=== PATIENT | female | born 1955 | race Caucasian/White ===

== ENCOUNTER 2016-04-22 09:52 | Outpatient (RCR) | payer OTHER ==
[~2016-04-22 09:52] MED LIST: ACET-2267 PO; ACHD5005 PO; AML2.5T; AML5T; AMLO5TAB2 PO; CEPH500C PO; GABA-488 PO; GBPN300C PO; LETR2.5T4 PO; NAPR-243 PO; ONDA-42 SL; ONDA8TAB6 PO; ONDA8TAB9 PO; PNT40TEC PO; PROP1TAB77 PO; TAMO20TA2 PO; THYROID 90 MG; TMXF10T PO; TRAM-21 PO; VENL150C PO
[2016-04-22 10:14] LABS: BASOPHILS % (AUTO) 0 % (0-10); EOSINOPHILS % (AUTO) 0 % (0-10); LYMPHOCYTES # (AUTO) 1.5 X 10^3 (1.0-4.0); LYMPHOCYTES % (AUTO) 34 % (12-44); MEAN CORPUSCULAR HEMOGLOBIN 32 PG (25-34); MEAN CORPUSCULAR HGB CONC 34 G/DL (32-36); MEAN CORPUSCULAR VOLUME 93 FL (80-99); MEAN PLATELET VOLUME 9.1 FL (7.4-10.4); MONOCYTES # (AUTO) 0.4 X 10^3 (0.0-1.0); MONOCYTES % (AUTO) 9 % (0-12); NEUTROPHILS # (AUTO) 2.5 X 10^3 (1.8-7.8); NEUTROPHILS % (AUTO) 56 % (42-75); PLATELET COUNT 190 10^3/uL (130-400); RED BLOOD COUNT 4.17 10^6/uL (4.35-5.85); RED CELL DISTRIBUTION WIDTH 12.3 % (10.0-14.5); WHITE BLOOD COUNT 4.4 10^3/uL (4.3-11.0)
[2016-04-22 10:52] LABS: ALANINE AMINOTRANSFERASE 17 U/L (0-55); ALBUMIN 4.3 G/DL (3.2-4.5); ANION GAP 6 MMOL/L (5-14); ASPARTATE AMINO TRANSFERASE 26 U/L (5-34); BILIRUBIN,TOTAL 0.5 MG/DL (0.1-1.0); BLOOD UREA NITROGEN 14 MG/DL (7-18); BUN/CREATININE RATIO 18; CALCIUM 8.9 MG/DL (8.5-10.1); CARBON DIOXIDE 26 MMOL/L (21-32); CHLORIDE 102 MMOL/L (98-107); GFR ESTIMATED > 60; GLUCOSE 87 MG/DL (70-105); POTASSIUM 3.9 MMOL/L (3.6-5.0); SODIUM 134 MMOL/L (135-145); TOTAL PROTEIN 6.3 G/DL (6.4-8.2)
== END 2016-07-21 | disposition home or self-care (01) ==
LOC: ONC 09:52
PROVIDERS: ATTEND Internal Medicine Hematology & Oncology
DX: Z08 Encounter for follow-up examination after completed treatment for malignant neoplasm (principal); Z85.3 Personal history of malignant neoplasm of breast; F17.210 Nicotine dependence, cigarettes, uncomplicated; M89.9 Disorder of bone, unspecified; Z92.3 Personal history of irradiation; Z92.21 Personal history of antineoplastic chemotherapy; Z79.899 Other long term (current) drug therapy
CPT/HCPCS: 36415; 80053; 85025

== ENCOUNTER → 2016-09-05 | Outpatient (CLI) | payer OTHER ==
[~2016-09-05] MED LIST changes: +RT-ALBUTEROL SULF 2.5 MG/3 ML PRE-MIX VIAL IH ONE
== END ==
LOC: RT 15:23
PROVIDERS: ATTEND Internal Medicine
DX: J44.9 Chronic obstructive pulmonary disease, unspecified (principal)
CPT/HCPCS: 94060; 94640; 94726; 94729

== ENCOUNTER → 2016-12-08 | Outpatient (CLI) | payer OTHER ==
[~2016-12-08] MED LIST changes: -RT-ALBUTEROL SULF 2.5 MG/3 ML PRE-MIX VIAL IH ONE
== END ==
LOC: RAD 11:49
PROVIDERS: ATTEND Family Medicine
DX: Z12.31 Encounter for screening mammogram for malignant neoplasm of breast (principal)
CPT/HCPCS: 77067

== ENCOUNTER 2017-01-29 13:02 | Outpatient (RCR) | payer OTHER ==
[2017-01-29 13:17] LABS: BASOPHILS % (AUTO) 1 % (0-10); EOSINOPHILS % (AUTO) 0 % (0-10); LYMPHOCYTES # (AUTO) 1.4 X 10^3 (1.0-4.0); LYMPHOCYTES % (AUTO) 39 % (12-44); MEAN CORPUSCULAR HEMOGLOBIN 30 PG (25-34); MEAN CORPUSCULAR HGB CONC 34 G/DL (32-36); MEAN CORPUSCULAR VOLUME 89 FL (80-99); MEAN PLATELET VOLUME 9.7 FL (7.4-10.4); MONOCYTES # (AUTO) 0.3 X 10^3 (0.0-1.0); MONOCYTES % (AUTO) 10 % (0-12); NEUTROPHILS # (AUTO) 1.8 X 10^3 (1.8-7.8); NEUTROPHILS % (AUTO) 51 % (42-75); PLATELET COUNT 158 10^3/uL (130-400); RED BLOOD COUNT 4.18 10^6/uL (4.35-5.85); WHITE BLOOD COUNT 3.5 10^3/uL (4.3-11.0)
[2017-01-29 13:36] LABS: ALBUMIN 4.2 GM/DL (3.2-4.5); BILIRUBIN,TOTAL 0.4 MG/DL (0.1-1.0); CALCIUM 9.1 MG/DL (8.5-10.1); CREATININE SERUM 1.08 MG/DL (0.60-1.30); POTASSIUM 4.1 MMOL/L (3.6-5.0); TOTAL PROTEIN 6.8 GM/DL (6.4-8.2)
== END 2017-02-14 | disposition home or self-care (01) ==
LOC: ONC 13:02
PROVIDERS: ATTEND Internal Medicine Hematology & Oncology
DX: Z08 Encounter for follow-up examination after completed treatment for malignant neoplasm (principal); Z85.3 Personal history of malignant neoplasm of breast; F17.210 Nicotine dependence, cigarettes, uncomplicated; M89.9 Disorder of bone, unspecified; Z92.3 Personal history of irradiation; Z92.21 Personal history of antineoplastic chemotherapy; Z79.899 Other long term (current) drug therapy
CPT/HCPCS: 36415; 80053; 85025; 99213

== ENCOUNTER → 2018-01-28 | Outpatient (CLI) | payer SELFPAY | LOC: ONC 15:41 | PROVIDERS: ATTEND Internal Medicine Hematology & Oncology | DX: Z08 Encounter for follow-up examination after completed treatment for malignant neoplasm (principal); Z85.3 Personal history of malignant neoplasm of breast; F17.210 Nicotine dependence, cigarettes, uncomplicated; M89.9 Disorder of bone, unspecified; Z92.3 Personal history of irradiation; Z92.21 Personal history of antineoplastic chemotherapy; Z79.899 Other long term (current) drug therapy | CPT/HCPCS: 99213 ==

== ENCOUNTER 2018-05-27 08:12 | Emergency (ER) | payer SELFPAY ==
[~2018-05-27] VITALS: Ht 162.6 cm; Wt 59.0 kg
--- OUTSIDE RECORDS SUMMARY | 2018-05-27 08:17 | XMS REPORT ---
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 [employer] Name Role Phone YADIEL VILLAREAL Unavailable PROBLEMS Unknown Problems ALLERGIES Substance Reaction Event Type Date Status Codeine Sulfate nausea/vomiting Drug Allergy Jan, Active ENCOUNTERS Encounter Location Date Diagnosis [facility] [id number] [place] [phone] Jan, Impacted cerumen of right ear H61.21 [place] [id number] [place] [phone] Nov, Well woman exam (no gynecological exam) Z00.00 [facility] [id number] [place] [phone] Oct, Well woman exam with routine gynecological exam Z01.419 and Breast cancer screening Z12.39 IMMUNIZATIONS No Known Immunizations SOCIAL HISTORY Never Assessed REASON FOR VISIT right earache for the past 2 days. [email or web address] PLAN OF CARE Activity Details Follow Up prn Reason: VITAL SIGNS Height 64 in 2018-02-13 Weight 134.0 lbs 2018-02-13 Temperature 97.9 degrees Fahrenheit 2018-02-13 Heart Rate 82 bpm 2018-02-13 Respiratory Rate 20 2018-02-13 BMI 23.00 kg/m2 2018-02-13 Blood pressure systolic 100 mmHg 2018-02-13 Blood pressure diastolic 62 mmHg 2018-02-13 MEDICATIONS Medication Instructions Dosage Frequency Start Date End Date Duration Status Effexor XR 150 MG Orally Once a day 1 capsule with food 24h Active Amlodipine Besylate 10 MG Orally Once a day 1 tablet 24h Active Gabapentin 300 MG Orally in the morning 1 capsule in afternoon & 3 before bedtime 3 capsule Active Naprosyn 500 MG Orally every 12 hrs 1 tablet as needed 12h Active Pantoprazole Sodium 20 mg Orally Once a day 1 tablet 24h Active RESULTS No Results PROCEDURES No Known procedures INSTRUCTIONS MEDICATIONS ADMINISTERED No Known Medications MEDICAL (GENERAL) HISTORY Type Description Date Medical History Hypertension Medical History Osteoarthritis Medical History 2008 hx of right breast cancer Surgical History cyst removal left ovary Surgical History Right breast lumpectomy
--- OUTSIDE RECORDS SUMMARY | 2018-05-27 08:20 | XMS REPORT | Continuity of Care Document ---
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 625.9 FEM GENITAL SYMPTOMS NOS 02/04/2016 Ot 174.9 MALIGN NEOPL BREAST NOS 02/04/2016 Ot 305.1 TOBACCO USE DISORDER 02/04/2016 Ot 782.62 FLUSHING 02/04/2016 Ot V15.3 HX OF IRRADIATION 02/04/2016 Ot V58.69 OTH MED,LT, CURRENT USE 02/04/2016 Ot V86.0 ESTROGEN RECEPTOR POSITIVE STATUS [ER+] 02/04/2016 Ot V87.41 PERSONAL HISTORY OF ANTINEOPLASTIC CHEMO 02/04/2016 Ot 174.9 MALIGN NEOPL BREAST NOS 02/04/2016 Ot 782.62 FLUSHING 02/04/2016 Ot V15.3 HX OF IRRADIATION 02/04/2016 Ot V58.69 OTH MED,LT, CURRENT USE 02/04/2016 Ot V86.0 ESTROGEN RECEPTOR POSITIVE STATUS [ER+] 02/04/2016 Ot V87.41 PERSONAL HISTORY OF ANTINEOPLASTIC CHEMO 02/04/2016 Ot 174.9 MALIGN NEOPL BREAST NOS 02/04/2016 Ot 793.89 OTH (ABN) FINDINGS ON RADIOLOGICAL EXAMI 02/04/2016 Ot V49.81 ASYMPT POSTMENOPAUSAL STATUS (AGE-RELATE 02/04/2016 Ot V76.11 SCRN MAMMO- HIGH RISK PT, MALIGNANT NEOPL 02/04/2016 Ot 174.9 MALIGN NEOPL BREAST NOS 02/04/2016 Ot 174.9 MALIGN NEOPL BREAST NOS 02/04/2016 Ot 793.80 UNSPEC ABNORMAL MAMMOGRAM 02/04/2016 Ot 174.9 MALIGN NEOPL BREAST NOS 02/04/2016 ABBI MEEHAN Ot F17.210 NICOTINE DEPENDENCE, CIGARETTES, UNCOMPL 02/04/2016 ABBI MEEHAN Ot M89.9 DISORDER OF BONE, UNSPECIFIED 02/04/2016 ABBI MEEHAN Ot Z08 ENCNTR FOR FOLLOW-UP EXAM AFTER TRTMT FO 02/04/2016 ABBI MEEHAN Ot 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 02/04/2016 ABBI MEEHAN Ot Z85.3 PERSONAL HISTORY OF MALIGNANT NEOPLASM O 02/04/2016 ABBI MEEHAN Ot Z92.21 PERSONAL HISTORY OF ANTINEOPLASTIC CHEMO 02/04/2016 ABBI MEEHAN Ot Z92.3 PERSONAL HISTORY OF IRRADIATION 02/04/2016 Ot 625.9 FEM GENITAL SYMPTOMS NOS 02/04/2016 Ot 174.9 MALIGN NEOPL BREAST NOS 02/04/2016 Ot 305.1 TOBACCO USE DISORDER 02/04/2016 Ot 782.62 FLUSHING 02/04/2016 Ot V15.3 HX OF IRRADIATION 02/04/2016 Ot V58.69 OTH MED,LT, CURRENT USE 02/04/2016 Ot V86.0 ESTROGEN RECEPTOR POSITIVE STATUS [ER+] 02/04/2016 Ot V87.41 PERSONAL HISTORY OF ANTINEOPLASTIC CHEMO 02/04/2016 Ot 174.9 MALIGN NEOPL BREAST NOS 02/04/2016 Ot 782.62 FLUSHING 02/04/2016 Ot V15.3 HX OF IRRADIATION 02/04/2016 Ot V58.69 OTH MED,LT, CURRENT USE 02/04/2016 Ot V86.0 ESTROGEN RECEPTOR POSITIVE STATUS [ER+] 02/04/2016 Ot V87.41 PERSONAL HISTORY OF ANTINEOPLASTIC CHEMO 02/04/2016 Ot 174.9 MALIGN NEOPL BREAST NOS 02/04/2016 Ot 793.89 OTH (ABN) FINDINGS ON RADIOLOGICAL EXAMI 02/04/2016 Ot V49.81 ASYMPT POSTMENOPAUSAL STATUS (AGE-RELATE 02/04/2016 Ot V76.11 SCRN MAMMO- HIGH RISK PT, MALIGNANT NEOPL 02/04/2016 Ot 174.9 MALIGN NEOPL BREAST NOS 02/04/2016 Ot 174.9 MALIGN NEOPL BREAST NOS 02/04/2016 Ot 793.80 UNSPEC ABNORMAL MAMMOGRAM 02/04/2016 Ot 174.9 MALIGN NEOPL BREAST NOS 02/04/2016 ZORANABBI Ot F17.210 NICOTINE DEPENDENCE, CIGARETTES, UNCOMPL 02/04/2016 ABBI MEEHAN Ot M89.9 DISORDER OF BONE, UNSPECIFIED 02/04/2016 ABBI MEEHAN Ot Z08 ENCNTR FOR FOLLOW-UP EXAM AFTER TRTMT FO 02/04/2016 ABBI MEEHAN Ot 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 02/04/2016 ABBI MEEHAN Ot Z85.3 PERSONAL HISTORY OF MALIGNANT NEOPLASM O 02/04/2016 ABBI MEEHAN Ot Z92.21 PERSONAL HISTORY OF ANTINEOPLASTIC CHEMO 02/04/2016 ABBI MEEHAN Ot Z92.3 PERSONAL HISTORY OF IRRADIATION 02/05/2016 MARV PANTOJA Ot C50.411 MALIG NEOPLM OF UPPER-OUTER QUADRANT OF 02/05/2016 MARV PANTOJA Ot M25.551 PAIN IN RIGHT HIP 02/18/2016 Ot 611.72 LUMP OR MASS IN BREAST 02/18/2016 Ot 793.80 UNSPEC ABNORMAL MAMMOGRAM 02/18/2016 Ot V10.3 HX OF BREAST MALIGNANCY 02/18/2016 Ot 729.5 PAIN IN LIMB 02/18/2016 Ot 174.9 MALIGN NEOPL BREAST NOS 02/18/2016 Ot 305.1 TOBACCO USE DISORDER 02/18/2016 Ot 719.40 JOINT PAIN- UNSPEC 02/18/2016 Ot 733.90 BONE CARTILAGE DIS NOS 02/18/2016 Ot V15.3 HX OF IRRADIATION 02/18/2016 Ot V58.69 OTH MED,LT, CURRENT USE 02/18/2016 Ot V86.0 ESTROGEN RECEPTOR POSITIVE STATUS [ER+] 02/18/2016 Ot V87.41 PERSONAL HISTORY OF ANTINEOPLASTIC CHEMO 02/18/2016 Ot 174.9 MALIGN NEOPL BREAST NOS 02/18/2016 PANTOJA, HILAH S FURNITURE FINISHER APPRENTICE Ot 174.9 MALIGN NEOPL BREAST NOS 02/18/2016 MARV PANTOJA FURNITURE FINISHER APPRENTICE Ot 305.1 TOBACCO USE DISORDER 02/18/2016 MARV PANTOJA FURNITURE FINISHER APPRENTICE Ot 719.45 JOINT PAIN-PELVIS 02/18/2016 MARV PANTOJA FURNITURE FINISHER APPRENTICE Ot 780.79 OTH MALAISE FATIGUE 02/18/2016 MARV PANTOJA FURNITURE FINISHER APPRENTICE Ot 782.62 FLUSHING 02/18/2016 MARV PANTOJA FURNITURE FINISHER APPRENTICE Ot V15.3 HX OF IRRADIATION 02/18/2016 MARV PANTOJA FURNITURE FINISHER APPRENTICE Ot V58.69 OTH MED,LT,CURRENT USE 02/18/2016 MARV PANTOJA FURNITURE FINISHER APPRENTICE Ot V86.0 ESTROGEN RECEPTOR POSITIVE STATUS [ER+] 02/18/2016 MARV PANTOJA FURNITURE FINISHER APPRENTICE Ot V87.41 PERSONAL HISTORY OF ANTINEOPLASTIC CHEMO 02/18/2016 MARV PANTOJA FURNITURE FINISHER APPRENTICE Ot 174.9 MALIGN NEOPL BREAST NOS 02/18/2016 MARV PANTOJA FURNITURE FINISHER APPRENTICE Ot 719.45 JOINT PAIN-PELVIS 02/18/2016 ZORANABBI N Ot 174.9 MALIGN NEOPL BREAST NOS 02/18/2016 ZORANABBI N Ot 793.89 OTH (ABN) FINDINGS ON RADIOLOGICAL EXAMI 02/18/2016 MARV PANTOJA FURNITURE FINISHER APPRENTICE Ot 174.9 MALIGN NEOPL BREAST NOS 02/18/2016 MARV PANTOJA FURNITURE FINISHER APPRENTICE Ot 305.1 TOBACCO USE DISORDER 02/18/2016 MARV PANTOJA FURNITURE FINISHER APPRENTICE Ot 733.90 BONE CARTILAGE DIS NOS 02/18/2016 MARV PANTOJA FURNITURE FINISHER APPRENTICE Ot V15.3 HX OF IRRADIATION 02/18/2016 MARV PANTOJA FURNITURE FINISHER APPRENTICE Ot V58.69 OTH MED,LT,CURRENT USE 02/18/2016 MARV PANTOJA FURNITURE FINISHER APPRENTICE Ot V86.0 ESTROGEN RECEPTOR POSITIVE STATUS [ER+] 02/18/2016 MARV PANTOJA FURNITURE FINISHER APPRENTICE Ot V87.41 PERSONAL HISTORY OF ANTINEOPLASTIC CHEMO 02/18/2016 MARV PANTOJA FURNITURE FINISHER APPRENTICE Ot 174.9 MALIGN NEOPL BREAST NOS 02/18/2016 MARV PANTOJAP Ot V49.81 ASYMPT POSTMENOPAUSAL STATUS (AGE-RELATE 02/18/2016 MARV PANTOJA FURNITURE FINISHER APPRENTICE Ot V67.51 F/U EXAM-HIGH RISK RX 02/18/2016 MARV PANTOJAP Ot V82.81 SCREENING FOR OSTEOPOROSIS 02/18/2016 ABBI MEEHAN Marie Ot 174.9 MALIGN NEOPL BREAST NOS 02/18/2016 ABBI MEEHAN Ot F17.210 NICOTINE DEPENDENCE, CIGARETTES, UNCOMPL 02/18/2016 ABBI MEEHAN Ot M89.9 DISORDER OF BONE, UNSPECIFIED 02/18/2016 ABBI MEEHAN Ot Z08 ENCNTR FOR FOLLOW-UP EXAM AFTER TRTMT FO 02/18/2016 ABBI MEEHAN Ot Z79.899 OTHER SENIOR LIVING (CURRENT) DRUG THERAPY 02/18/2016 ABBI MEEHAN Ot Z85.3 PERSONAL HISTORY OF MALIGNANT NEOPLASM O 02/18/2016 ABBI MEEHAN Ot Z92.21 PERSONAL HISTORY OF ANTINEOPLASTIC CHEMO 02/18/2016 ABBI MEEHAN Marie Ot Z92.3 PERSONAL HISTORY OF IRRADIATION 02/18/2016 Ot 719.00 JOINT EFFUSION-UNSPEC 02/18/2016 Ot 719.40 JOINT PAIN- UNSPEC 02/18/2016 MARV PANTOJA FURNITURE FINISHER APPRENTICE Ot 174.9 MALIGN NEOPL BREAST NOS 02/18/2016 MARV PANTOJAP Ot 305.1 TOBACCO USE DISORDER 02/18/2016 MARV PANTOJAP Ot 733.90 BONE CARTILAGE DIS NOS 02/18/2016 MARV PANTOJAP Ot V15.3 HX OF IRRADIATION 02/18/2016 MARV PANTOJAP Ot V58.69 OTH MED,LT,CURRENT USE 02/18/2016 MARV PANTOJA FURNITURE FINISHER APPRENTICE Ot V86.0 ESTROGEN RECEPTOR POSITIVE STATUS [ER+] 02/18/2016 MARV PANTOJA FURNITURE FINISHER APPRENTICE Ot V87.41 PERSONAL HISTORY OF ANTINEOPLASTIC CHEMO 02/18/2016 AGUILAR ECHEVARRIAP Ot Z12.31 ENCNTR SCREEN MAMMOGRAM FOR MALIGNANT NE 02/20/2016 MARV PANTOJA FURNITURE FINISHER APPRENTICE Ot C50.411 MALIG NEOPLM OF UPPER-OUTER QUADRANT OF 02/20/2016 MARV PANTOJA FURNITURE FINISHER APPRENTICE Ot R93.7 ABNORMAL FINDINGS ON DIAGNOSTIC IMAGING 02/26/2016 Ot 611.72 LUMP OR MASS IN BREAST 02/26/2016 Ot 793.80 UNSPEC ABNORMAL MAMMOGRAM 02/26/2016 Ot V10.3 HX OF BREAST MALIGNANCY 02/26/2016 Ot 729.5 PAIN IN LIMB 02/26/2016 Ot 174.9 MALIGN NEOPL BREAST NOS 02/26/2016 Ot 305.1 TOBACCO USE DISORDER 02/26/2016 Ot 719.40 JOINT PAIN- UNSPEC 02/26/2016 Ot 733.90 BONE CARTILAGE DIS NOS 02/26/2016 Ot V15.3 HX OF IRRADIATION 02/26/2016 Ot V58.69 OTH MED,LT, CURRENT USE 02/26/2016 Ot V86.0 ESTROGEN RECEPTOR POSITIVE STATUS [ER+] 02/26/2016 Ot V87.41 PERSONAL HISTORY OF ANTINEOPLASTIC CHEMO 02/26/2016 Ot 174.9 MALIGN NEOPL BREAST NOS 02/26/2016 MARV PANTOJA FURNITURE FINISHER APPRENTICE Ot 174.9 MALIGN NEOPL BREAST NOS 02/26/2016 MARV PANTOJA FURNITURE FINISHER APPRENTICE Ot 305.1 TOBACCO USE DISORDER 02/26/2016 MARV PANTOJA FURNITURE FINISHER APPRENTICE Ot 719.45 JOINT PAIN-PELVIS 02/26/2016 MARV PANTOJA FURNITURE FINISHER APPRENTICE Ot 780.79 OTH MALAISE FATIGUE 02/26/2016 MARV PANTOJA FURNITURE FINISHER APPRENTICE Ot 782.62 FLUSHING 02/26/2016 MARV PANTOJA FURNITURE FINISHER APPRENTICE Ot V15.3 HX OF IRRADIATION 02/26/2016 MARV PANTOJAP Ot V58.69 OTH MED,LT,CURRENT USE 02/26/2016 MARV PANTOJA FURNITURE FINISHER APPRENTICE Ot V86.0 ESTROGEN RECEPTOR POSITIVE STATUS [ER+] 02/26/2016 MARV PANTOJA FURNITURE FINISHER APPRENTICE Ot V87.41 PERSONAL HISTORY OF ANTINEOPLASTIC CHEMO 02/26/2016 MARV PANTOJA FURNITURE FINISHER APPRENTICE Ot 174.9 MALIGN NEOPL BREAST NOS 02/26/2016 MARV PANTOJA FURNITURE FINISHER APPRENTICE Ot 719.45 JOINT PAIN-PELVIS 02/26/2016 ABBI MEEHAN Ot 174.9 MALIGN NEOPL BREAST NOS 02/26/2016 ABBI MEEHAN Ot 793.89 OTH (ABN) FINDINGS ON RADIOLOGICAL EXAMI 02/26/2016 MARV PANTOJA FURNITURE FINISHER APPRENTICE Ot 174.9 MALIGN NEOPL BREAST NOS 02/26/2016 MARV PANTOJA FURNITURE FINISHER APPRENTICE Ot 305.1 TOBACCO USE DISORDER 02/26/2016 MARV PANTOJA FURNITURE FINISHER APPRENTICE Ot 733.90 BONE CARTILAGE DIS NOS 02/26/2016 MARV PANTOJA FURNITURE FINISHER APPRENTICE Ot V15.3 HX OF IRRADIATION 02/26/2016 MARV PANTOJAP Ot V58.69 OTH MED,LT,CURRENT USE 02/26/2016 MARV PANTOJAP Ot V86.0 ESTROGEN RECEPTOR POSITIVE STATUS [ER+] 02/26/2016 MARV PANTOJA FURNITURE FINISHER APPRENTICE Ot V87.41 PERSONAL HISTORY OF ANTINEOPLASTIC CHEMO 02/26/2016 MARV PANTOJA FURNITURE FINISHER APPRENTICE Ot 174.9 MALIGN NEOPL BREAST NOS 02/26/2016 MARV PANTOJAP Ot V49.81 ASYMPT POSTMENOPAUSAL STATUS (AGE-RELATE 02/26/2016 MARV PANTOJA FURNITURE FINISHER APPRENTICE Ot V67.51 F/U EXAM-HIGH RISK RX 02/26/2016 MARV PANTOJAP Ot V82.81 SCREENING FOR OSTEOPOROSIS 02/26/2016 ABBI MEEHAN Ot 174.9 MALIGN NEOPL BREAST NOS 02/26/2016 ABBI MEEHAN Ot F17.210 NICOTINE DEPENDENCE, CIGARETTES, UNCOMPL 02/26/2016 ABBI MEEHAN Ot M89.9 DISORDER OF BONE, UNSPECIFIED 02/26/2016 ABBI MEEHAN Ot Z08 ENCNTR FOR FOLLOW-UP EXAM AFTER TRTMT FO 02/26/2016 ABBI MEEHAN Ot 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 02/26/2016 ABBI MEEHAN Ot Z85.3 PERSONAL HISTORY OF MALIGNANT NEOPLASM O 02/26/2016 ABBI MEEHAN Ot Z92.21 PERSONAL HISTORY OF ANTINEOPLASTIC CHEMO 02/26/2016 ABBI MEEHAN Ot Z92.3 PERSONAL HISTORY OF IRRADIATION 02/26/2016 Ot 719.00 JOINT EFFUSION-UNSPEC 02/26/2016 Ot 719.40 JOINT PAIN- UNSPEC 02/26/2016 MARV PANTOJA FURNITURE FINISHER APPRENTICE Ot 174.9 MALIGN NEOPL BREAST NOS 02/26/2016 MARV PANTOJA FURNITURE FINISHER APPRENTICE Ot 305.1 TOBACCO USE DISORDER 02/26/2016 MARV PANTOJA FURNITURE FINISHER APPRENTICE Ot 733.90 BONE CARTILAGE DIS NOS 02/26/2016 MARV PANTOJA FURNITURE FINISHER APPRENTICE Ot V15.3 HX OF IRRADIATION 02/26/2016 MARV PANTOJA FURNITURE FINISHER APPRENTICE Ot V58.69 OTH MED,LT,CURRENT USE 02/26/2016 MARV PANTOJA FURNITURE FINISHER APPRENTICE Ot V86.0 ESTROGEN RECEPTOR POSITIVE STATUS [ER+] 02/26/2016 MARV PANTOJA FURNITURE FINISHER APPRENTICE Ot V87.41 PERSONAL HISTORY OF ANTINEOPLASTIC CHEMO 02/26/2016 AGUILAR ECHEVARRIA PAVER OPERATOR Ot Z12.31 ENCNTR SCREEN MAMMOGRAM FOR MALIGNANT NE 02/26/2016 MARV PANTOJA FURNITURE FINISHER APPRENTICE Ot C50.411 MALIG NEOPLM OF UPPER-OUTER QUADRANT OF 02/26/2016 MARV PANTOJA FURNITURE FINISHER APPRENTICE Ot R93.7 ABNORMAL FINDINGS ON DIAGNOSTIC IMAGING 02/26/2016 MARV PANTOJA FURNITURE FINISHER APPRENTICE Ot C50.411 MALIG NEOPLM OF UPPER-OUTER QUADRANT OF 02/26/2016 MARV PANTOJA FURNITURE FINISHER APPRENTICE Ot M25.551 PAIN IN RIGHT HIP 02/27/2016 PANTOJAMARV Mcallister FURNITURE FINISHER APPRENTICE Ot C50.411 MALIG NEOPLM OF UPPER-OUTER QUADRANT OF 02/27/2016 MARV PANTOJA FURNITURE FINISHER APPRENTICE Ot M25.551 PAIN IN RIGHT HIP 03/05/2016 ABBI MEEHAN Ot F17.210 NICOTINE DEPENDENCE, CIGARETTES, UNCOMPL 03/05/2016 ABBI MEEHAN Ot M89.9 DISORDER OF BONE, UNSPECIFIED 03/05/2016 ABBI MEEHAN Ot Z08 ENCNTR FOR FOLLOW-UP EXAM AFTER TRTMT FO 03/05/2016 ABBI MEEHAN Ot 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 03/05/2016 ABBI MEEHAN Ot Z85.3 PERSONAL HISTORY OF MALIGNANT NEOPLASM O 03/05/2016 ABBI MEEHAN Ot Z92.21 PERSONAL HISTORY OF ANTINEOPLASTIC CHEMO 03/05/2016 ABBI MEEHAN Ot Z92.3 PERSONAL HISTORY OF IRRADIATION 03/21/2016 ZAHIDA ORR, KAVITA Danielson Ot R19.4 CHANGE IN BOWEL HABIT 03/21/2016 ZAHIDA ORR, KAVITA Danielson Ot Z01.818 ENCOUNTER FOR OTHER PREPROCEDURAL EXAMIN 03/24/2016 ZAHIDA ORR, KAVITA M Ot K57.90 DVRTCLOS OF INTEST, PART UNSP, W/O PERF 03/24/2016 ZAHIDA ORR, KAVITA Danielson Ot Z80.0 FAMILY HISTORY OF MALIGNANT NEOPLASM OF 03/25/2016 ZAHIDA ORR, KAVITA Danielson Ot K57.90 DVRTCLOS OF INTEST, PART UNSP, W/O PERF 03/25/2016 KAVITA TEAGUE MD Ot Z80.0 FAMILY HISTORY OF MALIGNANT NEOPLASM OF 04/01/2016 ABBI MEEHAN N Ot F17.210 NICOTINE DEPENDENCE, CIGARETTES, UNCOMPL 04/01/2016 ABBI MEEHAN N Ot M89.9 DISORDER OF BONE, UNSPECIFIED 04/01/2016 ABBI MEEHAN N Ot Z08 ENCNTR FOR FOLLOW-UP EXAM AFTER TRTMT FO 04/01/2016 ABBI MEEHAN N Ot 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 04/01/2016 ZORANABBI HOPE N Ot Z85.3 PERSONAL HISTORY OF MALIGNANT NEOPLASM O 04/01/2016 ABBI MEEHAN N Ot Z92.21 PERSONAL HISTORY OF ANTINEOPLASTIC CHEMO 04/01/2016 ABBI MEEHAN N Ot Z92.3 PERSONAL HISTORY OF IRRADIATION 04/01/2016 ABBI MEEHAN N Ot F17.210 NICOTINE DEPENDENCE, CIGARETTES, UNCOMPL 04/01/2016 ABBI MEEHAN N Ot M89.9 DISORDER OF BONE, UNSPECIFIED 04/01/2016 ABBI MEEHAN N Ot Z08 ENCNTR FOR FOLLOW-UP EXAM AFTER TRTMT FO 04/01/2016 ABBI MEEHAN N Ot Z79.899 OTHER SENIOR LIVING (CURRENT) DRUG THERAPY 04/01/2016 ABBI MEEHAN N Ot Z85.3 PERSONAL HISTORY OF MALIGNANT NEOPLASM O 04/01/2016 ABBI MEEHAN N Ot Z92.21 PERSONAL HISTORY OF ANTINEOPLASTIC CHEMO 04/01/2016 ABBI MEEHAN N Ot Z92.3 PERSONAL HISTORY OF IRRADIATION 04/17/2016 ZAHIDA ORR, KAVITA Danielson Ot K57.90 DVRTCLOS OF INTEST, PART UNSP, W/O PERF 04/17/2016 ZAHIDA ORR, KAVITA Danielson Ot Z80.0 FAMILY HISTORY OF MALIGNANT NEOPLASM OF 04/23/2016 MARV PANTOJA FURNITURE FINISHER APPRENTICE Ot M54.2 CERVICALGIA 04/23/2016 MARV PANTOJA FURNITURE FINISHER APPRENTICE Ot R93.7 ABNORMAL FINDINGS ON DIAGNOSTIC IMAGING 05/27/2016 MARV PANTOJA FURNITURE FINISHER APPRENTICE Ot M54.2 CERVICALGIA 05/27/2016 MARV PANTOJA FURNITURE FINISHER APPRENTICE Ot R93.7 ABNORMAL FINDINGS ON DIAGNOSTIC IMAGING 05/27/2016 ABBI MEEHAN Ot F17.210 NICOTINE DEPENDENCE, CIGARETTES, UNCOMPL 05/27/2016 ABBI MEEHAN Ot M89.9 DISORDER OF BONE, UNSPECIFIED 05/27/2016 ABBI MEEHAN Ot Z08 ENCNTR FOR FOLLOW-UP EXAM AFTER TRTMT FO 05/27/2016 ABBI MEEHAN Ot Z79.899 OTHER SENIOR LIVING (CURRENT) DRUG THERAPY 05/27/2016 ABBI MEEHAN N Ot Z85.3 PERSONAL HISTORY OF MALIGNANT NEOPLASM O 05/27/2016 ABBI MEEHAN N Ot Z92.21 PERSONAL HISTORY OF ANTINEOPLASTIC CHEMO 05/27/2016 ABBI MEEHAN N Ot Z92.3 PERSONAL HISTORY OF IRRADIATION 07/21/2016 ABBI MEEHAN Ot F17.210 NICOTINE DEPENDENCE, CIGARETTES, UNCOMPL 07/21/2016 ABBI MEEHAN Ot M89.9 DISORDER OF BONE, UNSPECIFIED 07/21/2016 ABBI MEEHAN N Ot Z08 ENCNTR FOR FOLLOW-UP EXAM AFTER TRTMT FO 07/21/2016 ABBI MEEHAN Ot 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 07/21/2016 ABBI MEEHAN N Ot Z85.3 PERSONAL HISTORY OF MALIGNANT NEOPLASM O 07/21/2016 ABBI MEEHAN N Ot Z92.21 PERSONAL HISTORY OF ANTINEOPLASTIC CHEMO 07/21/2016 ABBI MEEHAN N Ot Z92.3 PERSONAL HISTORY OF IRRADIATION 08/08/2016 Ot 174.9 MALIGN NEOPL BREAST NOS 08/08/2016 Ot 782.62 FLUSHING 08/08/2016 Ot V15.3 HX OF IRRADIATION 08/08/2016 Ot V58.69 OTH MED,LT, CURRENT USE 08/08/2016 Ot V86.0 ESTROGEN RECEPTOR POSITIVE STATUS [ER+] 08/08/2016 Ot V87.41 PERSONAL HISTORY OF ANTINEOPLASTIC CHEMO 08/08/2016 Ot 174.9 MALIGN NEOPL BREAST NOS 08/08/2016 Ot 793.89 OTH (ABN) FINDINGS ON RADIOLOGICAL EXAMI 08/08/2016 Ot V49.81 ASYMPT POSTMENOPAUSAL STATUS (AGE-RELATE 08/08/2016 Ot V76.11 SCRN MAMMO- HIGH RISK PT, MALIGNANT NEOPL 08/08/2016 Ot 174.9 MALIGN NEOPL BREAST NOS 08/08/2016 Ot 174.9 MALIGN NEOPL BREAST NOS 08/08/2016 Ot 793.80 UNSPEC ABNORMAL MAMMOGRAM 08/08/2016 Ot 174.9 MALIGN NEOPL BREAST NOS 08/08/2016 ABBI MEEHAN Marie Ot F17.210 NICOTINE DEPENDENCE, CIGARETTES, UNCOMPL 08/08/2016 ABBI MEEHAN Marie Ot M89.9 DISORDER OF BONE, UNSPECIFIED 08/08/2016 ABBI MEEHAN Marie Ot Z08 ENCNTR FOR FOLLOW-UP EXAM AFTER TRTMT FO 08/08/2016 ABBI MEEHAN Marie Ot 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 08/08/2016 ABBI MEEHAN Marie Ot Z85.3 PERSONAL HISTORY OF MALIGNANT NEOPLASM O 08/08/2016 BABI MEEHAN Marie Ot Z92.21 PERSONAL HISTORY OF ANTINEOPLASTIC CHEMO 08/08/2016 ABBI MEEHAN Marie Ot Z92.3 PERSONAL HISTORY OF IRRADIATION 09/05/2016 Ot 611.72 LUMP OR MASS IN BREAST 09/05/2016 Ot 793.80 UNSPEC ABNORMAL MAMMOGRAM 09/05/2016 Ot V10.3 HX OF BREAST MALIGNANCY 09/05/2016 Ot 729.5 PAIN IN LIMB 09/05/2016 Ot 174.9 MALIGN NEOPL BREAST NOS 09/05/2016 Ot 305.1 TOBACCO USE DISORDER 09/05/2016 Ot 719.40 JOINT PAIN- UNSPEC 09/05/2016 Ot 733.90 BONE CARTILAGE DIS NOS 09/05/2016 Ot V15.3 HX OF IRRADIATION 09/05/2016 Ot V58.69 OTH MED,LT, CURRENT USE 09/05/2016 Ot V86.0 ESTROGEN RECEPTOR POSITIVE STATUS [ER+] 09/05/2016 Ot V87.41 PERSONAL HISTORY OF ANTINEOPLASTIC CHEMO 09/05/2016 Ot 174.9 MALIGN NEOPL BREAST NOS 09/05/2016 MAVR PANTOJA FURNITURE FINISHER APPRENTICE Ot 174.9 MALIGN NEOPL BREAST NOS 09/05/2016 MARV PANTOJA FURNITURE FINISHER APPRENTICE Ot 305.1 TOBACCO USE DISORDER 09/05/2016 MARV PANTOJA FURNITURE FINISHER APPRENTICE Ot 719.45 JOINT PAIN-PELVIS 09/05/2016 MARV PANTOJA FURNITURE FINISHER APPRENTICE Ot 780.79 OTH MALAISE FATIGUE 09/05/2016 MARV PANTOJA FURNITURE FINISHER APPRENTICE Ot 782.62 FLUSHING 09/05/2016 MAVR PANTOJA FURNITURE FINISHER APPRENTICE Ot V15.3 HX OF IRRADIATION 09/05/2016 MARV PANTOJAP Ot V58.69 OTH MED,LT,CURRENT USE 09/05/2016 MARV PANTOJA FURNITURE FINISHER APPRENTICE Ot V86.0 ESTROGEN RECEPTOR POSITIVE STATUS [ER+] 09/05/2016 MARV PANTOJA FURNITURE FINISHER APPRENTICE Ot V87.41 PERSONAL HISTORY OF ANTINEOPLASTIC CHEMO 09/05/2016 MARV PANTOJA FURNITURE FINISHER APPRENTICE Ot 174.9 MALIGN NEOPL BREAST NOS 09/05/2016 MARV PANTOJA FURNITURE FINISHER APPRENTICE Ot 719.45 JOINT PAIN-PELVIS 09/05/2016 ABBI MEEHAN Ot 174.9 MALIGN NEOPL BREAST NOS 09/05/2016 ABBI MEEHAN Ot 793.89 OTH (ABN) FINDINGS ON RADIOLOGICAL EXAMI 09/05/2016 MARV PANTOJA FURNITURE FINISHER APPRENTICE Ot 174.9 MALIGN NEOPL BREAST NOS 09/05/2016 MARV PANTOJA FURNITURE FINISHER APPRENTICE Ot 305.1 TOBACCO USE DISORDER 09/05/2016 MARV PANTOJA FURNITURE FINISHER APPRENTICE Ot 733.90 BONE CARTILAGE DIS NOS 09/05/2016 MARV PANTOJAP Ot V15.3 HX OF IRRADIATION 09/05/2016 MARV PANTOJAP Ot V58.69 OTH MED,LT,CURRENT USE 09/05/2016 MARV PANTOJA FURNITURE FINISHER APPRENTICE Ot V86.0 ESTROGEN RECEPTOR POSITIVE STATUS [ER+] 09/05/2016 MARV PANTOJA FURNITURE FINISHER APPRENTICE Ot V87.41 PERSONAL HISTORY OF ANTINEOPLASTIC CHEMO 09/05/2016 MARV PANTOJA FURNITURE FINISHER APPRENTICE Ot 174.9 MALIGN NEOPL BREAST NOS 09/05/2016 MARV PANTOJA FURNITURE FINISHER APPRENTICE Ot V49.81 ASYMPT POSTMENOPAUSAL STATUS (AGE-RELATE 09/05/2016 MARV PANTOJA FURNITURE FINISHER APPRENTICE Ot V67.51 F/U EXAM-HIGH RISK RX 09/05/2016 MARV PANTOJA FURNITURE FINISHER APPRENTICE Ot V82.81 SCREENING FOR OSTEOPOROSIS 09/05/2016 ABBI MEEHAN Ot 174.9 MALIGN NEOPL BREAST NOS 09/05/2016 Ot 719.00 JOINT EFFUSION-UNSPEC 09/05/2016 Ot 719.40 JOINT PAIN- UNSPEC 09/05/2016 MARV PANTOJA Ary FURNITURE FINISHER APPRENTICE Ot 174.9 MALIGN NEOPL BREAST NOS 09/05/2016 JOSE PANTOJAMINA Mcallister FURNITURE FINISHER APPRENTICE Ot 305.1 TOBACCO USE DISORDER 09/05/2016 MARV PANTOJA FURNITURE FINISHER APPRENTICE Ot 733.90 BONE CARTILAGE DIS NOS 09/05/2016 MARV PANTOJA FURNITURE FINISHER APPRENTICE Ot V15.3 HX OF IRRADIATION 09/05/2016 MARV PANTOJA Ary FURNITURE FINISHER APPRENTICE Ot V58.69 OTH MED,LT,CURRENT USE 09/05/2016 MARV PANTOJA FURNITURE FINISHER APPRENTICE Ot V86.0 ESTROGEN RECEPTOR POSITIVE STATUS [ER+] 09/05/2016 MARV PANTOJA Ary FURNITURE FINISHER APPRENTICE Ot V87.41 PERSONAL HISTORY OF ANTINEOPLASTIC CHEMO 09/05/2016 AGUILAR ECHEVARRIA [facility] Ot Z12.31 ENCNTR SCREEN MAMMOGRAM FOR MALIGNANT NE 09/05/2016 MARV PANTOJA FURNITURE FINISHER APPRENTICE Ot C50.411 MALIG NEOPLM OF UPPER-OUTER QUADRANT OF 09/05/2016 MARV PANTOJA FURNITURE FINISHER APPRENTICE Ot M25.551 PAIN IN RIGHT HIP 09/05/2016 MARV PANTOJA FURNITURE FINISHER APPRENTICE Ot C50.411 MALIG NEOPLM OF UPPER-OUTER QUADRANT OF 09/05/2016 MARV PANTOJA FURNITURE FINISHER APPRENTICE Ot R93.7 ABNORMAL FINDINGS ON DIAGNOSTIC IMAGING 09/05/2016 MARV PANTOJA FURNITURE FINISHER APPRENTICE Ot M54.2 CERVICALGIA 09/05/2016 MARV PANTOJA Ary FURNITURE FINISHER APPRENTICE Ot R93.7 ABNORMAL FINDINGS ON DIAGNOSTIC IMAGING 09/08/2016 RICH HORNER DO Ot J44.9 CHRONIC OBSTRUCTIVE PULMONARY DISEASE, U 09/09/2016 RICH HORNER DO Ot J44.9 CHRONIC OBSTRUCTIVE PULMONARY DISEASE, U 09/24/2016 Ot 174.9 MALIGN NEOPL BREAST NOS 09/24/2016 Ot 793.89 OTH (ABN) FINDINGS ON RADIOLOGICAL EXAMI 09/24/2016 Ot V49.81 ASYMPT POSTMENOPAUSAL STATUS (AGE-RELATE 09/24/2016 Ot V76.11 SCRN MAMMO- HIGH RISK PT, MALIGNANT NEOPL 09/24/2016 Ot 174.9 MALIGN NEOPL BREAST NOS 09/24/2016 Ot 174.9 MALIGN NEOPL BREAST NOS 09/24/2016 Ot 793.80 UNSPEC ABNORMAL MAMMOGRAM 09/24/2016 Ot 174.9 MALIGN NEOPL BREAST NOS 09/24/2016 ABBI MEEHAN Ot F17.210 NICOTINE DEPENDENCE, CIGARETTES, UNCOMPL 09/24/2016 ABBI MEEHAN Ot M89.9 DISORDER OF BONE, UNSPECIFIED 09/24/2016 ABBI MEEHAN Marie Ot Z08 ENCNTR FOR FOLLOW-UP EXAM AFTER TRTMT FO 09/24/2016 ABBI MEEHAN Marie Ot 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 09/24/2016 ABBI MEEHAN Marie Ot Z85.3 PERSONAL HISTORY OF MALIGNANT NEOPLASM O 09/24/2016 ABBI MEEHAN Marie Ot Z92.21 PERSONAL HISTORY OF ANTINEOPLASTIC CHEMO 09/24/2016 ABBI MEEHAN Marie Ot Z92.3 PERSONAL HISTORY OF IRRADIATION 09/24/2016 RICH HORNER DO Ot J44.9 CHRONIC OBSTRUCTIVE PULMONARY DISEASE, U 09/25/2016 RICH HORNER DO Ot J44.9 CHRONIC OBSTRUCTIVE PULMONARY DISEASE, U 12/04/2016 Ot 611.72 LUMP OR MASS IN BREAST 12/04/2016 Ot 793.80 UNSPEC ABNORMAL MAMMOGRAM 12/04/2016 Ot V10.3 HX OF BREAST MALIGNANCY 12/04/2016 Ot 729.5 PAIN IN LIMB 12/04/2016 Ot 174.9 MALIGN NEOPL BREAST NOS 12/04/2016 Ot 305.1 TOBACCO USE DISORDER 12/04/2016 Ot 719.40 JOINT PAIN- UNSPEC 12/04/2016 Ot 733.90 BONE CARTILAGE DIS NOS 12/04/2016 Ot V15.3 HX OF IRRADIATION 12/04/2016 Ot V58.69 OTH MED,LT, CURRENT USE 12/04/2016 Ot V86.0 ESTROGEN RECEPTOR POSITIVE STATUS [ER+] 12/04/2016 Ot V87.41 PERSONAL HISTORY OF ANTINEOPLASTIC CHEMO 12/04/2016 Ot 174.9 MALIGN NEOPL BREAST NOS 12/04/2016 MARV PANTOJA FURNITURE FINISHER APPRENTICE Ot 174.9 MALIGN NEOPL BREAST NOS 12/04/2016 MARV PANTOJA FURNITURE FINISHER APPRENTICE Ot 305.1 TOBACCO USE DISORDER 12/04/2016 MARV PANTOJA FURNITURE FINISHER APPRENTICE Ot 719.45 JOINT PAIN-PELVIS 12/04/2016 MARV PANTOJA FURNITURE FINISHER APPRENTICE Ot 780.79 OTH MALAISE FATIGUE 12/04/2016 MARV PANTOJA FURNITURE FINISHER APPRENTICE Ot 782.62 FLUSHING 12/04/2016 MARV PANTOJA FURNITURE FINISHER APPRENTICE Ot V15.3 HX OF IRRADIATION 12/04/2016 MARV PANTOJA FURNITURE FINISHER APPRENTICE Ot V58.69 OTH MED,LT,CURRENT USE 12/04/2016 MARV PANTOJA FURNITURE FINISHER APPRENTICE Ot V86.0 ESTROGEN RECEPTOR POSITIVE STATUS [ER+] 12/04/2016 MARV PANTOJA FURNITURE FINISHER APPRENTICE Ot V87.41 PERSONAL HISTORY OF ANTINEOPLASTIC CHEMO 12/04/2016 MARV PANTOJA FURNITURE FINISHER APPRENTICE Ot 174.9 MALIGN NEOPL BREAST NOS 12/04/2016 MARV PANTOJA FURNITURE FINISHER APPRENTICE Ot 719.45 JOINT PAIN-PELVIS 12/04/2016 ABBI MEEHAN N Ot 174.9 MALIGN NEOPL BREAST NOS 12/04/2016 ABBI MEEHAN Ot 793.89 OTH (ABN) FINDINGS ON RADIOLOGICAL EXAMI 12/04/2016 MARV PANTOJA FURNITURE FINISHER APPRENTICE Ot 174.9 MALIGN NEOPL BREAST NOS 12/04/2016 MARV PANTOJA FURNITURE FINISHER APPRENTICE Ot 305.1 TOBACCO USE DISORDER 12/04/2016 MARV PANTOJA FURNITURE FINISHER APPRENTICE Ot 733.90 BONE CARTILAGE DIS NOS 12/04/2016 MARV PANTOJA FURNITURE FINISHER APPRENTICE Ot V15.3 HX OF IRRADIATION 12/04/2016 MARV PANTOJA FURNITURE FINISHER APPRENTICE Ot V58.69 OTH MED,LT,CURRENT USE 12/04/2016 MARV PANTOJA FURNITURE FINISHER APPRENTICE Ot V86.0 ESTROGEN RECEPTOR POSITIVE STATUS [ER+] 12/04/2016 MARV PANTOJA FURNITURE FINISHER APPRENTICE Ot V87.41 PERSONAL HISTORY OF ANTINEOPLASTIC CHEMO 12/04/2016 MARV PANTOJA FURNITURE FINISHER APPRENTICE Ot 174.9 MALIGN NEOPL BREAST NOS 12/04/2016 MARV PANTOJA FURNITURE FINISHER APPRENTICE Ot V49.81 ASYMPT POSTMENOPAUSAL STATUS (AGE-RELATE 12/04/2016 MARV PANTOJA FURNITURE FINISHER APPRENTICE Ot V67.51 F/U EXAM-HIGH RISK RX 12/04/2016 PANTOJA, HILAH S FURNITURE FINISHER APPRENTICE Ot V82.81 SCREENING FOR OSTEOPOROSIS 12/04/2016 ABBI MEEHAN Ot 174.9 MALIGN NEOPL BREAST NOS 12/04/2016 Ot 719.00 JOINT EFFUSION-UNSPEC 12/04/2016 Ot 719.40 JOINT PAIN- UNSPEC 12/04/2016 MARV PANTOJA Ary FURNITURE FINISHER APPRENTICE Ot 174.9 MALIGN NEOPL BREAST NOS 12/04/2016 MARV PANTOJA FURNITURE FINISHER APPRENTICE Ot 305.1 TOBACCO USE DISORDER 12/04/2016 MARV PANTOJA FURNITURE FINISHER APPRENTICE Ot 733.90 BONE CARTILAGE DIS NOS 12/04/2016 MARV PANTOJA FURNITURE FINISHER APPRENTICE Ot V15.3 HX OF IRRADIATION 12/04/2016 MARV PANTOJA FURNITURE FINISHER APPRENTICE Ot V58.69 OTH MED,LT,CURRENT USE 12/04/2016 MARV PANTOJA FURNITURE FINISHER APPRENTICE Ot V86.0 ESTROGEN RECEPTOR POSITIVE STATUS [ER+] 12/04/2016 MRAV PANTOJA Ary FURNITURE FINISHER APPRENTICE Ot V87.41 PERSONAL HISTORY OF ANTINEOPLASTIC CHEMO 12/04/2016 AGUILAR ECHEVARRIA Ot Z12.31 ENCNTR SCREEN MAMMOGRAM FOR MALIGNANT NE 12/04/2016 MARV PANTOJA FURNITURE FINISHER APPRENTICE Ot C50.411 MALIG NEOPLM OF UPPER-OUTER QUADRANT OF 12/04/2016 MARV PANTOJA S FURNITURE FINISHER APPRENTICE Ot M25.551 PAIN IN RIGHT HIP 12/04/2016 MARV PANTOJA FURNITURE FINISHER APPRENTICE Ot C50.411 MALIG NEOPLM OF UPPER-OUTER QUADRANT OF 12/04/2016 MARV PANTOJA FURNITURE FINISHER APPRENTICE Ot R93.7 ABNORMAL FINDINGS ON DIAGNOSTIC IMAGING 12/04/2016 MARV PANTOJA FURNITURE FINISHER APPRENTICE Ot M54.2 CERVICALGIA 12/04/2016 MARV PANTOJA S FURNITURE FINISHER APPRENTICE Ot R93.7 ABNORMAL FINDINGS ON DIAGNOSTIC IMAGING 12/04/2016 RICH HORNER DO Ot J44.9 CHRONIC OBSTRUCTIVE PULMONARY DISEASE, U 01/28/2017 ABBI MEEHAN Ot F17.210 NICOTINE DEPENDENCE, CIGARETTES, UNCOMPL 01/28/2017 ABBI MEEHAN Ot M89.9 DISORDER OF BONE, UNSPECIFIED 01/28/2017 ABBI MEEHAN Ot Z08 ENCNTR FOR FOLLOW-UP EXAM AFTER TRTMT FO 01/28/2017 ABBI MEEHAN Ot Z79.899 OTHER SENIOR LIVING (CURRENT) DRUG THERAPY 01/28/2017 ZORANCLARKE HOPEJYOTHI N Ot Z85.3 PERSONAL HISTORY OF MALIGNANT NEOPLASM O 01/28/2017 ZORAN ABBI N Ot Z92.21 PERSONAL HISTORY OF ANTINEOPLASTIC CHEMO 01/28/2017 ZORAN ABBI N Ot Z92.3 PERSONAL HISTORY OF IRRADIATION 01/29/2017 ZORAN ABBI N Ot F17.210 NICOTINE DEPENDENCE, CIGARETTES, UNCOMPL 01/29/2017 ZORANABBI N Ot M89.9 DISORDER OF BONE, UNSPECIFIED 01/29/2017 ZORANABBI N Ot Z08 ENCNTR FOR FOLLOW-UP EXAM AFTER TRTMT FO 01/29/2017 ZORANABBI N Ot 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 01/29/2017 ZORANABBI N Ot Z85.3 PERSONAL HISTORY OF MALIGNANT NEOPLASM O 01/29/2017 ZORANABBI N Ot Z92.21 PERSONAL HISTORY OF ANTINEOPLASTIC CHEMO 01/29/2017 ZORANABBI N Ot Z92.3 PERSONAL HISTORY OF IRRADIATION 01/29/2017 ZORANABBI N Ot F17.210 NICOTINE DEPENDENCE, CIGARETTES, UNCOMPL 01/29/2017 ZORANABBI N Ot M89.9 DISORDER OF BONE, UNSPECIFIED 01/29/2017 ZORANABBI N Ot Z08 ENCNTR FOR FOLLOW-UP EXAM AFTER TRTMT FO 01/29/2017 ZORANABBI N Ot 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 01/29/2017 ZORANABBI N Ot Z85.3 PERSONAL HISTORY OF MALIGNANT NEOPLASM O 01/29/2017 ZORANABBI N Ot Z92.21 PERSONAL HISTORY OF ANTINEOPLASTIC CHEMO 01/29/2017 ZORANABBI N Ot Z92.3 PERSONAL HISTORY OF IRRADIATION 02/04/2017 ZORANABBI N Ot F17.210 NICOTINE DEPENDENCE, CIGARETTES, UNCOMPL 02/04/2017 ZORANABBI N Ot M89.9 DISORDER OF BONE, UNSPECIFIED 02/04/2017 ZORANABBI N Ot Z08 ENCNTR FOR FOLLOW-UP EXAM AFTER TRTMT FO 02/04/2017 ABBI MEEHAN N Ot 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 02/04/2017 ABBI MEEHAN N Ot Z85.3 PERSONAL HISTORY OF MALIGNANT NEOPLASM O 02/04/2017 ABBI MEEHAN N Ot Z92.21 PERSONAL HISTORY OF ANTINEOPLASTIC CHEMO 02/04/2017 ZORANABBI HOPE N Ot Z92.3 PERSONAL HISTORY OF IRRADIATION 02/14/2017 ABBI MEEHAN N Ot F17.210 NICOTINE DEPENDENCE, CIGARETTES, UNCOMPL 02/14/2017 ABBI MEEHAN N Ot M89.9 DISORDER OF BONE, UNSPECIFIED 02/14/2017 ABBI MEEHAN N Ot Z08 ENCNTR FOR FOLLOW-UP EXAM AFTER TRTMT FO 02/14/2017 ABBI MEEHAN N Ot Z79.899 OTHER SENIOR LIVING (CURRENT) DRUG THERAPY 02/14/2017 ABBI MEEHAN N Ot Z85.3 PERSONAL HISTORY OF MALIGNANT NEOPLASM O 02/14/2017 ABBI MEEHAN N Ot Z92.21 PERSONAL HISTORY OF ANTINEOPLASTIC CHEMO 02/14/2017 ABBI MEEHAN N Ot Z92.3 PERSONAL HISTORY OF IRRADIATION 01/29/2018 ABBI MEEHAN N Ot F17.210 NICOTINE DEPENDENCE, CIGARETTES, UNCOMPL 01/29/2018 ABBI MEEHAN N Ot M89.9 DISORDER OF BONE, UNSPECIFIED 01/29/2018 ZORANABBI HOPE N Ot Z08 ENCNTR FOR FOLLOW-UP EXAM AFTER TRTMT FO 01/29/2018 ABBI MEEHAN N Ot Z79.899 OTHER SENIOR LIVING (CURRENT) DRUG THERAPY 01/29/2018 ABBI MEEHAN N Ot Z85.3 PERSONAL HISTORY OF MALIGNANT NEOPLASM O 01/29/2018 ABBI MEEHAN N Ot Z92.21 PERSONAL HISTORY OF ANTINEOPLASTIC CHEMO 01/29/2018 ABBI MEEHAN N Ot Z92.3 PERSONAL HISTORY OF IRRADIATION 02/23/2018 RICH HORNER DO Ot J44.9 CHRONIC OBSTRUCTIVE PULMONARY DISEASE, U 02/23/2018 ABBI MEEHAN N Ot F17.210 NICOTINE DEPENDENCE, CIGARETTES, UNCOMPL 02/23/2018 ABBI MEEHAN N Ot M89.9 DISORDER OF BONE, UNSPECIFIED 02/23/2018 ZORANABBI N Ot Z08 ENCNTR FOR FOLLOW-UP EXAM AFTER TRTMT FO 02/23/2018 ABBI MEEHAN N Ot 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 02/23/2018 ABBI MEEHAN Ot Z85.3 PERSONAL HISTORY OF MALIGNANT NEOPLASM O 02/23/2018 ABBI MEEHAN Ot Z92.21 PERSONAL HISTORY OF ANTINEOPLASTIC CHEMO 02/23/2018 ABBI MEEHAN Ot Z92.3 PERSONAL HISTORY OF IRRADIATION 02/23/2018 Ot 611.72 02/23/2018 Ot V16.3 02/23/2018 Ot 611.72 02/23/2018 Ot V72.83 02/23/2018 Ot 174.9 02/23/2018 Ot 174.9 MALIGN NEOPL BREAST NOS 02/23/2018 Ot 174.9 MALIGN NEOPL BREAST NOS 02/23/2018 Ot 305.1 TOBACCO USE DISORDER 02/23/2018 Ot V15.3 HX OF IRRADIATION 02/23/2018 Ot V58.69 OTH MED,LT, CURRENT USE 02/23/2018 Ot V86.0 ESTROGEN RECEPTOR POSITIVE STATUS [ER+] 02/23/2018 Ot V87.41 PERSONAL HISTORY OF ANTINEOPLASTIC CHEMO 02/23/2018 Ot 174.9 MALIGN NEOPL BREAST NOS 02/23/2018 Ot 305.1 TOBACCO USE DISORDER 02/23/2018 Ot 782.62 FLUSHING 02/23/2018 Ot V15.3 HX OF IRRADIATION 02/23/2018 Ot V58.69 OTH MED,LT, CURRENT USE 02/23/2018 Ot V87.41 PERSONAL HISTORY OF ANTINEOPLASTIC CHEMO 02/23/2018 Ot 735.8 ACQ DEFORMITY OF TOE NEC 02/23/2018 Ot V72.83 EXAM PRE- OPERATIVE NEC 02/23/2018 Ot V74.8 SCREEN- BACTERIAL DIS NEC 02/23/2018 Ot 174.9 MALIGN NEOPL BREAST NOS 02/23/2018 Ot 305.1 TOBACCO USE DISORDER 02/23/2018 Ot 716.95 ARTHROPATHY NOS-PELVIS 02/23/2018 Ot 782.62 FLUSHING 02/23/2018 Ot V15.3 HX OF IRRADIATION 02/23/2018 Ot V58.69 OTH MED,LT, CURRENT USE 02/23/2018 Ot V86.0 ESTROGEN RECEPTOR POSITIVE STATUS [ER+] 02/23/2018 Ot V87.41 PERSONAL HISTORY OF ANTINEOPLASTIC CHEMO 02/23/2018 Ot 174.9 MALIGN NEOPL BREAST NOS 02/23/2018 Ot 174.9 MALIGN NEOPL BREAST NOS 02/23/2018 Ot 305.1 TOBACCO USE DISORDER 02/23/2018 Ot 782.62 FLUSHING 02/23/2018 Ot V15.3 HX OF IRRADIATION 02/23/2018 Ot V58.69 OTH MED,LT, CURRENT USE 02/23/2018 Ot V86.0 ESTROGEN RECEPTOR POSITIVE STATUS [ER+] 02/23/2018 Ot V87.41 PERSONAL HISTORY OF ANTINEOPLASTIC CHEMO 02/23/2018 Ot 625.9 FEM GENITAL SYMPTOMS NOS 02/23/2018 Ot 729.5 PAIN IN LIMB Procedures There is no data. Results There is no data. Encounters ACCT No. Visit Date/Time Discharge Status Pt. Type Provider Facility Loc./Unit Complaint [id number] 01/28/2018 15:41:00 01/28/2018 23:59:59 CLS Outpatient ABBI MEEHAN [facility] ONC [id number] 02/15/2017 02:40:00 02/15/2017 23:59:59 CLS Preadmit ABBI MEEHAN [facility] ONC [id number] 01/29/2017 13:02:00 02/14/2017 00:01:00 DIS Outpatient ABBI MEEHAN [facility] ONC [id number] 12/08/2016 11:49:00 12/08/2016 23:59:59 CLS Outpatient SILVER HOWELL MD [facility] RAD Z00.00 WELL WOMAN EXAM [id number] 09/05/2016 15:23:00 09/05/2016 23:59:59 CLS Outpatient RICH HORNER DO [facility] RT J44.9 [id number] 04/22/2016 09:52:00 07/21/2016 00:01:00 DIS Outpatient ABBI MEEHAN [facility] ONC [id number] 04/22/2016 10:18:00 04/22/2016 23:59:59 CLS Outpatient MARV PANTOJA [facility] RAD CERVICAL PAIN [id number] 01/29/2016 14:17:00 04/01/2016 14:26:00 DIS Outpatient ABBI MEEHAN [facility] ONC [id number] 03/24/2016 09:28:00 03/24/2016 12:50:00 DIS [facility] ABNORMAL CT [id number] 03/21/2016 05:35:00 03/21/2016 12:48:00 DIS Outpatient KAVITA TEAGUE MD [facility] PREOP CHANGE IN BOWEL HABITS; ABNORMAL CT [id number] 02/19/2016 16:34:00 02/19/2016 23:59:59 CLS Outpatient MARV PANTOJA FURNITURE FINISHER APPRENTICE [facility] RAD ABNORMAL BONE SCAN [id number] 02/04/2016 11:38:00 02/04/2016 23:59:59 CLS Outpatient MARV PANTOJA FURNITURE FINISHER APPRENTICE [facility] CARD RT HIP PAIN [id number] 11/07/2015 09:57:00 11/07/2015 23:59:59 CLS Outpatient AGUILAR ECHEVARRIA PAVER OPERATOR [facility] RAD SCREENING [id number] 12/18/2014 14:53:00 12/19/2014 16:03:00 DIS Outpatient LUKAS PALUMBO DAM WORKER [facility] REHAB SCIATICA [id number] 10/30/2014 14:14:00 10/30/2014 23:59:59 CLS Outpatient MARV PANTOJA FURNITURE FINISHER APPRENTICE [facility] ONC [id number] 08/05/2014 11:47:00 08/05/2014 14:15:00 DIS Emergency MILLA TRUJILLO DAM WORKER [facility] ER VOMITING,FEVER [id number] 06/24/2014 18:52:00 06/24/2014 23:59:59 CLS Emergency JC DOALYSSA K [facility] ER ANKLE PAIN [id number] 06/14/2014 14:17:00 06/14/2014 23:59:59 CLS Outpatient ABBI MEEHAN [facility] RAD BREAST CA [id number] 05/01/2014 13:10:00 05/01/2014 23:59:59 CLS Outpatient ABBI MEEHAN [facility] ONC [id number] 12/08/2013 11:21:00 12/08/2013 23:59:59 CLS Outpatient MRAV PANTOJA FURNITURE FINISHER APPRENTICE [facility] RAD BREAST CA,POST MENOPAUSAL [id number] 11/01/2013 14:07:00 11/01/2013 23:59:59 CLS Outpatient MARV PANTOJA FURNITURE FINISHER APPRENTICE [facility] ONC [id number] 04/28/2013 14:54:00 07/27/2013 00:01:00 DIS Outpatient ABBI MEEHAN Marie [facility] ONC [id number] 06/13/2013 13:46:00 06/13/2013 23:59:59 CLS Outpatient ABBI MEEHAN Marie [facility] RAD BREAST CA [id number] 12/10/2012 14:37:00 12/10/2012 14:54:00 DIS Emergency LIZETH LOTT [facility] ER SUTURE REMOVAL [id number] 12/06/2012 14:39:00 12/06/2012 14:56:00 DIS Emergency LIZETH LOTT [facility] ER WOUND CHECK [id number] 11/26/2012 14:40:00 11/26/2012 17:31:00 DIS Emergency LIZETH LOTT [facility] ER RIGHT MIDDLE FINGER INJURY [id number] 10/26/2012 14:46:00 10/26/2012 23:59:59 CLS Outpatient MARV PANTOJA [facility] RAD [id number] 10/26/2012 13:52:00 10/26/2012 23:59:59 CLS Outpatient MARV PANTOJA [facility] ONC [id number] 02/23/2018 10:40:00 Document Registration [id number] 02/23/2018 10:40:00 Document Registration [id number] 02/23/2018 10:40:00 Document Registration [id number] 02/04/2016 12:01:00 Document Registration [id number] 11/26/2015 17:01:00 Document Registration [id number] 11/26/2015 17:01:00 Document Registration [id number] 08/02/2014 08:19:00 Document Registration [id number] 06/11/2012 09:06:00 Document Registration [id number] 12/25/2011 14:21:00 Document Registration [id number] 12/22/2011 12:43:00 Document Registration [id number] 11/28/2011 10:27:00 Document Registration [id number] 06/16/2011 09:26:00 Document Registration [id number] 06/11/2011 14:49:00 Document Registration [id number] 06/09/2011 08:41:00 Document Registration [id number] 04/21/2011 13:09:00 Document Registration [id number] 03/12/2011 09:19:00 Document Registration [id number] 11/07/2010 13:41:00 Document Registration [id number] 10/24/2010 08:30:00 Document Registration [id number] 08/08/2010 14:55:00 Document Registration [id number] 06/10/2010 13:15:00 Document Registration [id number] 02/06/2010 08:54:00 Document Registration [id number] 01/30/2010 05:38:00 Document Registration [id number] 01/28/2010 15:22:00 Document Registration [id number] 11/08/2009 11:15:00 Document Registration [id number] 11/07/2009 09:42:00 Document Registration [id number] 07/31/2009 08:40:00 Document Registration [id number] 05/22/2009 12:37:00 Document Registration [id number] 04/26/2009 09:45:00 Document Registration [id number] 04/16/2009 09:17:00 Document Registration [id number] 01/04/2009 10:50:00 Document Registration [id number] 10/05/2008 16:45:00 Document Registration [id number] 07/17/2008 09:37:00 Document Registration [id number] 06/29/2008 10:57:00 Document Registration [id number] 06/05/2008 07:44:00 Document Registration [id number] 05/23/2008 14:50:00 Document Registration [id number] 12/18/2014 14:53:40 ACT Document Registration
[2018-05-27 08:53] LABS: BASOPHILS % (AUTO) 0 % (0-10); BILIRUBIN,URINE NEGATIVE (NEGATIVE); CLARITY,URINE CLEAR; COLOR,URINE YELLOW; EOSINOPHILS % (AUTO) 0 % (0-10); GLUCOSE, URINE (UA) NEGATIVE (NEGATIVE); HEMATOCRIT 40 % (35-52); KETONES,URINE 1+ (NEGATIVE); LEUKOCYTE ESTERASE ,URINE 1+ (NEGATIVE); LYMPHOCYTES # (AUTO) 0.7 X 10^3 (1.0-4.0); LYMPHOCYTES % (AUTO) 7 % (12-44); MEAN CORPUSCULAR HEMOGLOBIN 31 PG (25-34); MEAN CORPUSCULAR HGB CONC 35 G/DL (32-36); MEAN CORPUSCULAR VOLUME 89 FL (80-99); MEAN PLATELET VOLUME 9.8 FL (7.4-10.4); MONOCYTES # (AUTO) 0.5 X 10^3 (0.0-1.0); MONOCYTES % (AUTO) 5 % (0-12); NEUTROPHILS # (AUTO) 8.6 X 10^3 (1.8-7.8); NEUTROPHILS % (AUTO) 88 % (42-75); NITRITE,URINE NEGATIVE (NEGATIVE); PH,URINE 6 (5-9); PLATELET COUNT 173 10^3/uL (130-400); PROTEIN,URINE NEGATIVE (NEGATIVE); RED BLOOD COUNT 4.47 10^6/uL (4.35-5.85); RED CELL DISTRIBUTION WIDTH 12.8 % (10.0-14.5); UROBILINOGEN,URINE NORMAL (NORMAL); WHITE BLOOD COUNT 9.8 10^3/uL (4.3-11.0)
[2018-05-27 09:07] LABS: BACTERIA,URINE TRACE /HPF; WBC,URINE 0-2 /HPF
[2018-05-27 09:15] LABS: ALANINE AMINOTRANSFERASE 18 U/L (0-55); ALBUMIN 4.6 GM/DL (3.2-4.5); ALKALINE PHOSPHATASE 78 U/L (40-136); BILIRUBIN,TOTAL 0.8 MG/DL (0.1-1.0); BUN/CREATININE RATIO 19; CALCIUM 9.1 MG/DL (8.5-10.1); CARBON DIOXIDE 25 MMOL/L (21-32); CHLORIDE 101 MMOL/L (98-107); CREATININE SERUM 0.95 MG/DL (0.60-1.30); GFR ESTIMATED 59; GLUCOSE 90 MG/DL (70-105); POTASSIUM 4.4 MMOL/L (3.6-5.0); SODIUM 136 MMOL/L (135-145)
--- NOTE | 2018-05-27 09:34 | Diagnostic Imaging Report ---
INDICATION: Chest pain Portable chest 9:23 AM Heart size and pulmonary vascularity are normal. Lungs are clear. There are no effusions or pneumothoraces. IMPRESSION: Negative chest Dictated by: Dictated on workstation # [id number]
[2018-05-27 09:40] LABS: BAND NEUTROPHILS 11 %; BASOPHILS % (MANUAL) 2 %; EOSINOPHILS % (MANUAL) 0 %; LYMPHOCYTES % (MANUAL) 7 %; MONOCYTES % (MANUAL) 10 %; NEUTROPHILS % (MANUAL) 70 %; RBC MORPH NORMAL
--- NOTE | 2018-05-27 10:00 | ED General ---
General Chief Complaint: Cough/Cold/Flu Symptoms Stated Complaint: POSS PNEUMONIA;COUGH;WEAKNESS Nursing Triage Note: AMB TO ROOM REPORTS THAT SHE HAD A COUGH CONGESTION FOR 1 WEEK TODAY SHE IS FEELING WORSE WITH BODY ACHES AND WEAK. Nursing Sepsis Screen: No Definite Risk Source of Information: Patient Exam Limitations: No Limitations History of Present Illness Date Seen by Provider: May 27, 2018 Time Seen by Provider: 09:57 Initial Comments The patient is a 63-year-old white female. She states that she has had a cough for nearly a week. Yesterday and through the night and has gotten much harsher. She has experienced chest, abdominal muscle pain, and even urinary incontinence as a result of coughing. She is not aware of fever or chills. Timing/Duration: 6-7 Days Associated Systoms: Chest Pain, Cough Allergies and Home Medications Allergies Coded Allergies: codeine (Verified Allergy, Unknown, 06/19/08) Home Medications Acetaminophen 500 Mg Tablet, 1,000 MG PO DAILY, (Reported) take 2 (500mg) tab Amlodipine Besylate 5 Mg Tablet, 10 MG PO DAILY, (Reported) Gabapentin 300 Mg Cap, 900 MG PO BID, (Reported) take 3 (300mg) tabs Gabapentin 300 Mg Capsule, 300 MG PO DAILY@1200, (Reported) Pantoprazole Sodium 40 Mg Tablet.dr, 40 MG PO DAILY, (Reported) Venlafaxine Hcl 150 Mg Cap.sr.24h, 150 MG PO DAILY, (Reported) Patient Home Medication List Home Medication List Reviewed: Yes Review of Systems Review of Systems Constitutional: see HPI EENTM: no symptoms reported Respiratory: cough Cardiovascular: no symptoms reported Gastrointestinal: no symptoms reported Genitourinary: no symptoms reported Musculoskeletal: muscle pain Skin: no symptoms reported Psychiatric/Neurological: No Symptoms Reported Hematologic/Lymphatic: No Symptoms Reported Immunological/Allergic: no symptoms reported Past Yanolbq-Ulrqnu-Kxzpuv Hx Patient Social History Alcohol Use: Denies Use Recreational Drug Use: No Smoking Status: Current Everyday Smoker Type Used: Cigarettes Recent Foreign Travel: No Contact w/Someone Who Travel: No Recent Infectious Disease Expo: No Recent Hopitalizations: No Immunizations Up To Date Date of Influenza Vaccine: Mar 22, 2016 Seasonal Allergies Seasonal Allergies: Yes Past Medical History Surgeries: Yes (bartholin gland removed, ) Cystectomy, Lumpectomy, Orthopedic Respiratory: No Cardiac: Yes High Cholesterol Neurological: No Reproductive Disorders: No Sexually Transmitted Disease: No Gastrointestinal: Yes Chronic Constipation Musculoskeletal: Yes (ARTHRITIS) Arthritis Endocrine: No Cancer: Yes Breast Psychosocial: No Integumentary: No Blood Disorders: No Family Medical History No Pertinent Family Hx Physical Exam Vital Signs Vital Signs - First Documented 05/27/18 08:21 Temp 98.9 Pulse 88 Resp 18 B/P (MAP) 120/79 (93) Pulse Ox 98 O2 Delivery Room Air Capillary Refill : Less Than 3 Seconds Height, Weight, BMI Height: 5'4.00" Weight: 130lbs. 6.0oz. 58.150434vx; 22.4 BMI Method:Stated General Appearance: Mild Distress Eyes: Bilateral Eye Normal Inspection HEENT: Normal ENT Inspection Neck: Full Range of Motion, Normal Inspection, Non Tender, Supple, Carotid Bruit Respiratory: Chest Non Tender, Lungs Clear, Normal Breath Sounds, No Accessory Muscle Use, No Respiratory Distress Cardiovascular: Regular Rate, Rhythm, No Edema, No Gallop, No JVD, No Murmur, Normal Peripheral Pulses Gastrointestinal: Normal Bowel Sounds, No Organomegaly, No Pulsatile Mass, Non Tender, Soft Back: Normal Inspection, No CVA Tenderness, No Vertebral Tenderness Extremity: Normal Capillary Refill, Normal Inspection, Normal Range of Motion, Non Tender, No Calf Tenderness, No Pedal Edema Skin: Normal Color, Warm/Dry Lymphatic: No Adenopathy Progress/Results/Core Measures Suspected Sepsis Recent Fever Within 48 Hours: No Infection Criteria Present: None New/Unexplained Altered Menta: No Sepsis Screen: No Definite Risk SIRS Temperature:98.9 Pulse: 88 Respiratory Rate: 18 Laboratory Tests 05/27/18 08:43: White Blood Count 9.8 Blood Pressure 120 /79 Mean: 93 Laboratory Tests 05/27/18 08:43: Creatinine 0.95, Platelet Count 173, Total Bilirubin 0.8 Results/Orders Lab Results Laboratory Tests Test 05/27/18 08:43 Range/Units White Blood Count 9.8 4.3-11.0 10^3/uL Red Blood Count 4.47 4.35-5.85 10^6/uL Hemoglobin 14.0 11.5-16.0 G/DL Hematocrit 40 35-52 % Mean Corpuscular Volume 89 80-99 FL Mean Corpuscular Hemoglobin 31 25-34 PG Mean Corpuscular Hemoglobin Concent 35 32-36 G/DL Red Cell Distribution Width 12.8 10.0-14.5 % Platelet Count 173 130-400 10^3/uL Mean Platelet Volume 9.8 7.4-10.4 FL Neutrophils (%) (Auto) 88 H 42-75 % Lymphocytes (%) (Auto) 7 L 12-44 % Monocytes (%) (Auto) 5 0-12 % Eosinophils (%) (Auto) 0 0-10 % Basophils (%) (Auto) 0 0-10 % Neutrophils # (Auto) 8.6 H 1.8-7.8 X 10^3 Lymphocytes # (Auto) 0.7 L 1.0-4.0 X 10^3 Monocytes # (Auto) 0.5 0.0-1.0 X 10^3 Eosinophils # (Auto) 0.0 0.0-0.3 10^3/uL Basophils # (Auto) 0.0 0.0-0.1 10^3/uL Neutrophils % (Manual) 70 % Lymphocytes % (Manual) 7 % Monocytes % (Manual) 10 % Eosinophils % (Manual) 0 % Basophils % (Manual) 2 % Band Neutrophils 11 % Blood Morphology Comment NORMAL Urine Color YELLOW Urine Clarity CLEAR Urine pH 6 5-9 Urine Specific Closplint 1.020 1.016-1.022 Urine Protein NEGATIVE NEGATIVE Urine Glucose (UA) NEGATIVE NEGATIVE Urine Ketones 1+ H NEGATIVE Urine Nitrite NEGATIVE NEGATIVE Urine Bilirubin NEGATIVE NEGATIVE Urine Urobilinogen NORMAL NORMAL MG/DL Urine Leukocyte Esterase 1+ H NEGATIVE Urine RBC (Auto) NEGATIVE NEGATIVE Urine RBC NONE /HPF Urine WBC 0-2 /HPF Urine Squamous Epithelial Cells 2-5 /HPF Urine Crystals NONE /LPF Urine Bacteria TRACE /HPF Urine Casts NONE /LPF Urine Mucus SMALL H /LPF Urine Culture Indicated NO Sodium Level 136 135-145 MMOL/L Potassium Level 4.4 3.6-5.0 MMOL/L Chloride Level 101 98-107 MMOL/L Carbon Dioxide Level 25 21-32 MMOL/L Anion Gap 10 5-14 MMOL/L Blood Urea Nitrogen 18 7-18 MG/DL Creatinine 0.95 0.60-1.30 MG/DL Estimat Glomerular Filtration Rate 59 BUN/Creatinine Ratio 19 Glucose Level 90 70-105 MG/DL Calcium Level 9.1 8.5-10.1 MG/DL Corrected Calcium 8.5-10.1 MG/DL Total Bilirubin 0.8 0.1-1.0 MG/DL Aspartate Amino Transf (AST/SGOT) 29 5-34 U/L Alanine Aminotransferase (ALT/SGPT) 18 0-55 U/L Alkaline Phosphatase 78 40-136 U/L Total Protein 7.0 6.4-8.2 GM/DL Albumin 4.6 H 3.2-4.5 GM/DL Micro Results Microbiology 05/27/18 Influenza Types A,B Antigen ([facility]ION) - Final, Complete My Orders Orders - HELADIO BOSS MD Cbc With Automated Diff (05/27/18 08:31) Comprehensive Metabolic Panel (05/27/18 08:31) Ua Culture If Indicated (05/27/18 08:31) Influenza A And B Antigens (05/27/18 08:31) Manual Differential (05/27/18 08:43) Chest 1 View, Ap/Pa Only (05/27/18 09:08) Vital Signs/I&O 05/27/18 08:21 Temp 98.9 Pulse 88 Resp 18 B/P (MAP) 120/79 (93) Pulse Ox 98 O2 Delivery Room Air Capillary Refill : Less Than 3 Seconds Blood Pressure Mean: 93 Departure Communication (Admissions) CBC showed a normal white count. Flu assay was negative for a and B. Chest x- ray showed no evidence of infiltrate. Impression Primary Impression: viral/flulike illness Disposition: 01 HOME, SELF-CARE Condition: Stable/Unchanged Departure-Patient Inst. Decision time for Depature: 10:03 Referrals: RICH HORNER DO (PCP/Family) Primary Care Physician Patient Instructions: Cough, Adult (DC) Add. Discharge Instructions: All discharge instructions reviewed with patient and/or family. Voiced understanding. Rest. Lots of liquids. Tessalon Perles for cough suppression Scripts Benzonatate (TESSALON PERLES) 100 Mg Capsule 200 MG PO twice a day, #14 CAP Prov: HELADIO BOSS MD 05/27/18 HELADIO BOSS MD May 27, 2018 10:00
[2018-05-27] MEDS ORDERED: BENZ100C18 PO (10:04)
[2018-05-27 10:12] VITALS: BP 113/75
[2018-05-31] MEDS ORDERED: VENL150C98 PO (09:32)
[2018-05-31] MEDS ORDERED: AMLO10TA6 PO (09:32)
[2018-05-31] MEDS ORDERED: PANT40TA3 PO (09:32)
[2018-05-31] MEDS ORDERED: RT-ALBUINH IH (09:33)
[2018-05-31] MEDS ORDERED: GABA-488 PO (09:33)
== END 2018-05-27 10:12 | disposition home or self-care (01) ==
LOC: EDUNIT# 08:12 → ER 08:14
DX: J10.1 Influenza due to other identified influenza virus with other respiratory manifestations (principal); E78.00 Pure hypercholesterolemia, unspecified; F17.210 Nicotine dependence, cigarettes, uncomplicated; Z88.5 Allergy status to narcotic agent; Z87.19 Personal history of other diseases of the digestive system; Z85.3 Personal history of malignant neoplasm of breast; Z90.6 Acquired absence of other parts of urinary tract; Z98.890 Other specified postprocedural states
CPT/HCPCS: 36415; 71045; 80053; 81000; 85007; 85027; 87804

== ENCOUNTER 2018-05-28 21:59 | Inpatient (IN) | payer SELFPAY, OTHER | END 2018-06-11 10:29 | disposition other institution (70) | LOC: ICU 05-29 00:20 → 4TH 06-08 10:50 → ER 21:59 | PROC: 5A1955Z Respiratory Ventilation, Greater than 96 Consecutive Hours (ICD-10-PCS; principal; 2018-05-29) | PROC: 0B9D8ZX Drainage of Right Middle Lung Lobe, Via Natural or Artificial Opening Endoscopic, Diagnostic (ICD-10-PCS; 2018-05-29) | PROC: 0BD58ZX Extraction of Right Middle Lobe Bronchus, Via Natural or Artificial Opening Endoscopic, Diagnostic (ICD-10-PCS; 2018-05-29) | DX: A41.9 Sepsis, unspecified organism (principal); R65.21 Severe sepsis with septic shock; J18.9 Pneumonia, unspecified organism; J96.21 Acute and chronic respiratory failure with hypoxia; D65 Disseminated intravascular coagulation [defibrination syndrome]; E87.2 Acidosis; J81.0 Acute pulmonary edema; J44.9 Chronic obstructive pulmonary disease, unspecified; F17.210 Nicotine dependence, cigarettes, uncomplicated; D70.9 Neutropenia, unspecified; D69.6 Thrombocytopenia, unspecified; R00.8 Other abnormalities of heart beat; I49.1 Atrial premature depolarization; I27.20 Pulmonary hypertension, unspecified; I07.1 Rheumatic tricuspid insufficiency; E78.00 Pure hypercholesterolemia, unspecified; F41.9 Anxiety disorder, unspecified; M19.91 Primary osteoarthritis, unspecified site; Z85.3 Personal history of malignant neoplasm of breast ==

== ENCOUNTER 2018-06-11 10:29 | Inpatient (IN) | payer OTHER ==
[~2018-06-11] VITALS: Ht 156.2 cm; Wt 56.3 kg
[~2018-06-11 10:29] MED LIST changes: +AMLO10TA7 PO; +BENZ100C18 PO; +PANT40TA3 PO; +RT-ALBUINH IH; +VENL150C98 PO
[2018-06-11 10:30] VITALS: BP 107/68
--- NOTE | 2018-06-11 10:36 | NUR ---
Admitted to room , with an admitting diagnosis of deblity post vent resp failure, on from [facility] , accompanied by .SALONI ARMANDO introduced to surroundings, call light, bed controls, phone, TV, temperature control, lights, meal times, smoking policy, visitor policy, side rail policy, bathrooms and showers. Patient Rights given to patient in the handbook.SALONI ARMANDO verbalizes understanding that [facility] is not responsible for the loss or damage to any personal effects or valuables that are kept in the patients posession during their hospitalization. The following Patient Care Plans were discussed with the : Discharge Planning, ,, and . SALONI ARMANDO verbalizes understanding of Interdisciplinary Patient Education. Patient and/or family were informed about the Rapid Response Team and its purpose. Patient received Patient Rights Booklet, which includes Privacy Act Statement and Data Collection Information Summary.
[2018-06-11] MEDS ORDERED: DOCUSATE SODIUM 100 MG (COLACE) CAP PO PRN (10:45)
[2018-06-11] MEDS ORDERED: ONDANSETRON 4 MG/2 ML (SDV) Z0FRAN IV PRN (10:45)
[2018-06-11] MEDS ORDERED: ACETAMINOPHEN 325 MG TABLET PO PRN (10:45)
[2018-06-11] MEDS ORDERED: BENZONATATE 100 MG (TESSALON) CAPSULE PO PRN (10:45)
[2018-06-11] MEDS ORDERED: diphenhydrAMINE 25 MG TAB (BENADRYL) PO PRN (10:45)
[2018-06-11] MEDS ORDERED: CALCIUM CARBONATE 500 MG (TUMS) TAB.CHEW PO PRN (10:45)
[2018-06-11] MEDS ORDERED: ALPRAZolam 0.25 MG (XANAX) TAB PO PRN (10:45)
[2018-06-11] MEDS ORDERED: MELATONIN 3 MG TABLET PO PRN (10:45)
[2018-06-11] MEDS ORDERED: morphine INJ 4 MG/ML 1 ML (VIAL/SYRINGE) IVP PRN (10:45)
[2018-06-11] MEDS ORDERED: LOPERAMIDE 2 MG (IMODIUM) CAP PO PRN ×2 (10:45)
[2018-06-11] MEDS ORDERED: ENOXAPARIN 40 MG/0.4 ML (LOVENOX) SYR SC SCH (10:45)
[2018-06-11] MEDS ORDERED: ACETAMINOPHEN 500 MG TAB (TYLENOL) PO PRN (10:45)
[2018-06-11] MEDS ORDERED: RT-ALBUTEROL/IPRATROPIUM 3 ML (DUONEB) VIAL INH SCH (11:00)
--- NOTE | 2018-06-11 12:06 | Physical Therapy Evaluation ---
PT Evaluation-General Medical Diagnosis Admission Date Jun 11, 2018 at 10:29 Medical Diagnosis: sepsis/pneumonia Onset Date: May 27, 2018 Therapy Diagnosis Therapy Diagnosis: generalized weakness/debility Height/Weight Height (Feet): 5 Height (Inches): 1.50 Weight (Pounds): 142 Weight (Ounces): 0.0 Precautions Precautions/Isolations: Fall Prevention, Standard Precautions, Pressure Ulcer Referral Physician: Oni Reason for Referral: Evaluation/Treatment Medical History Pertinent Medical History: Arthritis, COPD, Smoking Current History transfer to ARU Reviewed History: Yes Social History Home: Single Level Current Living Status: Spouse Entry Into Home: Stairs With Railing PT Steps Into Home: 3 Prior/Core FIM Prior Level of Function Therapy Code Descriptions/Definitions Functional [place] Measure: 0=Not Assessed/NA 4=Minimal Assistance 1=Total Assistance 5=Supervision or Setup 2=Maximal Assistance 6=Modified [place] 3=Moderate Assistance 7=Complete [place] Therapy Quality Codes: 6 Independent with activity with or without an assistive device 5 Patient requires set up or clean up by helper. Patient completes activity by themselves 4 Supervision or touching assist (CGA). [place] provide cues , steadying assist 3 The helper provides less than half the effort to complete the activity 2 The helper provides more than half the effort to complete the activity 1 Dependent. The helper does all the effort to complete an activity 7 Patient refused to complete or attempt activity 9 The patient did not perform the activity before the current illness or injury 88 Not attempted due to Medical conditions or safety concerns Functional Abilities and Goals: Independent: Patient completed the activities by him/herself, with or without an assistive device, with no assistance from a helper. Needed Some Help: Patient needed partial assistance from another person to complete activities. Dependent: A helper completed the activities for the patient. Unknown: Not Applicable: Bed Mobility: 7 Transfers (B,C,W/C) (FIM): 7 Gait: 7 Stairs: 7 Indoor Mobility (Ambulation): Independent Stairs: Independent Prior Devices Use: None PT Evaluation-Current Subjective Patient reports she is feeling much better and agrees to PT. Pain Numeric Pain Scale: 0-No Pain Location: No Pain Reported Objective Patient Orientation: Normal For Age Problem Solving: Good Attachments: Oxygen (2L) ROM/Strength ROM Lower Extremities bilateral LE WFL Strenght Lower Extremities 4/5 grossly bilateral LE Integumentary/Posture Integumentary refer to nursing notes Bowel Incontinence: No Bladder Incontinence: No Posture WFL Neuromuscular (Tone, Coordination, Reflexes) grossly intact Sensory Vision: Functional Hearing: Functional Sensation Right Lower Extremit: Intact Sensation Left Lower Extremity: Intact Transfers Therapy Code Descriptions/Definitions Functional [place] Measure: 0=Not Assessed/NA 4=Minimal Assistance 1=Total Assistance 5=Supervision or Setup 2=Maximal Assistance 6=Modified [place] 3=Moderate Assistance 7=Complete [place] Therapy Quality Codes: 6 Independent with activity with or without an assistive device 5 Patient requires set up or clean up by helper. Patient completes activity by themselves 4 Supervision or touching assist (CGA). [place] provide cues , steadying assist 3 The helper provides less than half the effort to complete the activity 2 The helper provides more than half the effort to complete the activity 1 Dependent. The helper does all the effort to complete an activity 7 Patient refused to complete or attempt activity 9 The patient did not perform the activity before the current illness or injury 88 Not attempted due to Medical conditions or safety concerns Transfers (B, C, W/C) (FIM): 5 Scootin Rollin Roll Left to Right (QC): 5 Supine to/from Sit: 5 Sit to/from Stand: 5 Sit to Lying (QC): 5 Lying to Sitting/Side of Bed(Q: 5 Sit to Stand (QC): 5 Chair/Rhc-rn-Qcfxh Xfer(QC): 5 Car Transfer (QC): 5 Gait Does the Patient Walk?: Yes Mode of Locomotion: Walk Anticipated Mode of Locomotion: Walk Gait (FIM): 5 Distance (FIM): 3=150 ft Walk 10 feet (QC): 5 Walk 50 ft with 2 Turns(QC): 5 Walk 150 ft (QC): 5 Walking 10ft/uneven surface-QC: 5 Distance: 250' x 2/150' x 3 Gait Level of Assist: 5 Gait Assistive Device: FWW Comments/Gait Description steady, functional gait sequence Stairs Stairs (FIM): 5 #of Steps: 12 Level of Assist: 5 1 Step (curb) (QC): 5 4 Steps (QC): 5 12 Steps (QC): 5 Balance Sitting Static: Normal Sitting Dynamic: Normal Standing Static: Normal Standing Dynamic: Normal Assessment/Needs 63 y.o. female, will benefit from short term skilled PT to address functional strength and mobility to improve current LOF and to safely return to home with spouse at maximum LOF. 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 Goals PT Long-Term Goals Time Frame: Jun 26, 2018 Transfers (B,C,W/C) (FIM): 7 Sit to Lying (QC): 6 Lying-Sitting on Side/Bed(QC): 6 Sit to Stand (QC): 6 Rollin Roll Left to Right (QC): 6 Chair/Rhs-cq-Egbry Xfer(QC): 6 Car Transfer (QC): 6 Gait (FIM): 7 Gait distance (FIM): 3=150 ft Distance: >200' Walk 10 feet (QC): 6 Walk 10ft-Uneven Surface(QC): 6 Walk 50ft with 2 Turns (QC): 6 Walk 150 ft (QC): 6 Gait Level of Assist: 7 Gait Assistive Device: None Stairs (FIM): 6 # of Steps: 12 1 Step (curb) (QC): 6 4 Steps (QC): 6 12 Steps (QC): 6 Stairs Level Of Assist: 6 Picking up an Object (QC): 6 PT Plan Problem List Problem List: Activity Tolerance, Safety, Balance, Transfer Treatment/Plan Treatment Plan: Continue Plan of Care Treatment Plan: Bed Mobility, Education, Functional Activity Gina, Functional Strength, Group Therapy, Gait, Safety, Therapeutic Exercise, Transfers Treatment Duration: Jun 26, 2018 Frequency: At least 5 of 7 days/Wk (IRF) Estimated Hrs Per Day: 1.5 hours per day Patient and/or Family Agrees t: Yes Discharge Recommendations Therapy D/C Recommendations: Home w/ Family Support Time/GCodes Time In: 1025 Time Out: 1100 Total Billed Treatment Time: 35 Total Billed Treatment 1 visit EVMod 35 min RANDAL FOX PT Jun 11, 2018 12:06
[2018-06-11] MEDS ORDERED: RT-ALBUTEROL/IPRATROPIUM 3 ML (DUONEB) VIAL INH PRN (12:15)
[2018-06-11] MEDS: GABAPENTIN 300 MG (NEURONTIN) CAP PO SCH (12:46)
--- NOTE | 2018-06-11 13:23 | Occupational Therapy Eval ---
OT Evaluation-General/PLF Medical Diagnosis Admission Date Jun 11, 2018 at 10:29 Medical Diagnosis: sepsis/pneumonia Onset Date: May 27, 2018 Therapy Diagnosis Therapy Diagnosis: weakness Height/Weight Height (Feet): 5 Height (Inches): 1.50 Weight (Pounds): 142 Weight (Ounces): 0.0 Precautions Precautions/Isolations: Fall Prevention, Standard Precautions, Pressure Ulcer Safety Interventions: Bed Exit Alarm Weight Bear Status Weight Bearing Restriction: Full Weight Bearing Referral Physician: Oni Referral Reason: Activity Tolerance, Self Care, Evaluation/Treatment, Strengthening/ROM Medical History Pertinent Medical History: Arthritis, COPD, Smoking Current History Transfer to ARU Reviewed History: Yes Social History Home: Single Level Current Living Status: Spouse Entry Into Home: Stairs With Railing Steps Into Home: 3 ADL-Prior Level of Function Therapy Code Descriptions/Definitions Functional [place] Measure: 0=Not Assessed/NA 4=Minimal Assistance 1=Total Assistance 5=Supervision or Setup 2=Maximal Assistance 6=Modified [place] 3=Moderate Assistance 7=Complete [place] Therapy Quality Codes: 6 Independent with activity with or without an assistive device 5 Patient requires set up or clean up by helper. Patient completes activity by themselves 4 Supervision or touching assist (CGA). [place] provide cues , steadying assist 3 The helper provides less than half the effort to complete the activity 2 The helper provides more than half the effort to complete the activity 1 Dependent. The helper does all the effort to complete an activity 7 Patient refused to complete or attempt activity 9 The patient did not perform the activity before the current illness or injury 88 Not attempted due to Medical conditions or safety concerns Functional Abilities and Goals: Independent: Patient completed the activities by him/herself, with or without an assistive device, with no assistance from a helper. Needed Some Help: Patient needed partial assistance from another person to complete activities. Dependent: A helper completed the activities for the patient. Unknown: Not Applicable: Self Care: Independent Drive Self: No OT Current Status Subjective Pt stated, I am doing real good. Feeling lot better than yesterday." Pain Numeric Pain Scale: 0-No Pain Mental Status/Objective Patient Orientation: Person, Place, Time Current Glasses/Contacts: Yes Hearing Aids: No Dentures/Partials: No Hand Dominance: Right Upper Extremity ROM WFL Upper Extremity Sensation Intact Upper Extremity Strength BUE 4/5 grossly graded . ADL-Treatment ADL-Current Pt seen today for rehab/SWD eval & Tx . Pt ambulate with FWW 50 feet with min A .Pt fatigue soon, O2 dependent 2L O2. Pt needs CGA in UB & Min A in UB & Mod A in LB dressing garments Eating (FIM): 7 Eating (QC): 6 Grooming (FIM): 5 Oral Hygiene (QC): 5 Upper Body Dressing (FIM): 5 Upper Body Dressing (QC): 5 Lower Body Dressing (FIM): 4 Lower Body Dressing (QC): 4 On/Off Footwear (QC): 4 Toileting (FIM): 4 Toileting Hygiene (QC): 4 Transfers (B, C, W/C) (FIM): 5 Toilet/Commode Transfer (FIM): 5 Toilet Transfer (QC): 5 Tub Transfer (FIM): 0 Shower Transfer (FIM): 4 Education OT Patient Education: Correct positioning, Instructions to caregiver, Safety issues Teaching Recipient: Family Teaching Methods: Demonstration, Discussion Response to Teaching: Verbalize Understanding OT Short Term Goals Short Term Goals Time Frame: Jun 25, 2018 Eating(FIM): 7 Grooming(FIM): 7 Bathing(FIM): 6 Bathing Location: L Arm, R Arm, L Upper Leg, R Upper Leg, L Lower Leg ( including foot), R Lower Leg (including foot), Chest, Abdomen, Buttocks, Perineal Area Upper Body Dressing(FIM): 7 Lower Body Dressing(FIM): 7 Toileting(FIM): 7 Transfers (B,C,W/C) (FIM): 7 Toilet/Commode Transfer(FIM): 7 Shower Transfer(FIM): 7 Additional Short Term Goals: 1-Demonstrate ADL Tasks, 2-Verbalize Understanding , 3-ImproveStrength/Gina 1=Demonstrate adherence to instructed precautions during ADL tasks. 2=Patient will verbalize/demonstrate understanding of assistive devices/ modifications for ADL. 3=Patient will improve strength/tolerance for activity to enable patient to perform ADL's. OT Welding Pantograph Operator Goals Welding Pantograph Operator Goals Time Frame: Jul 09, 2018 Eating (FIM): 7 Eating (QC): 6 Groomin Oral Hygiene (QC): 7 Bathing(FIM): 6 Bathing Location: L Arm, R Arm, L Upper Leg, R Upper Leg, L Lower Leg ( including foot), Chest, Abdomen, Buttocks, Perineal Area Shower/Bathe Self (QC): 7 Upper Body Dressing(FIM): 7 Upper Body Dressing (QC): 7 Lower Body Dressing(FIM): 7 Lower Body Dressing (QC): 6 On/Off Footwear (QC): 6 Toileting(FIM): 7 Toileting Hygiene (QC): 6 Transfers (B,C,W/C) (FIM): 7 Toilet/Commode Transfer(FIM): 7 Toilet/Commode Transfer (QC): 6 Shower Transfer(FIM): 7 Additional Goals: 1-Demonstrate ADL Tasks, 2-Verbalize Understanding, 3- ImproveStrength/Gina 1=Demonstrate adherence to instructed precautions during ADL tasks. 2=Patient will verbalize/demonstrate understanding of assistive devices/ modifications for ADL. 3=Patient will improve strength/tolerance for activity to enable patient to perform ADL's. OT Education/Plan Problem List/Assessment Assessment: No Skilled OT Needs ID'd, Decreased Safety Aware, Decreased UE Strength, Dependent Transfers, Impaired Bed Mobility, Impaired Funct Balance, Impaired Self-Care Skills Discharge Recommendations Plan/Recommendations: Continue POC Therapy D/C Recommendations: Home w/ Family Support, Occupational Therapy Home Care Equpiment Recommendations-D/C: Bath Chair, Extended Shower Sprayer, Veterinary [facility] Attendant Barriers to Progress Fatigue soon, fair endurance, O2 Dependent. Patient/Family Goals To return home with Independently. Treatment Plan/Plan of Care Treatment,Training & Education: Yes Patient would benefit from OT for education, treatment and training to promote independence in ADL's, mobility, safety and/or upper extremity function for ADL' s. Plan of Care: ADL Retraining, Caregiver Training, Functional Mobility, Group Exercise/Act as Ind, UE Funct Exercise/Act, UE Neuromus Re-Ed/Coord Treatment Duration: Jul 09, 2018 Frequency: At least 5 of 7 days/Wk (IRF) Estimated Hrs Per Day: 1.5 hours per day Agreement: Yes Rehab Potential: Good Time/GCodes Start Time: 11:20 Stop Time: 12:00 Total Time Billed (hr/min): 50 Billed Treatment Time 1, EVM 20 min, EX 30 min Total 50 min RISHABH FERNANDEZ OT Jun 11, 2018 13:22
--- NOTE | 2018-06-11 13:27 | NUR ---
REVIEWED MEDICATIONS THEY WERE REPORTED UPON ADMISSION TO ICU
--- NOTE | 2018-06-11 14:50 | ST Cognitive Linguistic Eval ---
Speech Evaluation-General Medical Diagnosis sepsis/pneumonia Onset Date: May 27, 2018 Therapy Diagnosis Therapy Diagnosis: Cognitive-communication Precautions Precautions/Isolations: Fall Prevention, Standard Precautions, Pressure Ulcer Medical History Pertinent Medical History: Arthritis, COPD, Smoking Reviewed History: Yes Social History Current Living Status: Spouse Speech PLF-Current Status Prior Level of Function Patient lived at home with her and was independent with all of her daily needs. Subjective Patient was pleasant and attentive during the evaluation process. Language Eval: Auditory Comprehends Simple Yes/No Ques: Functional Indent/Objects Multiple [place]bane[place]: Functional Ident/Pics in Multiple Ibanez: Functional Follows 1-Step Commands: Functional Follows Complex Directions: Functional Follows General Conversations: Functional Language Eval: Verbal Language Completes Spontaneous Greeting: Functional Produces Auto, Serial Info: Functional Imitates Simple Words/Phrases: Functional Word Finding: Functional Requests Basic Needs: Functional States Basic Personal Info: Functional Expresses Complex Ideas: Functional Objective Cognitive Domain Attention: WNL Memory: WNL Problem Solving: Functional Executive Functions: WNL Patient does not remember her ICU days and the time on a vent. Objective Formal/Standardized Tests [facility] Cognitive-Communication Results Memory: Immediate 3/3, Delayed without cues 3/3, Orientation: 5/5, Problem Solving: Simple 5/5, Complex 4/5, Auditory Processin/5 Oral Motor/Speech Production Within functional limits Impression Patient is a pleasant 63 year old female who was admitted to the ARU due to decreased strength secondary to recent medical status. Patient completed all areas of the [facility] without cuing. Patient is able to make her needs/wants known. Communication/Social Cognition Comprehension: 7 Expression: 7 Social Interaction: 7 Problem Solvin Memory: 7 Speech Patient Assess Expression of Ideas/Wants: Expression (4) Understanding Verbal Content: Understands (4) Brief Interview-Mental Status: Yes Repetition of Three Words: Three (3) Temporal Orientation: Year: Correct (3) Temporal Orientation: Month: Accurate within 5 days(2) Temporal Orientation: Day: Correct (1) Recall : Wear to say "Sock": Yes, no cue required (2) Recall : Color: Yes, no cue required (2) Recall : Bed: Yes, no cue required (2) Memory/Recall Ability: Current season, That he or she is in a hsp/hsp unit Speech-Plan Patient/Family Goals Patient/Family Goals: Patient plans to return home with post rehab. Treatment Plan Speech Therapy Treatment Plan: Discontinue ST Patient is not recommended for skilled ST at this time. Treatment Duration: Jun 11, 2018 Frequency: 1 time per week Estimated Hrs Per Day: .25 hour per day Rehab Potential: Good Barriers to Learning: Patient tires easily. Pt/Family Agrees to Plan: Yes Safety Risks/Education Teaching Recipient: Patient Teaching Methods: Discussion Response to Teaching: Verbalize Understanding Education Topics Provided: Safety within her room. Time Speech Therapy Time In: 14:15 Speech Therapy Time Out: 14:30 Total Billed Time: 15 Billed Treatment Time 1, SPSNDCOMP TARA Ledesma Jun 11, 2018 14:50
--- NOTE | 2018-06-11 15:08 | Occupational Ther Daily Note ---
OT Current Status-Daily Note Subjective Pt alert, sitting in recliner. 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 Pt agrees to therapy. No c/o pain. Mental Status/Objective Patient Orientation: Person, Place, Time, Situation Therapy Code Descriptions/Definitions Functional [place] Measure: 0=Not Assessed/NA 4=Minimal Assistance 1=Total Assistance 5=Supervision or Setup 2=Maximal Assistance 6=Modified [place] 3=Moderate Assistance 7=Complete [place] Attachments: IV, Oxygen ADL-Treatment Therapy Code Descriptions/Definitions Functional [place] Measure: 0=Not Assessed/NA 4=Minimal Assistance 1=Total Assistance 5=Supervision or Setup 2=Maximal Assistance 6=Modified [place] 3=Moderate Assistance 7=Complete [place] Therapy Quality Codes: 6 Independent with activity with or without an assistive device 5 Patient requires set up or clean up by helper. Patient completes activity by themselves 4 Supervision or touching assist (CGA). [place] provide cues , steadying assist 3 The helper provides less than half the effort to complete the activity 2 The helper provides more than half the effort to complete the activity 1 Dependent. The helper does all the effort to complete an activity 7 Patient refused to complete or attempt activity 9 The patient did not perform the activity before the current illness or injury 88 Not attempted due to Medical conditions or safety concerns Grooming (FIM): 6 (Sitting at sink, pt able to complete combing hair and applying lotion. Completed oral care in shower.) Oral Hygiene (QC): 6 Bathing (FIM): 5 (Supervision using grabbar, hand held shower and shower bench to complete.) Bathing Location: L Arm, R Arm, L Upper Leg, R Upper Leg, L Lower Leg ( including foot), R Lower Leg (including foot), Chest, Abdomen, Buttocks, Perineal Area Shower/Bathe Self (QC): 4 Upper Body (FIM): 5 (After set up, pt able to complete by self.) Upper Body Dressing (QC): 5 Lower Body Dressing (FIM): 5 (Supervision after set up, pt able to complete.) Lower Body Dressing (QC): 4 On/Off Footwear (QC): 6 Toileting (FIM): 5 (Supervision using FWW and grabbar.) Toileting Hygiene (QC): 4 Transfers (B, C, W/C) (FIM): 5 (Close SBA using FWW.) Toilet/Commode Transfer (FIM): 5 (Supervision using grabbar and FWW.) Toilet Transfer (QC): 4 Shower Transfer(FIM): 5 (Close SBA using FWW, shower bench and grabbar.) Pt did have 1 LOB during session, unable to catch self. After therapy, pt lying in bed with call light/phone in reach. All needs met in room. OT Short Term Goals Short Term Goals Time Frame: Jun 25, 2018 Eating(FIM): 7 Grooming(FIM): 7 Bathing(FIM): 6 Bathing Location: L Arm, R Arm, L Upper Leg, R Upper Leg, L Lower Leg ( including foot), R Lower Leg (including foot), Chest, Abdomen, Buttocks, Perineal Area Upper Body Dressing(FIM): 7 Lower Body Dressing(FIM): 7 Toileting(FIM): 7 Transfers (B,C,W/C) (FIM): 7 Toilet/Commode Transfer(FIM): 7 Shower Transfer(FIM): 7 Additional Short Term Goals: 1-Demonstrate ADL Tasks, 2-Verbalize Understanding , 3-ImproveStrength/Gina 1=Demonstrate adherence to instructed precautions during ADL tasks. 2=Patient will verbalize/demonstrate understanding of assistive devices/ modifications for ADL. 3=Patient will improve strength/tolerance for activity to enable patient to perform ADL's. OT Construction Driver Goals Construction Driver Goals Time Frame: Jul 09, 2018 Eating (FIM): 7 Eating (QC): 6 Groomin Oral Hygiene (QC): 7 Bathing(FIM): 6 Bathing Location: L Arm, R Arm, L Upper Leg, R Upper Leg, L Lower Leg ( including foot), Chest, Abdomen, Buttocks, Perineal Area Shower/Bathe Self (QC): 7 Upper Body Dressing(FIM): 7 Upper Body Dressing (QC): 7 Lower Body Dressing(FIM): 7 Lower Body Dressing (QC): 6 On/Off Footwear (QC): 6 Toileting(FIM): 7 Toileting Hygiene (QC): 6 Transfers (B,C,W/C) (FIM): 7 Toilet/Commode Transfer(FIM): 7 Toilet/Commode Transfer (QC): 6 Shower Transfer(FIM): 7 Additional Goals: 1-Demonstrate ADL Tasks, 2-Verbalize Understanding, 3- ImproveStrength/Gina 1=Demonstrate adherence to instructed precautions during ADL tasks. 2=Patient will verbalize/demonstrate understanding of assistive devices/ modifications for ADL. 3=Patient will improve strength/tolerance for activity to enable patient to perform ADL's. OT Education/Plan Discharge Recommendations Plan/Recommendations: Continue POC Treatment Plan/Plan of Care Patient would benefit from OT for education, treatment and training to promote independence in ADL's, mobility, safety and/or upper extremity function for ADL' s. Plan of Care: ADL Retraining, Caregiver Training, Functional Mobility, Group Exercise/Act as Ind, UE Funct Exercise/Act, UE Neuromus Re-Ed/Coord Treatment Duration: Jul 09, 2018 Frequency: At least 5 of 7 days/Wk (IRF) Estimated Hrs Per Day: 1.5 hours per day Agreement: Yes Rehab Potential: Good Time/GCodes Start Time: 14:20 Stop Time: 15:10 Total Time Billed (hr/min): 50 Billed Treatment Time 1 visit-ADL 3 (50 min) NABILA ZHENG Jun 11, 2018 15:08
[2018-06-11] MEDS: HYDROcodone/APAP 5 MG/325 MG (LORTAB) TAB PO PRN (15:17)
[2018-06-11] MEDS: RT-ALBUTEROL/IPRATROPIUM 3 ML (DUONEB) VIAL INH SCH ×2 (15:27→19:47)
--- NOTE | 2018-06-11 15:37 | Therapy Group Daily Note ---
Therapy Daily Group Note Patient Education Topic Other List Below (memory) Other/Notes Pt. participated in PT OT group session. Ratio was 4:1. Objective: Demonstrates knowledge of memory strategies to promote safety at home. (met) Understands purpose and objectives of ARU (met) Pt. benefitted from group this date communicating well socially and interacting with peers appropriately. Pt. participated in sharing her own strategies for remembering things at home. Pt. participated in matching images game with others in group again laughing and sharing and having great success at remembering where images are . Pt. ambulated to and from [facility] using. Pt. in room after with sosa at hand and needs met Start Time: 13:00 Stop Time: 14:15 Total Billed Treatment Time: 75 Total Billed Treatment 1-GRP NABILA ZHENG Jun 11, 2018 15:37
[2018-06-11] MEDS: PANTOPRAZOLE 40 MG (PROTONIX) TAB PO SCH (16:58)
[2018-06-11 18:45] VITALS: BP 110/62
[2018-06-11] MEDS: RT-ADVAIR HFA 115/21 MCG PER PUFF IH SCH (19:47)
[2018-06-12] MEDS: HYDROcodone/APAP 5 MG/325 MG (LORTAB) TAB PO PRN ×4 (00:04→20:09)
[2018-06-12 05:09] VITALS: BP 136/75
[2018-06-12] MEDS: VENlafaxine XR 75 MG (EFFEXOR XR) CAP PO SCH (06:11)
[2018-06-12] MEDS: PANTOPRAZOLE 40 MG (PROTONIX) TAB PO SCH ×2 (06:12→16:08)
[2018-06-12] MEDS: ENOXAPARIN 40 MG/0.4 ML (LOVENOX) SYR SC SCH (06:12)
--- NOTE | 2018-06-12 07:20 | PM&R H&P / Post Admit Assess ---
History of Present Illness HPI/Chief Complaint CC: Severe myopathy following critical illness HPI: This is a 63yoWF who was admitted 05/29/18 for septic shock due to pneumonia and required intubation with aggressive IVF and abx. Patient ultimately was able to be extubated and completed IV abx while on the med-surg floor. Due to her severe debility she has required IRF admit for strengthening in order to be DC home. Pt required vapotherm while titrating down off of hiflo O2 and is currently using O2 BNC. Source: patient Exam Limitations: no limitations Date Seen 06/12/18 Time Seen by a Provider: 10:00 Attending Physician Catrina Bunn DO PCP Jw Castrejon DO Referring Physician Date of Admission Jun 11, 2018 at 10:29 Home Medications & Allergies Home Medications Reviewed patient Home Medication Reconciliation performed by pharmacy medication reconciliations telecommunications field technician and/or nursing. Patients Allergies have been reviewed. Allergies Allergies Coded Allergies codeine (Verified Allergy, Unknown, 06/19/08) Past Wvoctdk-Iwnnsk-Rngcte Hx Past Med/Social Hx: Reviewed Nursing Past Med/Soc Hx, Reviewed and Corrections made Patient Social History Marrital Status: single Employed/Student: unemployed Alcohol Use: Denies Use Recreational Drug Use: No Smoking Status: Current Everyday Smoker Type Used: Cigarettes Physical Abuse Screen: No Sexual Abuse: No Recent Foreign Travel: No Contact w/other who traveled: No Recent Hopitalizations: No Recent Infectious Disease Expo: No Immunizations Up To Date Pediatric: Yes Date of Pneumonia Vaccine: Jun 11, 2001 Date of Influenza Vaccine: Apr 09, 2018 Seasonal Allergies Seasonal Allergies: Yes Past Medical History Surgeries: Cystectomy, Lumpectomy, Orthopedic Respiratory: COPD, Pneumonia Currently Using CPAP: No Currently Using BIPAP: No Cardiac: High Cholesterol Reproductive: No Sexually Transmitted Disease: No Gastrointestinal: Chronic Constipation Musculoskeletal: Arthritis Cancer: Breast Psychosocial: Anxiety History of Blood Disorders: No Family History Patient reports no known family medical history. No Pertinent Family Hx Review of Systems Constitutional: see HPI, malaise, weakness EENTM: no symptoms reported Respiratory: cough, dyspnea on exertion Cardiovascular: no symptoms reported Gastrointestinal: no symptoms reported Genitourinary: no symptoms reported Musculoskeletal: no symptoms reported Skin: no symptoms reported Psychiatric/Neurological: Anxiety, Depressed All Other Systems Reviewed Negative Unless Noted: Yes Physical Exam Physical Exam Vital Signs Vital Signs - First Documented 06/11/18 10:30 Temp 96.2 Pulse 88 Resp 18 B/P (MAP) 107/68 (81) Pulse Ox 97 O2 Delivery Nasal Cannula O2 Flow Rate 2.00 Capillary Refill : Height, Weight, BMI Height: 5'1.50" Weight: 127lbs. 0.0oz. 57.234141ze; 26.4 BMI Method:Stated General Appearance: No Apparent Distress, WD/WN, Chronically ill, Thin Eyes: Bilateral Eye Normal Inspection, Bilateral Eye PERRL HEENT: PERRL/EOMI, TMs Normal, Normal ENT Inspection, Pharynx Normal Neck: Full Range of Motion, Normal Inspection, Non Tender, Supple, Carotid Bruit Respiratory: Chest Non Tender, Normal Breath Sounds, No Accessory Muscle Use, No Respiratory Distress, Decreased Breath Sounds Cardiovascular: Regular Rate, Rhythm, No Edema, No Gallop, No JVD, No Murmur, Normal Peripheral Pulses Gastrointestinal: Normal Bowel Sounds, No Organomegaly, No Pulsatile Mass, Non Tender, Soft Back: Normal Inspection, No CVA Tenderness, No Vertebral Tenderness Extremity: Normal Capillary Refill, Normal Inspection, Normal Range of Motion, Non Tender, No Calf Tenderness, No Pedal Edema Neurologic/Psychiatric: Alert, Oriented x3, No Motor/Sensory Deficits, Normal Mood/Affect Skin: Normal Color, Warm/Dry Lymphatic: No Adenopathy Results Results/Procedures Labs Patient resulted labs reviewed. Assessment/Plan Admission Diagnosis Assessment: Severe debility and myopathy following critical illness from septic shock from pneumonia and intubation Current smoker Frail status Plan: IRF therapies Strengthening Monitor lungs closely Titrate O2 down Admission Status: Inpatient Order (span 2 midnights) Reason for Inpatient Admission: IRF Diagnosis/Problems Diagnosis/Problems (1) Myopathy Status: Acute Post Admission Physician Asses Date seen by provider: Jun 11, 2018 Time seen by provider: 10:00 The preadmission screen agrees with the post admission assessment that the patient is a good candidate for inpatient rehabilitation. The patient will have a comprehensive program of inpatient rehabilitation with a goal of maximizing level of functional independence prior to discharge home with family. The patient will have PT/OT ninety minutes per day, each discipline, five days a week for gait, strengthening, conditioning, balance, ADLs, any patient/family/caregiver training as necessary. Speech therapy to do cognitive assessment and treat as indicated. Rehabilitation nursing to assist with bowel, bladder, skin, wound care, medication administration, pain management. Aquatic Performer to assist with discharge planning, community reentry. SCD's for DVT prophylaxis. She appears to be well motivated to participate in three hours of therapy a day. She should be able to tolerate three hours of therapy a day from a medical standpoint. She should benefit from the three hours of therapy a day. She has a reasonable discharge plan, reasonable discharge rehabilitation goals and a supportive family. She has various comorbidities that need to be closely monitored with medications and treatments adjusted on a daily basis as needed. These include: Barriers to discharge for this patient who had been independent prior to this are for her to be modified independent to supervision for ADLs and mobility skills prior to discharge home with [family], so as to lessen the burden of the caregivers. Risks for this patient include: 1. Fall 2. Fracture 3. DVT 4. Pulmonary embolism 5. Wound infection 6. Skin breakdown 7. Contractures 8. Poorly controlled pain 9. Urinary retention 10. UTI 11. Respiratory infection 12. Aspiration Estimated Length of Stay: 7 days Prognosis: Rehab prognosis appears good for goal of discharge home with family modified independent to supervision for ADLs and mobility skills. General: Alert, Oriented X3, Cooperative, No Acute Distress HEENT: Atraumatic, PERRLA Neck: Supple, No JVD, No Thyromegaly, +2 Carotid Pulse No Bruit, No LAD Lungs: Clear to Auscultation, Normal Air Movement, Other (diminished ) Heart: Regular Rate, Normal S1, Normal S2 Abdomen: Normal Bowel Sounds, Soft, No Tenderness, No Hepatosplenomegaly, No Masses Extremities: No Clubbing, No Cyanosis, No Edema, Normal Pulses, No Tenderness/ Swelling Skin: No Rashes, No Breakdown, No Significant Lesion Neuro: Normal Gait, Normal Speech, Strength at 5/5 X4 Ext, Normal Tone, Sensation Intact, Cranial Nerves 3-12 NL, Reflexes 2+, Other (global weakness all extremities) Psych/Mental Status: Mental Status NL, Mood NL CATRINA BUNN DO Jun 12, 2018 07:20
[2018-06-12] MEDS: RT-ADVAIR HFA 115/21 MCG PER PUFF IH SCH ×2 (07:21→18:52)
[2018-06-12] MEDS: RT-ALBUTEROL/IPRATROPIUM 3 ML (DUONEB) VIAL INH SCH ×2 (07:21→18:52)
--- NOTE | 2018-06-12 08:34 | Pulmonary Progress Note ---
Subjective Time Seen by a Provider: 08:33 Subjective/Events-last exam No complications noted. Sepsis Event Evaluation Height, Weight, BMI Height: 5'1.50" Weight: 127lbs. 0.0oz. 57.470815ex; 26.4 BMI Method:Stated Exam Exam Vital Signs Date Time Temp Pulse Resp B/P (MAP) Pulse Ox O2 Delivery O2 Flow Rate FiO2 06/12/18 07:24 95 Nasal Cannula 1.00 06/12/18 05:09 98.1 82 18 136/75 (95) 94 Nasal Cannula 1.00 06/11/18 21:00 Nasal Cannula 1.00 06/11/18 19:53 94 Nasal Cannula 1.00 06/11/18 19:47 93 Nasal Cannula 1.00 06/11/18 18:45 98.0 87 18 110/62 (78) 99 Nasal Cannula 1.00 06/11/18 15:27 97 Nasal Cannula 2.00 06/11/18 12:08 95 Nasal Cannula 2.00 06/11/18 10:30 96.2 88 18 107/68 (81) 97 Nasal Cannula 2.00 I & O 06/12/18 07:00 Intake Total 300 ml Balance 300 ml Height & Weight Height: 5'1.50" Weight: 127lbs. 0.0oz. 57.029535qq; 26.4 BMI Method:Stated General Appearance: No Apparent Distress, WD/WN, Chronically ill, Thin HEENT: PERRL/EOMI, TMs Normal, Normal ENT Inspection, Pharynx Normal Neck: Full Range of Motion, Normal Inspection, Non Tender, Supple, Carotid Bruit Respiratory: Chest Non Tender, Normal Breath Sounds, No Accessory Muscle Use, No Respiratory Distress, Decreased Breath Sounds Cardiovascular: Regular Rate, Rhythm, No Edema, No Gallop, No JVD, No Murmur, Normal Peripheral Pulses Extremity: Normal Capillary Refill, Normal Inspection, Normal Range of Motion, Non Tender, No Calf Tenderness, No Pedal Edema Neurologic/Psychiatric: Alert, Oriented x3, No Motor/Sensory Deficits, Normal Mood/Affect Skin: Normal Color, Warm/Dry Lymphatic: No Adenopathy Assessment/Plan Assessment/Plan Acute respiratory failure pulmonary edema - much improved -Titrate oxygen and d/c if possible -She is on 2L NC at 97% Strep pneumonia - resolved -Now off Abx -WBC 3.5 Anemia -Monitor AST elevated -monitor Diastolic CHF grade II Debility -PT/OT -Up to chair BID -Increase activity CT QUARLES DO Jun 12, 2018 08:34
[2018-06-12 09:00] VITALS: BP 110/74
--- NOTE | 2018-06-12 10:17 | Physical Therapy Daily Note ---
PT Daily Note-Current Subjective Patient is highly motivated with progress and agrees to PT. Currently on 1.5L O2 NC Mental Status Patient Orientation: Normal For Age Attachments: Oxygen Transfers Therapy Code Descriptions/Definitions Functional [place] Measure: 0=Not Assessed/NA 4=Minimal Assistance 1=Total Assistance 5=Supervision or Setup 2=Maximal Assistance 6=Modified [place] 3=Moderate Assistance 7=Complete [place] Therapy Quality Codes: 6 Independent with activity with or without an assistive device 5 Patient requires set up or clean up by helper. Patient completes activity by themselves 4 Supervision or touching assist (CGA). [place] provide cues , steadying assist 3 The helper provides less than half the effort to complete the activity 2 The helper provides more than half the effort to complete the activity 1 Dependent. The helper does all the effort to complete an activity 7 Patient refused to complete or attempt activity 9 The patient did not perform the activity before the current illness or injury 88 Not attempted due to Medical conditions or safety concerns Transfers (B, C, W/C) (FIM): 6 Scootin Rollin Roll Left to Right (QC): 6 Supine to/from Sit: 6 Sit to/from Stand: 6 Sit to Lying (QC): 6 Sit to Stand (QC): 6 Chair/Add-gp-Ctwhu Xfer(QC): 6 Bed to/from Chair: 6 Gait Training Does the Patient Walk?: Yes Gait (FIM): 6 Distance (FIM): 3=150 ft Distance: >300' x 3 Walk 10 feet (QC): 6 Walk 50 ft with 2 Turns(QC): 6 Walk 150 ft (QC): 6 Gait Level of Assist: 6 Gait Assistive Device: FWW safe and functional Assessment Attempted to ambulate without O2 and SAO2 decreased to 86%. O2 placed and SAO2 90% within 30 seconds. Patient has been instructed to be in room ad jose during day and ask for assistance at night for safety. Patient and nursing staff agree. PT Short Term Goals Short Term Goals Transfers (B,C,W/C) (FIM): 7 PT Halfway Goals Breakfast Hostess Goals PT Halfway Goals Time Frame: Jun 26, 2018 Transfers (B,C,W/C) (FIM): 7 Sit to Lying (QC): 6 Lying-Sitting on Side/Bed(QC): 6 Sit to Stand (QC): 6 Rollin Roll Left to Right (QC): 6 Chair/Zxo-df-Tcqvt Xfer(QC): 6 Car Transfer (QC): 6 Gait (FIM): 7 Gait distance (FIM): 3=150 ft Distance: >200' Walk 10 feet (QC): 6 Walk 10ft-Uneven Surface(QC): 6 Walk 50ft with 2 Turns (QC): 6 Walk 150 ft (QC): 6 Gait Level of Assist: 7 Gait Assistive Device: None Stairs (FIM): 6 # of Steps: 12 1 Step (curb) (QC): 6 4 Steps (QC): 6 12 Steps (QC): 6 Stairs Level Of Assist: 6 Picking up an Object (QC): 6 PT Plan Treatment/Plan Treatment Plan: Continue Plan of Care Treatment Plan: Bed Mobility, Education, Functional Activity Gina, Functional Strength, Group Therapy, Gait, Safety, Therapeutic Exercise, Transfers Treatment Duration: Jun 26, 2018 Frequency: At least 5 of 7 days/Wk (IRF) Estimated Hrs Per Day: 1.5 hours per day Patient and/or Family Agrees t: Yes Time/GCodes Time In: 940 Time Out: 955 Total Billed Treatment Time: 15 Total Billed Treatment 1 visit FA 15 min RANDAL FOX PT Jun 12, 2018 10:17
--- NOTE | 2018-06-12 11:00 | NUR ---
DR. ROJAS HERE TO SEE PATIENT. INFORMED OF PATIENT'S COMPLAINT OF RIGHT SIDE SPASMS. WILL START ON I.S.
[2018-06-12] MEDS: GABAPENTIN 300 MG (NEURONTIN) CAP PO SCH (11:58)
--- NOTE | 2018-06-12 12:34 | PM&R Progress Note ---
Subjective HPI/CC On Admission Date Seen by Provider: Jun 12, 2018 Time Seen by Provider: 10:30 CC: Severe myopathy following critical illness HPI: This is a 63yoWF who was admitted 05/29/18 for septic shock due to pneumonia and required intubation with aggressive IVF and abx. Patient ultimately was able to be extubated and completed IV abx while on the med-surg floor. Due to her severe debility she has required IRF admit for strengthening in order to be DC home. Pt required vapotherm while titrating down off of hiflo O2 and is currently using O2 BNC. Subjective/Events-last exam Patient having right lower quadrant and right upper quadrant and right chest pain at times and I did note a crackle on lung exam so I will start incentive spirometer and maintain nebulizer treatments No bowel movement for 4 days so we will start an aggressive regimen today Overall feeling good and participating in therapy Review of Systems Gastrointestinal: Constipation Objective Exam Vital Signs Vital Signs Date Time Temp Pulse Resp B/P (MAP) Pulse Ox O2 Delivery O2 Flow Rate FiO2 06/12/18 09:00 82 110/74 (86) 06/12/18 09:00 Nasal Cannula 1.50 06/12/18 07:24 95 06/12/18 05:09 98.1 18 Capillary Refill : General Appearance: No Apparent Distress, WD/WN, Chronically ill, Thin Respiratory: Chest Non Tender, Lungs Clear, Normal Breath Sounds, No Accessory Muscle Use, No Respiratory Distress, Crackles (RLL subtle but resolved) Cardiovascular: Regular Rate, Rhythm, No Edema, No Gallop, No JVD, No Murmur, Normal Peripheral Pulses Neurologic/Psychiatric: Alert, Oriented x3, No Motor/Sensory Deficits, Normal Mood/Affect Skin: Normal Color, Warm/Dry Results/Procedures Lab Patient resulted labs reviewed. Assessment/Plan Assessment and Plan Assess & Plan/Chief Complaint Assessment: Severe debility and myopathy following critical illness from septic shock from pneumonia and intubation Current smoker Frail status Constipation Right lower lobe crackle with pleurisy so ordered IS Plan: IRF therapies Strengthening Monitor lungs closely Titrate O2 down BM regimen Diagnosis/Problems Diagnosis/Problems (1) Myopathy Status: Acute (2) Constipation Status: Acute Qualifiers: Constipation type: slow transit constipation Qualified Codes: K59.01 - Slow transit constipation (3) COPD (chronic obstructive pulmonary disease) Status: Chronic Qualifiers: COPD type: unspecified COPD Qualified Codes: J44.9 - Chronic obstructive pulmonary disease, unspecified (4) Smoker Status: Chronic (5) Pleurisy Status: Acute (6) Current tobacco use Status: Chronic (7) Malaise and fatigue Status: Acute Clinical Quality Measures DVT/VTE Risk/Contraindication: Risk Factor Score Per Nursin RFS Level Per Nursing on Admit: 4+=Very High RAFIQ ROJAS DO Jun 12, 2018 12:34
--- NOTE | 2018-06-12 13:46 | Cardiology Progress Note ---
Cardiology SOAP Progress Note Subjective: No cardiac complaints. Objective: I&O/Vital Signs 06/12/18 06/12/18 06/12/18 05:09 07:24 09:00 Temp 98.1 Pulse 82 82 Resp 18 B/P (MAP) 136/75 (95) 110/74 (86) Pulse Ox 94 95 O2 Delivery Nasal Cannula Nasal Cannula O2 Flow Rate 1.00 1.00 Weight (Pounds): 127 Weight (Ounces): 0.0 Weight (Calculated Kilograms): 57.734407 Constitutional: No appears stated age; AAO x 3; No apparent distress, No PERRL , No well-developed, No well-nourished, No other Respiratory: No accessory muscle use, No respiratory distress, No chest tender , No chest expansion is symmetric; chest is bilaterally symmetric; No lungs clear to percussion; lungs clear to auscultation; No crackles, No rhonchi, No rales, No stridor, No wheezing, No pleural rub, No other Cardiovascular: regular rate-rhythm; No irregularly irregular, No extra beats, No parasternal heave is noted, No JVD, No edema, No bradycardia, No tachycardia , No point of maximal impulse, No cardiac thrills are palpable; S1 and S2; No gallop/S3, No gallop/S4, No diastolic murmur, No systolic murmur, No friction rub, No click, No other Gastrointestional: No tender, No soft, No round, No distended, No pulsatile mass, No organomegaly, No guarding, No rebound, No tenderness, No hernia, No mass, No audible bowel sounds, No abnormal bowel sounds, No abdominal bruits, No spleenomegaly, No other Extremities: No normal range of motion, No non-tender, No normal inspection, No pedal edema, No calf tenderness, No normal capillary refill, No pelvis stable , No calf tenderness, No inflammation, No pedal edema, No slow capillary refill , No swelling, No other, No abrasion, No clubbing, No cyanosis, No ecchymosis, No laceration, No no lower extremity edema bilateral, No significant edema, No tenderness, No wound Neurologic/Psychiatric: no motor/sensory deficits, alert, normal mood/affect, oriented x 3 Skin: No normal color, No warm/dry, No cyanosis, No cool, No diaphoresis, No damp, No ecchymosis, No jaundice, No mottled, No pallor, No rash, No tattoos/ piercings, No ulcerations, No rash on exposed areas, No ulcerations on exposed areas, No other A/P: Assessment/Dx: Ac resp failure due to R-sided pneumonia - extubated - improved Sepsis with neutropenia and thrombocytopenia - improved Frequent, isolated PACs Mod pulm htn of unknown etiology Maculopapular rash on lower limbs, being monitored and treated by the Medicine - resolved Echo of 05/29/18: LVEF 70-75%, mild to mod TR, PASP 55-60 mmHg Acute diastolic CHF - clinically compensated HTN Plan: Plan: * Management of pneumonia per pulmonary services * Monitor lab * Continue current medication regimen * Generalized weakness -continue inpatient rehabilitation. * Continue PT/OT Thank you for your consultation. Please call me if you have any questions. Karen Posey MD, FACP, FACC, FSCAI, FHRS, CCDS Interventional Cardiology Cardiac Electrophysiology Vascular Medicine and Endovascular Interventions Erum POSEY MD Jun 12, 2018 1:46 pm
[2018-06-12] MEDS ORDERED: CATHETER FLUSH 10 ML SYR IV PRN (14:45)
[2018-06-12 18:00] VITALS: BP 144/81
[2018-06-12] MEDS: CATHETER FLUSH 10 ML SYR IV SCH (20:09)
[2018-06-12] MEDS ORDERED: CLINDAMYCIN 150 MG (CLEOCIN) CAP PO SCH (21:00)
[2018-06-13] MEDS: CATHETER FLUSH 10 ML SYR IV SCH (01:41)
[2018-06-13] MEDS: HYDROcodone/APAP 5 MG/325 MG (LORTAB) TAB PO PRN ×2 (04:03→19:24)
[2018-06-13 05:09] VITALS: BP 115/66
[2018-06-13] MEDS: PANTOPRAZOLE 40 MG (PROTONIX) TAB PO SCH ×2 (05:49→16:42)
[2018-06-13] MEDS: VENlafaxine XR 75 MG (EFFEXOR XR) CAP PO SCH (05:49)
[2018-06-13] MEDS: ENOXAPARIN 40 MG/0.4 ML (LOVENOX) SYR SC SCH (05:49)
[2018-06-13] MEDS: RT-ALBUTEROL/IPRATROPIUM 3 ML (DUONEB) VIAL INH SCH ×3 (07:40→19:56)
[2018-06-13] MEDS: RT-ADVAIR HFA 115/21 MCG PER PUFF IH SCH ×3 (07:40→19:56)
--- NOTE | 2018-06-13 07:41 | NUR ---
PATIENT DID NOT GET ADVAIR THIS AM; DUE TO RT FORGOT THAT PATIENT WAS TO TAKE IT AND PATIENT DIDN'T THINK TO ASK UNTIL 1433.
--- NOTE | 2018-06-13 09:00 | NUR ---
STATES [facility] RELIEVES RIGHT-SIDED PAIN/SPASMS. O2 CONTINUES AT 1L. CHEERFUL AND FEELING IMPROVED.
[2018-06-13 09:20] VITALS: BP 118/56
[2018-06-13] MEDS: GABAPENTIN 300 MG (NEURONTIN) CAP PO SCH (11:53)
--- NOTE | 2018-06-13 13:19 | PM&R Progress Note ---
Subjective HPI/CC On Admission Date Seen by Provider: Jun 13, 2018 Time Seen by Provider: 12:15 CC: Severe myopathy following critical illness HPI: This is a 63yoWF who was admitted 05/29/18 for septic shock due to pneumonia and required intubation with aggressive IVF and abx. Patient ultimately was able to be extubated and completed IV abx while on the med-surg floor. Due to her severe debility she has required IRF admit for strengthening in order to be DC home. Pt required vapotherm while titrating down off of hiflo O2 and is currently using O2 BNC. Subjective/Events-last exam Patient doing dramatically better Weaning off oxygen but did desat to 85 percent on oxygen so now maintain on 1 L when exerting herself Spasms are really helped by hydrocodone Bowel movement yesterday and today Overall feels great and wants to go home soon Review of Systems General: Fatigue Pulmonary: Dyspnea Objective Exam Vital Signs Vital Signs Date Time Temp Pulse Resp B/P (MAP) Pulse Ox O2 Delivery O2 Flow Rate FiO2 06/13/18 09:20 84 118/56 (76) 06/13/18 09:00 Nasal Cannula 1.00 06/13/18 07:41 98 06/13/18 05:09 98.0 16 Capillary Refill : General Appearance: No Apparent Distress, WD/WN, Chronically ill, Thin Respiratory: Chest Non Tender, Lungs Clear, Normal Breath Sounds, No Accessory Muscle Use, No Respiratory Distress, Decreased Breath Sounds Cardiovascular: Regular Rate, Rhythm, No Edema, No Gallop, No JVD, No Murmur, Normal Peripheral Pulses Neurologic/Psychiatric: Alert, Oriented x3, No Motor/Sensory Deficits, Normal Mood/Affect Results/Procedures Lab Patient resulted labs reviewed. Assessment/Plan Assessment and Plan Assess & Plan/Chief Complaint Assessment: Severe debility and myopathy following critical illness from septic shock from pneumonia and intubation Current smoker Frail status Constipation resolved Right lower lobe crackle with pleurisy so ordered IS now resolved Plan: IRF therapies Strengthening Monitor lungs closely Titrate O2 down Diagnosis/Problems Diagnosis/Problems (1) Myopathy Status: Acute (2) Constipation Status: Resolved Qualifiers: Constipation type: slow transit constipation Qualified Codes: K59.01 - Slow transit constipation Resolution Date/Time: 06/13/18 @ 14:07 (3) COPD (chronic obstructive pulmonary disease) Status: Chronic Qualifiers: COPD type: unspecified COPD Qualified Codes: J44.9 - Chronic obstructive pulmonary disease, unspecified (4) Smoker Status: Chronic (5) Pleurisy Status: Acute (6) Current tobacco use Status: Chronic (7) Malaise and fatigue Status: Acute Clinical Quality Measures DVT/VTE Risk/Contraindication: Risk Factor Score Per Nursin RFS Level Per Nursing on Admit: 4+=Very High RAFIQ ROJAS DO Jun 13, 2018 13:19
--- NOTE | 2018-06-13 13:20 | Individualized Plan of Care ---
Individualized Plan of Care Rehab Nursing IPOC Order Admission Date Jun 11, 2018 at 10:29 Current Orders Orders Code/Resuscitation (06/11/18 10:42) Activity UD (06/11/18 10:42) Oxygen-Administer (06/11/18 10:42) Sequential Compression Device , (06/11/18 10:42) Automatic Tray (06/11/18 10:42) Acetaminophen Tablet/Caplet (Tylenol T (06/11/18 10:45) Albuterol/Ipra Inhalation Soln (Duoneb I (06/11/18 11:00) Benzonatate Capsule (Tessalon Perles) (06/11/18 10:45) Enoxaparin Injection (Lovenox Injection) (06/11/18 10:45) Fluticasone/Salmeterol Common (Advair 11 (06/11/18 20:00) Gabapentin Capsule/Tablet (Neurontin Cap (06/11/18 12:00) Hydrocodone/Apap 5/325 Tablet (Lortab 5 (06/11/18 10:45) Loperamide Capsule (Imodium Capsule) (06/11/18 10:45) Ondansetron Injection (Zofran Injectio (06/11/18 10:45) Pantoprazole Tablet (Protonix Tablet) (06/11/18 16:00) Venlafaxine Xr Capsule (Effexor Xr Capsu (06/12/18 07:00) Metoprolol Succinate (Xl) Tab (Toprol Xl (06/12/18 09:00) Morphine Injection (Morphine Injection (06/11/18 10:45) Communication For Respiratory (06/11/18 10:42) Consult Physician (06/11/18 10:42) Consult Pulmonology (06/11/18 10:42) Dietary Consult (06/11/18 10:42) Admission Order(Inpt,Obs,Sdc) (06/11/18 10:42) Vital Signs: Routine (Order) 08,16,00 (06/11/18 10:42) Radio Frequency Engineer-Inpt Rehab Con (06/11/18 10:42) Rehab Nursing Orders-Ipoc (06/11/18 10:42) Physical Therapy Rehab Orders (06/11/18 10:42) Occupational Therapy Rehab Ord (06/11/18 10:42) Speech Therapy Rehab Orders (06/11/18 10:42) Intake & Output 06,14,22 (06/11/18 10:42) Precautions (Aru) (06/11/18 10:42) Daily Weight 06 (06/11/18 10:42) Weekly Weight (Lbs) WEEK (06/11/18 10:42) Rehab-Intensity Of Therapy (06/11/18 10:42) Initiate Admission Nursing Pro .admission (06/11/18 10:42) Alprazolam Tablet (Xanax Tablet) (06/11/18 10:45) Calcium Carbonate Chew Tablet (Antacid C (06/11/18 10:45) Diphenhydramine Tablet (Benadryl Tablet) (06/11/18 10:45) Docusate Sodium Capsule (Colace Capsule) (06/11/18 10:45) Melatonin Tablet (Melatonin Tablet) (06/11/18 10:45) Ambulate 08,12,20 (06/11/18 10:50) Sequential Compression Device 08,20 (06/11/18 10:50) Dvt/Vte Risk - Notifiy Physici 08 (06/11/18 10:50) Admission Arrival Bed Request (06/11/18 10:29) Enoxaparin Injection (Lovenox Injection) (06/12/18 06:00) General/Regular (06/11/18 Lunch) Albuterol/Ipra Inhalation Soln (Duoneb I (06/11/18 14:00) Albuterol/Ipra Inhalation Soln (Duoneb I (06/11/18 12:15) Svn Small Volume Nebulizer (06/11/18 12:14) Patient Visit (06/11/18 ) Pt Eval Moderate Complexity (06/11/18 ) Patient Visit (06/11/18 ) Patient Visit (06/11/18 ) Speech Sound Lang Comp (06/11/18 ) Patient Visit (06/12/18 ) Functional Activities, Ea 15 (06/12/18 ) Incentive Spirometry Initial (06/12/18 11:35) Incentive Spirometry (Nursing) Q2H (06/12/18 11:35) Sodium Chloride Flush (Catheter Flush Sy (06/12/18 14:45) Sodium Chloride Flush (Catheter Flush Sy (06/12/18 22:00) Rehab Nursing Orders: Ongoing Assess. of Function Status, Disease Management & Educaiton, Fall Prevention, Fluid/Electrolyte/Nutrition Mgmt, Infection Prevention, Patient/Family Support Intensity of Therapy to be met Patient to be seen: Min.3h per day/5 of 7d PT IPOC Problem List: Activity Tolerance, Safety, Balance, Transfer Treatment Plan: Continue Plan of Care Bed Mobility, Education, Functional Activity Gina, Functional Strength, Group Therapy, Gait, Safety, Therapeutic Exercise, Transfers Treatment Duration: Jun 26, 2018 Frequency: At least 5 of 7 days/Wk (IRF) Estimated Hrs Per Day: 1.5 hours per day OT IPOC Problems: No Skilled OT Needs ID'd, Decreased Safety Aware, Decreased UE Strength, Dependent Transfers, Impaired Bed Mobility, Impaired Funct Balance, Impaired Self-Care Skills OT Treatment, Training and Edu: Yes Plan of Care: ADL Retraining, Caregiver Training, Functional Mobility, Group Exercise/Act as Ind, UE Funct Exercise/Act, UE Neuromus Re-Ed/Coord Treatment Duration: Jul 09, 2018 Frequency: At least 5 of 7 days/Wk (IRF) Estimated Hrs Per Day: 1.[address] IPOC Speech Therapy Treatment Plan: Discontinue ST Treatment Duration: Jun 11, 2018 Frequency: 1 time per week Estimated Hrs Per Day: .25 hour per day Radio Frequency Engineer/Case Mgmt Radio Frequency Engineer/Case Managemen: Discharge Planning Dietitian/Wire Saw Operator Dietitian/Wire Saw Operator to monitor nutritional status and make changes and/or recommendations as needed and work with speech pathology on dietary upgrades as the occur. Physician IPOC Medical Issues being managed closely and that require the 24 hour availability of a physician: Status post severe sepsis with pneumonia and intubation requiring close monitoring respiratory status and oxygen weaning Medical Issues: Falls Precautions, Fluid/Electrolyte/Nutrition Balance, Infection Protection Brief Synthesis of Preadmission Screen, Post-Admission Evaluation, and Therapy Evaluations: Fall prevention and weaning off oxygen Improve independent ADL performance Medical Prognosis: good Anticipated Length of Stay: 7 days RAFIQ ROJAS DO Jun 13, 2018 13:20
--- NOTE | 2018-06-13 15:46 | Cardiology Progress Note ---
Cardiology SOAP Progress Note Subjective: No cardiac complaints. Objective: I&O/Vital Signs 06/13/18 06/13/18 06/13/18 06/13/18 05:09 07:41 09:00 09:20 Temp 98.0 Pulse 87 84 Resp 16 B/P (MAP) 115/66 (82) 118/56 (76) Pulse Ox 95 98 O2 Delivery Nasal Cannula Nasal Cannula Nasal Cannula O2 Flow Rate 1.00 1.00 1.00 06/13/18 14:33 Pulse Ox 90 O2 Delivery Nasal Cannula O2 Flow Rate 1.00 06/13/18 00:00 Intake Total 1570 ml Balance 1570 ml Weight (Pounds): 128 Weight (Ounces): 1.6 Weight (Calculated Kilograms): 58.534445 Constitutional: No appears stated age; AAO x 3; No apparent distress, No PERRL , No well-developed, No well-nourished, No other Respiratory: No accessory muscle use, No respiratory distress, No chest tender , No chest expansion is symmetric; chest is bilaterally symmetric; No lungs clear to percussion; lungs clear to auscultation; No crackles, No rhonchi, No rales, No stridor, No wheezing, No pleural rub, No other Cardiovascular: regular rate-rhythm; No irregularly irregular, No extra beats, No parasternal heave is noted, No JVD, No edema, No bradycardia, No tachycardia , No point of maximal impulse, No cardiac thrills are palpable; S1 and S2; No gallop/S3, No gallop/S4, No diastolic murmur, No systolic murmur, No friction rub, No click, No other Gastrointestional: No tender, No soft, No round, No distended, No pulsatile mass, No organomegaly, No guarding, No rebound, No tenderness, No hernia, No mass, No audible bowel sounds, No abnormal bowel sounds, No abdominal bruits, No spleenomegaly, No other Extremities: No normal range of motion, No non-tender, No normal inspection, No pedal edema, No calf tenderness, No normal capillary refill, No pelvis stable , No calf tenderness, No inflammation, No pedal edema, No slow capillary refill , No swelling, No other, No abrasion, No clubbing, No cyanosis, No ecchymosis, No laceration, No no lower extremity edema bilateral, No significant edema, No tenderness, No wound Neurologic/Psychiatric: no motor/sensory deficits, alert, normal mood/affect, oriented x 3 Skin: No normal color, No warm/dry, No cyanosis, No cool, No diaphoresis, No damp, No ecchymosis, No jaundice, No mottled, No pallor, No rash, No tattoos/ piercings, No ulcerations, No rash on exposed areas, No ulcerations on exposed areas, No other A/P: Assessment/Dx: Ac resp failure due to R-sided pneumonia - extubated -resolved Sepsis with neutropenia and thrombocytopenia -significantly improved Frequent, isolated PACs Mod pulm htn of unknown etiology Maculopapular rash on lower limbs, being monitored and treated by the Medicine - resolved Echo of 05/29/18: LVEF 70-75%, mild to mod TR, PASP 55-60 mmHg Acute diastolic CHF - clinically compensated HTN Plan: Plan: * Management of pneumonia per pulmonary services * Monitor lab * Continue current medication regimen * Generalized weakness -continue inpatient rehabilitation. * Continue PT/OT Thank you for your consultation. Please call me if you have any questions. Karen Posey MD, FACP, FACC, FSCAI, FHRS, CCDS Interventional Cardiology Cardiac Electrophysiology Vascular Medicine and Endovascular Interventions Erum POSEY MD Jun 13, 2018 3:45 pm
[2018-06-13 17:50] VITALS: BP 143/78
[2018-06-14 05:57] VITALS: BP 134/75
[2018-06-14] MEDS: VENlafaxine XR 75 MG (EFFEXOR XR) CAP PO SCH (06:13)
[2018-06-14] MEDS: PANTOPRAZOLE 40 MG (PROTONIX) TAB PO SCH ×2 (06:13→16:11)
[2018-06-14] MEDS: ENOXAPARIN 40 MG/0.4 ML (LOVENOX) SYR SC SCH (06:14)
[2018-06-14] MEDS: RT-ALBUTEROL/IPRATROPIUM 3 ML (DUONEB) VIAL INH SCH ×3 (07:16→19:37)
[2018-06-14] MEDS: RT-ADVAIR HFA 115/21 MCG PER PUFF IH SCH ×2 (07:19→19:38)
--- NOTE | 2018-06-14 07:54 | Pulmonary Progress Note ---
Subjective Time Seen by a Provider: 07:54 Subjective/Events-last exam PT is doing better. No complications noted. Sepsis Event Evaluation Height, Weight, BMI Height: 5'1.50" Weight: 124lbs. 0.0oz. 56.274600rn; 26.4 BMI Method:Stated Exam Exam Vital Signs Date Time Temp Pulse Resp B/P (MAP) Pulse Ox O2 Delivery O2 Flow Rate FiO2 06/14/18 07:16 97 Nasal Cannula 1.00 06/14/18 05:57 96.3 81 18 134/75 (94) 92 Room Air 06/13/18 21:15 Room Air 06/13/18 20:01 Room Air 06/13/18 19:57 98 Nasal Cannula 1.00 06/13/18 17:50 96.6 76 16 143/78 (99) Nasal Cannula 2.00 06/13/18 14:33 90 Nasal Cannula 1.00 06/13/18 09:20 84 118/56 (76) 06/13/18 09:00 Nasal Cannula 1.00 I & O 06/14/18 06:59 Intake Total 1250 ml Balance 1250 ml Height & Weight Height: 5'1.50" Weight: 124lbs. 0.0oz. 56.314619ce; 26.4 BMI Method:Stated General Appearance: No Apparent Distress, WD/WN, Chronically ill, Thin HEENT: PERRL/EOMI, TMs Normal, Normal ENT Inspection, Pharynx Normal Neck: Full Range of Motion, Normal Inspection, Non Tender, Supple, Carotid Bruit Respiratory: Chest Non Tender, Lungs Clear, Normal Breath Sounds, No Accessory Muscle Use, No Respiratory Distress, Decreased Breath Sounds Cardiovascular: Regular Rate, Rhythm, No Edema, No Gallop, No JVD, No Murmur, Normal Peripheral Pulses Extremity: Normal Capillary Refill, Normal Inspection, Normal Range of Motion, Non Tender, No Calf Tenderness, No Pedal Edema Neurologic/Psychiatric: Alert, Oriented x3, No Motor/Sensory Deficits, Normal Mood/Affect Skin: Normal Color, Warm/Dry Lymphatic: No Adenopathy Assessment/Plan Assessment/Plan S/P Acute respiratory failure pulmonary edema - much improved -Titrate oxygen and d/c if possible -She is on 2L NC at 97% -Repeat CXR Strep pneumonia - resolved -Now off Abx -WBC 3.5 Anemia -Monitor AST elevated -monitor Diastolic CHF grade II Debility -PT/OT -Up to chair BID -Increase activity CT QUARLES DO Jun 14, 2018 07:54
[2018-06-14 08:07] VITALS: BP 131/80
--- NOTE | 2018-06-14 08:36 | PM&R Progress Note ---
Subjective HPI/CC On Admission Date Seen by Provider: Jun 14, 2018 Time Seen by Provider: 08:15 CC: Severe myopathy following critical illness HPI: This is a 63yoWF who was admitted 05/29/18 for septic shock due to pneumonia and required intubation with aggressive IVF and abx. Patient ultimately was able to be extubated and completed IV abx while on the med-surg floor. Due to her severe debility she has required IRF admit for strengthening in order to be DC home. Pt required vapotherm while titrating down off of hiflo O2 and is currently using O2 BNC. Subjective/Events-last exam Patient doing very well Walking with therapy Weaning off oxygen Regaining strength Likely discharge this week Overall has no pain Bowels are moving Using incentive spirometer Chest x-ray ordered by Dr. Lawson to be sure that pneumonia is resolved Review of Systems General: Fatigue Objective Exam Vital Signs Vital Signs Date Time Temp Pulse Resp B/P (MAP) Pulse Ox O2 Delivery O2 Flow Rate FiO2 06/14/18 08:07 88 131/80 (97) 06/14/18 08:00 Nasal Cannula 1.00 06/14/18 07:16 97 06/14/18 05:57 96.3 18 Capillary Refill : General Appearance: No Apparent Distress, WD/WN, Anxious, Chronically ill, Thin Respiratory: Chest Non Tender, Lungs Clear, Normal Breath Sounds, No Accessory Muscle Use, No Respiratory Distress, Decreased Breath Sounds (bases) Cardiovascular: Regular Rate, Rhythm, No Edema, No Gallop, No JVD, No Murmur, Normal Peripheral Pulses Neurologic/Psychiatric: Alert, Oriented x3, No Motor/Sensory Deficits, Normal Mood/Affect Results/Procedures Lab Patient resulted labs reviewed. Assessment/Plan Assessment and Plan Assess & Plan/Chief Complaint Assessment: Severe debility and myopathy following critical illness from septic shock from pneumonia and intubation Current smoker Frail status Constipation resolved Right lower lobe crackle with pleurisy so ordered IS now resolved but CXR reveals remaining residual pneumonia on CXR Plan: IRF therapies Strengthening Monitor lungs closely Titrate O2 down Reviewed CXR Diagnosis/Problems Diagnosis/Problems (1) Myopathy Status: Acute (2) Constipation Status: Resolved Qualifiers: Constipation type: slow transit constipation Qualified Codes: K59.01 - Slow transit constipation Resolution Date/Time: 06/13/18 @ 14:07 (3) COPD (chronic obstructive pulmonary disease) Status: Chronic Qualifiers: COPD type: unspecified COPD Qualified Codes: J44.9 - Chronic obstructive pulmonary disease, unspecified (4) Smoker Status: Chronic (5) Pleurisy Status: Acute (6) Current tobacco use Status: Chronic (7) Malaise and fatigue Status: Acute Clinical Quality Measures DVT/VTE Risk/Contraindication: Risk Factor Score Per Nursin RFS Level Per Nursing on Admit: 4+=Very High RAFIQ ROJAS DO Jun 14, 2018 08:36
--- NOTE | 2018-06-14 09:09 | Physical Therapy Daily Note ---
PT Daily Note-Current Subjective Pt is in bed with in room. Pt agrees to PT. Pain Numeric Pain Scale: 0-No Pain Location: No Pain Reported Mental Status Patient Orientation: Person, Place, Situation, Normal For Age Attachments: Oxygen (1L) Transfers Therapy Code Descriptions/Definitions Functional [place] Measure: 0=Not Assessed/NA 4=Minimal Assistance 1=Total Assistance 5=Supervision or Setup 2=Maximal Assistance 6=Modified [place] 3=Moderate Assistance 7=Complete [place] Therapy Quality Codes: 6 Independent with activity with or without an assistive device 5 Patient requires set up or clean up by helper. Patient completes activity by themselves 4 Supervision or touching assist (CGA). [place] provide cues , steadying assist 3 The helper provides less than half the effort to complete the activity 2 The helper provides more than half the effort to complete the activity 1 Dependent. The helper does all the effort to complete an activity 7 Patient refused to complete or attempt activity 9 The patient did not perform the activity before the current illness or injury 88 Not attempted due to Medical conditions or safety concerns Transfers (B, C, W/C) (FIM): 6 Scootin Rollin Supine to/from Sit: 6 Sit to/from Stand: 6 Sit to Lying (QC): 6 Sit to Stand (QC): 6 Weight Bearing Right Lower Extremity: Right Full Weight Bearing Left Lower Extremity: Left Full Weight Bearing Gait Training Does the Patient Walk?: Yes Gait (FIM): 6 Distance (FIM): 3=150 ft Distance: 600' Walk 10 feet (QC): 6 Walk 50 ft with 2 Turns(QC): 6 Walk 150 ft (QC): 6 Gait Level of Assist: 6 Gait Persons Needed: 1 Gait Assistive Device: FWW Exercises Seated Therapy Exercises: Ankle pumps, Long arc quads, Hip flexion Seated Reps: 20 Standing: Hip Abduction, Mini squats Standing Reps: 10 NuStep Minutes: 15 NuStep Workload: 5 Assessment Current Status: Good Progress Pt was able to amb a total of 600' during tx today with FWW and PT assisting with O2 tank set at 1L. Pt amb 150' without O2 and SaO2 stayed above 88%. SaO2 monitored throughout tx and ranged from 89-96%. Pt was able to perform seated LE ex and standing LE ex using parallel bar for balance. Pt was able to perform on the nustep for 15 at a workload of 5. Pt reported that she could not have done much more resistance than 5. Pt sometimes does not use good safety with hand placement during transfers. Pt was able to perform bathroom skills indep. Pt returned to room and is in bed with all needs met. PT Short Term Goals Short Term Goals Transfers (B,C,W/C) (FIM): 7 PT Cocoa Bean Cleaner Goals Senior Care Goals PT Senior Care Goals Time Frame: Jun 26, 2018 Transfers (B,C,W/C) (FIM): 7 Sit to Lying (QC): 6 Lying-Sitting on Side/Bed(QC): 6 Sit to Stand (QC): 6 Rollin Roll Left to Right (QC): 6 Chair/Vbh-up-Cutjf Xfer(QC): 6 Car Transfer (QC): 6 Gait (FIM): 7 Gait distance (FIM): 3=150 ft Distance: >200' Walk 10 feet (QC): 6 Walk 10ft-Uneven Surface(QC): 6 Walk 50ft with 2 Turns (QC): 6 Walk 150 ft (QC): 6 Gait Level of Assist: 7 Gait Assistive Device: None Stairs (FIM): 6 # of Steps: 12 1 Step (curb) (QC): 6 4 Steps (QC): 6 12 Steps (QC): 6 Stairs Level Of Assist: 6 Picking up an Object (QC): 6 PT Plan Problem List Problem List: Activity Tolerance, Functional Strength, Safety, Balance, Gait, ROM Treatment/Plan Treatment Plan: Continue Plan of Care Treatment Plan: Bed Mobility, Education, Functional Activity Gina, Functional Strength, Group Therapy, Gait, Safety, Therapeutic Exercise, Transfers Treatment Duration: Jun 26, 2018 Frequency: At least 5 of 7 days/Wk (IRF) Estimated Hrs Per Day: 1.5 hours per day Patient and/or Family Agrees t: Yes Time/GCodes Time In: 800 Time Out: 900 Total Billed Treatment Time: 60 Total Billed Treatment 1 visit Gt 15 min Ex x2 30 min FA 15 min RANDAL FOX PT Jun 14, 2018 09:09
--- NOTE | 2018-06-14 11:10 | NUR ---
Pastoral Care Visit.
[2018-06-14] MEDS: GABAPENTIN 300 MG (NEURONTIN) CAP PO SCH (12:04)
--- NOTE | 2018-06-14 12:15 | NUR ---
Initial Assessment Met with patient to discuss the inpatient rehab program. Patient reports that prior to admission she was independent with mobility and ADLs. She does not have any adaptive equipment at home. She did not require supplemental oxygen at home. She lives with her spouse in a single level home with 3 entry steps with railing. She is cooperative and willing to participate with therapies. Discharge goal is to return home.
--- NOTE | 2018-06-14 12:29 | Diagnostic Imaging Report ---
INDICATION: History of hypoxia. COMPARISON: 06/08/2018. FINDINGS: Frontal and lateral radiographic views of the chest were obtained. There are persistent, although slightly improved diffuse interstitial opacities, right greater than left. No large effusion or pneumothorax is seen on either side. Cardiac silhouette and pulmonary vasculature within normal limits. Bony structures show no gross acute abnormalities. IMPRESSION: Improved, although persistent diffuse bilateral interstitial infiltrates, right greater than left. Dictated by: Dictated on workstation # [id number]
--- NOTE | 2018-06-14 13:22 | Physical Therapy Daily Note ---
PT Daily Note-Current Subjective Pt was in bed and agreed to PT Pain Numeric Pain Scale: 0-No Pain Location: No Pain Reported Mental Status Patient Orientation: Person, Place, Situation, Normal For Age Attachments: Oxygen (1L) Transfers Therapy Code Descriptions/Definitions Functional [place] Measure: 0=Not Assessed/NA 4=Minimal Assistance 1=Total Assistance 5=Supervision or Setup 2=Maximal Assistance 6=Modified [place] 3=Moderate Assistance 7=Complete [place] Therapy Quality Codes: 6 Independent with activity with or without an assistive device 5 Patient requires set up or clean up by helper. Patient completes activity by themselves 4 Supervision or touching assist (CGA). [place] provide cues , steadying assist 3 The helper provides less than half the effort to complete the activity 2 The helper provides more than half the effort to complete the activity 1 Dependent. The helper does all the effort to complete an activity 7 Patient refused to complete or attempt activity 9 The patient did not perform the activity before the current illness or injury 88 Not attempted due to Medical conditions or safety concerns Transfers (B, C, W/C) (FIM): 6 Scootin Rollin Roll Left to Right (QC): 6 Supine to/from Sit: 6 Sit to/from Stand: 6 Sit to Lying (QC): 6 Sit to Stand (QC): 6 Weight Bearing Right Lower Extremity: Right Full Weight Bearing Left Lower Extremity: Left Full Weight Bearing Gait Training Does the Patient Walk?: Yes Gait (FIM): 6 Distance (FIM): 3=150 ft Distance: 450' Walk 10 feet (QC): 6 Walk 50 ft with 2 Turns(QC): 6 Walk 150 ft (QC): 6 Gait Level of Assist: 6 Gait Persons Needed: 1 Gait Assistive Device: FWW Exercises Standin way Ex=Flex, Abd, Ext, Mini squats, Sit to Stand Standing Reps: 10 NuStep Minutes: 10 NuStep Workload: 5 Assessment Current Status: Good Progress Pt was able to perform bed mobility indep. Pt amb 450' with FWW and PT only assisting with O2 at 1L. Pt was able to perform standing LE ex with all ex on airex pad. Pt performed on nustep for 10 min at a workload of 5. Pt returned to room and is in bed with all needs met. PT Short Term Goals Short Term Goals Transfers (B,C,W/C) (FIM): 7 PT Fdc Goals Central Office Installer Goals PT Central Office Installer Goals Time Frame: Jun 26, 2018 Transfers (B,C,W/C) (FIM): 7 Sit to Lying (QC): 6 Lying-Sitting on Side/Bed(QC): 6 Sit to Stand (QC): 6 Rollin Roll Left to Right (QC): 6 Chair/Wkx-za-Zceoj Xfer(QC): 6 Car Transfer (QC): 6 Gait (FIM): 7 Gait distance (FIM): 3=150 ft Distance: >200' Walk 10 feet (QC): 6 Walk 10ft-Uneven Surface(QC): 6 Walk 50ft with 2 Turns (QC): 6 Walk 150 ft (QC): 6 Gait Level of Assist: 7 Gait Assistive Device: None Stairs (FIM): 6 # of Steps: 12 1 Step (curb) (QC): 6 4 Steps (QC): 6 12 Steps (QC): 6 Stairs Level Of Assist: 6 Picking up an Object (QC): 6 PT Plan Problem List Problem List: Activity Tolerance, Functional Strength, Safety, Balance, Gait Treatment/Plan Treatment Plan: Continue Plan of Care Treatment Plan: Bed Mobility, Education, Functional Activity Gina, Functional Strength, Group Therapy, Gait, Safety, Therapeutic Exercise, Transfers Treatment Duration: Jun 26, 2018 Frequency: At least 5 of 7 days/Wk (IRF) Estimated Hrs Per Day: 1.5 hours per day Patient and/or Family Agrees t: Yes Time/GCodes Time In: 1230 Time Out: 1300 Total Billed Treatment Time: 30 Total Billed Treatment 1 visit EX x2 30 min RANDAL FOX PT Jun 14, 2018 13:22
--- NOTE | 2018-06-14 13:24 | Occupational Ther Daily Note ---
OT Current Status-Daily Note Subjective Pt in her room, sitting in bed .Pt stated , I was waiting for you & I am ready for shower. Pain Numeric Pain Scale: 0-No Pain Mental Status/Objective Patient Orientation: Person, Place, Time Therapy Code Descriptions/Definitions Functional [place] Measure: 0=Not Assessed/NA 4=Minimal Assistance 1=Total Assistance 5=Supervision or Setup 2=Maximal Assistance 6=Modified [place] 3=Moderate Assistance 7=Complete [place] Attachments: IV ADL-Treatment Pt seen in OT for ADL retraining , theraex , trunk balancing ex, Thera-acts, safety education. Pt participated in shower activity with min -SBA , UB dressing mod. I , LB dressing with min A , drying back & LE with SBA, Pt O2 dependent, fatigue soon. 20 reps x 2 sets x 1 lb wt, 20 reps x sets with red theraband to increase MS in BUE & endurance. Therapy Code Descriptions/Definitions Functional [place] Measure: 0=Not Assessed/NA 4=Minimal Assistance 1=Total Assistance 5=Supervision or Setup 2=Maximal Assistance 6=Modified [place] 3=Moderate Assistance 7=Complete [place] Therapy Quality Codes: 6 Independent with activity with or without an assistive device 5 Patient requires set up or clean up by helper. Patient completes activity by themselves 4 Supervision or touching assist (CGA). [place] provide cues , steadying assist 3 The helper provides less than half the effort to complete the activity 2 The helper provides more than half the effort to complete the activity 1 Dependent. The helper does all the effort to complete an activity 7 Patient refused to complete or attempt activity 9 The patient did not perform the activity before the current illness or injury 88 Not attempted due to Medical conditions or safety concerns Eating (FIM): 7 Eating (QC): 6 Grooming (FIM): 6 Oral Hygiene (QC): 6 Bathing (FIM): 4 Bathing Location: L Arm, R Arm, L Upper Leg, R Upper Leg, L Lower Leg ( including foot), Chest, Abdomen, Buttocks, Perineal Area Shower/Bathe Self (QC): 4 Upper Body (FIM): 5 Upper Body Dressing (QC): 5 Lower Body Dressing (FIM): 4 Lower Body Dressing (QC): 4 On/Off Footwear (QC): 5 Toileting (FIM): 5 Toileting Hygiene (QC): 5 Transfers (B, C, W/C) (FIM): 5 Toilet/Commode Transfer (FIM): 5 Toilet Transfer (QC): 5 Tub Transfer(FIM): 0 Shower Transfer(FIM): 5 Education OT Patient Education: Correct positioning, Energy conservation, Instructions to caregiver, Modified ADL techniques, Safety issues Teaching Recipient: Patient, Family Teaching Methods: Demonstration, Discussion Response to Teaching: Verbalize Understanding, Return Demonstration OT Short Term Goals Short Term Goals Time Frame: Jun 25, 2018 Eating(FIM): 7 Grooming(FIM): 7 Bathing(FIM): 6 Bathing Location: L Arm, R Arm, L Upper Leg, R Upper Leg, L Lower Leg ( including foot), R Lower Leg (including foot), Chest, Abdomen, Buttocks, Perineal Area Upper Body Dressing(FIM): 7 Lower Body Dressing(FIM): 7 Toileting(FIM): 7 Transfers (B,C,W/C) (FIM): 7 Toilet/Commode Transfer(FIM): 7 Shower Transfer(FIM): 7 Additional Short Term Goals: 1-Demonstrate ADL Tasks, 2-Verbalize Understanding , 3-ImproveStrength/Gina 1=Demonstrate adherence to instructed precautions during ADL tasks. 2=Patient will verbalize/demonstrate understanding of assistive devices/ modifications for ADL. 3=Patient will improve strength/tolerance for activity to enable patient to perform ADL's. OT Care Home Goals Care Home Goals Time Frame: Jul 09, 2018 Eating (FIM): 7 Eating (QC): 6 Groomin Oral Hygiene (QC): 7 Bathing(FIM): 6 Bathing Location: L Arm, R Arm, L Upper Leg, R Upper Leg, L Lower Leg ( including foot), Chest, Abdomen, Buttocks, Perineal Area Shower/Bathe Self (QC): 7 Upper Body Dressing(FIM): 7 Upper Body Dressing (QC): 7 Lower Body Dressing(FIM): 7 Lower Body Dressing (QC): 6 On/Off Footwear (QC): 6 Toileting(FIM): 7 Toileting Hygiene (QC): 6 Transfers (B,C,W/C) (FIM): 7 Toilet/Commode Transfer(FIM): 7 Toilet/Commode Transfer (QC): 6 Shower Transfer(FIM): 7 Additional Goals: 1-Demonstrate ADL Tasks, 2-Verbalize Understanding, 3- ImproveStrength/Gina 1=Demonstrate adherence to instructed precautions during ADL tasks. 2=Patient will verbalize/demonstrate understanding of assistive devices/ modifications for ADL. 3=Patient will improve strength/tolerance for activity to enable patient to perform ADL's. OT Education/Plan Problem List/Assessment Assessment: Decreased Activ Tolerance, Decreased Safety Aware, Decreased UE Strength, Dependent Transfers, Impaired Bed Mobility, Impaired Funct Balance, Impaired Self-Care Skills Discharge Recommendations Plan/Recommendations: Continue POC Therapy D/C Recommendations: Home w/ Family Support, Occupational Therapy Home Care Equpiment Recommendations-D/C: Bath Chair, Extended Shower Sprayer, Study Assistant Barriers to Progress weakness, fatigue soon Patient/Family Goals To return home earliest with . Treatment Plan/Plan of Care Patient would benefit from OT for education, treatment and training to promote independence in ADL's, mobility, safety and/or upper extremity function for ADL' s. Plan of Care: ADL Retraining, Caregiver Training, Functional Mobility, Group Exercise/Act as Ind, UE Funct Exercise/Act, UE Neuromus Re-Ed/Coord Treatment Duration: Jul 09, 2018 Frequency: At least 5 of 7 days/Wk (IRF) Estimated Hrs Per Day: 1.5 hours per day Agreement: Yes Rehab Potential: Good Time/GCodes Start Time: 09:00 Stop Time: 14:00 ([id number] 30 min) Total Time Billed (hr/min): 90 (900-1000 am =60 min & 2512-6714=30 min total 90 min) Billed Treatment Time 1, ADLs x 60 min, ex 30 min total 90 min RISHABH FERNANDEZ OT Jun 14, 2018 13:24
--- NOTE | 2018-06-14 14:40 | Cardiology Progress Note ---
Cardiology SOAP Progress Note Subjective: Improved shortness of breath. Objective: I&O/Vital Signs 06/14/18 06/14/18 06/14/18 06/14/18 05:57 07:16 08:00 08:07 Temp 96.3 Pulse 81 88 Resp 18 B/P (MAP) 134/75 (94) 131/80 (97) Pulse Ox 92 97 O2 Delivery Room Air Nasal Cannula Nasal Cannula O2 Flow Rate 1.00 1.00 06/14/18 00:00 Intake Total 1000 ml Balance 1000 ml Weight (Pounds): 124 Weight (Ounces): 0.0 Weight (Calculated Kilograms): 56.224527 Constitutional: No appears stated age; AAO x 3; No apparent distress, No PERRL , No well-developed, No well-nourished, No other Respiratory: No accessory muscle use, No respiratory distress, No chest tender , No chest expansion is symmetric; chest is bilaterally symmetric; No lungs clear to percussion; lungs clear to auscultation; No crackles, No rhonchi, No rales, No stridor, No wheezing, No pleural rub, No other Cardiovascular: regular rate-rhythm; No irregularly irregular, No extra beats, No parasternal heave is noted, No JVD, No edema, No bradycardia, No tachycardia , No point of maximal impulse, No cardiac thrills are palpable; S1 and S2; No gallop/S3, No gallop/S4, No diastolic murmur, No systolic murmur, No friction rub, No click, No other Gastrointestional: No tender, No soft, No round, No distended, No pulsatile mass, No organomegaly, No guarding, No rebound, No tenderness, No hernia, No mass, No audible bowel sounds, No abnormal bowel sounds, No abdominal bruits, No spleenomegaly, No other Extremities: No normal range of motion, No non-tender, No normal inspection, No pedal edema, No calf tenderness, No normal capillary refill, No pelvis stable , No calf tenderness, No inflammation, No pedal edema, No slow capillary refill , No swelling, No other, No abrasion, No clubbing, No cyanosis, No ecchymosis, No laceration, No no lower extremity edema bilateral, No significant edema, No tenderness, No wound Neurologic/Psychiatric: no motor/sensory deficits, alert, normal mood/affect, oriented x 3 Skin: No normal color, No warm/dry, No cyanosis, No cool, No diaphoresis, No damp, No ecchymosis, No jaundice, No mottled, No pallor, No rash, No tattoos/ piercings, No ulcerations, No rash on exposed areas, No ulcerations on exposed areas, No other A/P: Assessment/Dx: Ac resp failure due to R-sided pneumonia - extubated -resolved Sepsis with neutropenia and thrombocytopenia -significantly improved Frequent, isolated PACs Mod pulm htn of unknown etiology Maculopapular rash on lower limbs, being monitored and treated by the Medicine - resolved Echo of 05/29/18: LVEF 70-75%, mild to mod TR, PASP 55-60 mmHg Acute diastolic CHF - clinically compensated HTN Plan: Plan: * Management of pneumonia per pulmonary services * Monitor lab * Continue current medication regimen * Generalized weakness -continue inpatient rehabilitation. * Continue PT/OT Thank you for your consultation. Please call me if you have any questions. Karen Posey MD, FACP, FACC, FSCAI, FHRS, CCDS Interventional Cardiology Cardiac Electrophysiology Vascular Medicine and Endovascular Interventions Erum POSEY MD Jun 14, 2018 2:39 pm
[2018-06-14 17:33] VITALS: BP 129/77
[2018-06-14] MEDS: HYDROcodone/APAP 5 MG/325 MG (LORTAB) TAB PO PRN (20:44)
[2018-06-15 05:23] VITALS: BP 147/89
[2018-06-15] MEDS: RT-ADVAIR HFA 115/21 MCG PER PUFF IH SCH ×2 (06:06→20:23)
[2018-06-15] MEDS: RT-ALBUTEROL/IPRATROPIUM 3 ML (DUONEB) VIAL INH SCH ×3 (06:06→20:23)
[2018-06-15] MEDS: VENlafaxine XR 75 MG (EFFEXOR XR) CAP PO SCH (06:23)
[2018-06-15] MEDS: PANTOPRAZOLE 40 MG (PROTONIX) TAB PO SCH ×2 (06:23→16:48)
[2018-06-15] MEDS: ENOXAPARIN 40 MG/0.4 ML (LOVENOX) SYR SC SCH (06:24)
--- NOTE | 2018-06-15 06:51 | Pulmonary Progress Note ---
Subjective Time Seen by a Provider: 07:15 Subjective/Events-last exam Pt is getting ready to take a shower. Requesting oxygen to be turned up while she is exerting herself in with ADLs. Sepsis Event Evaluation Height, Weight, BMI Height: 5'1.50" Weight: 126lbs. 8.0oz. 57.436088ov; 26.4 BMI Method:Stated Exam Exam Vital Signs Date Time Temp Pulse Resp B/P (MAP) Pulse Ox O2 Delivery O2 Flow Rate FiO2 06/15/18 06:07 98 Nasal Cannula 2.00 06/15/18 05:23 98.2 77 18 147/89 (108) 97 Nasal Cannula 2.00 06/14/18 20:30 Nasal Cannula 1.50 06/14/18 19:38 97 Nasal Cannula 1.00 06/14/18 17:33 98.6 84 18 129/77 (94) 98 Nasal Cannula 2.00 06/14/18 15:33 97 Nasal Cannula 1.00 06/14/18 08:07 88 131/80 (97) 06/14/18 08:00 Nasal Cannula 1.00 06/14/18 07:16 97 Nasal Cannula 1.00 I & O 06/15/18 06:59 Intake Total 1400 ml Balance 1400 ml Height & Weight Height: 5'1.50" Weight: 126lbs. 8.0oz. 57.454849bu; 26.4 BMI Method:Stated General Appearance: No Apparent Distress, WD/WN, Anxious, Chronically ill, Thin HEENT: PERRL/EOMI, TMs Normal, Normal ENT Inspection, Pharynx Normal Neck: Full Range of Motion, Normal Inspection, Non Tender, Supple, Carotid Bruit Respiratory: Chest Non Tender, Lungs Clear, Normal Breath Sounds, No Accessory Muscle Use, No Respiratory Distress, Decreased Breath Sounds (bases) Cardiovascular: Regular Rate, Rhythm, No Edema, No Gallop, No JVD, No Murmur, Normal Peripheral Pulses Extremity: Normal Capillary Refill, Normal Inspection, Normal Range of Motion, Non Tender, No Calf Tenderness, No Pedal Edema Neurologic/Psychiatric: Alert, Oriented x3, No Motor/Sensory Deficits, Normal Mood/Affect Skin: Normal Color, Warm/Dry Lymphatic: No Adenopathy Assessment/Plan Assessment/Plan S/P Acute respiratory failure pulmonary edema - much improved -Titrate oxygen and d/c if possible -She is on 2L NC at 97% -Repeat CXR Strep pneumonia - resolved Anemia -Monitor AST elevated -monitor Diastolic CHF grade II Debility -PT/OT -Up to chair BID -Increase activity CT QUARLES DO Jun 15, 2018 06:51
--- NOTE | 2018-06-15 08:27 | PM&R Progress Note ---
Subjective HPI/CC On Admission Date Seen by Provider: Jun 15, 2018 Time Seen by Provider: 08:25 CC: Severe myopathy following critical illness HPI: This is a 63yoWF who was admitted 05/29/18 for septic shock due to pneumonia and required intubation with aggressive IVF and abx. Patient ultimately was able to be extubated and completed IV abx while on the med-surg floor. Due to her severe debility she has required IRF admit for strengthening in order to be DC home. Pt required vapotherm while titrating down off of hiflo O2 and is currently using O2 BNC. Subjective/Events-last exam Weaning oxygen but will likely need to go home on 2 liters Participating in therapy Social work Amy will arrange her oxygen if that is needed she reports Review of Systems General: Fatigue Objective Exam Vital Signs Vital Signs Date Time Temp Pulse Resp B/P (MAP) Pulse Ox O2 Delivery O2 Flow Rate FiO2 06/15/18 17:48 97.5 78 18 149/78 (101) 98 Nasal Cannula 1.00 Capillary Refill : General Appearance: No Apparent Distress, WD/WN, Chronically ill, Thin Respiratory: Chest Non Tender, Lungs Clear, Normal Breath Sounds, No Accessory Muscle Use, No Respiratory Distress, Decreased Breath Sounds Cardiovascular: Regular Rate, Rhythm, No Edema, No Gallop, No JVD, No Murmur, Normal Peripheral Pulses Neurologic/Psychiatric: Alert, Oriented x3, No Motor/Sensory Deficits, Normal Mood/Affect Results/Procedures Lab Patient resulted labs reviewed. Assessment/Plan Assessment and Plan Assess & Plan/Chief Complaint Assessment: Severe debility and myopathy following critical illness from septic shock from pneumonia and intubation Current smoker Frail status Constipation resolved Right lower lobe crackle with pleurisy so ordered IS now resolved but CXR reveals remaining residual pneumonia on CXR Plan: IRF therapies Strengthening Monitor lungs closely Titrate O2 down DC soon Diagnosis/Problems Diagnosis/Problems (1) Myopathy Status: Acute (2) Constipation Status: Resolved Qualifiers: Constipation type: slow transit constipation Qualified Codes: K59.01 - Slow transit constipation Resolution Date/Time: 06/13/18 @ 14:07 (3) COPD (chronic obstructive pulmonary disease) Status: Chronic Qualifiers: COPD type: unspecified COPD Qualified Codes: J44.9 - Chronic obstructive pulmonary disease, unspecified (4) Smoker Status: Chronic (5) Pleurisy Status: Acute (6) Current tobacco use Status: Chronic (7) Malaise and fatigue Status: Acute Clinical Quality Measures DVT/VTE Risk/Contraindication: Risk Factor Score Per Nursin RFS Level Per Nursing on Admit: 4+=Very High RAFIQ ROJAS DO Jun 15, 2018 08:27
--- NOTE | 2018-06-15 08:57 | Physical Therapy Daily Note ---
PT Daily Note-Current Subjective Pt was sitting up in bed and agreed to PT. Pt reported she already showered this morning and her assisted. She reported that Dr. Lawson moved her O2 up to 2L while in the shower. Pain Numeric Pain Scale: 0-No Pain Location: No Pain Reported Mental Status Patient Orientation: Person, Place, Situation, Normal For Age Attachments: Oxygen (1L) Transfers Therapy Code Descriptions/Definitions Functional [place] Measure: 0=Not Assessed/NA 4=Minimal Assistance 1=Total Assistance 5=Supervision or Setup 2=Maximal Assistance 6=Modified [place] 3=Moderate Assistance 7=Complete [place] Therapy Quality Codes: 6 Independent with activity with or without an assistive device 5 Patient requires set up or clean up by helper. Patient completes activity by themselves 4 Supervision or touching assist (CGA). [place] provide cues , steadying assist 3 The helper provides less than half the effort to complete the activity 2 The helper provides more than half the effort to complete the activity 1 Dependent. The helper does all the effort to complete an activity 7 Patient refused to complete or attempt activity 9 The patient did not perform the activity before the current illness or injury 88 Not attempted due to Medical conditions or safety concerns Transfers (B, C, W/C) (FIM): 6 Scootin Rollin Sit to/from Stand: 6 Sit to Lying (QC): 6 Sit to Stand (QC): 6 Weight Bearing Right Lower Extremity: Right Full Weight Bearing Left Lower Extremity: Left Full Weight Bearing Gait Training Does the Patient Walk?: Yes Gait (FIM): 6 Distance (FIM): 3=150 ft Distance: 500' Walk 10 feet (QC): 6 Walk 50 ft with 2 Turns(QC): 6 Walk 150 ft (QC): 6 Gait Level of Assist: 6 Gait Persons Needed: 1 Gait Assistive Device: FWW Stair Training Stair Training: Handrails/: 1 handrail Stairs (FIM): 6 #of Steps: 12 1 Step (curb) (QC): 6 4 Steps (QC): 6 12 Steps (QC): 6 Stairs: Pattern: Step to Level of Assist: 6 Balance Picking up an Object (QC): 6 Exercises Seated Therapy Exercises: Ankle pumps, Long arc quads, Hip flexion, Glut set Seated Reps: 20 Standing: Heel/toe raises, 3 way Ex=Flex, Abd, Ext, Mini squats, Sit to Stand Standing Reps: 10 NuStep Minutes: 15 NuStep Workload: 5 Assessment Current Status: Good Progress Pt was indep in bed mobility and transfers to FWW. Pt amb 500' with FWW and PT assisting with O2 at 1L. Pt performed on nustep for 15 with workload of 5. Pt performed seated LE ex. Pt was able to perform all standing ex with airex pad to challenge pt with balance while strengthening. Pt performed dynamic balance activity by toe tapping cones bilateral and then picking up cones (5) x2 with FWW used for balance. Pt performed stairs (12 steps) with step to pattern ascending and descending using 1 handrail.Pt does require recovery periods between ex due to fatigue and SOB. Pt is able to recover quickly. Pt would like to return home soon and says that she does want oxygen mainly for at night because she feels more comfortable with it on. Pt returned to room and requested to return to her bed and has all needs met. PT Short Term Goals Short Term Goals Transfers (B,C,W/C) (FIM): 7 PT Detention Goals Detention Goals PT Detention Goals Time Frame: Jun 26, 2018 Transfers (B,C,W/C) (FIM): 7 Sit to Lying (QC): 6 Lying-Sitting on Side/Bed(QC): 6 Sit to Stand (QC): 6 Rollin Roll Left to Right (QC): 6 Chair/[id number] Xfer(QC): 6 Car Transfer (QC): 6 Gait (FIM): 7 Gait distance (FIM): 3=150 ft Distance: >200' Walk 10 feet (QC): 6 Walk 10ft-Uneven Surface(QC): 6 Walk 50ft with 2 Turns (QC): 6 Walk 150 ft (QC): 6 Gait Level of Assist: 7 Gait Assistive Device: None Stairs (FIM): 6 # of Steps: 12 1 Step (curb) (QC): 6 4 Steps (QC): 6 12 Steps (QC): 6 Stairs Level Of Assist: 6 Picking up an Object (QC): 6 PT Plan Problem List Problem List: Activity Tolerance, Functional Strength, Safety, Balance, Gait, ROM Treatment/Plan Treatment Plan: Continue Plan of Care Treatment Plan: Bed Mobility, Education, Functional Activity Gina, Functional Strength, Group Therapy, Gait, Safety, Therapeutic Exercise, Transfers Treatment Duration: Jun 26, 2018 Frequency: At least 5 of 7 days/Wk (IRF) Estimated Hrs Per Day: 1.5 hours per day Patient and/or Family Agrees t: Yes Time/GCodes Time In: 745 Time Out: 845 Total Billed Treatment Time: 60 Total Billed Treatment 1 visit GT 15 min EX x 3 45 min RANDAL FOX PT Jun 15, 2018 08:57
[2018-06-15 09:21] VITALS: BP 132/69
--- NOTE | 2018-06-15 10:51 | Occupational Ther Daily Note ---
OT Current Status-Daily Note Subjective Pt in bed, watching TV. Pt stated, " Oh I am very happy today." Pain Numeric Pain Scale: 0-No Pain Mental Status/Objective Patient Orientation: Person, Place, Time, Situation Therapy Code Descriptions/Definitions Functional [place] Measure: 0=Not Assessed/NA 4=Minimal Assistance 1=Total Assistance 5=Supervision or Setup 2=Maximal Assistance 6=Modified [place] 3=Moderate Assistance 7=Complete [place] Attachments: Oxygen ADL-Treatment Pt participated in ADL retraining, func bed mobility, func toilet transfers , balancing exercises, Safety precautions & theraex BUE. Therapy Code Descriptions/Definitions Functional [place] Measure: 0=Not Assessed/NA 4=Minimal Assistance 1=Total Assistance 5=Supervision or Setup 2=Maximal Assistance 6=Modified [place] 3=Moderate Assistance 7=Complete [place] Therapy Quality Codes: 6 Independent with activity with or without an assistive device 5 Patient requires set up or clean up by helper. Patient completes activity by themselves 4 Supervision or touching assist (CGA). [place] provide cues , steadying assist 3 The helper provides less than half the effort to complete the activity 2 The helper provides more than half the effort to complete the activity 1 Dependent. The helper does all the effort to complete an activity 7 Patient refused to complete or attempt activity 9 The patient did not perform the activity before the current illness or injury 88 Not attempted due to Medical conditions or safety concerns Eating (FIM): 7 Eating (QC): 6 Grooming (FIM): 6 Oral Hygiene (QC): 6 Bathing (FIM): 5 Bathing Location: L Arm, R Arm, L Upper Leg, R Upper Leg, L Lower Leg ( including foot), R Lower Leg (including foot), Chest, Abdomen, Buttocks, Perineal Area Shower/Bathe Self (QC): 5 Upper Body (FIM): 7 Upper Body Dressing (QC): 6 Lower Body Dressing (FIM): 5 Lower Body Dressing (QC): 5 On/Off Footwear (QC): 6 Toileting (FIM): 5 Toileting Hygiene (QC): 5 Transfers (B, C, W/C) (FIM): 6 Toilet/Commode Transfer (FIM): 6 Toilet Transfer (QC): 6 Tub Transfer(FIM): 0 Shower Transfer(FIM): 6 Education OT Patient Education: Correct positioning, Energy conservation, Instructions to caregiver, Safety issues Teaching Recipient: Patient, Family Teaching Methods: Demonstration, Discussion Response to Teaching: Verbalize Understanding, Return Demonstration OT Short Term Goals Short Term Goals Time Frame: Jun 25, 2018 Eating(FIM): 7 Grooming(FIM): 7 Bathing(FIM): 6 Bathing Location: L Arm, R Arm, L Upper Leg, R Upper Leg, L Lower Leg ( including foot), R Lower Leg (including foot), Chest, Abdomen, Buttocks, Perineal Area Upper Body Dressing(FIM): 7 Lower Body Dressing(FIM): 7 Toileting(FIM): 7 Transfers (B,C,W/C) (FIM): 7 Toilet/Commode Transfer(FIM): 7 Shower Transfer(FIM): 7 Additional Short Term Goals: 1-Demonstrate ADL Tasks, 2-Verbalize Understanding , 3-ImproveStrength/Gina 1=Demonstrate adherence to instructed precautions during ADL tasks. 2=Patient will verbalize/demonstrate understanding of assistive devices/ modifications for ADL. 3=Patient will improve strength/tolerance for activity to enable patient to perform ADL's. OT [facility] Goals Senior Clinical Data Manager Goals Time Frame: Jul 09, 2018 Eating (FIM): 7 Eating (QC): 6 Groomin Oral Hygiene (QC): 7 Bathing(FIM): 6 Bathing Location: L Arm, R Arm, L Upper Leg, R Upper Leg, L Lower Leg ( including foot), Chest, Abdomen, Buttocks, Perineal Area Shower/Bathe Self (QC): 7 Upper Body Dressing(FIM): 7 Upper Body Dressing (QC): 7 Lower Body Dressing(FIM): 7 Lower Body Dressing (QC): 6 On/Off Footwear (QC): 6 Toileting(FIM): 7 Toileting Hygiene (QC): 6 Transfers (B,C,W/C) (FIM): 7 Toilet/Commode Transfer(FIM): 7 Toilet/Commode Transfer (QC): 6 Shower Transfer(FIM): 7 Additional Goals: 1-Demonstrate ADL Tasks, 2-Verbalize Understanding, 3- ImproveStrength/Gina 1=Demonstrate adherence to instructed precautions during ADL tasks. 2=Patient will verbalize/demonstrate understanding of assistive devices/ modifications for ADL. 3=Patient will improve strength/tolerance for activity to enable patient to perform ADL's. OT Education/Plan Problem List/Assessment Assessment: Decreased Activ Tolerance, Decreased Safety Aware, Decreased UE Strength, Impaired Bed Mobility, Impaired Funct Balance, Impaired Self-Care Skills Discharge Recommendations Plan/Recommendations: Continue POC Therapy D/C Recommendations: Home w/ Family Support, Occupational Therapy Home Care Equpiment Recommendations-D/C: Bath Chair, Extended Shower Sprayer, Steam Service Inspector Barriers to Progress O2 dependent, fatigue soon, needs frequent rest periods between each activity. Patient/Family Goals To return home Independently with . Treatment Plan/Plan of Care Patient would benefit from OT for education, treatment and training to promote independence in ADL's, mobility, safety and/or upper extremity function for ADL' s. Plan of Care: ADL Retraining, Caregiver Training, Functional Mobility, Group Exercise/Act as Ind, UE Funct Exercise/Act, UE Neuromus Re-Ed/Coord Treatment Duration: Jul 09, 2018 Frequency: At least 5 of 7 days/Wk (IRF) Estimated Hrs Per Day: 1.5 hours per day Agreement: Yes Rehab Potential: Good Time/GCodes Start Time: 09:00 Stop Time: 10:30 Total Time Billed (hr/min): 90 Billed Treatment Time 1, ADLs 60 min , Ex 30 min. Total 90 min. RISHABH FERNANDEZ OT Jun 15, 2018 10:51
--- NOTE | 2018-06-15 11:40 | Progress Note-Cardiology ---
Cardiology SOAP Progress Note Subjective: Sitting up in bed. Feels like she is getting stronger. No c/o CP, dyspnea, palpitations, syncope or near syncope Objective: I&O/Vital Signs 06/15/18 06/15/18 06/15/18 05:23 06:07 09:21 Temp 98.2 Pulse 77 81 Resp 18 B/P (MAP) 147/89 (108) 132/69 (90) Pulse Ox 97 98 O2 Delivery Nasal Cannula Nasal Cannula O2 Flow Rate 2.00 2.00 06/15/18 00:00 Intake Total 1000 ml Balance 1000 ml Weight (Pounds): 126 Weight (Ounces): 8.0 Weight (Calculated Kilograms): 57.825367 Constitutional: AAO x 3 Respiratory: chest is bilaterally symmetric, lungs clear to auscultation Cardiovascular: regular rate-rhythm, S1 and S2 Gastrointestional: soft, round, audible bowel sounds Extremities: no lower extremity edema bilateral Neurologic/Psychiatric: no motor/sensory deficits, alert, oriented x 3 Skin: No rash, No ulcerations A/P: Assessment: Recent (May 2018) hosp with ac resp failure due to R-sided pneumonia - resolved Frequent, isolated PACs Mod pulm htn of unknown etiology Echo of 05/29/18: LVEF 70-75%, mild to mod TR, PASP 55-60 mmHg H/o acute diastolic CHF in May 2018 - clinically compensated HTN Plan: Monitor lab Continue current medication regimen Generalized weakness - Continue PT/OT Physician Assessment Physician Assessment No cp or palp or syncope or shortness of breath Lungs: good bilat air entry Cor: reg Ext: no c/c/e A&R * As documented in our note above that I updated (italics) and as noted below * Continue current regimen * Outpt f/u post discharge * I answered her CV-related questions CHERY ROSE PROP WORKER Jun 15, 2018 11:40 JAI CUI MD FACP FAC CCDS Jun 15, 2018 12:54
[2018-06-15] MEDS: GABAPENTIN 300 MG (NEURONTIN) CAP PO SCH (11:52)
--- NOTE | 2018-06-15 13:33 | Physical Therapy Daily Note ---
PT Daily Note-Current Subjective Pt was in bed with in room and agreed to PT. Pain Numeric Pain Scale: 0-No Pain Location: No Pain Reported Mental Status Patient Orientation: Person, Place, Situation, Normal For Age Attachments: Oxygen (1L) Transfers Therapy Code Descriptions/Definitions Functional [place] Measure: 0=Not Assessed/NA 4=Minimal Assistance 1=Total Assistance 5=Supervision or Setup 2=Maximal Assistance 6=Modified [place] 3=Moderate Assistance 7=Complete [place] Therapy Quality Codes: 6 Independent with activity with or without an assistive device 5 Patient requires set up or clean up by helper. Patient completes activity by themselves 4 Supervision or touching assist (CGA). [place] provide cues , steadying assist 3 The helper provides less than half the effort to complete the activity 2 The helper provides more than half the effort to complete the activity 1 Dependent. The helper does all the effort to complete an activity 7 Patient refused to complete or attempt activity 9 The patient did not perform the activity before the current illness or injury 88 Not attempted due to Medical conditions or safety concerns Transfers (B, C, W/C) (FIM): 6 Scootin Rollin Roll Left to Right (QC): 6 Supine to/from Sit: 6 Sit to/from Stand: 6 Sit to Lying (QC): 6 Sit to Stand (QC): 6 Weight Bearing Right Lower Extremity: Right Full Weight Bearing Left Lower Extremity: Left Full Weight Bearing Gait Training Does the Patient Walk?: Yes Gait (FIM): 6 Distance (FIM): 3=150 ft Distance: 300' Walk 10 feet (QC): 6 Walk 50 ft with 2 Turns(QC): 6 Walk 150 ft (QC): 6 Gait Level of Assist: 6 Gait Persons Needed: 1 Gait Assistive Device: FWW Exercises NuStep Minutes: 15 NuStep Workload: 5 Assessment Current Status: Good Progress Pt was able to perform bed mobility indep. Pt was able to amb without AD for 300 ' but reports she feels more comfortable with FWW, PT only assisted with O2 tank at 1L. Pt was able to perform nustep for 15 min at a workload of 5. Pt then performed obstacle course with 3 step overs and then step on airex pad. Pt was able to perform obstacle course twice with CGA for first and SBA for second. Pt amb 300' with FWW back to room and is now in bed with all needs met and is in room. PT Short Term Goals Short Term Goals Transfers (B,C,W/C) (FIM): 7 PT Fpc Goals Heel Nail Rasper Goals PT Fpc Goals Time Frame: Jun 26, 2018 Transfers (B,C,W/C) (FIM): 7 Sit to Lying (QC): 6 Lying-Sitting on Side/Bed(QC): 6 Sit to Stand (QC): 6 Rollin Roll Left to Right (QC): 6 Chair/Etb-vg-Adgsc Xfer(QC): 6 Car Transfer (QC): 6 Gait (FIM): 7 Gait distance (FIM): 3=150 ft Distance: >200' Walk 10 feet (QC): 6 Walk 10ft-Uneven Surface(QC): 6 Walk 50ft with 2 Turns (QC): 6 Walk 150 ft (QC): 6 Gait Level of Assist: 7 Gait Assistive Device: None Stairs (FIM): 6 # of Steps: 12 1 Step (curb) (QC): 6 4 Steps (QC): 6 12 Steps (QC): 6 Stairs Level Of Assist: 6 Picking up an Object (QC): 6 PT Plan Problem List Problem List: Activity Tolerance, Functional Strength, Safety, Balance, Gait, Transfer, ROM Treatment/Plan Treatment Plan: Continue Plan of Care Treatment Plan: Bed Mobility, Education, Functional Activity Gina, Functional Strength, Group Therapy, Gait, Safety, Therapeutic Exercise, Transfers Treatment Duration: Jun 26, 2018 Frequency: At least 5 of 7 days/Wk (IRF) Estimated Hrs Per Day: 1.5 hours per day Patient and/or Family Agrees t: Yes Time/GCodes Time In: 1255 Time Out: 1325 Total Billed Treatment Time: 30 Total Billed Treatment 1 visit GT 15 min EX 15 min RANDAL FOX PT Jun 15, 2018 13:33
--- NOTE | 2018-06-15 13:37 | NUR ---
Pt feels like she is ready for discharge home. 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 Discussed post-discharge needs as she will most likely need home oxygen and a Front Wheel walker. Will follow and assist.
[2018-06-15 17:48] VITALS: BP 149/78
[2018-06-16] MEDS: HYDROcodone/APAP 5 MG/325 MG (LORTAB) TAB PO PRN (01:00)
[2018-06-16 05:00] VITALS: BP 133/72
[2018-06-16] MEDS: PANTOPRAZOLE 40 MG (PROTONIX) TAB PO SCH ×2 (06:08→16:50)
[2018-06-16] MEDS: VENlafaxine XR 75 MG (EFFEXOR XR) CAP PO SCH (06:08)
[2018-06-16] MEDS: ENOXAPARIN 40 MG/0.4 ML (LOVENOX) SYR SC SCH (06:08)
[2018-06-16] MEDS: RT-ADVAIR HFA 115/21 MCG PER PUFF IH SCH ×2 (06:36→20:41)
[2018-06-16] MEDS: RT-ALBUTEROL/IPRATROPIUM 3 ML (DUONEB) VIAL INH SCH ×3 (06:36→20:40)
[2018-06-16 08:00] VITALS: BP 130/68
--- NOTE | 2018-06-16 09:00 | NUR ---
STATES SMOKED CIGARETTES UP UNTIL TIME SHE CAME INTO HOSPITAL. DENIES ANY CRAVING NOW AND HAS NOT BEEN ON NICOTINE PATCH. STATES "IT REALLY SCARED ME WHEN I CAME IN AND I COULDN'T BREATHE". STATES NOT GOING TO RESTART SMOKING. COMPLAIN VAGINAL ITCHING AND ODOR AND DR. CRISOSTOMO NOTIFIED. WILL START ON DIFLUCAN.
--- NOTE | 2018-06-16 09:08 | PM&R Progress Note ---
Subjective HPI/CC On Admission Date Seen by Provider: Jun 16, 2018 Time Seen by Provider: 08:30 CC: Severe myopathy following critical illness HPI: This is a 63yoWF who was admitted 05/29/18 for septic shock due to pneumonia and required intubation with aggressive IVF and abx. Patient ultimately was able to be extubated and completed IV abx while on the med-surg floor. Due to her severe debility she has required IRF admit for strengthening in order to be DC home. Pt required vapotherm while titrating down off of hiflo O2 and is currently using O2 BNC. Subjective/Events-last exam Home O2 evaluation today Denies any pain Ambulating well Oxygen maintained Yeast vaginitis noted Checked meds and labs and reviewed CXR Review of Systems General: Fatigue Pulmonary: Dyspnea Genitourinary: Other (vaginal irritation) Objective Exam Vital Signs Vital Signs Date Time Temp Pulse Resp B/P (MAP) Pulse Ox O2 Delivery O2 Flow Rate FiO2 06/16/18 09:00 Nasal Cannula 1.00 06/16/18 06:37 97 06/16/18 05:00 97.4 71 20 133/72 (92) Capillary Refill : General Appearance: No Apparent Distress, WD/WN, Chronically ill, Thin Respiratory: Chest Non Tender, Lungs Clear, Normal Breath Sounds, No Accessory Muscle Use, No Respiratory Distress, Decreased Breath Sounds (bases) Cardiovascular: Regular Rate, Rhythm, No Edema, No Gallop, No JVD, No Murmur, Normal Peripheral Pulses Gastrointestinal: Normal Bowel Sounds, No Organomegaly, No Pulsatile Mass, Non Tender, Soft Neurologic/Psychiatric: Alert, Oriented x3, No Motor/Sensory Deficits, Normal Mood/Affect Skin: Normal Color, Warm/Dry Results/Procedures Lab Patient resulted labs reviewed. Assessment/Plan Assessment and Plan Assess & Plan/Chief Complaint Assessment: Severe debility and myopathy following critical illness from septic shock from pneumonia and intubation Current smoker Frail status Constipation resolved Right lower lobe crackle with pleurisy so ordered IS now resolved but CXR reveals remaining residual pneumonia on CXR Yeast vaginitis Plan: IRF therapies Strengthening Monitor lungs closely Titrate O2 down DC soon Home O2 evaluation and if needs it will need SW to set up Diflucan for yeast vaginitis Diagnosis/Problems Diagnosis/Problems (1) Myopathy Status: Acute (2) Constipation Status: Resolved Qualifiers: Constipation type: slow transit constipation Qualified Codes: K59.01 - Slow transit constipation Resolution Date/Time: 06/13/18 @ 14:07 (3) COPD (chronic obstructive pulmonary disease) Status: Chronic Qualifiers: COPD type: unspecified COPD Qualified Codes: J44.9 - Chronic obstructive pulmonary disease, unspecified (4) Smoker Status: Chronic (5) Pleurisy Status: Acute (6) Current tobacco use Status: Chronic (7) Malaise and fatigue Status: Acute (8) Yeast vaginitis Status: Acute (9) Oxygen dependent Status: Chronic Clinical Quality Measures DVT/VTE Risk/Contraindication: Risk Factor Score Per Nursin RFS Level Per Nursing on Admit: 4+=Very High RAFIQ ROJAS DO Jun 16, 2018 09:08
--- NOTE | 2018-06-16 09:39 | Occupational Ther Daily Note ---
OT Current Status-Daily Note Subjective Pt in her room with her . Pt stated, " I am ready to go home & ready for shower." Pain Numeric Pain Scale: 0-No Pain Mental Status/Objective Patient Orientation: Person, Place, Time Therapy Code Descriptions/Definitions Functional [place] Measure: 0=Not Assessed/NA 4=Minimal Assistance 1=Total Assistance 5=Supervision or Setup 2=Maximal Assistance 6=Modified [place] 3=Moderate Assistance 7=Complete [place] Attachments: Oxygen ADL-Treatment Pt walk to the shower with FWW & O2 on. Undress UB & LB Independently. [place] her teeth ,rinse mouth, checked temp. of water . Pt performed shower with applying liquid soap & shampoo to the arms,legs, buttocks, abdomen front & back , perineal,& chest . Pt did'nt wash hairs. Pt rinse body with long handled shower head , dry her body Independently, dry her UB, LB , back & front of atrunk , buttocks, & perineals Independently, Dress shirt, underwears, & pants Independently. Pt walk back to the bed with FWW . Participated in ARM-BIKE exercisor 20 min. Increased MS in BUE 4+/5 & Endurance good.. Therapy Code Descriptions/Definitions Functional [place] Measure: 0=Not Assessed/NA 4=Minimal Assistance 1=Total Assistance 5=Supervision or Setup 2=Maximal Assistance 6=Modified [place] 3=Moderate Assistance 7=Complete [place] Therapy Quality Codes: 6 Independent with activity with or without an assistive device 5 Patient requires set up or clean up by helper. Patient completes activity by themselves 4 Supervision or touching assist (CGA). [place] provide cues , steadying assist 3 The helper provides less than half the effort to complete the activity 2 The helper provides more than half the effort to complete the activity 1 Dependent. The helper does all the effort to complete an activity 7 Patient refused to complete or attempt activity 9 The patient did not perform the activity before the current illness or injury 88 Not attempted due to Medical conditions or safety concerns Eating (FIM): 7 Eating (QC): 6 Grooming (FIM): 7 Oral Hygiene (QC): 6 Bathing (FIM): 7 Bathing Location: L Arm, R Arm, L Upper Leg, R Upper Leg, L Lower Leg ( including foot), R Lower Leg (including foot), Chest, Abdomen, Buttocks, Perineal Area Shower/Bathe Self (QC): 6 Upper Body (FIM): 7 Upper Body Dressing (QC): 6 Lower Body Dressing (FIM): 7 Lower Body Dressing (QC): 6 On/Off Footwear (QC): 6 Toileting (FIM): 7 Toileting Hygiene (QC): 7 Transfers (B, C, W/C) (FIM): 7 Toilet/Commode Transfer (FIM): 7 Toilet Transfer (QC): 7 Tub Transfer(FIM): 0 Shower Transfer(FIM): 7 Pt met all goals. Education OT Patient Education: Correct positioning, Energy conservation, Instructions to caregiver, Safety issues Teaching Recipient: Patient, Family Teaching Methods: Demonstration, Discussion Response to Teaching: Verbalize Understanding, Return Demonstration OT Short Term Goals Short Term Goals Time Frame: Jun 25, 2018 Eating(FIM): 7 Grooming(FIM): 7 Bathing(FIM): 6 Bathing Location: L Arm, R Arm, L Upper Leg, R Upper Leg, L Lower Leg ( including foot), R Lower Leg (including foot), Chest, Abdomen, Buttocks, Perineal Area Upper Body Dressing(FIM): 7 Lower Body Dressing(FIM): 7 Toileting(FIM): 7 Transfers (B,C,W/C) (FIM): 7 Toilet/Commode Transfer(FIM): 7 Shower Transfer(FIM): 7 Additional Short Term Goals: 1-Demonstrate ADL Tasks, 2-Verbalize Understanding , 3-ImproveStrength/Gina 1=Demonstrate adherence to instructed precautions during ADL tasks. 2=Patient will verbalize/demonstrate understanding of assistive devices/ modifications for ADL. 3=Patient will improve strength/tolerance for activity to enable patient to perform ADL's. OT Armament Aircraft Mechanic Goals Mcc Goals Time Frame: Jul 09, 2018 Eating (FIM): 7 (7) Eating (QC): 6 (6) Groomin (7) Oral Hygiene (QC): 6 (6) Bathing(FIM): 6 (7) Bathing Location: L Arm, R Arm, L Upper Leg, R Upper Leg, L Lower Leg ( including foot), R Lower Leg (including foot), Chest, Abdomen, Buttocks, Perineal Area Shower/Bathe Self (QC): 7 (7) Upper Body Dressing(FIM): 7 (7) Upper Body Dressing (QC): 6 (7) Lower Body Dressing(FIM): 7 (7) Lower Body Dressing (QC): 6 (6) On/Off Footwear (QC): 6 (6) Toileting(FIM): 7 (7) Toileting Hygiene (QC): 6 (6) Transfers (B,C,W/C) (FIM): 7 (7) Toilet/Commode Transfer(FIM): 7 (7) Toilet/Commode Transfer (QC): 6 (6) Tub Transfer(FIM): 0 (0) Shower Transfer(FIM): 7 (7) Additional Goals: 1-Demonstrate ADL Tasks, 2-Verbalize Understanding, 3- ImproveStrength/Gina 1=Demonstrate adherence to instructed precautions during ADL tasks. 2=Patient will verbalize/demonstrate understanding of assistive devices/ modifications for ADL. 3=Patient will improve strength/tolerance for activity to enable patient to perform ADL's. OT Education/Plan Problem List/Assessment Assessment: No Skilled OT Needs ID'd Discharge Recommendations Plan/Recommendations: Discharge/Goals Met Therapy D/C Recommendations: Home w/ Family Support Equpiment Recommendations-D/C: Bath Chair, Extended Shower Sprayer Patient/Family Goals To return home Independently with her . Treatment Plan/Plan of Care Treatment,Training & Education: Yes Patient would benefit from OT for education, treatment and training to promote independence in ADL's, mobility, safety and/or upper extremity function for ADL' s. Plan of Care: ADL Retraining, Caregiver Training, Functional Mobility, Group Exercise/Act as Ind, UE Funct Exercise/Act, UE Neuromus Re-Ed/Coord Treatment Duration: Jul 09, 2018 Frequency: At least 5 of 7 days/Wk (IRF) Estimated Hrs Per Day: 1.5 hours per day Agreement: Yes Rehab Potential: Good Time/GCodes Start Time: 08:00 Stop Time: 09:30 Total Time Billed (hr/min): 90 Billed Treatment Time 1, ADLs 60 min & Ex 30 min total 90 min RISHABH FERNANDEZ OT Jun 16, 2018 09:39
[2018-06-16] MEDS: fluCOnazole (DIFLUCAN) 100 MG TAB PO SCH (11:45)
[2018-06-16] MEDS: GABAPENTIN 300 MG (NEURONTIN) CAP PO SCH (11:45)
--- NOTE | 2018-06-16 11:57 | Physical Therapy Daily Note ---
PT Daily Note-Current Subjective Pt laying Supine in bed upon arrival. Pt agrees to FIM scoring for PT tx in anticipation of discharge tomorrow (06/17). Pain Location: No Pain Reported Mental Status Patient Orientation: Person, Place, Time, Situation Attachments: Oxygen (1L) Transfers Therapy Code Descriptions/Definitions Functional [place] Measure: 0=Not Assessed/NA 4=Minimal Assistance 1=Total Assistance 5=Supervision or Setup 2=Maximal Assistance 6=Modified [place] 3=Moderate Assistance 7=Complete [place] Therapy Quality Codes: 6 Independent with activity with or without an assistive device 5 Patient requires set up or clean up by helper. Patient completes activity by themselves 4 Supervision or touching assist (CGA). [place] provide cues , steadying assist 3 The helper provides less than half the effort to complete the activity 2 The helper provides more than half the effort to complete the activity 1 Dependent. The helper does all the effort to complete an activity 7 Patient refused to complete or attempt activity 9 The patient did not perform the activity before the current illness or injury 88 Not attempted due to Medical conditions or safety concerns Transfers (B, C, W/C) (FIM): 6 Scootin Rollin Roll Left to Right (QC): 6 Supine to/from Sit: 6 Sit to/from Stand: 6 Sit to Lying (QC): 6 Sit to Stand (QC): 6 Chair/Foj-og-Cdyar Xfer(QC): 6 Bed to/from Chair: 6 Car Transfer (QC): 6 Weight Bearing Right Lower Extremity: Right Full Weight Bearing Left Lower Extremity: Left Full Weight Bearing Gait Training Does the Patient Walk?: Yes Gait (FIM): 6 Distance (FIM): 3=150 ft Distance: 300' Walk 10 feet (QC): 6 Walk 50 ft with 2 Turns(QC): 6 Walk 150 ft (QC): 6 Walking 10ft/uneven surface-QC: 6 Gait Level of Assist: 6 Gait Persons Needed: 1 Gait Assistive Device: FWW Pt ambulates using FWW at [facility] I. Pt is very safe and independent with mobility. Wheelchair Training Does the Pt Use a Wheelchair?: No Stair Training Stair Training: Handrails/: 1 handrail Stairs (FIM): 6 #of Steps: 12 1 Step (curb) (QC): 6 4 Steps (QC): 6 12 Steps (QC): 6 Stairs: Pattern: Reciprocal Level of Assist: 6 Balance Picking up an Object (QC): 6 Exercises NuStep Minutes: 15 NuStep Workload: 5 Treatments Pt completes bed mobility, transfers including car transfer, ambulation including walking across varying surface and 3 sets of 4 steps and picking up object from floor all at Mod I. Pt returns to room at end of tx to rest at EOB with all needs met. Assessment Current Status: Excellent Progress Pt is able to complete tasks well and does not appear to be SOA during tx. PT Short Term Goals Short Term Goals Transfers (B,C,W/C) (FIM): 7 PT Food Production Supervisor Goals Food Production Supervisor Goals PT Snf Goals Time Frame: Jun 26, 2018 Transfers (B,C,W/C) (FIM): 7 Sit to Lying (QC): 6 Lying-Sitting on Side/Bed(QC): 6 Sit to Stand (QC): 6 Rollin Roll Left to Right (QC): 6 Chair/Mmv-fk-Noizr Xfer(QC): 6 Car Transfer (QC): 6 Gait (FIM): 7 Gait distance (FIM): 3=150 ft Distance: >200' Walk 10 feet (QC): 6 Walk 10ft-Uneven Surface(QC): 6 Walk 50ft with 2 Turns (QC): 6 Walk 150 ft (QC): 6 Gait Level of Assist: 7 Gait Assistive Device: None Stairs (FIM): 6 # of Steps: 12 1 Step (curb) (QC): 6 4 Steps (QC): 6 12 Steps (QC): 6 Stairs Level Of Assist: 6 Picking up an Object (QC): 6 PT Plan Problem List Problem List: Activity Tolerance Treatment/Plan Treatment Plan: Continue Plan of Care Treatment Plan: Bed Mobility, Education, Functional Activity Gina, Functional Strength, Group Therapy, Gait, Safety, Therapeutic Exercise, Transfers Treatment Duration: Jun 26, 2018 Frequency: At least 5 of 7 days/Wk (IRF) Estimated Hrs Per Day: 1.5 hours per day Patient and/or Family Agrees t: Yes Safety Risks/Education Patient Education: Gait Training, Transfer Techniques, Correct Positioning, Safety Issues Teaching Recipient: Patient Teaching Methods: Discussion Response to Teaching: Verbalize Understanding Time/GCodes Time In: 1100 Time Out: 1200 Total Billed Treatment Time: 60 Total Billed Treatment 1, GT (15m), FA x2 (30m) & EX (15m) G Codes Necessary: NIKKI Foley DEBUBBLIZER Jun 16, 2018 11:57
--- NOTE | 2018-06-16 15:22 | NUR ---
Weekly Team Conference Discussed weekly team conference with patient. Patient is agreeable for discharge plan tomorrow, 06/17/18. Patient qualifies for home oxygen, choice form signed and orders faxed. Patient reports she will not be home-bound and does not feel like she needs HHC. Patient also stated she does not need a tub bench/chair.
--- NOTE | 2018-06-16 15:30 | Physical Therapy Daily Note ---
PT Daily Note-Current Subjective Pt laying Supine in bed visiting with Sp upon arrival. Pt agrees to PT tx in anticipation for D/C tomorrow (06/17). Pt reports feeling confident about going home. Pain Location: No Pain Reported Mental Status Patient Orientation: Person, Place, Time, Situation Attachments: Oxygen (1L) Transfers Therapy Code Descriptions/Definitions Functional [place] Measure: 0=Not Assessed/NA 4=Minimal Assistance 1=Total Assistance 5=Supervision or Setup 2=Maximal Assistance 6=Modified [place] 3=Moderate Assistance 7=Complete [place] Therapy Quality Codes: 6 Independent with activity with or without an assistive device 5 Patient requires set up or clean up by helper. Patient completes activity by themselves 4 Supervision or touching assist (CGA). [place] provide cues , steadying assist 3 The helper provides less than half the effort to complete the activity 2 The helper provides more than half the effort to complete the activity 1 Dependent. The helper does all the effort to complete an activity 7 Patient refused to complete or attempt activity 9 The patient did not perform the activity before the current illness or injury 88 Not attempted due to Medical conditions or safety concerns Weight Bearing Right Lower Extremity: Right Full Weight Bearing Left Lower Extremity: Left Full Weight Bearing Treatments INSURANCE RATER, pt & Sp discuss any questions for D/C tomorrow. Pt reports having equipment she feels she will need at home and confidence that she can complete tasks w/o assistance. RT will test O2 to see if it is needed for home. Pt feels she does not need HEP nor HH PT. Pt is resting at end of tx, visiting with Sp. Pt has all needs met. Assessment Current Status: Good Progress Pt is able to complete tasks safely and independently w/o SOA. Pt has improved with strength and activity tolerance. PT Short Term Goals Short Term Goals Transfers (B,C,W/C) (FIM): 7 PT Reinforcer Goals Reinforcer Goals PT Reinforcer Goals Time Frame: Jun 26, 2018 Transfers (B,C,W/C) (FIM): 7 Sit to Lying (QC): 6 Lying-Sitting on Side/Bed(QC): 6 Sit to Stand (QC): 6 Rollin Roll Left to Right (QC): 6 Chair/Uup-yo-Rhcvn Xfer(QC): 6 Car Transfer (QC): 6 Gait (FIM): 7 Gait distance (FIM): 3=150 ft Distance: >200' Walk 10 feet (QC): 6 Walk 10ft-Uneven Surface(QC): 6 Walk 50ft with 2 Turns (QC): 6 Walk 150 ft (QC): 6 Gait Level of Assist: 7 Gait Assistive Device: None Stairs (FIM): 6 # of Steps: 12 1 Step (curb) (QC): 6 4 Steps (QC): 6 12 Steps (QC): 6 Stairs Level Of Assist: 6 Picking up an Object (QC): 6 PT Plan Problem List Problem List: Activity Tolerance Treatment/Plan Treatment Plan: Continue Plan of Care Treatment Plan: Bed Mobility, Education, Functional Activity Gina, Functional Strength, Group Therapy, Gait, Safety, Therapeutic Exercise, Transfers Treatment Duration: Jun 26, 2018 Frequency: At least 5 of 7 days/Wk (IRF) Estimated Hrs Per Day: 1.5 hours per day Patient and/or Family Agrees t: Yes Safety Risks/Education Patient Education: Gait Training, Transfer Techniques, Correct Positioning, Safety Issues Teaching Recipient: Patient, Significant Other Teaching Methods: Discussion Response to Teaching: Verbalize Understanding Time/GCodes Time In: 1330 Time Out: 1400 Total Billed Treatment Time: 30 Total Billed Treatment 1, FA x2 (30m) G Codes Necessary: NIKKI Foley INSURANCE RATER Jun 16, 2018 15:30
[2018-06-16 17:26] VITALS: BP 135/80
[2018-06-17] MEDS: HYDROcodone/APAP 5 MG/325 MG (LORTAB) TAB PO PRN (01:38)
[2018-06-17 05:04] VITALS: BP 144/80
[2018-06-17] MEDS: VENlafaxine XR 75 MG (EFFEXOR XR) CAP PO SCH (06:00)
[2018-06-17] MEDS: ENOXAPARIN 40 MG/0.4 ML (LOVENOX) SYR SC SCH (06:00)
[2018-06-17] MEDS: PANTOPRAZOLE 40 MG (PROTONIX) TAB PO SCH (06:00)
[2018-06-17] MEDS: RT-ADVAIR HFA 115/21 MCG PER PUFF IH SCH (06:46)
[2018-06-17] MEDS: RT-ALBUTEROL/IPRATROPIUM 3 ML (DUONEB) VIAL INH SCH (06:46)
[2018-06-17] MEDS ORDERED: METO-387 PO (08:39)
--- NOTE | 2018-06-17 09:05 | Progress Note-Cardiology ---
Cardiology SOAP Progress Note Subjective: Up to the shower. Spouse at the bedside. She is discharging home today. States she feels well. No c/o. Objective: I&O/Vital Signs 06/17/18 06/17/18 06/17/18 05:04 06:46 06:48 Temp 98.6 Pulse 77 Resp 20 B/P (MAP) 144/80 (101) Pulse Ox 95 96 O2 Delivery Nasal Cannula Nasal Cannula Nasal Cannula O2 Flow Rate 1.00 1.00 1.00 06/17/18 00:00 Intake Total 1390 ml Balance 1390 ml Weight (Pounds): 124 Weight (Ounces): 1.6 Weight (Calculated Kilograms): 56.863923 Constitutional: AAO x 3 Respiratory: chest is bilaterally symmetric, lungs clear to auscultation Cardiovascular: regular rate-rhythm, S1 and S2 Gastrointestional: soft, round, audible bowel sounds Extremities: no lower extremity edema bilateral Neurologic/Psychiatric: no motor/sensory deficits, alert, oriented x 3 Skin: No rash, No ulcerations A/P: Assessment: Recent (May 2018) hosp with ac resp failure due to R-sided pneumonia - resolved Frequent, isolated PACs Mod pulm htn of unknown etiology Echo of 05/29/18: LVEF 70-75%, mild to mod TR, PASP 55-60 mmHg H/o acute diastolic CHF in May 2018 - clinically compensated HTN Plan: Discussed in detail medication changes Continue Toprol XL OK to discharge home F/U appt in 2 weeks D/W CHERY Salazar Jun 17, 2018 09:05
[2018-06-17] MEDS ORDERED: FLUC100T6 PO (09:18)
[2018-06-17] MEDS ORDERED: VENL75CA93 PO (09:18)
[2018-06-17] MEDS ORDERED: GABA-488 PO (09:18)
[2018-06-17] MEDS ORDERED: ACHD5005 PO (09:18)
[2018-06-17 09:21] VITALS: BP 119/74
[2018-06-17] MEDS ORDERED: FLT22013 IH (09:22)
--- NOTE | 2018-06-17 09:22 | Discharge Summary ---
Diagnosis/Chief Complaint Date of Admission Jun 11, 2018 at 10:29 Date of Discharge Discharge Date: Jun 17, 2018 Discharge Diagnosis Assessment: Severe debility and myopathy following critical illness from septic shock from pneumonia and intubation Current smoker Frail status Constipation resolved Right lower lobe crackle with pleurisy so ordered IS now resolved but CXR reveals remaining residual pneumonia on CXR Yeast vaginitis Plan: IRF therapies Strengthening Monitor lungs closely Titrate O2 down DC soon Home O2 evaluation and if needs it will need SW to set up Diflucan for yeast vaginitis Discharge Summary Discharge Physical Examination Allergies: Coded Allergies: codeine (Verified Allergy, Unknown, 06/19/08) Vitals & I&Os Vital Signs Date Time Temp Pulse Resp B/P (MAP) Pulse Ox O2 Delivery O2 Flow Rate FiO2 06/17/18 10:40 83 18 119/74 95 Nasal Cannula 1.00 06/17/18 05:04 98.6 Hospital Course Was the Problem List Reviewed?: Yes Hospital course: This is a 63-year-old white female who was admitted to inpatient rehab due to severe debility following a critical illness with severe sepsis and intubation and respiratory failure due to strep pneumonia. She was admitted placed on oxygen maintenance and started aggressive physical therapy. Oxygen was maintained and tried to wean down but she ultimately required oxygen continuously at 2 L. She improved dramatically from the time she was admitted to discharge and pulmonology followed her throughout the inpatient rehab course. Overall she improved enough to return home with her family and was able to participate and complete all of her independent ADLs and a walker was provided for the patient. She will be seen in close follow-up by primary care provider and Dr. Lawson on 07/06/18. Discharge Home Medications: Active Scripts Active Flovent Hfa 220 mcg (Fluticasone Propionate) 1 Ea Aero 1 Ea IH BID Venlafaxine HCl ER (Venlafaxine HCl) 75 Mg Cap.er.24h 75 Mg PO DAILY@0700 Gabapentin 300 Mg Capsule 300 Mg PO DAILY@1200 Hydrocodone/Acetaminophen 5/325mg Tablet (Acetaminophen/Hydrocodone Bitart) 1 Tab Tab 1 Tab PO Q6H PRN Fluconazole 100 Mg Tablet 100 Mg PO DAILY Metoprolol Succinate 25 Mg Tab.er.24h 25 Mg PO DAILY Reported Proair Hfa (Albuterol Sulfate) 1 Puff Puff 2 Puff IH Q6H PRN 1 PUFF = 90 MCG Pantoprazole Sodium 40 Mg Tablet.dr 40 Mg PO DAILY Tylenol Extra Strength (Acetaminophen) 500 Mg Tablet 1,000 Mg PO Q6H PRN TAKES 2 (500MG) TABLETS Instructions to patient/family Please see electronic discharge instructions given to patient. Diagnosis/Problems Diagnosis/Problems (1) Myopathy Status: Acute (2) Constipation Status: Resolved Qualifiers: Qualified Codes: K59.01 - Slow transit constipation Resolution Date/Time: 06/13/18 @ 14:07 (3) COPD (chronic obstructive pulmonary disease) Status: Chronic Qualifiers: Qualified Codes: J44.9 - Chronic obstructive pulmonary disease, unspecified (4) Smoker Status: Chronic (5) Pleurisy Status: Acute (6) Current tobacco use Status: Chronic (7) Malaise and fatigue Status: Acute (8) Yeast vaginitis Status: Acute (9) Oxygen dependent Status: Chronic Clinical Quality Measures DVT/VTE Risk/Contraindication: Risk Factor Score Per Nursin RFS Level Per Nursing on Admit: 4+=Very High RAFIQ ROJAS DO Jun 17, 2018 09:22
[2018-06-17] MEDS: fluCOnazole (DIFLUCAN) 100 MG TAB PO SCH (09:23)
[2018-06-17 10:40] VITALS: BP 119/74
--- NOTE | 2018-06-17 11:11 | Therapy Team Discharge Summary ---
Therapy Discharge Summary Discharge Recommendations Date of Discharge Therapy D/C Recommendations: Home Independently Physical Therapy Patient came to rehab with sepsis/pneumonia. Upon evaluation patient performed bed mobility and transfers with SBA, car transfers SBA, ambulated 250' with a rolling walker with SBA, and went up and down 12 steps using 2 handrails with SBA. Patient has been performing bed mobility and transfer training, balance and endurance training, functional strengthening, stair training, gait training , and education. 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 Now, patient performs bed mobility and transfers with mod I, car transfer mod I, ambulates 300' with a rolling walker with mod I (including 50' with at least 2 turns of 90 degrees and 10' over an uneven surface), and can go up and down 12 steps using 1 handrail with mod I. Patient is discharging from this facility today and will be discharged from PT at this time. Occupational Therapy No Skilled OT Needs ID'd PT Nursing Home Goals Director Cardiac Goals PT Nursing Home Goals Time Frame: Jun 26, 2018 Transfers (B,C,W/C) (FIM): 7 Roll Left to Right (QC): 6 Sit to Lying (QC): 6 Lying-Sitting on Side/Bed(QC): 6 Sit to Stand (QC): 6 Chair/Kjm-zf-Aciuv Xfer(QC): 6 Car Transfer (QC): 6 Gait (FIM): 7 Gait distance (FIM): 3=150 ft Distance: >200' Walk 10 feet (QC): 6 Walk 10ft-Uneven Surface(QC): 6 Walk 50ft with 2 Turns (QC): 6 Walk 150 ft (QC): 6 Gait Level of Assist: 7 Gait Assistive Device: None Stairs (FIM): 6 # of Steps: 12 1 Step (curb) (QC): 6 4 Steps (QC): 6 12 Steps (QC): 6 Stairs Level Of Assist: 6 Picking up an Object (QC): 6 OT Nursing Home Goals Director Cardiac Goals Time Frame: Jul 09, 2018 Eating (FIM): 7 Eating (QC): 6 Oral Hygiene (QC): 7 Grooming(FIM): 7 Bathing(FIM): 6 Bathing Location: L Arm, R Arm, L Upper Leg, R Upper Leg, L Lower Leg ( including foot), Chest, Abdomen, Buttocks, Perineal Area Shower/Bathe Self (QC): 7 Upper Body Dressing(FIM): 7 Upper Body Dressing (QC): 7 Lower Body Dressing(FIM): 7 Lower Body Dressing (QC): 6 On/Off Footwear (QC): 6 Toileting(FIM): 7 Toileting Hygiene (QC): 6 Transfers (B,C,W/C) (FIM): 7 Toilet/Commode Transfer(FIM): 7 Toilet/Commode Transfer (QC): 6 Shower Transfer(FIM): 7 Additional Goals: 1-Demonstrate ADL Tasks, 2-Verbalize Understanding, 3- ImproveStrength/Gina 1=Demonstrate adherence to instructed precautions during ADL tasks. 2=Patient will verbalize/demonstrate understanding of assistive devices/ modifications for ADL. 3=Patient will improve strength/tolerance for activity to enable patient to perform ADL's. SADAF HARP PT Jun 17, 2018 11:11
--- NOTE | 2018-06-18 09:08 | Therapy Team Discharge Summary ---
Therapy Discharge Summary Discharge Recommendations Date of Discharge Jun 17, 2018 at 10:40 Therapy D/C Recommendations: Home w/ Family Support Occupational Therapy No Skilled OT Needs ID'd PT Prison Goals Fur Mixer Goals PT Prison Goals Time Frame: Jun 26, 2018 Transfers (B,C,W/C) (FIM): 7 Roll Left to Right (QC): 6 Sit to Lying (QC): 6 Lying-Sitting on Side/Bed(QC): 6 Sit to Stand (QC): 6 Chair/Nwt-le-Rgwgf Xfer(QC): 6 Car Transfer (QC): 6 Gait (FIM): 7 Gait distance (FIM): 3=150 ft Distance: >200' Walk 10 feet (QC): 6 Walk 10ft-Uneven Surface(QC): 6 Walk 50ft with 2 Turns (QC): 6 Walk 150 ft (QC): 6 Gait Level of Assist: 7 Gait Assistive Device: None Stairs (FIM): 6 # of Steps: 12 1 Step (curb) (QC): 6 4 Steps (QC): 6 12 Steps (QC): 6 Stairs Level Of Assist: 6 Picking up an Object (QC): 6 OT Prison Goals Fur Mixer Goals Time Frame: Jul 09, 2018 Eating (FIM): 7 (7) Eating (QC): 6 (6) Oral Hygiene (QC): 6 (6) Grooming(FIM): 7 (7) Bathing(FIM): 6 (7) Bathing Location: L Arm, R Arm, L Upper Leg, R Upper Leg, L Lower Leg ( including foot), R Lower Leg (including foot), Chest, Abdomen, Buttocks, Perineal Area Shower/Bathe Self (QC): 6 (6) Upper Body Dressing(FIM): 7 (7) Upper Body Dressing (QC): 6 (6) Lower Body Dressing(FIM): 7 (7) Lower Body Dressing (QC): 6 (6) On/Off Footwear (QC): 6 (6) Toileting(FIM): 7 (7) Toileting Hygiene (QC): 6 (6) Transfers (B,C,W/C) (FIM): 7 (7) Toilet/Commode Transfer(FIM): 7 (7) Toilet/Commode Transfer (QC): 6 (6) Tub Transfer(FIM): 0 (0) Shower Transfer(FIM): 7 (7) Pt met all goals & thus d/c from skilled OT Services to Home with her with safety awareness. Additional Goals: 1-Demonstrate ADL Tasks, 2-Verbalize Understanding, 3- ImproveStrength/Gina 1=Demonstrate adherence to instructed precautions during ADL tasks. 2=Patient will verbalize/demonstrate understanding of assistive devices/ modifications for ADL. 3=Patient will improve strength/tolerance for activity to enable patient to perform ADL's. RISHABH FERNANDEZ OT Jun 18, 2018 09:08
== END 2018-06-17 10:40 | disposition home or self-care (01) | DRG 92 ==
PROVIDERS: ADMIT Internal Medicine; ATTEND Internal Medicine
DX: G72.81 Critical illness myopathy (principal); R53.81 Other malaise; I11.0 Hypertensive heart disease with heart failure; I50.32 Chronic diastolic (congestive) heart failure; R09.1 Pleurisy; K59.01 Slow transit constipation; I49.1 Atrial premature depolarization; B37.3 Candidiasis of vulva and vagina; I27.20 Pulmonary hypertension, unspecified; F17.210 Nicotine dependence, cigarettes, uncomplicated; J44.9 Chronic obstructive pulmonary disease, unspecified; E78.00 Pure hypercholesterolemia, unspecified; F41.9 Anxiety disorder, unspecified; F32.9 Major depressive disorder, single episode, unspecified; D64.9 Anemia, unspecified; R21 Rash and other nonspecific skin eruption; Z99.81 Dependence on supplemental oxygen
CPT/HCPCS: 71046; 94640; 94664; 94760; 94761

== ENCOUNTER → 2018-07-06 | Outpatient (CLI) | payer OTHER ==
[2018-07-06 11:10] LABS: BASOPHILS % (AUTO) 0 % (0-10); EOSINOPHILS % (AUTO) 0 % (0-10); HEMATOCRIT 35 % (35-52); HEMOGLOBIN 11.4 G/DL (11.5-16.0); LYMPHOCYTES # (AUTO) 1.5 X 10^3 (1.0-4.0); LYMPHOCYTES % (AUTO) 33 % (12-44); MEAN CORPUSCULAR HEMOGLOBIN 30 PG (25-34); MEAN CORPUSCULAR HGB CONC 33 G/DL (32-36); MEAN CORPUSCULAR VOLUME 91 FL (80-99); MEAN PLATELET VOLUME 9.6 FL (7.4-10.4); MONOCYTES # (AUTO) 0.5 X 10^3 (0.0-1.0); MONOCYTES % (AUTO) 10 % (0-12); NEUTROPHILS # (AUTO) 2.6 X 10^3 (1.8-7.8); NEUTROPHILS % (AUTO) 57 % (42-75); PLATELET COUNT 200 10^3/uL (130-400); RED CELL DISTRIBUTION WIDTH 14.5 % (10.0-14.5); WHITE BLOOD COUNT 4.6 10^3/uL (4.3-11.0)
[2018-07-06 11:25] LABS: BUN/CREATININE RATIO 20; CALCIUM 9.8 MG/DL (8.5-10.1); CARBON DIOXIDE 27 MMOL/L (21-32); CHLORIDE 104 MMOL/L (98-107); CREATININE SERUM 0.84 MG/DL (0.60-1.30); GFR ESTIMATED > 60; GLUCOSE 84 MG/DL (70-105); SODIUM 141 MMOL/L (135-145)
[2018-07-06 11:46] LABS: ABG BASE EXCESS 1.8 MMOL/L (-2.5-2.5); ABG OXYGEN SATURATION 98 % (94-100); ABG PCO2 38 MMHG (35-45); ABG PH 7.44 (7.37-7.43); ABG PO2 80 MMHG (79-93); ABG TCO2 27.1 MMOL/L (21.0-31.0)
[2018-07-06 11:48] LABS: ALLENS TEST YES-POS
[2018-07-06 11:49] LABS: INSPIRED O2 2; PATIENT TEMP 96.5; VENTILATOR NO
--- NOTE | 2018-07-06 12:20 | Diagnostic Imaging Report ---
EXAMINATION: PA and lateral Chest at 11:10 a.m. INDICATION: Shortness of breath. FINDINGS: The heart size is within normal limits and stable when compared to the prior exam of 06/14/2018. The previous study did note diffuse bilateral pulmonary infiltrates with greater involvement on the right. There was also a right pleural effusion. On this exam, both lungs appear much better aerated. There is little if any residual density present in each lung. The right pleural effusion noted on the prior study has resolved as well. The mediastinum is not widened. The osseous structures are intact. Surgical clips are again seen overlying the right axilla. IMPRESSION: The appearance of the chest has improved considerably since the prior exam as both lungs are much better aerated. There is no evidence for active disease at this time. Dictated by: Dictated on workstation # [id number]
== END ==
LOC: RAD 10:41
PROVIDERS: ATTEND Internal Medicine Critical Care Medicine
DX: J98.4 Other disorders of lung (principal); R06.02 Shortness of breath; Z87.891 Personal history of nicotine dependence
CPT/HCPCS: 36415; 36600; 71046; 80048; 82805; 85025

== ENCOUNTER → 2018-08-10 | Outpatient (CLI) | payer OTHER ==
[~2018-08-10] MED LIST changes: +FLT22013 IH; +FLUC100T6 PO; +HOLD METFORMIN - RECEIVED CONTRAST 20 ML VIAL IV SCH; +IOHEXOL 350 MG/ML 100 ML (OMNIPAQUE 350) VIAL IV ONE; +METO-387 PO; +VENL75CA93 PO
[2018-08-10 09:00] LABS: BUN/CREATININE RATIO 20; CREATININE SERUM 0.85 MG/DL (0.60-1.30); GFR ESTIMATED > 60
--- NOTE | 2018-08-10 15:44 | Diagnostic Imaging Report ---
PROCEDURE: CT chest with contrast only. TECHNIQUE: Multiple contiguous axial images were obtained through the chest after administration of intravenous contrast. Auto Exposure Controls were utilized during the CT exam to meet ALARA standards for radiation dose reduction. INDICATION: Shortness of breath, history of pneumonia. COMPARISON: Study compared with prior 05/29/2018. FINDINGS: Since the previous exam, there has been interval resolution of what was severe consolidating pneumonia in the right lower lobe and to a lesser extent the right upper and middle lobes. No residual or recurrent infiltrate. Some mild subpleural scarring in the apices right greater than left with peripheral cyst formation, chronic. No bronchiectasis. No pneumothorax. No lung mass. No thoracic adenopathy. No effusion, pneumothorax, empyema or abscess. The upper abdomen appeared nonacute. IMPRESSION: Resolution of previous extensive pneumonias in the right lung with no adverse development, acute or suspicious finding. Changes of COPD chronic. Dictated by: Dictated on workstation # [id number]
== END ==
LOC: RAD 08:36
PROVIDERS: ATTEND Nurse Practitioner Family
DX: J44.0 Chronic obstructive pulmonary disease with (acute) lower respiratory infection (principal); J98.4 Other disorders of lung; Z87.891 Personal history of nicotine dependence; Z87.01 Personal history of pneumonia (recurrent)
CPT/HCPCS: 36415; 71260; 82565; 84520

== ENCOUNTER 2018-09-23 10:00 | Outpatient (RCR) | payer OTHER ==
[2018-08-24 10:00] VITALS: BP 148/60
[2018-08-24 10:40] VITALS: BP 117/60
[2018-08-26 10:00] VITALS: BP 120/60
[2018-08-26 11:00] VITALS: BP 120/60
[2018-08-31 10:00] VITALS: BP 112/70
[2018-08-31 10:58] VITALS: BP 115/70
[2018-09-02 10:10] VITALS: BP 130/90
[2018-09-02 11:00] VITALS: BP 130/60
[2018-09-07 10:00] VITALS: BP 130/70
[2018-09-07 10:45] VITALS: BP 120/60
[2018-09-09 10:00] VITALS: BP 120/80
[2018-09-09 10:48] VITALS: BP 130/60
[2018-09-14 10:00] VITALS: BP 120/60
[2018-09-14 11:00] VITALS: BP 140/60
[2018-09-16 09:50] VITALS: BP 121/80
[2018-09-16 10:59] VITALS: BP 130/90
[2018-09-21 10:00] VITALS: BP 115/60
[2018-09-21 10:55] VITALS: BP 118/40
[2018-09-23 10:00] VITALS: BP 116/78
[~2018-09-23 10:00] MED LIST changes: -HOLD METFORMIN - RECEIVED CONTRAST 20 ML VIAL IV SCH; -IOHEXOL 350 MG/ML 100 ML (OMNIPAQUE 350) VIAL IV ONE
[2018-09-23 10:58] VITALS: BP 120/60
== END 2018-10-10 | disposition home or self-care (01) ==
LOC: PULM 10:00
PROVIDERS: ATTEND Internal Medicine
DX: J44.9 Chronic obstructive pulmonary disease, unspecified (principal); Z99.81 Dependence on supplemental oxygen
CPT/HCPCS: 99211

== ENCOUNTER → 2018-09-29 | Outpatient (CLI) | payer OTHER ==
[~2018-09-29] MED LIST changes: +RT-ALBUTEROL SULF 2.5 MG/3 ML PRE-MIX VIAL INH ONE
== END ==
LOC: RT 15:12
PROVIDERS: ATTEND Nurse Practitioner Family
DX: J44.9 Chronic obstructive pulmonary disease, unspecified (principal); J98.4 Other disorders of lung; R09.02 Hypoxemia; Z87.891 Personal history of nicotine dependence
CPT/HCPCS: 94060; 94726; 94729

== ENCOUNTER → 2018-10-05 | Outpatient (CLI) | payer OTHER ==
[~2018-10-05] VITALS: Ht 162.6 cm; Wt 63.5 kg
[~2018-10-05] MED LIST changes: +CATHETER FLUSH 10 ML SYR IV PRN; +REGADENOSON 0.4 MG/5 ML SYR (LEXISCAN) IV ONE; -RT-ALBUTEROL SULF 2.5 MG/3 ML PRE-MIX VIAL INH ONE
[2018-10-05 09:09] VITALS: BP 149/101
[2018-10-05 09:11] VITALS: BP 148/99
== END ==
LOC: CARD 07:09
PROVIDERS: ATTEND Nurse Practitioner Family
DX: I10 Essential (primary) hypertension (principal); I27.21 Secondary pulmonary arterial hypertension; J43.8 Other emphysema; Z87.891 Personal history of nicotine dependence
CPT/HCPCS: 78452; 93017

== ENCOUNTER → 2019-01-27 | Outpatient (CLI) | payer SELFPAY ==
[~2019-01-27] MED LIST changes: -CATHETER FLUSH 10 ML SYR IV PRN; -REGADENOSON 0.4 MG/5 ML SYR (LEXISCAN) IV ONE
== END ==
LOC: RAD 13:56
PROVIDERS: ATTEND Nurse Practitioner Family
DX: Z12.2 Encounter for screening for malignant neoplasm of respiratory organs (principal); Z53.8 Procedure and treatment not carried out for other reasons
CPT/HCPCS: 99213

== ENCOUNTER → 2019-01-27 | Outpatient (CLI) | payer SELFPAY ==
[2019-01-27 14:09] LABS: BASOPHILS % (AUTO) 0 % (0-10); EOSINOPHILS % (AUTO) 0 % (0-10); HEMATOCRIT 39 % (35-52); HEMOGLOBIN 13.1 G/DL (11.5-16.0); LYMPHOCYTES # (AUTO) 1.4 X 10^3 (1.0-4.0); LYMPHOCYTES % (AUTO) 31 % (12-44); MEAN CORPUSCULAR HEMOGLOBIN 30 PG (25-34); MEAN CORPUSCULAR HGB CONC 34 G/DL (32-36); MEAN CORPUSCULAR VOLUME 89 FL (80-99); MEAN PLATELET VOLUME 9.8 FL (7.4-10.4); MONOCYTES # (AUTO) 0.4 X 10^3 (0.0-1.0); MONOCYTES % (AUTO) 8 % (0-12); NEUTROPHILS # (AUTO) 2.8 X 10^3 (1.8-7.8); NEUTROPHILS % (AUTO) 61 % (42-75); PLATELET COUNT 180 10^3/uL (130-400); RED CELL DISTRIBUTION WIDTH 12.9 % (10.0-14.5); WHITE BLOOD COUNT 4.5 10^3/uL (4.3-11.0)
[2019-01-27 14:31] LABS: ALANINE AMINOTRANSFERASE 20 U/L (0-55); ALBUMIN 4.5 GM/DL (3.2-4.5); ALKALINE PHOSPHATASE 97 U/L (40-136); BILIRUBIN,TOTAL 0.3 MG/DL (0.1-1.0); BUN/CREATININE RATIO 16; CALCIUM 9.2 MG/DL (8.5-10.1); CARBON DIOXIDE 30 MMOL/L (21-32); CHLORIDE 104 MMOL/L (98-107); CREATININE SERUM 0.92 MG/DL (0.60-1.30); GFR ESTIMATED > 60; GLUCOSE 81 MG/DL (70-105); POTASSIUM 3.9 MMOL/L (3.6-5.0); SODIUM 138 MMOL/L (135-145); TOTAL PROTEIN 7.3 GM/DL (6.4-8.2)
== END ==
LOC: EDSTATUS 16:01 → ONC 16:03
PROVIDERS: ATTEND Internal Medicine Hematology & Oncology
DX: Z08 Encounter for follow-up examination after completed treatment for malignant neoplasm (principal); Z85.3 Personal history of malignant neoplasm of breast; F17.210 Nicotine dependence, cigarettes, uncomplicated; M89.9 Disorder of bone, unspecified; Z92.3 Personal history of irradiation; Z92.21 Personal history of antineoplastic chemotherapy; Z79.899 Other long term (current) drug therapy
CPT/HCPCS: 36415; 80053; 85025

== ENCOUNTER → 2019-02-02 | Outpatient (CLI) | payer OTHER ==
--- NOTE | 2019-02-02 15:50 | Diagnostic Imaging Report ---
INDICATION: Right breast pain in the upper-outer portion. COMPARISON: Correlation is made with the prior mammograms from 12/08/2016 and 11/07/2015. TECHNIQUE: 2D and 3D bilateral diagnostic mammography was performed with CAD. FINDINGS: Scattered fibroglandular densities are identified bilaterally. There are post lumpectomy changes in the upper-outer right breast. The lumpectomy site appears to be stable. No mass or malignant appearing microcalcifications are seen. There are benign calcifications in the right breast. The axillae are unremarkable. IMPRESSION: Stable bilateral mammograms with no suspicious abnormalities detected. Even so, directed sonographic interrogation of the area of pain in the upper-outer right breast is recommended and will be performed today. ACR BI-RADS Category 0: Incomplete. (Needs additional imaging evaluation). Result letter will be mailed to the patient. Note: At least 10% of breast cancer is not imaged by mammography. Dictated by: Dictated on workstation # [id number]
--- NOTE | 2019-02-02 16:19 | Diagnostic Imaging Report ---
INDICATION: Pain at the lumpectomy site in the right breast. COMPARISON: Correlation is made with the diagnostic mammogram from earlier this same day. FINDINGS: Sonographic interrogation of the area of pain in the right breast was performed. This correlates with the 10 o'clock location 6 cm from the nipple. No sonographic abnormality is seen. No solid or cystic mass is detected. IMPRESSION: No sonographic abnormality is detected. ACR BI-RADS Category 1: Negative. Dictated by: Dictated on workstation # [id number]
== END ==
LOC: RAD 13:40
PROVIDERS: ATTEND Nurse Practitioner Adult Health
DX: N64.4 Mastodynia (principal); Z85.3 Personal history of malignant neoplasm of breast; Z90.11 Acquired absence of right breast and nipple
CPT/HCPCS: 77066

== ENCOUNTER → 2019-05-16 | Outpatient (CLI) | payer OTHER | LOC: CARD 13:24 | PROVIDERS: ATTEND Internal Medicine Cardiovascular Disease | DX: I08.2 Rheumatic disorders of both aortic and tricuspid valves (principal); J44.9 Chronic obstructive pulmonary disease, unspecified; I27.21 Secondary pulmonary arterial hypertension | CPT/HCPCS: 93306 ==

== ENCOUNTER → 2019-09-27 | Outpatient (CLI) | payer OTHER ==
[~2019-09-27] MED LIST changes: -METO-387 PO; +MTP25TSR PO
--- NOTE | 2019-09-27 11:17 | Diagnostic Imaging Report ---
INDICATION: 48 pack year smoking history, cessation 2 years ago. She presents for asymptomatic screening. FINDINGS: This is a baseline protocol study; however, it is compared with a contrast-enhanced routine chest CT of 08/10/2018. FINDINGS: There are some mild biapical paraseptal emphysematous changes, similar to the comparison study, greatest at the level of the periphery of the right middle lobe. There are a few 2 to 5 mm subpleural micronodules bilaterally, unchanged and believed benign scars. No dominant or suspicious pulmonary nodule. No interval change. No acute pathology or consolidating pneumonia. No evidence for chest effusion. The thoracic aorta is nonaneurysmal. No acute chest wall pathology. IMPRESSION: There is some paraseptal emphysema, greater right, unchanged from the comparison. A few subpleural micronodules are stable and presumed benign. No suspicious finding. Assuming the absence of interval clinical change, continued low-dose CT screening followup in 1 year is recommended. Lung-RADS category: 2. Dictated by: Dictated on workstation # [id number]
== END ==
LOC: RAD 09:45
PROVIDERS: ATTEND Nurse Practitioner Family
DX: Z12.2 Encounter for screening for malignant neoplasm of respiratory organs (principal); J43.9 Emphysema, unspecified; J98.4 Other disorders of lung; R91.8 Other nonspecific abnormal finding of lung field; Z87.891 Personal history of nicotine dependence

== ENCOUNTER 2019-12-29 07:28 | Emergency (ER) | payer OTHER ==
[~2019-12-29] VITALS: Ht 163 cm; Wt 67.0 kg
[2019-12-29] MEDS ORDERED: NS IV 1000 ML 1,000 ML IV SCH (07:48)
[2019-12-29 08:05] LABS: BILIRUBIN,URINE NEGATIVE (NEGATIVE); CLARITY,URINE CLEAR; COLOR,URINE YELLOW; GLUCOSE, URINE (UA) NEGATIVE (NEGATIVE); KETONES,URINE NEGATIVE (NEGATIVE); LEUKOCYTE ESTERASE ,URINE TRACE (NEGATIVE); NITRITE,URINE NEGATIVE (NEGATIVE); PH,URINE 7.5 (5-9); PROTEIN,URINE NEGATIVE (NEGATIVE)
[2019-12-29 08:08] LABS: BASOPHILS % (AUTO) 0 % (0-10); EOSINOPHILS % (AUTO) 0 % (0-10); HEMATOCRIT 39 % (35-52); HEMOGLOBIN 13.4 G/DL (11.5-16.0); LYMPHOCYTES # (AUTO) 1.2 X 10^3 (1.0-4.0); LYMPHOCYTES % (AUTO) 38 % (12-44); MEAN CORPUSCULAR HEMOGLOBIN 30 PG (25-34); MEAN CORPUSCULAR HGB CONC 35 G/DL (32-36); MEAN CORPUSCULAR VOLUME 87 FL (80-99); MONOCYTES # (AUTO) 0.3 X 10^3 (0.0-1.0); MONOCYTES % (AUTO) 9 % (0-12); NEUTROPHILS # (AUTO) 1.6 X 10^3 (1.8-7.8); NEUTROPHILS % (AUTO) 52 % (42-75); PLATELET COUNT 162 10^3/uL (130-400); WHITE BLOOD COUNT 3.1 10^3/uL (4.3-11.0)
[2019-12-29] MEDS ORDERED: ONDANSETRON 4 MG/2 ML (SDV) Z0FRAN ONE (08:08)
[2019-12-29] MEDS ORDERED: fentaNYL INJECTION 100 MCG/2 ML AMP ONE (08:08)
--- NOTE | 2019-12-29 08:11 | ED Back Pain ---
General Chief Complaint: Abdominal/GI Problems Stated Complaint: LOWER BACK PAIN Nursing Triage Note: PT STATES RT FLANK PAIN TO ABD FOR ABOUT A MONTH, URINARY PAIN AND DISCOMFORT RADIATING TO THE BLADDER, BEEN ON ABX FOR UTI Nursing Sepsis Screen: No Definite Risk Source of Information: Patient Exam Limitations: No Limitations (KEVIN GILLILAND STUDENT) History of Present Illness Date Seen by Provider: Dec 29, 2019 Time Seen by Provider: 08:00 Initial Comments Radha Armando was seen today due to lower back pain. She describes the pain as 12/10 and radiating to her hip and groin. It has been occurring intermittently for a week and a half, she reports seeing a walk in clinic earlier this week and taking Macrobid, which she reports did not bring any relief. She took 2 Naprosyn today without any significant relief. The pain makes it difficult for her to walk, and she reports that the pain was worsened during the car ride here. She has nausea she attributes to her pain, no vomiting. Reports discomfort in her lower abdomen she describes as 'feeling as if she is going to explode'. Denies any fevers, chills, dysuria, frequency. Location: Lumbar Spine Timing/Duration: 1 Week Severity: Moderate Pain/Injury Location: Back Radiation: Other (groin) (KEVIN GILLILAND STUDENT) Allergies and Home Medications Allergies Coded Allergies: codeine (Verified Allergy, Unknown, 06/19/08) Home Medications Acetaminophen 500 Mg Tablet, 1,000 MG PO Q6H PRN for PAIN-MILD, (Reported) TAKES 2 (500MG) TABLETS Albuterol Sulfate 1 Puff Puff, 2 PUFF IH Q6H PRN for WHEEZING, (Reported) 1 PUFF = 90 MCG Cefdinir 300 Mg Capsule, 300 MG PO BID Prescribed by: ZEENAT DWYER on 12/29/19 0943 Fluconazole 100 Mg Tablet, 100 MG PO DAILY Prescribed by: RAFIQ ROJAS on 06/17/18 09 Fluticasone Propionate 1 Ea Aero, 1 EA IH BID Prescribed by: RAFIQ ROJAS on 06/17/18 09 Gabapentin 300 Mg Capsule, 300 MG PO DAILY@1200 Prescribed by: RAFIQ ROJAS on 06/17/18 09 Hydrocodone Bit/Acetaminophen 1 Tab Tab, 1 TAB PO Q6H PRN for PAIN-MODERATE Prescribed by: RAFIQ ROJAS on 06/17/18917 Hydrocodone/Acetaminophen 1 Each Tablet, 1 EACH PO Q6H PRN for PAIN-BREAKTHROUGH Prescribed by: ZEENAT DWYER on 12/29/19942 Metoprolol Succinate 25 Mg Tab.er.24h, 25 MG PO DAILY Prescribed by: CHERY ROSE on 06/17/18838 Ondansetron 4 Mg Tab.rapdis, 4 MG PO Q6H PRN for NAUSEA/VOMITING Prescribed by: ZEENAT DWYER on 12/29/19942 Pantoprazole Sodium 40 Mg Tablet.dr, 40 MG PO DAILY, (Reported) Venlafaxine HCl 75 Mg Cap.er.24h, 75 MG PO DAILY@0700 Prescribed by: RAFIQ ROJAS on 06/17/18917 Patient Home Medication List Home Medication List Reviewed: Yes (ZEENAT DWYER) Review of Systems Constitutional: No chills, No dizziness, No fever EENTM: No nose congestion, No throat pain Respiratory: No cough, No short of breath Cardiovascular: No chest pain, No palpitations Gastrointestinal: abdominal pain (RLQ radiating from back); No constipation, No diarrhea; nausea (due to pain); No vomiting Genitourinary: No dysuria; frequency; No hesitancy Musculoskeletal: back pain; No neck pain (KEVIN GILLILAND STUDENT) All Other Systems Reviewed Negative Unless Noted: Yes (ZEENAT DWYER) Past Hjpvqxj-Nhkwhj-Xirplg Hx Patient Social History Type Used: Cigarettes Recent Foreign Travel: No Contact w/Someone Who Travel: No Recent Infectious Disease Expo: No Recent Hopitalizations: No (KEVIN GILLILAND STUDENT) Alcohol Use: Denies Use Recreational Drug Use: No (ZEENAT DWYER) Immunizations Up To Date PED Vaccines UTD: Yes Date of Pneumonia Vaccine: Jun 11, 2001 Date of Influenza Vaccine: Apr 09, 2018 (KEVIN GILLILAND MED STUDENT) Seasonal Allergies Seasonal Allergies: Yes (KEVIN GILLILAND STUDENT) Past Medical History Surgeries: Yes (bartholin gland removed) Cystectomy, Lumpectomy, Orthopedic Respiratory: Yes Pneumonia, COPD Currently Using CPAP: No Currently Using BIPAP: No Cardiac: Yes High Cholesterol Neurological: No Reproductive Disorders: No Sexually Transmitted Disease: No Genitourinary: No Gastrointestinal: Yes Chronic Constipation Musculoskeletal: Yes (ARTHRITIS) Arthritis Endocrine: No Cancer: Yes Breast Psychosocial: No Anxiety Integumentary: No Blood Disorders: No (KEVIN GILLILAND STUDENT) Family Medical History Patient reports no known family medical history. No Pertinent Family Hx (KEVIN GILLILAND STUDENT) Physical Exam Vital Signs Vital Signs - First Documented 12/29/19 12/29/19 07:41 09:58 Temp 36.9 Pulse 80 Resp 22 B/P (MAP) 133/92 (106) Pulse Ox 94 O2 Delivery Room Air (ZEENAT DWYER) Vital Signs Capillary Refill : Less Than 3 Seconds (KEVIN GILLILAND STUDENT) Height, Weight, BMI Height: 5'4.00" Weight: 140lbs. 0.0oz. [id number]; 25.00 BMI Method:Stated General Appearance: WD/WN, Anxious, Mild Distress HEENT: PERRL/EOMI; No Scleral Icterus (L), No Scleral Icterus (R) Neck: Full Range of Motion, Normal Inspection, Non Tender, Supple Cardiovascular: Regular Rate, Rhythm, No Edema, No Murmur, Normal Peripheral Pulses Respiratory: Chest Non Tender, Lungs Clear, Normal Breath Sounds, No Accessory Muscle Use, No Respiratory Distress Gastrointestinal: Normal Bowel Sounds, No Organomegaly, Non Tender, Soft Back: Normal Inspection, No Vertebral Tenderness Extremity: Normal Inspection, Non Tender, No Calf Tenderness, No Pedal Edema Neurologic/Psychiatric: Alert, Oriented x3, Normal Mood/Affect Skin: Normal Color, Warm/Dry (KEVIN GILLILAND STUDENT) Procedures/Interventions Date of ETT Placement: Jun 01, 2018 (KEVIN GILLILAND STUDENT) Progress/Results/Core Measures Results/Orders Lab Results Laboratory Tests Test 12/29/19 07:50 12/29/19 07:58 Range/Units White Blood Count 3.1 L 4.3-11.0 10^3/uL Red Blood Count 4.43 4.35-5.85 10^6/uL Hemoglobin 13.4 11.5-16.0 G/DL Hematocrit 39 35-52 % Mean Corpuscular Volume 87 80-99 FL Mean Corpuscular Hemoglobin 30 25-34 PG Mean Corpuscular Hemoglobin Concent 35 32-36 G/DL Red Cell Distribution Width 13.0 10.0-14.5 % Platelet Count 162 130-400 10^3/uL Mean Platelet Volume 10.0 7.4-10.4 FL Neutrophils (%) (Auto) 52 42-75 % Lymphocytes (%) (Auto) 38 12-44 % Monocytes (%) (Auto) 9 0-12 % Eosinophils (%) (Auto) 0 0-10 % Basophils (%) (Auto) 0 0-10 % Neutrophils # (Auto) 1.6 L 1.8-7.8 X 10^3 Lymphocytes # (Auto) 1.2 1.0-4.0 X 10^3 Monocytes # (Auto) 0.3 0.0-1.0 X 10^3 Eosinophils # (Auto) 0.0 0.0-0.3 10^3/uL Basophils # (Auto) 0.0 0.0-0.1 10^3/uL Sodium Level 135 135-145 MMOL/L Potassium Level 4.4 3.6-5.0 MMOL/L Chloride Level 104 98-107 MMOL/L Carbon Dioxide Level 21 21-32 MMOL/L Anion Gap 10 5-14 MMOL/L Blood Urea Nitrogen 15 7-18 MG/DL Creatinine 1.01 0.60-1.30 MG/DL Estimat Glomerular Filtration Rate 55 BUN/Creatinine Ratio 15 Glucose Level 101 70-105 MG/DL Calcium Level 9.2 8.5-10.1 MG/DL Corrected Calcium 9.0 8.5-10.1 MG/DL Total Bilirubin 0.5 0.1-1.0 MG/DL Aspartate Amino Transf (AST/SGOT) 23 5-34 U/L Alanine Aminotransferase (ALT/SGPT) 17 0-55 U/L Alkaline Phosphatase 93 40-136 U/L Total Protein 7.1 6.4-8.2 GM/DL Albumin 4.3 3.2-4.5 GM/DL Urine Color YELLOW Urine Clarity CLEAR Urine pH 7.5 5-9 Urine Specific [place] 1.015 L 1.016-1.022 Urine Protein NEGATIVE NEGATIVE Urine Glucose (UA) NEGATIVE NEGATIVE Urine Ketones NEGATIVE NEGATIVE Urine Nitrite NEGATIVE NEGATIVE Urine Bilirubin NEGATIVE NEGATIVE Urine Urobilinogen 1.0 < = 1.0 MG/DL Urine Leukocyte Esterase TRACE H NEGATIVE Urine RBC (Auto) NEGATIVE NEGATIVE Urine RBC 0-2 /HPF Urine WBC 5-10 H /HPF Urine Squamous Epithelial Cells 0-2 /HPF Urine Crystals NONE /LPF Urine Bacteria TRACE /HPF Urine Casts NONE /LPF Urine Mucus NEGATIVE /LPF Urine Culture Indicated YES (ZEENAT DWYER) My Orders Orders - ZEENAT DWYER Ua Culture If Indicated (12/29/19 07:37) Ed Iv/Invasive Line Start (12/29/19 07:48) Ns Iv 1000 Ml (Sodium Chloride 0.9%) (12/29/19 07:48) Cbc With Automated Diff (12/29/19 08:01) Comprehensive Metabolic Panel (12/29/19 08:01) Ct Abdomen/Pelvis W Wo (12/29/19 08:08) Ondansetron Injection (Zofran Injectio (12/29/19 08:15) Fentanyl Injection (Sublimaze Injection (12/29/19 08:15) Fentanyl Injection (Sublimaze Injection (12/29/19 08:08) Ondansetron Injection (Zofran Injectio (12/29/19 08:08) Urine Culture (12/29/19 07:58) Iohexol Injection (Omnipaque 350 Mg/Ml 1 (12/29/19 08:45) Received Contrast (Hold Metformin- Contr (12/29/19 08:45) Ns (Ivpb) (Sodium Chloride 0.9% Ivpb Bag (12/29/19 08:45) Ceftriaxone For Iv Use (Rocephin For I (12/29/19 09:30) Hydrocodone/Apap 5/325 Tablet (Lortab 5 (12/29/19 09:30) (ZEENAT DWYER) Medications Given in ED Current Medications Medications Dose Ordered Sig/Luis Eduardo Route Start Time Stop Time Status Last Admin Dose Admin Acetaminophen/ Hydrocodone Bitart 2 tab ONCE ONCE PO 12/29/19 09:30 12/29/19 09:31 DC 12/29/19 09:34 2 TAB Ceftriaxone Sodium 1000 mg/ Sterile Water 10 ml @ 200 mls/hr ONCE ONCE IV 12/29/19 09:30 12/29/19 09:32 DC 12/29/19 09:34 200 MLS/HR Fentanyl Citrate 50 mcg ONCE ONCE IVP 12/29/19 08:15 12/29/19 08:16 DC 12/29/19 08:13 50 MCG Iohexol 100 ml ONCE ONCE IV 12/29/19 08:45 8/13/20 08:46 DC 12/29/19 08:48 85 ML Ondansetron HCl 4 mg ONCE ONCE IVP 12/29/19 08:15 12/29/19 08:16 DC 12/29/19 08:13 4 MG Sodium Chloride 100 ml ONCE ONCE IV 12/29/19 08:45 12/29/19 08:46 DC 12/29/19 08:48 80 ML (ZEENAT DWYER) Vital Signs/I&O 12/29/19 12/29/19 12/29/19 07:41 08:13 09:58 Temp 36.9 36.9 36.9 Pulse 80 70 Resp 22 20 B/P (MAP) 133/92 (106) 139/98 (106) Pulse Ox 94 O2 Delivery Room Air Room Air (ZEENAT DWYER) Blood Pressure Mean: 106 Progress Progress Note : Progress Note Ordered CBC, CMP, UA and culture, CT of abdomen and pelvis Started NS IV 1000 ml, fentanyl 100 mcg injection once, ondansetron 4 mg IVP once (KEVIN GILLILAND MED STUDENT) Progress Note #1: Time: 09:17 Progress Note Zofran and 50 g of IV fentanyl were given as well as a liter fluids. We checked labs thinking about pyelonephritis. Because of her age and significant pain and nonresponse to oral antibiotics we plan to get a CT of her abdomen and pelvis. After all this was obtained for labs are largely unremarkable and her CT does not show any structural changes. His is most consistent with a pyelonephritis. Plan to give her Rocephin and offer her oral antibiotics outpatient. She says her pain is not much better after the fentanyl so we are going to give her some hydrocodone. She has a history of CHF and frequent PACs but no CAD in her records. I attest that I saw this patient alongside the medical student and agree with his documented history, physical exam and review of systems except as otherwise noted. Progress Note #2: Time: 09:39 Progress Note Patient appears to have pyelonephritis with no changes on CT. Her pain did not improve significantly on the Phenergan also return to give her 2 tablets of hydrocodone. Plan to treat her with cefdinir outpatient after a dose of Rocephin. Nausea and pain medicines and follow-up with primary care. We have given her return precautions. She is happy with this plan. (ZEENAT DWYER) Diagnostic Imaging Diagonstic Imaging: CT Plain Films/CT/US/NM/MRI: abdomen, pelvis Comments [facility], [place] NAME: RADHA ARMANDO [facility] REC#: [id number] PT STATUS: REG ER : 1955 PHYSICIAN: ZEENAT DWYER MD ADMIT DATE: 12/29/19/ER Draft Date of Exam:12/29/19 CT ABDOMEN/PELVIS W WO PROCEDURE: CT abdomen and pelvis with and without contrast. TECHNIQUE: Precontrast acquisitions were acquired through the abdomen and pelvis. Multiple contiguous axial images were obtained through the abdomen and pelvis after the administration of intravenous contrast. Auto Exposure Controls were utilized during the CT exam to meet ALARA standards for radiation dose reduction. INDICATION: Right lower abdominal pain and pressure. FINDINGS: Lung bases are clear. No discrete liver mass is detected. The gallbladder is unremarkable. No biliary ductal dilatation is identified. Pancreas and spleen are unremarkable. No adrenal mass is detected. Kidneys are unremarkable apart from 15 mm cyst upper pole left kidney. No definite renal calculi are identified. There is no hydronephrosis. No ureteral or bladder calculi are seen. Aorta is ectatic but nonaneurysmal. The small and large bowel loops are normal caliber. No obstruction is detected. No free fluid or fluid collection is seen. The uterus is unremarkable. Appendix is visualized and unremarkable. No inflammatory changes are seen. IMPRESSION: No acute abnormality in the abdomen or pelvis is identified. Dictated on workstation # [id number] Dict: 12/29/19 0858 Trans: 12/29/19 0906 [id number] Interpreted by: DIXON WORTHY MD Electronically signed by: Reviewed: Reviewed by Me (ZEENAT DWYER) Departure Impression Primary Impression: Pyelonephritis Disposition: 01 HOME, SELF-CARE Condition: Stable Departure-Patient Inst. Decision time for Depature: 09:40 (ZEENAT DWYER) Referrals: RAFIQ ROJAS DO (PCP/Family) Primary Care Physician Patient Instructions: Kidney Infection (DC) Add. Discharge Instructions: It's imperative that you drink lots of fluids. You can use ondansetron one tablet under the tongue every 6 hours as needed for nausea or vomiting. You can use the naproxen one or 2 tablets twice a day in addition to Tylenol 650 mg every 6 hours. Heating pads applied directly to your back can also be helpful. You may also use topical muscle rubs if they help. Hydrocodone one tablet every 6 hours as necessary for breakthrough pain. Hydrocodone will cause drowsiness and constipation. MiraLAX can be used up to 3 times a day as necessary to maintain regularity. Plan to follow up next week with your primary care provider as necessary. Please return to the nearest ER should he experience fever, intractable nausea or pain. All discharge instructions reviewed with patient and/or family. Voiced understanding. Scripts Cefdinir (Cefdinir) 300 Mg Capsule 300 MG PO BID for 10 Days, #20 CAP 0 Refills Prov: ZEENAT DWYER 12/29/19 Ondansetron (Ondansetron Odt) 4 Mg Tab.rapdis 4 MG PO Q6H PRN for NAUSEA/VOMITING, #15 TAB 0 Refills Prov: ZEENAT DWYER 12/29/19 Hydrocodone/Acetaminophen (Hydrocodone-Acetamin 5-325 mg) 1 Each Tablet 1 EACH PO Q6H PRN for PAIN-BREAKTHROUGH, #14 TAB 0 Refills Prov: ZEENAT DWYER 12/29/19 KEVIN GILLILAND MED STUDENT Dec 29, 2019 08:11 ZEENAT DWYER Dec 29, 2019 09:20
[2019-12-29 08:15] LABS: BACTERIA,URINE TRACE /HPF; RBC,URINE 0-2 /HPF; SQUAMOUS EPITHELIAL CELL,UR 0-2 /HPF
[2019-12-29] MEDS ORDERED: ONDANSETRON 4 MG/2 ML (SDV) Z0FRAN IVP ONE (08:15)
[2019-12-29] MEDS ORDERED: fentaNYL INJECTION 100 MCG/2 ML AMP IVP ONE (08:15)
[2019-12-29 08:25] LABS: ALBUMIN 4.3 GM/DL (3.2-4.5); BILIRUBIN,TOTAL 0.5 MG/DL (0.1-1.0); CALCIUM 9.2 MG/DL (8.5-10.1); CREATININE SERUM 1.01 MG/DL (0.60-1.30); POTASSIUM 4.4 MMOL/L (3.6-5.0); TOTAL PROTEIN 7.1 GM/DL (6.4-8.2)
[2019-12-29] MEDS ORDERED: NS 100 ML (IVPB) BAG IV ONE (08:45)
[2019-12-29] MEDS ORDERED: HOLD METFORMIN - RECEIVED CONTRAST 20 ML VIAL IV SCH (08:45)
[2019-12-29] MEDS ORDERED: IOHEXOL 350 MG/ML 100 ML (OMNIPAQUE 350) VIAL IV ONE (08:45)
--- NOTE | 2019-12-29 09:07 | Diagnostic Imaging Report ---
PROCEDURE: CT abdomen and pelvis with and without contrast. TECHNIQUE: Precontrast acquisitions were acquired through the abdomen and pelvis. Multiple contiguous axial images were obtained through the abdomen and pelvis after the administration of intravenous contrast. Auto Exposure Controls were utilized during the CT exam to meet ALARA standards for radiation dose reduction. INDICATION: Right lower abdominal pain and pressure. FINDINGS: Lung bases are clear. No discrete liver mass is detected. The gallbladder is unremarkable. No biliary ductal dilatation is identified. Pancreas and spleen are unremarkable. No adrenal mass is detected. Kidneys are unremarkable apart from 15 mm cyst upper pole left kidney. No definite renal calculi are identified. There is no hydronephrosis. No ureteral or bladder calculi are seen. Aorta is ectatic but nonaneurysmal. The small and large bowel loops are normal caliber. No obstruction is detected. No free fluid or fluid collection is seen. The uterus is unremarkable. Appendix is visualized and unremarkable. No inflammatory changes are seen. IMPRESSION: No acute abnormality in the abdomen or pelvis is identified. Dictated by: Dictated on workstation # [id number]
[2019-12-29] MEDS ORDERED: cefTRIAXone FOR IV USE 1,000 MG in WATER (STERILE) FOR INJECTION 10 ML IV ONE (09:30)
[2019-12-29] MEDS ORDERED: HYDROcodone/APAP 5 MG/325 MG (LORTAB) TAB PO ONE (09:30)
[2019-12-29] MEDS ORDERED: CEFD300C3 PO (09:43)
[2019-12-29] MEDS ORDERED: ONDA4TAB11 PO (09:43)
[2019-12-29] MEDS ORDERED: HYDR-3812 PO (09:43)
[2019-12-29 09:58] VITALS: BP 139/98
== END 2019-12-29 09:58 | disposition home or self-care (01) ==
LOC: EDUNIT# 07:28 → ER 07:29
DX: N12 Tubulo-interstitial nephritis, not specified as acute or chronic (principal); J44.9 Chronic obstructive pulmonary disease, unspecified; F41.9 Anxiety disorder, unspecified; Z88.5 Allergy status to narcotic agent; Z79.51 Long term (current) use of inhaled steroids; Z85.3 Personal history of malignant neoplasm of breast
CPT/HCPCS: 36415; 74178; 80053; 81000; 85025; 87088

== ENCOUNTER → 2020-01-26 | Outpatient (CLI) | payer OTHER ==
[~2020-01-26] MED LIST changes: +CEFD300C3 PO; +ONDA4TAB11 PO
[2020-01-26 14:07] LABS: BASOPHILS % (AUTO) 0 % (0-10); EOSINOPHILS % (AUTO) 0 % (0-10); HEMATOCRIT 39 % (35-52); HEMOGLOBIN 13.4 G/DL (11.5-16.0); LYMPHOCYTES # (AUTO) 1.4 X 10^3 (1.0-4.0); LYMPHOCYTES % (AUTO) 32 % (12-44); MEAN CORPUSCULAR HEMOGLOBIN 30 PG (25-34); MEAN CORPUSCULAR HGB CONC 34 G/DL (32-36); MEAN CORPUSCULAR VOLUME 88 FL (80-99); MEAN PLATELET VOLUME 9.8 FL (7.4-10.4); MONOCYTES # (AUTO) 0.3 X 10^3 (0.0-1.0); MONOCYTES % (AUTO) 8 % (0-12); NEUTROPHILS # (AUTO) 2.7 X 10^3 (1.8-7.8); NEUTROPHILS % (AUTO) 60 % (42-75); PLATELET COUNT 167 10^3/uL (130-400); WHITE BLOOD COUNT 4.4 10^3/uL (4.3-11.0)
[2020-01-26 14:25] LABS: ALBUMIN 4.4 GM/DL (3.2-4.5); BILIRUBIN,TOTAL 0.4 MG/DL (0.1-1.0); CALCIUM 9.5 MG/DL (8.5-10.1); CREATININE SERUM 1.03 MG/DL (0.60-1.30); POTASSIUM 3.8 MMOL/L (3.6-5.0); TOTAL PROTEIN 7.1 GM/DL (6.4-8.2)
== END ==
LOC: ONC 13:51
PROVIDERS: ATTEND Internal Medicine Hematology & Oncology
DX: C50.911 Malignant neoplasm of unspecified site of right female breast (principal); J44.0 Chronic obstructive pulmonary disease with (acute) lower respiratory infection; I10 Essential (primary) hypertension; Z90.11 Acquired absence of right breast and nipple; Z92.3 Personal history of irradiation; Z92.21 Personal history of antineoplastic chemotherapy
CPT/HCPCS: 80053; 85025; G0463; 99213

== ENCOUNTER → 2020-02-02 | Outpatient (CLI) | payer OTHER ==
[~2020-02-02] MED LIST changes: -PANT40TA3 PO; +PANT40TA52 PO
--- NOTE | 2020-02-02 13:33 | Diagnostic Imaging Report ---
INDICATION: Routine screening. Comparison is made with prior mammogram from 02/02/2019 and 12/08/2016. 2-D and 3-D bilateral screening mammography was performed with CAD. Scattered fibroglandular densities are identified bilaterally. Benign calcifications are noted in the right breast. No new mass or malignant appearing microcalcifications are seen. Axillae are unremarkable. IMPRESSION: BI-RADS Category 2 No mammographic features suspicious for malignancy are identified. ACR BI-RADS Category 2: Benign findings. Result letter will be mailed to the patient. Note: At least 10% of breast cancer is not imaged by mammography. Dictated by: Dictated on workstation # [id number]
== END ==
LOC: RAD 10:18
PROVIDERS: ATTEND Internal Medicine Hematology & Oncology
DX: Z12.31 Encounter for screening mammogram for malignant neoplasm of breast (principal); Z85.3 Personal history of malignant neoplasm of breast
CPT/HCPCS: 77063; 77067

== ENCOUNTER 2020-02-12 15:46 | Emergency (ER) | payer OTHER ==
[~2020-02-12] VITALS: Ht 162 cm; Wt 66.0 kg
[2020-02-12] MEDS ORDERED: fentaNYL INJECTION 100 MCG/2 ML AMP IVP ONE (16:00)
[2020-02-12] MEDS ORDERED: ONDANSETRON 4 MG/2 ML (SDV) Z0FRAN IVP ONE (16:00)
[2020-02-12 16:07] LABS: BASOPHILS % (AUTO) 0 % (0-10); EOSINOPHILS % (AUTO) 0 % (0-10); HEMATOCRIT 38 % (35-52); HEMOGLOBIN 12.9 g/dL (11.5-16.0); LYMPHOCYTES # (AUTO) 1.7 10^3/uL (1.0-4.0); LYMPHOCYTES % (AUTO) 38 % (12-44); MEAN CORPUSCULAR HEMOGLOBIN 31 pg (25-34); MEAN CORPUSCULAR HGB CONC 34 g/dL (32-36); MEAN CORPUSCULAR VOLUME 90 fL (80-99); MEAN PLATELET VOLUME 10.2 fL (9.0-12.2); MONOCYTES # (AUTO) 0.4 10^3/uL (0.0-1.0); MONOCYTES % (AUTO) 8 % (0-12); NEUTROPHILS # (AUTO) 2.4 10^3/uL (1.8-7.8); NEUTROPHILS % (AUTO) 54 % (42-75); PLATELET COUNT 173 10^3/uL (130-400); WHITE BLOOD COUNT 4.5 10^3/uL (4.3-11.0)
--- NOTE | 2020-02-12 16:11 | ED GI ---
General Chief Complaint: Abdominal/GI Problems Stated Complaint: LOWER BACK PAIN/ABD PAIN Source of Information: Patient Exam Limitations: No Limitations History of Present Illness Date Seen by Provider: Feb 12, 2020 Time Seen by Provider: 15:52 Initial Comments Patient is a 64-year-old female who presents to the emergency department today with a chief complaint of right flank pain. Patient states that the pain is in her right flank radiates into her right hip and radiates up into her right back and lower shoulder blade. Patient states she had similar pain approximately 4 weeks ago when she was diagnosed with a urinary tract infection. Patient states onset of this pain was about the 730 this morning. She denies any urinary frequency or dysuria but has an urgency to urinate. Her last bowel movement she describes as normal and was this morning. Patient denies any fevers or chills. She has no cough congestion or URI symptoms. Patient states she took 2 Aleve this morning with no relief of symptoms All other review of systems reviewed and negative except as stated above. Timing/Duration: 4-6 Hours Severity/Quality: Severe Location: RLQ, Flank (Right flank) Radiation: Scapula Activities at Onset: None Associated Symptoms: Back Pain, Nausea/Vomiting (Nausea only has not had any vomiting) Allergies and Home Medications Allergies Coded Allergies: codeine (Verified Allergy, Unknown, 06/19/08) Home Medications Acetaminophen 500 Mg Tablet, 1,000 MG PO Q6H PRN for PAIN-MILD, (Reported) TAKES 2 (500MG) TABLETS Albuterol Sulfate 1 Puff Puff, 2 PUFF IH Q6H PRN for WHEEZING, (Reported) 1 PUFF = 90 MCG Cefdinir 300 Mg Capsule, 300 MG PO BID Prescribed by: ZEENAT DWYER on 12/29/19 0943 Fluconazole 100 Mg Tablet, 100 MG PO DAILY Prescribed by: RAFIQ ROJAS on 06/17/18917 Fluticasone Propionate 1 Ea Aero, 1 EA IH BID Prescribed by: RAFIQ ROJAS on 06/17/18 09 Gabapentin 300 Mg Capsule, 300 MG PO DAILY@1200 Prescribed by: RAFIQ ROJAS on 06/17/18917 Hydrocodone Bit/Acetaminophen 1 Tab Tab, 1 TAB PO Q6H PRN for PAIN-MODERATE Prescribed by: RAFIQ ROJAS on 06/17/18917 Hydrocodone/Acetaminophen 1 Each Tablet, 1 EACH PO Q6H PRN for PAIN-BREAKTHROUGH Prescribed by: ZEENAT DWYER on 12/29/19 09 Hydrocodone/Acetaminophen 1 Each Tablet, 1 EACH PO Q6H Prescribed by: JESENIA TOBAR on 02/12/20 170 Methylprednisolone 4 Mg Tablet, 4 MG PO UD FOLLOW DOSE PACK INSTRUCTIONS Prescribed by: JESENIA TOBAR on 02/12/20 170 Metoprolol Succinate 25 Mg Tab.er.24h, 25 MG PO DAILY Prescribed by: CHERY ROSE on 06/17/18 0839 Ondansetron 4 Mg Tab.rapdis, 4 MG PO Q6H PRN for NAUSEA/VOMITING Prescribed by: ZEENAT DWYER on 12/29/19 09 Pantoprazole Sodium 40 Mg Tablet.dr, 40 MG PO DAILY, (Reported) Venlafaxine HCl 75 Mg Cap.er.24h, 75 MG PO DAILY@0700 Prescribed by: RAFIQ ROJAS on 06/17/18 0918 Patient Home Medication List Home Medication List Reviewed: Yes Review of Systems Review of Systems Constitutional: no symptoms reported EENTM: No Symptoms Reported Respiratory: No Symptoms Reported; Denies Cough, Denies Shortness of Air Cardiovascular: No Symptoms Reported Gastrointestinal: Abdominal Pain; Denies Constipated, Denies Diarrhea; Nausea; Denies Rectal Bleeding, Denies Vomiting Genitourinary: Denies Burning, Denies Discharge, Denies Frequency; Flank Pain, Urgency Musculoskeletal: back pain Skin: no symptoms reported Past Mvkvrhs-Spjeyr-Oatnna Hx Patient Social History Type Used: Cigarettes Former Smoker, Quit: Dec 16, 2017 Recent Foreign Travel: No Contact w/Someone Who Travel: No Recent Hopitalizations: No Immunizations Up To Date Tetanus Booster (TDap): Unknown PED Vaccines UTD: Yes Date of Pneumonia Vaccine: Jun 11, 2001 Date of Influenza Vaccine: Apr 09, 2018 Seasonal Allergies Seasonal Allergies: Yes Past Medical History Surgeries: Yes (bartholin gland removed) Cystectomy, Lumpectomy, Orthopedic Respiratory: Yes Asthma, Pneumonia, COPD Currently Using CPAP: No Currently Using BIPAP: No Cardiac: Yes High Cholesterol Neurological: No Reproductive Disorders: No Sexually Transmitted Disease: No Genitourinary: No Gastrointestinal: Yes Chronic Constipation Musculoskeletal: Yes (ARTHRITIS) Arthritis Endocrine: No Cancer: Yes Breast Psychosocial: Yes Anxiety Integumentary: No Blood Disorders: No Family Medical History Patient reports no known family medical history. No Pertinent Family Hx Physical Exam Vital Signs Vital Signs - First Documented 02/12/20 15:50 Temp 36.1 Pulse 65 Resp 18 B/P (MAP) 169/96 (120) Pulse Ox 98 Capillary Refill : Height/Weight/BMI Height: 5'4.00" Weight: 140lbs. 0.0oz. [id number]; 25.00 BMI Method:Stated General Appearance: WD/WN, mild distress HEENT: PERRL/EOMI Respiratory: chest non-tender, lungs clear, normal breath sounds, no respiratory distress Cardiovascular: regular rate, rhythm, no edema Peripheral Pulses: 2+ Radial Pulses (R) Gastrointestinal: normal bowel sounds, soft Extremities: normal range of motion, normal inspection, no pedal edema Back: normal inspection; No CVA tenderness (R), No CVA tenderness (L) Neurologic/Psychiatric: no motor/sensory deficits, alert, normal mood/affect, oriented x 3 Skin: normal color, warm/dry Procedures/Interventions Date of ETT Placement: Jun 01, 2018 Progress/Results/Core Measures Results/Orders Lab Results Laboratory Tests Test 02/12/20 15:55 02/12/20 16:15 Range/Units White Blood Count 4.5 4.3-11.0 10^3/uL Red Blood Count 4.22 3.80-5.11 10^6/uL Hemoglobin 12.9 11.5-16.0 g/dL Hematocrit 38 35-52 % Mean Corpuscular Volume 90 80-99 fL Mean Corpuscular Hemoglobin 31 25-34 pg Mean Corpuscular Hemoglobin Concent 34 32-36 g/dL Red Cell Distribution Width 12.8 10.0-14.5 % Platelet Count 173 130-400 10^3/uL Mean Platelet Volume 10.2 9.0-12.2 fL Immature Granulocyte % (Auto) 0 % Neutrophils (%) (Auto) 54 42-75 % Lymphocytes (%) (Auto) 38 12-44 % Monocytes (%) (Auto) 8 0-12 % Eosinophils (%) (Auto) 0 0-10 % Basophils (%) (Auto) 0 0-10 % Neutrophils # (Auto) 2.4 1.8-7.8 10^3/uL Lymphocytes # (Auto) 1.7 1.0-4.0 10^3/uL Monocytes # (Auto) 0.4 0.0-1.0 10^3/uL Eosinophils # (Auto) 0.0 0.0-0.3 10^3/uL Basophils # (Auto) 0.0 0.0-0.1 10^3/uL Immature Granulocyte # (Auto) 0.0 0.0-0.1 10^3/uL Sodium Level 138 135-145 MMOL/L Potassium Level 3.9 3.6-5.0 MMOL/L Chloride Level 105 98-107 MMOL/L Carbon Dioxide Level 23 21-32 MMOL/L Anion Gap 10 5-14 MMOL/L Blood Urea Nitrogen 15 7-18 MG/DL Creatinine 1.08 0.60-1.30 MG/DL Estimat Glomerular Filtration Rate 51 BUN/Creatinine Ratio 14 Glucose Level 84 70-105 MG/DL Calcium Level 8.9 8.5-10.1 MG/DL Corrected Calcium 8.7 8.5-10.1 MG/DL Total Bilirubin 0.2 0.1-1.0 MG/DL Aspartate Amino Transf (AST/SGOT) 22 5-34 U/L Alanine Aminotransferase (ALT/SGPT) 17 0-55 U/L Alkaline Phosphatase 78 40-136 U/L Total Protein 6.6 6.4-8.2 GM/DL Albumin 4.2 3.2-4.5 GM/DL Amylase Level 44 25-125 U/L Lipase 38 8-78 U/L Urine Color YELLOW Urine Clarity CLEAR Urine pH 7.0 5-9 Urine Specific [place] 1.015 L 1.016-1.022 Urine Protein NEGATIVE NEGATIVE Urine Glucose (UA) NEGATIVE NEGATIVE Urine Ketones TRACE H NEGATIVE Urine Nitrite NEGATIVE NEGATIVE Urine Bilirubin NEGATIVE NEGATIVE Urine Urobilinogen 1.0 < = 1.0 MG/DL Urine Leukocyte Esterase NEGATIVE NEGATIVE Urine RBC (Auto) NEGATIVE NEGATIVE Urine RBC NONE /HPF Urine WBC NONE /HPF Urine Squamous Epithelial Cells 0-2 /HPF Urine Crystals PRESENT H /LPF Urine Amorphous Sediment FEW PARTH PHOSPHATE H /LPF Urine Bacteria TRACE /HPF Urine Casts PRESENT /LPF Urine Hyaline Casts 0-2 H /LPF Urine Mucus SMALL H /LPF Urine Culture Indicated NO My Orders Orders - JESENIA TOBAR MD Amylase (02/12/20 16:00) Cbc With Automated Diff (02/12/20 16:00) Comprehensive Metabolic Panel (02/12/20 16:00) Lipase (02/12/20 16:00) Ua Culture If Indicated (02/12/20 16:00) Ed Iv/Invasive Line Start (02/12/20 16:00) Ondansetron Injection (Zofran Injectio (02/12/20 16:00) Fentanyl Injection (Sublimaze Injection (02/12/20 16:00) Medications Given in ED Current Medications Medications Dose Ordered Sig/Luis Eduardo Route Start Time Stop Time Status Last Admin Dose Admin Fentanyl Citrate 25 mcg ONCE ONCE IVP 02/12/20 16:00 02/12/20 16:03 DC 02/12/20 16:17 25 MCG Ondansetron HCl 4 mg ONCE ONCE IVP 02/12/20 16:00 02/12/20 16:03 DC 02/12/20 16:17 4 MG Vital Signs/I&O 02/12/20 02/12/20 15:50 17:18 Temp 36.1 Pulse 65 64 Resp 18 18 B/P (MAP) 169/96 (120) 152/88 (120) Pulse Ox 98 98 Progress Progress Note : Time: 16:08 Progress Note 64-year-old female with a chief complaint of right flank pain. Evaluation today includes a physical exam. The patient will also be evaluated with routine laboratory studies to include a CBC, Chem-12, serum amylase lipase and urinalysis. Patient is treated with 4 mg of IV Zofran as well as 25 mcg of fentanyl. 1658 Patient resting comfortably after dose of fentanyl however when she goes to lay on her back she has an intense return of pain. On further examination after looking more at her abdomen she is actually not having any pain in her lower abdomen it is all in her right buttock right over the area of her sciatic nerve. Patient has intense pain when she places her foot down to take a step. She has intense pain when she lays flat on her back and also when she raises her leg a little bit. She denies any numbness tingling or weakness to her lower extremities. No loss of bowel or bladder function. I also reviewed the CAT scan that she had back in December when she was here with similar discomfort. No evidence of kidney stones no evidence of gallstones. I discussed the treatment plan with the patient which includes a Medrol dose pack. I recommended that she lay on a heating pad. I am going to give her 2 days worth of hydrocodone. She is comfortable with this plan of care and agreeable. All questions are sought and answered and she is stable for discharge. Departure Impression Primary Impression: Acute right-sided low back pain with right-sided sciatica Disposition: HOME, SELF-CARE Condition: Stable Departure-Patient Inst. Decision time for Depature: 17:05 Referrals: RAFIQ ROJAS DO (PCP/Family) Primary Care Physician Patient Instructions: Sciatica (DC) Add. Discharge Instructions: Please take the steroid Dosepak starting tomorrow as prescribed. I have also given you a prescription for hydrocodone. You can take this 1 tablet every 6 hours as needed for pain. Please keep in mind that this medication can cause constipation also you should not drive or make legal decisions while taking hydrocodone. Please call your primary care doctor's office tomorrow for follow-up appointment. Return to the emergency department for any new or worsening emergent, concerning symptoms All discharge instructions reviewed with patient and/or family. Voiced understanding. Scripts Hydrocodone/Acetaminophen (Hydrocodone-Acetamin 5-325 mg) 1 Each Tablet 1 EACH PO Q6H for Back Pain, #10 TAB Prov: JESENIA TOBAR MD 02/12/20 Methylprednisolone (Methylprednisolone Dose Pack) 4 Mg Tablet 4 MG PO UD for 6 Days, #21 TAB FOLLOW DOSE PACK INSTRUCTIONS Prov: JESENIA TOBAR MD 02/12/20 Copy Copies To 1: RAFIQ ROJAS KATHRYN M MD Feb 12, 2020 16:11
[2020-02-12 16:19] LABS: ALBUMIN 4.2 GM/DL (3.2-4.5); POTASSIUM 3.9 MMOL/L (3.6-5.0)
[2020-02-12 16:21] LABS: CALCIUM 8.9 MG/DL (8.5-10.1)
[2020-02-12 16:22] LABS: TOTAL PROTEIN 6.6 GM/DL (6.4-8.2)
[2020-02-12 16:24] LABS: BILIRUBIN,TOTAL 0.2 MG/DL (0.1-1.0)
[2020-02-12 16:25] LABS: BILIRUBIN,URINE NEGATIVE (NEGATIVE); CLARITY,URINE CLEAR; COLOR,URINE YELLOW; GLUCOSE, URINE (UA) NEGATIVE (NEGATIVE); KETONES,URINE TRACE (NEGATIVE); LEUKOCYTE ESTERASE ,URINE NEGATIVE (NEGATIVE); NITRITE,URINE NEGATIVE (NEGATIVE); PROTEIN,URINE NEGATIVE (NEGATIVE)
[2020-02-12 16:25] LABS: CREATININE SERUM 1.08 MG/DL (0.60-1.30)
[2020-02-12 16:31] LABS: AMORPHOUS SEDIMENT,UR FEW AMOR PHOSPHATE /LPF; BACTERIA,URINE TRACE /HPF; HYALINE CASTS, URINE 0-2 /LPF; SQUAMOUS EPITHELIAL CELL,UR 0-2 /HPF
[2020-02-12] MEDS ORDERED: METH4TAB11 PO (17:02)
[2020-02-12] MEDS ORDERED: ACHD5005 PO (17:02)
[2020-02-12 17:18] VITALS: BP 152/88
== END 2020-02-12 17:18 | disposition home or self-care (01) ==
LOC: EDUNIT# 15:46 → ER 15:47
DX: M54.41 Lumbago with sciatica, right side (principal); F41.9 Anxiety disorder, unspecified; J44.9 Chronic obstructive pulmonary disease, unspecified; Z85.3 Personal history of malignant neoplasm of breast; Z87.891 Personal history of nicotine dependence; Z88.5 Allergy status to narcotic agent; Z79.52 Long term (current) use of systemic steroids
CPT/HCPCS: 36415; 80053; 81000; 82150; 83690; 85025

== ENCOUNTER → 2020-07-17 | Outpatient (CLI) | payer MEDICARE ==
[~2020-07-17] MED LIST changes: +AMLO-251 PO; -AMLO10TA7 PO; +METH4TAB11 PO
== END ==
LOC: CARD 13:56
PROVIDERS: ATTEND Internal Medicine Cardiovascular Disease
DX: I27.21 Secondary pulmonary arterial hypertension (principal); I65.23 Occlusion and stenosis of bilateral carotid arteries; I08.0 Rheumatic disorders of both mitral and aortic valves
CPT/HCPCS: 93306

== ENCOUNTER → 2020-09-27 | Outpatient (CLI) | payer MEDICARE ==
--- NOTE | 2020-09-27 10:11 | Diagnostic Imaging Report ---
EXAMINATION: CT Lung Screening. INDICATION: 48 pack year smoking history, cessation 2 years ago. TECHNIQUE: Noncontrast, low-dose CT imaging performed according to the lung cancer screening protocol. Auto Exposure Controls were utilize during the CT exam to meet ALARA standards for radiation dose reduction. COMPARISON: 09/27/2019. FINDINGS: Subpleural scarring and paraseptal emphysematous changes are asymmetric (greater right than left) and predominantly involve the upper lobes, unchanged. No new dominant or suspicious lung mass. A few subpleural 2 to 3 mm benign micronodules are unchanged. No findings to suggest lung cancer. No pathological-appearing thoracic lymph nodes. No effusion, pneumothorax, pneumonia, or edema. The visualized upper abdomen is unremarkable. IMPRESSION: Stable chronic benign findings with no evidence of lung cancer. Continued low-dose CT screening followup in 1 year is recommended. LUNG-RADS CATEGORY:Category 2. MODIFIER:None. OTHER SIGNIFICANT FINDINGS: Subpleural scarring and paraseptal emphysema. Dictated by: Dictated on workstation # [id number]
== END ==
LOC: RAD 09:15
PROVIDERS: ATTEND Nurse Practitioner Family
DX: Z12.2 Encounter for screening for malignant neoplasm of respiratory organs (principal); Z87.891 Personal history of nicotine dependence
CPT/HCPCS: 71271

== ENCOUNTER → 2021-02-04 | Outpatient (CLI) | payer MEDICARE ==
[2021-02-04 10:29] LABS: BASOPHILS % (AUTO) 1 % (0-10); EOSINOPHILS # (AUTO) 0.2 10^3/uL (0.0-0.3); EOSINOPHILS % (AUTO) 3 % (0-10); HEMATOCRIT 41 % (35-52); HEMOGLOBIN 13.3 g/dL (11.5-16.0); LYMPHOCYTES # (AUTO) 1.4 10^3/uL (1.0-4.0); LYMPHOCYTES % (AUTO) 26 % (12-44); MEAN CORPUSCULAR HEMOGLOBIN 31 pg (25-34); MEAN CORPUSCULAR HGB CONC 33 g/dL (32-36); MEAN CORPUSCULAR VOLUME 95 fL (80-99); MEAN PLATELET VOLUME 9.4 fL (9.0-12.2); MONOCYTES # (AUTO) 0.4 10^3/uL (0.0-1.0); MONOCYTES % (AUTO) 7 % (0-12); NEUTROPHILS # (AUTO) 3.5 10^3/uL (1.8-7.8); NEUTROPHILS % (AUTO) 64 % (42-75); PLATELET COUNT 169 10^3/uL (130-400); WHITE BLOOD COUNT 5.5 10^3/uL (4.3-11.0)
[2021-02-04 10:52] LABS: ALBUMIN 4.4 GM/DL (3.2-4.5); BILIRUBIN,TOTAL 0.5 MG/DL (0.1-1.0); CALCIUM 9.5 MG/DL (8.5-10.1); CREATININE SERUM 0.98 MG/DL (0.60-1.30); POTASSIUM 4.3 MMOL/L (3.6-5.0)
== END ==
LOC: ONC 10:26
PROVIDERS: ATTEND Internal Medicine Hematology & Oncology
DX: Z08 Encounter for follow-up examination after completed treatment for malignant neoplasm (principal); Z85.3 Personal history of malignant neoplasm of breast; Z92.21 Personal history of antineoplastic chemotherapy; Z92.3 Personal history of irradiation; J44.9 Chronic obstructive pulmonary disease, unspecified; I10 Essential (primary) hypertension; F17.210 Nicotine dependence, cigarettes, uncomplicated; Z79.899 Other long term (current) drug therapy
CPT/HCPCS: 80053; 85025; G0463; 99213

== ENCOUNTER → 2021-02-06 | Outpatient (CLI) | payer MEDICARE ==
--- NOTE | 2021-02-08 09:45 | Diagnostic Imaging Report ---
Digital mammogram bilateral screening This study was compared to the prior exams of 02/02/2020, 02/02/2019 and 12/08/2016. At this time, there are no current complaints. The current study was also evaluated with a Computer Aided Detection (CAD) system. FINDINGS: The fibroglandular tissue in both breasts is heterogeneously dense. This does limit the sensitivity of this exam. Overall, there does not appear to have been any significant change when compared to the prior study. No primary or secondary sign of malignancy is noted. IMPRESSION: There is no radiographic evidence for malignancy. ACR BI-RADS Category 1: Negative. Result letter will be mailed to the patient. Note: At least 10% of breast cancer is not imaged by mammography. Dictated by: Dictated on workstation # [id number]
== END ==
LOC: RAD 11:00
PROVIDERS: ATTEND Nurse Practitioner Adult Health
DX: Z12.31 Encounter for screening mammogram for malignant neoplasm of breast (principal)
CPT/HCPCS: 77063; 77067

== ENCOUNTER 2021-04-25 16:10 | Emergency (ER) | payer MEDICARE ==
[~2021-04-25] VITALS: Ht 162.6 cm; Wt 59.9 kg
--- NOTE | 2021-04-25 16:28 | ED General ---
General Stated Complaint: COUGH Source of Information: Patient Exam Limitations: No Limitations History of Present Illness Date Seen by Provider: Apr 25, 2021 Time Seen by Provider: 16:26 Initial Comments To ER with a productive cough for about 1 month. She feels short of breath and had some chest tightness as if someone was standing on her chest onset a few days ago but most intense this morning. She does smoke cigarettes about 1/2 pack/day. She has a history of COPD. She has had both Covid vaccines and a Covid booster shot. She denies fevers. Timing/Duration: Getting Worse Severity: Moderate Associated Systoms: Cough Allergies and Home Medications Allergies Coded Allergies: codeine (Verified Allergy, Unknown, 06/19/08) Patient Home Medication List Home Medication List Reviewed: Yes Acetaminophen (Tylenol Extra Strength) 500 Mg Tablet, 1,000 MG PO Q6H PRN for PAIN-MILD, (Reported) Entered as Reported by: RONALDO LOONEY on 03/21/16 1247 Albuterol Sulfate (Proair Hfa) 1 Puff Puff, 2 PUFF IH Q6H PRN for WHEEZING, ( Reported) Entered as Reported by: JUDSON CARLOS on 05/31/18 0933 Albuterol Sulfate (Albuterol Sulfate) 2.5 Mg/3 Ml Vial.neb, 2.5 MG INH Q4H PRN for WHEEZING Prescribed by: MILLA TRUJILLO on 04/25/21 1720 Cefdinir (Cefdinir) 300 Mg Capsule, 300 MG PO BID Prescribed by: ZEENAT DWYER on 12/29/19 0943 Cefuroxime Axetil (Cefuroxime) 250 Mg Tablet, 250 MG PO BID Prescribed by: MILLA TRUJILLO on 04/25/21 1720 Fluconazole (Fluconazole) 100 Mg Tablet, 100 MG PO DAILY Prescribed by: RAFIQ ROJAS on 06/17/18 0918 Fluticasone Propionate (Flovent Hfa 220 mcg) 1 Ea Aero, 1 EA IH BID Prescribed by: RAFIQ ROJAS on 06/17/18 09 Gabapentin (Gabapentin) 300 Mg Capsule, 300 MG PO DAILY@1200 Prescribed by: RAFIQ ROJAS on 06/17/18 0918 Hydrocodone Bit/Acetaminophen (Lortab 5 Mg Tablet) 1 Tab Tab, 1 TAB PO Q6H PRN for PAIN-MODERATE Prescribed by: RAFIQ ROJAS on 06/17/18 0918 Hydrocodone/Acetaminophen (Hydrocodone-Acetamin 5-325 mg) 1 Each Tablet, 1 EACH PO Q6H PRN for PAIN-BREAKTHROUGH Prescribed by: ZEENAT DWYER on 12/29/19 0943 Hydrocodone/Acetaminophen (Hydrocodone-Acetamin 5-325 mg) 1 Each Tablet, 1 EACH PO Q6H Prescribed by: JESENIA TOBAR on 02/12/20 1702 Methylprednisolone (Methylprednisolone Dose Pack) 4 Mg Tablet, 4 MG PO UD Prescribed by: JESENIA TOBAR on 02/12/20 1702 Metoprolol Succinate (Metoprolol Succinate) 25 Mg Tab.er.24h, 25 MG PO DAILY Prescribed by: CHERY ROSE on 06/17/18 0839 Ondansetron (Ondansetron Odt) 4 Mg Tab.rapdis, 4 MG PO Q6H PRN for NAUSEA/VOMITING Prescribed by: ZEENAT DWYER on 12/29/19 0943 Pantoprazole Sodium (Pantoprazole Sodium) 40 Mg Tablet.dr, 40 MG PO DAILY, (Reported) Entered as Reported by: JUDSON CARLOS on 05/31/18 0932 Prednisone (Prednisone) 20 Mg Tab, 40 MG PO DAILY Prescribed by: MILLA TRUJILLO on 04/25/21 1720 Venlafaxine HCl (Venlafaxine HCl ER) 75 Mg Cap.er.24h, 75 MG PO DAILY@0700 Prescribed by: RAFIQ ROJAS on 06/17/18 0918 Review of Systems Review of Systems Constitutional: see HPI EENTM: see HPI Respiratory: see HPI, cough, short of breath Cardiovascular: see HPI, chest pain Genitourinary: no symptoms reported Musculoskeletal: no symptoms reported Skin: no symptoms reported Psychiatric/Neurological: No Symptoms Reported Hematologic/Lymphatic: No Symptoms Reported Past Fxmrhuy-Lacncl-Balvwn Hx Immunizations Up To Date Tetanus Booster (TDap): Unknown PED Vaccines UTD: Yes Seasonal Allergies Seasonal Allergies: Yes Past Medical History Surgeries: Yes (bartholin gland removed) Cystectomy, Lumpectomy, Orthopedic Respiratory: Yes Asthma, Pneumonia, COPD Currently Using CPAP: No Currently Using BIPAP: No Cardiac: Yes High Cholesterol Neurological: No Reproductive Disorders: No Sexually Transmitted Disease: No Genitourinary: No Gastrointestinal: Yes Chronic Constipation Musculoskeletal: Yes (ARTHRITIS) Arthritis Endocrine: No Cancer: Yes Breast Psychosocial: Yes Anxiety Integumentary: No Blood Disorders: No Family Medical History Patient reports no known family medical history. No Pertinent Family Hx Physical Exam Vital Signs Vital Signs - First Documented Capillary Refill : Height, Weight, BMI Height: 5'4.00" Weight: 140lbs. 0.0oz. 63.549934pb; 25.00 BMI Method:Stated General Appearance: No Apparent Distress, WD/WN, Thin, Other (Alert and oriented no distress speaks in full sentences. Oxygen saturation 97% on room air. Lungs are clear though somewhat diminished. No wheezing.) Eyes: Bilateral Eye Normal Inspection, Bilateral Eye PERRL, Bilateral Eye EOMI Neck: Full Range of Motion, Normal Inspection Respiratory: No Accessory Muscle Use, No Respiratory Distress Cardiovascular: Regular Rate, Rhythm, Normal Peripheral Pulses Gastrointestinal: Normal Bowel Sounds, Non Tender, Soft Extremity: Normal Capillary Refill, Normal Inspection Neurologic/Psychiatric: Alert, Oriented x3 Skin: Normal Color, Warm/Dry Procedures/Interventions Date of ETT Placement: Jun 01, 2018 Progress/Results/Core Measures Suspected Sepsis SIRS Temperature: Pulse: Respiratory Rate: Laboratory Tests 04/25/21 16:28: White Blood Count 4.9 Blood Pressure / Mean: Laboratory Tests 04/25/21 16:28: Creatinine 0.86, Platelet Count 187, Total Bilirubin 0.2 Results/Orders Lab Results Laboratory Tests Test 04/25/21 16:28 04/25/21 16:29 Range/Units White Blood Count 4.9 4.3-11.0 10^3/uL Red Blood Count 4.55 3.80-5.11 10^6/uL Hemoglobin 14.0 11.5-16.0 g/dL Hematocrit 42 35-52 % Mean Corpuscular Volume 93 80-99 fL Mean Corpuscular Hemoglobin 31 25-34 pg Mean Corpuscular Hemoglobin Concent 33 32-36 g/dL Red Cell Distribution Width 12.6 10.0-14.5 % Platelet Count 187 130-400 10^3/uL Mean Platelet Volume 9.9 9.0-12.2 fL Immature Granulocyte % (Auto) 0 % Neutrophils (%) (Auto) 57 42-75 % Lymphocytes (%) (Auto) 33 12-44 % Monocytes (%) (Auto) 9 0-12 % Eosinophils (%) (Auto) 0 0-10 % Basophils (%) (Auto) 1 0-10 % Neutrophils # (Auto) 2.8 1.8-7.8 10^3/uL Lymphocytes # (Auto) 1.6 1.0-4.0 10^3/uL Monocytes # (Auto) 0.4 0.0-1.0 10^3/uL Eosinophils # (Auto) 0.0 0.0-0.3 10^3/uL Basophils # (Auto) 0.0 0.0-0.1 10^3/uL Immature Granulocyte # (Auto) 0.0 0.0-0.1 10^3/uL Sodium Level 137 135-145 MMOL/L Potassium Level 4.0 3.6-5.0 MMOL/L Chloride Level 101 98-107 MMOL/L Carbon Dioxide Level 24 21-32 MMOL/L Anion Gap 12 5-14 MMOL/L Blood Urea Nitrogen 15 7-18 MG/DL Creatinine 0.86 0.60-1.30 MG/DL Estimat Glomerular Filtration Rate 66 BUN/Creatinine Ratio 17 Glucose Level 67 L 70-105 MG/DL Calcium Level 8.9 8.5-10.1 MG/DL Corrected Calcium 8.7 8.5-10.1 MG/DL Total Bilirubin 0.2 0.1-1.0 MG/DL Aspartate Amino Transf (AST/SGOT) 23 5-34 U/L Alanine Aminotransferase (ALT/SGPT) 18 0-55 U/L Alkaline Phosphatase 73 40-136 U/L Troponin I < 0.028 <0.028 NG/ML B-Type Natriuretic Peptide 98.9 <100.0 PG/ML Total Protein 7.2 6.4-8.2 GM/DL Albumin 4.3 3.2-4.5 GM/DL Procalcitonin 0.01 <0.10 NG/ML Influenza Type A (RT-PCR) Not Detected Not Detecte Influenza Type B (RT-PCR) Not Detected Not Detecte SARS-CoV-2 RNA (RT-PCR) Not Detected Not Detecte My Brandie Diego - MILLA TRUJILLO [employer] HEL[employer] Cbc With Automated Diff (04/25/21 16:20) Procalcitonin (Pct) (04/25/21 16:20) Comprehensive Metabolic Panel (04/25/21 16:20) Bnp [place] (04/25/21 16:20) Troponin I [place] (04/25/21 16:20) Ekg Tracing (04/25/21 16:20) Ed Iv/Invasive Line Start (04/25/21 16:20) Chest 1 View, Ap/Pa Only (04/25/21 16:20) Covid 19 Inhouse Test (04/25/21 16:20) Influenza A And B By Pcr (04/25/21 16:20) Albuterol/Ipra Inhalation Soln (Duoneb I (04/25/21 17:15) Svn Small Volume Nebulizer (04/25/21 17:14) Prednisone Tablet (Deltasone Tablet) (04/25/21 17:15) Cephalexin Capsule (Keflex Capsule) (04/25/21 17:15) Vital Signs/I&O 04/25/21 04/25/21 16:16 16:16 Temp 36.3 Pulse 84 Resp 16 B/P (MAP) 129/93 (105) O2 Delivery Room Air Room Air Capillary Refill : Departure Communication (Admissions) Sinus rhythm at 68. No ectopy. Less than [address] depression in lead II and V4 to V6. Impression Primary Impression: COPD (chronic obstructive pulmonary disease) Disposition: 01 HOME, SELF-CARE Condition: Stable Departure-Patient Inst. Decision time for Depature: 17:15 Referrals: RAFIQ ROJAS DO (PCP/Family) Primary Care Physician Patient Instructions: Exacerbation of COPD Add. Discharge Instructions: 1. Steroids and antibiotic as directed. Breathing treatments as directed. Return to ER for any concerns and follow-up with Dr. Rojas first of next week for recheck. Scripts Cefuroxime Axetil (Cefuroxime) 250 Mg Tablet 250 MG PO BID, #10 TAB Prov: MILLA TRUJILLO APRN 04/25/21 Prednisone (Prednisone) 20 Mg Tab 40 MG PO DAILY, #6 TAB 0 Refills Prov: MILLA TRUJILLO APRN 04/25/21 Albuterol Sulfate (Albuterol Sulfate) 2.5 Mg/3 Ml Vial.neb 2.5 MG INH Q4H PRN for WHEEZING, #25 EA 1 Refill Prov: MILLA TRUJILLO APRN 04/25/21 Copy Copies To 1: RAFIQ ROJAS PETER J APRN Apr 25, 2021 16:28
[2021-04-25 16:32] LABS: BASOPHILS % (AUTO) 1 % (0-10); EOSINOPHILS % (AUTO) 0 % (0-10); HEMATOCRIT 42 % (35-52); LYMPHOCYTES # (AUTO) 1.6 10^3/uL (1.0-4.0); LYMPHOCYTES % (AUTO) 33 % (12-44); MEAN CORPUSCULAR HEMOGLOBIN 31 pg (25-34); MEAN CORPUSCULAR HGB CONC 33 g/dL (32-36); MEAN CORPUSCULAR VOLUME 93 fL (80-99); MEAN PLATELET VOLUME 9.9 fL (9.0-12.2); MONOCYTES # (AUTO) 0.4 10^3/uL (0.0-1.0); MONOCYTES % (AUTO) 9 % (0-12); NEUTROPHILS # (AUTO) 2.8 10^3/uL (1.8-7.8); NEUTROPHILS % (AUTO) 57 % (42-75); PLATELET COUNT 187 10^3/uL (130-400); WHITE BLOOD COUNT 4.9 10^3/uL (4.3-11.0)
[2021-04-25 16:39] LABS: ALBUMIN 4.3 GM/DL (3.2-4.5); CHLORIDE 101 MMOL/L (98-107); SODIUM 137 MMOL/L (135-145)
[2021-04-25 16:40] LABS: CALCIUM 8.9 MG/DL (8.5-10.1)
[2021-04-25 16:41] LABS: GLUCOSE 67 MG/DL (70-105); TOTAL PROTEIN 7.2 GM/DL (6.4-8.2)
[2021-04-25 16:42] LABS: CARBON DIOXIDE 24 MMOL/L (21-32)
[2021-04-25 16:43] LABS: BILIRUBIN,TOTAL 0.2 MG/DL (0.1-1.0)
[2021-04-25 16:45] LABS: ALKALINE PHOSPHATASE 73 U/L (40-136); CREATININE SERUM 0.86 MG/DL (0.60-1.30); GFR ESTIMATED 66
[2021-04-25 16:46] LABS: BUN/CREATININE RATIO 17
[2021-04-25 16:48] LABS: ALANINE AMINOTRANSFERASE 18 U/L (0-55)
[2021-04-25] MEDS ORDERED: predniSONE 20 MG TAB PO ONE (17:15)
[2021-04-25] MEDS ORDERED: RT-ALBUTEROL/IPRATROPIUM 3 ML (DUONEB) VIAL INH ONE (17:15)
[2021-04-25] MEDS ORDERED: CEPHALEXIN 250 MG (KEFLEX) CAP PO SCH (17:15)
[2021-04-25] MEDS ORDERED: ALBU2.5V4 INH (17:20)
[2021-04-25] MEDS ORDERED: PRD20T PO (17:20)
[2021-04-25] MEDS ORDERED: CEFU250T80 PO (17:20)
--- NOTE | 2021-04-25 17:26 | Diagnostic Imaging Report ---
CLINICAL INDICATION: Patient with cough x1 month. EXAM: Portable chest x-ray upright view. COMPARISONS: Chest x-ray dated 06/05/2018. FINDINGS: Lungs/pleura: There are subtle linear-like airspace opacities in the right lung base which may represent atelectasis. There is no definite lung infiltrate. Lungs are now clear compared to the prior chest x-ray There is no pneumothorax. There is no pleural effusion. Mediastinum: Unremarkable. Pulmonary vasculature: Unremarkable. Heart: Unremarkable. Bones/extrathoracic soft tissue: There are degenerative spurs involving the thoracic spine. IMPRESSION: Suspected mild bibasilar atelectasis. There is no definite lung infiltrate. Dictated by: Dictated on workstation # [id number]
[2021-04-25 17:41] VITALS: BP 133/71
== END 2021-04-25 17:41 | disposition home or self-care (01) ==
LOC: EDUNIT# 16:10 → ER 16:11
DX: J44.9 Chronic obstructive pulmonary disease, unspecified (principal); F41.9 Anxiety disorder, unspecified; F17.210 Nicotine dependence, cigarettes, uncomplicated; Z20.822 Contact with and (suspected) exposure to COVID-19; Z79.899 Other long term (current) drug therapy
CPT/HCPCS: 36415; 71045; 80053; 83880; 84145; 84484; 85025; 87636; 94640

== ENCOUNTER → 2021-11-05 | Outpatient (CLI) | payer MEDICARE ==
[~2021-11-05] MED LIST changes: +ALBU2.5V4 INH; +CEFU250T80 PO; +DOXY100T31 PO; +FLUC100T10 PO; -FLUC100T6 PO; +PRD20T PO; +PRD50T PO
== END ==
LOC: CARD 14:00
PROVIDERS: ATTEND Nurse Practitioner Family
DX: I08.0 Rheumatic disorders of both mitral and aortic valves (principal); I27.21 Secondary pulmonary arterial hypertension
CPT/HCPCS: 93306

== ENCOUNTER → 2022-02-13 | Outpatient (CLI) | payer MEDICARE ==
--- NOTE | 2022-02-13 13:33 | Diagnostic Imaging Report ---
Indication: Routine screening. Comparison is made with prior mammogram from 02/06/2021 and 02/02/2020. 2-D and 3-D bilateral screening mammography was performed with CAD. CAD is utilized. The current study was also evaluated with a Computer Aided Detection (CAD) system. Both breasts are heterogeneously dense, limiting the sensitivity of mammography. Post therapeutic changes right breast appears stable. No mass or malignant-appearing microcalcifications are seen. There are benign calcifications in the right breast. Axillae are unremarkable. IMPRESSION: BI-RADS Category 2 No mammographic features suspicious for malignancy are identified. ACR BI-RADS Category 2: Benign findings. Result letter will be mailed to the patient. Note: At least 10% of breast cancer is not imaged by mammography. Dictated by: Dictated on workstation # [id number]
== END ==
LOC: RAD 10:30
PROVIDERS: ATTEND Internal Medicine
DX: Z12.31 Encounter for screening mammogram for malignant neoplasm of breast (principal)
CPT/HCPCS: 77063; 77067

== ENCOUNTER 2022-03-22 20:27 | Emergency (ER) | payer MEDICARE ==
[~2022-03-22] VITALS: Ht 163 cm; Wt 63.5 kg
[~2022-03-22 20:27] MED LIST changes: +ALBU8.5H6 IH; -RT-ALBUINH IH
[2022-03-22] MEDS ORDERED: predniSONE 20 MG TAB PO ONE (21:00)
[2022-03-22] MEDS ORDERED: RT-ALBUTEROL/IPRATROPIUM 3 ML (DUONEB) VIAL IH ONE (21:00)
[2022-03-22 21:01] LABS: EOSINOPHILS % (AUTO) 0 % (0-10)
[2022-03-22 21:03] LABS: BASOPHILS % (AUTO) 0 % (0-10); HEMATOCRIT 40 % (35-52); HEMOGLOBIN 13.2 g/dL (11.5-16.0); LYMPHOCYTES # (AUTO) 0.9 10^3/uL (1.0-4.0); LYMPHOCYTES % (AUTO) 18 % (12-44); MEAN CORPUSCULAR HEMOGLOBIN 31 pg (25-34); MEAN CORPUSCULAR HGB CONC 33 g/dL (32-36); MEAN CORPUSCULAR VOLUME 92 fL (80-99); MEAN PLATELET VOLUME 10.3 fL (9.0-12.2); MONOCYTES # (AUTO) 0.3 10^3/uL (0.0-1.0); MONOCYTES % (AUTO) 7 % (0-12); NEUTROPHILS # (AUTO) 3.5 10^3/uL (1.8-7.8); NEUTROPHILS % (AUTO) 74 % (42-75); PLATELET COUNT 121 10^3/uL (130-400); WHITE BLOOD COUNT 4.7 10^3/uL (4.3-11.0)
--- NOTE | 2022-03-22 21:09 | Diagnostic Imaging Report ---
INDICATION: Chest pain. EXAMINATION: Single AP view of the chest was obtained. COMPARISON: Study of 08/24/2021. FINDINGS: Heart size and pulmonary vascularity are within normal limits. Prominent interstitial markings are not significantly changed and may reflect scarring. Otherwise, no acute abnormality or significant change is seen. IMPRESSION: Stable chronic findings without evidence of acute abnormality or adverse change. Dictated by: Dictated on workstation # [id number]
[2022-03-22 21:13] LABS: ALBUMIN 4.2 GM/DL (3.2-4.5)
[2022-03-22 21:14] LABS: POTASSIUM 3.9 MMOL/L (3.6-5.0)
[2022-03-22 21:15] LABS: CALCIUM 9.2 MG/DL (8.5-10.1)
[2022-03-22 21:16] LABS: TOTAL PROTEIN 6.8 GM/DL (6.4-8.2)
[2022-03-22 21:18] LABS: BILIRUBIN,TOTAL 0.8 MG/DL (0.1-1.0); PROTHROMBIN TIME PATIENT 13.9 SEC (12.2-14.7)
[2022-03-22 21:20] LABS: CREATININE SERUM 1.24 MG/DL (0.60-1.30)
[2022-03-22 21:23] LABS: MAGNESIUM 1.9 MG/DL (1.6-2.4)
--- NOTE | 2022-03-22 22:10 | ED Respiratory ---
General Chief Complaint: COVID19 Suspect/Confirmed Stated Complaint: SOA/COUGH/CHEST PAIN Nursing Triage Note: TO ED VIA POV AND AMBULATORY TO ROOM 9 WITH C/O CP TO BACK SINCE LAST NIGHT, COUGH, SOA. USES 3L O2 AT NOC. STATES IT HURTS LAYING DOWN AND MAKES IT HARDER TO BREATHE. History of Present Illness Date Seen by Provider: Mar 22, 2022 Time Seen by Provider: 20:40 Initial Comments Patient is a 66-year-old female who presents to the emergency department with increased cough, shortness of air, and intermittent chest/back pain that began yesterday. Patient has a history of COPD and is a current smoker. She typically uses 3 L of oxygen nightly. She denies any diaphoresis. States she has been immunized for COVID and has had 2 boosters. Patient states she did have COVID sometime in January and her course was rather uneventful. She was on Paxlovid at that time. States cough is nonproductive. She has not had a fever. Allergies and Home Medications Allergies Coded Allergies: codeine (Verified Allergy, Unknown, 06/19/08) Patient Home Medication List Home Medication List Reviewed: Yes Acetaminophen (Tylenol Extra Strength) 500 Mg Tablet, 1,000 MG PO Q6H PRN for PAIN-MILD, (Reported) Entered as Reported by: RONALDO LOONEY on 03/21/16 1247 Albuterol Sulfate (Ventolin Hfa) 1 Puff Puff, 2 PUFF IH Q6H PRN for WHEEZING, (Reported) Entered as Reported by: JUDSON CARLOS on 05/31/18 0933 Albuterol Sulfate (Albuterol Sulfate) 2.5 Mg/3 Ml Vial.neb, 2.5 MG INH Q4H PRN for WHEEZING Prescribed by: MILLA TRUJILLO on 04/25/21 1720 Benzonatate (Tessalon Perles) 100 Mg Capsule, 200 MG PO TID PRN for COUGH Prescribed by: CAIO DENIS on 08/24/21 1340 Cefdinir (Cefdinir) 300 Mg Capsule, 300 MG PO BID Prescribed by: ZEENAT DWYER on 12/29/19 0943 Cefuroxime Axetil (Cefuroxime) 250 Mg Tablet, 250 MG PO BID Prescribed by: MILLA TRUJILLO on 04/25/21 1720 Doxycycline Monohydrate (Doxycycline Monohydrate) 100 Mg Tablet, 100 MG PO BID Prescribed by: CAIO DENIS on 08/24/21 1340 Fluconazole (Fluconazole) 100 Mg Tablet, 100 MG PO DAILY Prescribed by: RAFIQ ROJAS on 06/17/18 09 Fluticasone Propionate (Flovent Hfa 220 mcg) 1 Ea Aero, 1 EA IH BID Prescribed by: RAFIQ ROJAS on 06/17/18 09 Gabapentin (Gabapentin) 300 Mg Capsule, 300 MG PO DAILY@1200 Prescribed by: RAFIQ ROJAS on 06/17/18 09 Hydrocodone Bit/Acetaminophen (Lortab 5 Mg Tablet) 1 Tab Tab, 1 TAB PO Q6H PRN for PAIN-MODERATE Prescribed by: RAFIQ ROJAS on 06/17/18917 Hydrocodone/Acetaminophen (Hydrocodone-Acetamin 5-325 mg) 1 Each Tablet, 1 EACH PO Q6H PRN for PAIN-BREAKTHROUGH Prescribed by: ZEENAT DWYER on 12/29/19 09 Hydrocodone/Acetaminophen (Hydrocodone-Acetamin 5-325 mg) 1 Each Tablet, 1 EACH PO Q6H Prescribed by: JESENIA TOBAR on 02/12/20 170 Methylprednisolone (Methylprednisolone Dose Pack) 4 Mg Tablet, 4 MG PO UD Prescribed by: JESENIA TOBAR on 02/12/20 170 Metoprolol Succinate (Metoprolol Succinate) 25 Mg Tab.er.24h, 25 MG PO DAILY Prescribed by: CHERY ROSE on 06/17/18 0839 Ondansetron (Ondansetron Odt) 4 Mg Tab.rapdis, 4 MG PO Q6H PRN for NAUSEA/VOMITING Prescribed by: ZEENAT DWYER on 12/29/19 09 Pantoprazole Sodium (Pantoprazole Sodium) 40 Mg Tablet.dr, 40 MG PO DAILY, (Reported) Entered as Reported by: JUDSON CARLOS on 05/31/18 0932 Prednisone (Prednisone) 20 Mg Tab, 40 MG PO DAILY Prescribed by: MILLA TRUJILLO on 04/25/21 1720 Prednisone (Prednisone) 50 Mg Tab, 50 MG PO DAILY Prescribed by: CAIO DENIS on 08/24/21 1340 Prednisone (Prednisone) 50 Mg Tab, 50 MG PO DAILY Prescribed by: JESENIA TOBAR on 03/23/22 1131 Venlafaxine HCl (Venlafaxine HCl ER) 75 Mg Cap.er.24h, 75 MG PO DAILY@0700 Prescribed by: RAFIQ ROJAS on 06/17/18 0918 Review of Systems Review of Systems Constitutional: no symptoms reported EENTM: no symptoms reported Respiratory: see HPI Cardiovascular: see HPI Gastrointestinal: no symptoms reported Psychiatric/Neurological: No Symptoms Reported Past Geqgllr-Gmvyrj-Ondnpb Hx Patient Social History Tobacco Use?: Yes Tobacco type used: Cigarettes Smoking Status: Current Everyday Smoker Substance use?: No Alcohol Use?: No Pt feels they are or have been: No Immunizations Up To Date Tetanus Booster (TDap): Unknown PED Vaccines UTD: Yes Influenza Vaccine Up-to-Date: Yes; Up-to-Date First/Initial COVID19 Vaccinat: 06/20/20 Second COVID19 Vaccination Jabier: 07/18/20 Third COVID19 Vaccination Date: 03/16/21 Seasonal Allergies Seasonal Allergies: Yes Past Medical History Surgery/Hospitalization HX: COPD Surgeries: Yes (bartholin gland removed) Cystectomy, Lumpectomy, Orthopedic Respiratory: Yes Asthma, Pneumonia, COPD Currently Using CPAP: No Currently Using BIPAP: No Cardiac: Yes High Cholesterol Neurological: No Reproductive Disorders: No Sexually Transmitted Disease: No Genitourinary: No Gastrointestinal: Yes Chronic Constipation Musculoskeletal: Yes (ARTHRITIS) Arthritis Endocrine: No Cancer: Yes Breast Psychosocial: Yes Anxiety Integumentary: No Blood Disorders: No Family Medical History Patient reports no known family medical history. No Pertinent Family Hx Physical Exam Vital Signs - First Documented 03/22/22 20:39 Temp 37.1 Pulse 77 Resp 24 B/P (MAP) 169/91 (117) Pulse Ox 88 O2 Delivery Nasal Cannula O2 Flow Rate 3.00 Capillary Refill : Less Than 3 Seconds Height: 5'4.00" Weight: 140lbs. 0.0oz. [id number]; 23.00 BMI Method:Stated General Appearance: WD/WN, no apparent distress HEENT: PERRL/EOMI, normal ENT inspection, TMs normal, pharynx normal Neck: non-tender, full range of motion, supple, normal inspection Respiratory: chest non-tender, decreased breath sounds (Mildly decreased in all lung hughes) Cardiovascular: regular rate, rhythm Gastrointestinal: normal bowel sounds, non tender, soft Extremities: normal range of motion, non-tender, normal inspection Neurologic/Psychiatric: no motor/sensory deficits, alert, normal mood/affect, oriented x 3 Skin: normal color, warm/dry Procedures/Interventions Date of ETT Placement: Jun 01, 2018 Progress/Results/Core Measures Suspected Sepsis SIRS Temperature: Pulse: 77 Respiratory Rate: 24 Laboratory Tests 03/22/22 20:50: White Blood Count 4.7 Blood Pressure 169 /91 Mean: 117 Laboratory Tests 03/22/22 20:50: Creatinine 1.24, INR Comment 1.0, Platelet Count 121L, Total Bilirubin 0.8 Results/Orders Lab Results Laboratory Tests Test 03/22/22 20:50 Range/Units White Blood Count 4.7 4.3-11.0 10^3/uL Red Blood Count 4.33 3.80-5.11 10^6/uL Hemoglobin 13.2 11.5-16.0 g/dL Hematocrit 40 35-52 % Mean Corpuscular Volume 92 80-99 fL Mean Corpuscular Hemoglobin 31 25-34 pg Mean Corpuscular Hemoglobin Concent 33 32-36 g/dL Red Cell Distribution Width 13.2 10.0-14.5 % Platelet Count 121 L 130-400 10^3/uL Mean Platelet Volume 10.3 9.0-12.2 fL Immature Granulocyte % (Auto) 0 % Neutrophils (%) (Auto) 74 42-75 % Lymphocytes (%) (Auto) 18 12-44 % Monocytes (%) (Auto) 7 0-12 % Eosinophils (%) (Auto) 0 0-10 % Basophils (%) (Auto) 0 0-10 % Neutrophils # (Auto) 3.5 1.8-7.8 10^3/uL Lymphocytes # (Auto) 0.9 L 1.0-4.0 10^3/uL Monocytes # (Auto) 0.3 0.0-1.0 10^3/uL Eosinophils # (Auto) 0.0 0.0-0.3 10^3/uL Basophils # (Auto) 0.0 0.0-0.1 10^3/uL Immature Granulocyte # (Auto) 0.0 0.0-0.1 10^3/uL Percent Immature Platelet Fraction 3.9 0.0-7.6 % Prothrombin Time 13.9 12.2-14.7 SEC INR Comment 1.0 0.8-1.4 Activated Partial Thromboplast Time 30 24-35 SEC D-Dimer 0.49 0.00-0.49 UG/ML Sodium Level 137 135-145 MMOL/L Potassium Level 3.9 3.6-5.0 MMOL/L Chloride Level 101 98-107 MMOL/L Carbon Dioxide Level 26 21-32 MMOL/L Anion Gap 10 5-14 MMOL/L Blood Urea Nitrogen 15 7-18 MG/DL Creatinine 1.24 0.60-1.30 MG/DL Estimat Glomerular Filtration Rate 48 BUN/Creatinine Ratio 12 Glucose Level 84 70-105 MG/DL Calcium Level 9.2 8.5-10.1 MG/DL Corrected Calcium 9.0 8.5-10.1 MG/DL Magnesium Level 1.9 1.6-2.4 MG/DL Total Bilirubin 0.8 0.1-1.0 MG/DL Aspartate Amino Transf (AST/SGOT) 23 5-34 U/L Alanine Aminotransferase (ALT/SGPT) 17 0-55 U/L Alkaline Phosphatase 77 40-136 U/L Myoglobin 110.8 H 10.0-92.0 NG/ML Troponin I < 0.028 <0.028 NG/ML B-Type Natriuretic Peptide 251.7 H <100.0 PG/ML Total Protein 6.8 6.4-8.2 GM/DL Albumin 4.2 3.2-4.5 GM/DL Influenza Type A (RT-PCR) Not Detected Not Detecte Influenza Type B (RT-PCR) Not Detected Not Detecte SARS-CoV-2 RNA (RT-PCR) Detected H Not Detecte My Orders Orders - CT MICHAEL PLASTER APPLICATOR O2 (03/22/22 20:47) Cbc With Automated Diff (03/22/22 20:49) Magnesium (03/22/22 20:49) Chest 1 View, Ap/Pa Only (03/22/22 20:49) Ekg Tracing (03/22/22 20:49) Comprehensive Metabolic Panel (03/22/22 20:49) Myoglobin Serum (03/22/22 20:49) Protime With Inr (03/22/22 20:49) Partial Thromboplastin Time (03/22/22 20:49) O2 (03/22/22 20:49) Monitor-Rhythm Ecg Trace Only (03/22/22 20:49) Ed Iv/Invasive Line Start (03/22/22 20:49) Bnp [facility] (03/22/22 20:49) Troponin I Martha (03/22/22 20:49) Rt Request For Service (03/22/22 20:49) Prednisone Tablet (Deltasone Tablet) (03/22/22 21:00) Albuterol/Ipra Inhalation Soln (Duoneb I (03/22/22 21:00) Fibrin Degradation Products (03/22/22 20:49) Bebtelovimab (Bebtelovimab) (03/22/22 22:15) Nursing Communication (Order) ONCE (03/22/22 22:10) Medications Given in ED Vital Signs/I&O 03/22/22 03/22/22 03/22/22 03/23/22 20:39 20:39 20:41 00:30 Temp 37.1 36.9 Pulse 77 79 Resp 24 20 B/P (MAP) 169/91 (117) 164/108 Pulse Ox 88 88 96 O2 Delivery Nasal Cannula Room Air Nasal Cannula Nasal Cannula O2 Flow Rate 3.00 3.00 3.00 3.00 Capillary Refill : Less Than 3 Seconds Blood Pressure Mean: 117 Progress Note : Progress Note Patient is nontoxic and well-hydrated on exam. Vital signs are overall re assuring. Patient is 90 to 91% on room air however on her normal 3 L of oxygen she has normal oxygen saturations. She does have decreased air movement in all lung hughes but there is no wheezing or focal adventitious breath sounds noted. Patient was given a DuoNeb as well as 40 mg of prednisone orally. She states she had some improvement in work of breathing after this. Laboratory evaluation largely unremarkable. Chest x-ray acutely negative. She did test positive for COVID. This is somewhat complicated by the fact that patient was positive for COVID in January as well. Patient states she has had at least 2 negative home COVID tests in the interim. Due to her symptoms being consistent with COVID as well as her increased risk factors, patient will be given a monoclonal antibody infusion prior to discharge. She was encouraged to continue to use her albuterol as needed. Follow-up with PCP. Return precautions for urgent symptomology discussed. Patient verbalized understanding. ECG EKG : EKG Time: 20:55 Rate: 68 Intervals: Normal ECG Impression: Normal Departure Impression Primary Impression: COVID-19 Disposition: 01 HOME, SELF-CARE Condition: Stable Departure-Patient Inst. Decision time for Depature: 22:50 Referrals: RAFIQ ROJAS DO (PCP/Family) Primary Care Physician Patient Instructions: COVID-19 Home Care/Discharge Add. Discharge Instructions: Use your home oxygen if you are having any shortness of breath. Follow-up with PCP for further evaluation and treatment. Return to the ED for concerning symptoms. All discharge instructions reviewed with patient and/or family. Voiced understanding. CT MICHAEL PLASTER APPLICATOR Mar 22, 2022 22:10
[2022-03-22] MEDS ORDERED: BEBTELOVIMAB 175 MG/2 ML VIAL IV ONE (22:15)
[2022-03-23 00:30] VITALS: BP 164/108
[2022-03-23] MEDS ORDERED: PRD50T PO (11:31)
[2022-03-24] MEDS ORDERED: ALBU2.5V4 INH (02:36)
[2022-03-24] MEDS ORDERED: MOLN200C PO (02:43)
== END 2022-03-23 00:30 | disposition home or self-care (01) ==
LOC: EDUNIT# 20:27 → ER 20:30
DX: U07.1 COVID-19 (principal); F17.210 Nicotine dependence, cigarettes, uncomplicated
CPT/HCPCS: 36415; 71045; 80053; 83735; 83874; 83880; 84484; 85025; 85379; 85610; 85730; 87636; 93005; 93041

== ENCOUNTER 2022-03-23 09:00 | Emergency (ER) | payer MEDICARE ==
--- NOTE | 2022-03-23 09:17 | ED General ---
General Chief Complaint: COVID19 Suspect/Confirmed Stated Complaint: COVID+/SOA Source of Information: Patient Exam Limitations: No Limitations History of Present Illness Date Seen by Provider: Mar 23, 2022 Time Seen by Provider: 09:10 Initial Comments Patient is a 66-year-old female brought to the emergency department by EMS chief complaint, chest tightness/congestion/cough and shortness of breath onset on Thursday of this last weekend, 2-1/2 days ago. She was seen in the emergency department late last night and diagnosed with COVID. Work-up was unremarkable. She was given breathing treatment here in the emergency department. According to the documentation she improved and was sent home. Patient states that she did not sleep all night long. She became progressively more short of breath. She states her chest tightness worsened due to her breathing she believes over the night. She is quite labored in her breathing however oxygen saturations are 97% on room air. I hear very limited air movement auscultating in all lung hughes. No crackles, rhonchi or wheezes. Her legs are supple, soft and not edematous. No pain in her calves. Blood pressure slightly hypertensive. A little tachycardic. She does appear to feel quite unwell. She was given monoclonal antibody therapy injection last night. No cardiac history. Only medical allergy is codeine. She does appear to have dry oral mucosa. Timing/Duration: 2-3 Days Severity: Severe Associated Systoms: Chest Pain (Tightness), Cough, Headaches, Loss of Appetite, Malaise, Nausea/Vomiting (Nausea), Shortness of Air, Weakness Allergies and Home Medications Allergies Coded Allergies: codeine (Verified Allergy, Unknown, 06/19/08) Patient Home Medication List Home Medication List Reviewed: Yes Acetaminophen (Tylenol Extra Strength) 500 Mg Tablet, 1,000 MG PO Q6H PRN for PAIN-MILD, (Reported) Entered as Reported by: RONALDO LOONEY on 03/21/16 1247 Albuterol Sulfate (Ventolin Hfa) 1 Puff Puff, 2 PUFF IH Q6H PRN for WHEEZING, (Reported) Entered as Reported by: JUDSON CARLOS on 05/31/18 0933 Albuterol Sulfate (Albuterol Sulfate) 2.5 Mg/3 Ml Vial.neb, 2.5 MG INH Q4H PRN for WHEEZING Prescribed by: MILLA TRUJILLO on 04/25/21 1720 Benzonatate (Tessalon Perles) 100 Mg Capsule, 200 MG PO TID PRN for COUGH Prescribed by: CAIO DENIS on 08/24/21 1340 Cefdinir (Cefdinir) 300 Mg Capsule, 300 MG PO BID Prescribed by: ZEENAT DWYER on 12/29/19 09 Cefuroxime Axetil (Cefuroxime) 250 Mg Tablet, 250 MG PO BID Prescribed by: MILLA TRUJILLO on 04/25/21 1720 Doxycycline Monohydrate (Doxycycline Monohydrate) 100 Mg Tablet, 100 MG PO BID Prescribed by: CAIO DENIS on 08/24/21 1340 Fluconazole (Fluconazole) 100 Mg Tablet, 100 MG PO DAILY Prescribed by: RAFIQ ROJAS on 06/17/18 09 Fluticasone Propionate (Flovent Hfa 220 mcg) 1 Ea Aero, 1 EA IH BID Prescribed by: RAFIQ ROJAS on 06/17/18 09 Gabapentin (Gabapentin) 300 Mg Capsule, 300 MG PO DAILY@1200 Prescribed by: RAFIQ ROJAS on 06/17/18917 Hydrocodone Bit/Acetaminophen (Lortab 5 Mg Tablet) 1 Tab Tab, 1 TAB PO Q6H PRN for PAIN-MODERATE Prescribed by: RAFIQ ROJAS on 06/17/18 09 Hydrocodone/Acetaminophen (Hydrocodone-Acetamin 5-325 mg) 1 Each Tablet, 1 EACH PO Q6H PRN for PAIN-BREAKTHROUGH Prescribed by: ZEENAT DWYER on 12/29/19 09 Hydrocodone/Acetaminophen (Hydrocodone-Acetamin 5-325 mg) 1 Each Tablet, 1 EACH PO Q6H Prescribed by: JESENIA TOBAR on 02/12/20 170 Methylprednisolone (Methylprednisolone Dose Pack) 4 Mg Tablet, 4 MG PO UD Prescribed by: JESENIA TOBAR on 02/12/20 170 Metoprolol Succinate (Metoprolol Succinate) 25 Mg Tab.er.24h, 25 MG PO DAILY Prescribed by: CHERY ROSE on 06/17/18 0839 Ondansetron (Ondansetron Odt) 4 Mg Tab.rapdis, 4 MG PO Q6H PRN for NAUSEA/VOMITING Prescribed by: ZEENAT DWYER on 12/29/19 0943 Pantoprazole Sodium (Pantoprazole Sodium) 40 Mg Tablet.dr, 40 MG PO DAILY, (Reported) Entered as Reported by: JUDSON CARLOS on 05/31/18 0932 Prednisone (Prednisone) 20 Mg Tab, 40 MG PO DAILY Prescribed by: MILLA TRUJILLO on 04/25/21 1720 Prednisone (Prednisone) 50 Mg Tab, 50 MG PO DAILY Prescribed by: CAIO DENIS on 08/24/21 1340 Venlafaxine HCl (Venlafaxine HCl ER) 75 Mg Cap.er.24h, 75 MG PO DAILY@0700 Prescribed by: RAFIQ ROJAS on 06/17/18 0918 Review of Systems Review of Systems Constitutional: see HPI, fever, malaise, weakness EENTM: nose congestion Respiratory: cough, short of breath Cardiovascular: chest pain ("Tightness") Gastrointestinal: nausea Genitourinary: no symptoms reported Musculoskeletal: other (Body ache) Skin: no symptoms reported Psychiatric/Neurological: Headache Past Cwcmcei-Oybovs-Cvwmyo Hx Immunizations Up To Date Tetanus Booster (TDap): Unknown PED Vaccines UTD: Yes First/Initial COVID19 Vaccinat: 06/20/20 Second COVID19 Vaccination Jabier: 07/18/20 Third COVID19 Vaccination Date: 03/16/21 Seasonal Allergies Seasonal Allergies: Yes Past Medical History Surgery/Hospitalization HX: COPD Surgeries: Yes (bartholin gland removed) Cystectomy, Lumpectomy, Orthopedic Respiratory: Yes Asthma, Pneumonia, COPD Currently Using CPAP: No Currently Using BIPAP: No Cardiac: Yes High Cholesterol Neurological: No Reproductive Disorders: No Sexually Transmitted Disease: No Genitourinary: No Gastrointestinal: Yes Chronic Constipation Musculoskeletal: Yes (ARTHRITIS) Arthritis Endocrine: No Cancer: Yes Breast Psychosocial: Yes Anxiety Integumentary: No Blood Disorders: No Family Medical History Patient reports no known family medical history. No Pertinent Family Hx Physical Exam Vital Signs Capillary Refill : Height, Weight, BMI Height: 5'4.00" Weight: 140lbs. 0.0oz. [age]yo; 23.00 BMI Method:Stated General Appearance: Moderate Distress Eyes: Bilateral Eye Normal Inspection, Bilateral Eye PERRL, Bilateral Eye EOMI HEENT: Other (Dry oral mucosa) Respiratory: Decreased Breath Sounds (Diminished breath sounds throughout), Other (Labored breathing, oxygen saturations 97% on room) Cardiovascular: Normal Peripheral Pulses Gastrointestinal: Non Tender, Soft Extremity: Normal Inspection, Normal Range of Motion, Non Tender, No Calf Tenderness, No Pedal Edema Neurologic/Psychiatric: Alert, Oriented x3, No Motor/Sensory Deficits, Depressed Affect Skin: Normal Color, Warm/Dry Procedures/Interventions Date of ETT Placement: Jun 01, 2018 Progress/Results/Core Measures Suspected Sepsis SIRS Temperature: Pulse: Respiratory Rate: Blood Pressure / Mean: Results/Orders My Orders Orders - JESENIA TOBAR MD Ed Iv/Invasive Line Start (03/23/22 09:18) Chest 1 View, Ap/Pa Only (03/23/22 09:18) Albuterol Inhaler (Albuterol) (03/23/22 09:30) Fentanyl Inj (Sublimaze Injection) (03/23/22 09:30) Ondansetron Injection (Zofran Injectio (03/23/22 09:30) Ns Iv 1000 Ml (Sodium Chloride 0.9%) (03/23/22 09:30) Ketorolac Injection (Toradol Injection) (03/23/22 11:00) Metoclopramide Injection (Reglan Injecti (03/23/22 11:00) Diphenhydramine Injection (Benadryl Inje (03/23/22 11:00) Medications Given in ED Current Medications Medications Dose Ordered Sig/Luis Eduardo Route Start Time Stop Time Status Last Admin Dose Admin Albuterol Sulfate 4 PUFFS Q2H PRN IH 03/23/22 09:30 03/23/22 09:32 8.5 GM Diphenhydramine HCl 25 mg ONCE ONCE IVP 03/23/22 11:00 03/23/22 11:01 DC 03/23/22 11:08 25 MG Fentanyl Citrate 50 mcg ONCE ONCE IVP 03/23/22 09:30 03/23/22 09:31 DC 03/23/22 09:32 50 MCG Ketorolac Tromethamine 15 mg ONCE ONCE IVP 03/23/22 11:00 03/23/22 11:01 DC 03/23/22 11:09 15 MG Metoclopramide HCl 5 mg ONCE ONCE IVP 03/23/22 11:00 03/23/22 11:01 DC 03/23/22 11:07 5 MG Ondansetron HCl 4 mg ONCE ONCE IVP 03/23/22 09:30 03/23/22 09:31 DC 03/23/22 09:33 4 MG Vital Signs/I&O Capillary Refill : Progress Note : Time: 10:57 Progress Note Patient feeling better after breathing treatments, medications for headache. She is definitely moving more air and a little bit more wheezy on reevaluation. Chest x-ray is reviewed, no interval development of pneumonia, effusions, pneumothorax or other acute pathology. Her vital signs remained stable. She is oxygenating well. No respiratory distress. She states she still has mild to moderate headache. Additional Reglan, Toradol and Benadryl are given for headache management. She is no longer nauseated. No clinical or objective findings concerning for sepsis or indicating a need for further work-up. Recommended continuing prednisone for the next 3 days after today. She was given a dose here in the department. Suspect that in conjunction with the active COVID infection she also was having a COPD exacerbation and would benefit from ongoing steroids. She is comfortable with discharge. All questions were sought and answered Diagnostic Imaging Diagonstic Imaging: Xray Plain Films/CT/US/NM/MRI: chest Comments [facility]. [place], [place] NAME: SALONI ARMANDO [facility] REC#: [id number] PT STATUS: REG ER : 1955 PHYSICIAN: JESENIA TOBAR MD ADMIT DATE: 03/23/22/ER Signed Date of Exam:03/23/22 CHEST 1 VIEW, AP/PA ONLY History: Worsening shortness of breath COMPARISON: 03/22/2022 TECHNIQUE: Frontal view the chest FINDINGS: Lung volumes are large. There is eventration of the right hemidiaphragm. Interstitial markings are prominent but appear stable compared to the prior study. There is no pleural effusion or pneumothorax. There is stable mild cardiomegaly. IMPRESSION: 1. Stable chronic findings of the chest with no acute pulmonary abnormality seen. Dictated by: Dictated on workstation # [id number] Dict: 03/23/22 0946 Trans: 03/23/[address] [place] [address] [id number] Interpreted by: GIFTY MUNOZ MD Electronically signed by: GIFTY MUNOZ MD 03/23/22 1038 Departure Impression Primary Impression: COVID-19 Additional Impressions: Bronchitis Headache Qualified Codes: R51.9 - Headache, unspecified Disposition: 01 HOME, SELF-CARE Condition: Improved Departure-Patient Inst. Decision time for Depature: 11:29 Referrals: RAFIQ ROJAS DO (PCP/Family) Primary Care Physician Patient Instructions: COVID-19 Home Care/Discharge Add. Discharge Instructions: Drink plenty of fluids to stay well-hydrated. Continue the nausea medications as needed every 8 hours. Albuterol inhaler, 2 puffs every 4-6 hours as needed for shortness of breath. Take the prednisone, 50 mg once daily for the next 3 days starting tomorrow. Qajj-dna-mmczfek Aleve, 2 tablets twice daily as needed for headache. Always take this medication with food. Return to the emergency department for any new, concerning or emergent complaints. Scripts Prednisone (Prednisone) 50 Mg Tab 50 MG PO DAILY for 3 Days, #3 TAB Prov: JESENIA TOBAR MD 03/23/22 Copy Copies To 1: RAFIQ ROJAS KATHRYN M MD Mar 23, 2022 09:17
[2022-03-23] MEDS ORDERED: RT-ALBUTEROL HFA 8.5 GM INHALER IH PRN (09:30)
[2022-03-23] MEDS ORDERED: NS IV 1000 ML 1,000 ML IV SCH (09:30)
[2022-03-23] MEDS ORDERED: ONDANSETRON 4 MG/2 ML (SDV) Z0FRAN IVP ONE (09:30)
[2022-03-23] MEDS ORDERED: fentaNYL INJ 100 MCG/2 ML AMP IVP ONE (09:30)
--- NOTE | 2022-03-23 09:49 | Diagnostic Imaging Report ---
History: Worsening shortness of breath COMPARISON: 03/22/2022 TECHNIQUE: Frontal view the chest FINDINGS: Lung volumes are large. There is eventration of the right hemidiaphragm. Interstitial markings are prominent but appear stable compared to the prior study. There is no pleural effusion or pneumothorax. There is stable mild cardiomegaly. IMPRESSION: 1. Stable chronic findings of the chest with no acute pulmonary abnormality seen. Dictated by: Dictated on workstation # [id number]
[2022-03-23] MEDS ORDERED: KETOROLAC 15 MG/ML VIAL IVP ONE (11:00)
[2022-03-23] MEDS ORDERED: METOCLOPRAMIDE INJ 10 MG/2 ML (REGLAN) IVP ONE (11:00)
[2022-03-23] MEDS ORDERED: diphenhydrAMINE 50 MG/ML INJ (BENADRYL) IVP ONE (11:00)
[2022-03-23] MEDS ORDERED: PRD50T PO (11:31)
[2022-03-23] MEDS ORDERED: predniSONE 20 MG TAB PO ONE (11:45)
[2022-03-23 11:47] VITALS: BP 151/75
[2022-03-24] MEDS ORDERED: ALBU2.5V4 INH (02:36)
[2022-03-24] MEDS ORDERED: MOLN200C PO (02:43)
[2022-03-28] MEDS ORDERED: LOSA50TA63 PO (11:34)
[2022-03-28] MEDS ORDERED: LORA-404 PO (11:34)
[2022-03-28] MEDS ORDERED: ALBU6.7H13 INH (11:34)
[2022-03-28] MEDS ORDERED: CEFD300C3 PO (11:34)
[2022-03-28] MEDS ORDERED: PRED10TA22 PO (11:34)
== END 2022-03-23 11:52 | disposition home or self-care (01) ==
LOC: EDUNIT# 09:00 → ER 09:02
DX: U07.1 COVID-19 (principal); J44.9 Chronic obstructive pulmonary disease, unspecified; Z73.0 Burn-out; Z88.5 Allergy status to narcotic agent; Z87.01 Personal history of pneumonia (recurrent)
CPT/HCPCS: 71045

== ENCOUNTER 2022-03-23 22:14 | Emergency (ER) | payer MEDICARE ==
[2022-03-23] MEDS ORDERED: ACETAMINOPHEN 500 MG TAB (TYLENOL) PO STA (23:26)
[2022-03-23] MEDS ORDERED: NS IV 1000 ML 1,000 ML IV STA (23:26)
--- NOTE | 2022-03-23 23:29 | ED Cough/URI ---
General Chief Complaint: COVID19 Suspect/Confirmed Stated Complaint: COVID + - SOA Nursing Triage Note: PT ARRIVAL TO ER [facility] WITH IV IN LEFT HAND WITH COMPLAINT OF COVID+ AND SOA SINCE LAST NIGHT. SOA WORSENED TONIGHT AND PATIENT FELT SOA EVEN ON HOME O2. PATIENT ARRIVAL TO ER WITH NON REBREATHER MASK AT 10 LPM WITH O2 SATS OF 100%. PATIENT PLACED ON HER NC AT 3 LPM WITH 99% O2 SATS. PT WAS GIVEN BAM INFUSION LAST NIGHT IN OUR ER PER PATIENT. Source: patient Exam Limitations: no limitations History of Present Illness Date Seen by Provider: Mar 23, 2022 Time Seen by Provider: 23:18 Initial Comments Here with persistent shortness of breath. This is her third visit in the last 36 hours for shortness of air and concerns of COVID. She did receive monoclonal antibody last night. She was seen today and initiated on steroids due to COPD. She does smoke but has not been able to smoke in the last 2 days because of shortness of breath. She does have a breathing machine at home but does not have albuterol for that but she has been using an albuterol inhaler. She follows with Dr. Rojas. She states that she has not really ate or drink anything today due to not feeling well and she did not take her morning blood pressure medicine. States that she typically does not have anxiety. Timing/Duration: yesterday, getting worse Severity/Quality: moderate Prior Episodes/Possible Cause: occasional episodes Associated Symptoms: chest pain/soreness, cough, dizziness, fever/chills, muscle aches, nasal congestion, shortness of breath, sore throat Allergies and Home Medications Allergies Coded Allergies: codeine (Verified Allergy, Unknown, 06/19/08) Patient Home Medication List Home Medication List Reviewed: Yes Acetaminophen (Tylenol Extra Strength) 500 Mg Tablet, 1,000 MG PO Q6H PRN for PAIN-MILD, (Reported) Entered as Reported by: RONALDO LOONEY on 03/21/16 1247 Albuterol Sulfate (Ventolin Hfa) 1 Puff Puff, 2 PUFF IH Q6H PRN for WHEEZING, (Reported) Entered as Reported by: JUDSON CARLOS on 05/31/18 0933 Albuterol Sulfate (Albuterol Sulfate) 2.5 Mg/3 Ml Vial.neb, 2.5 MG INH Q4H PRN for WHEEZING Prescribed by: MILLA TRUJILLO on 04/25/21 172 Benzonatate (Tessalon Perles) 100 Mg Capsule, 200 MG PO TID PRN for COUGH Prescribed by: CAIO DENIS on 08/24/21 1340 Cefdinir (Cefdinir) 300 Mg Capsule, 300 MG PO BID Prescribed by: ZEENAT DWYER on 12/29/19 09 Cefuroxime Axetil (Cefuroxime) 250 Mg Tablet, 250 MG PO BID Prescribed by: MILLA TRUJILLO on 04/25/21 1720 Doxycycline Monohydrate (Doxycycline Monohydrate) 100 Mg Tablet, 100 MG PO BID Prescribed by: CAIO DENIS on 08/24/21 1340 Fluconazole (Fluconazole) 100 Mg Tablet, 100 MG PO DAILY Prescribed by: RAFIQ ROJAS on 06/17/18 09 Fluticasone Propionate (Flovent Hfa 220 mcg) 1 Ea Aero, 1 EA IH BID Prescribed by: RAFIQ ROJAS on 06/17/18 09 Gabapentin (Gabapentin) 300 Mg Capsule, 300 MG PO DAILY@1200 Prescribed by: RAFIQ ROJAS on 06/17/18917 Hydrocodone Bit/Acetaminophen (Lortab 5 Mg Tablet) 1 Tab Tab, 1 TAB PO Q6H PRN for PAIN-MODERATE Prescribed by: RAFIQ ROJAS on 06/17/18917 Hydrocodone/Acetaminophen (Hydrocodone-Acetamin 5-325 mg) 1 Each Tablet, 1 EACH PO Q6H PRN for PAIN-BREAKTHROUGH Prescribed by: ZEENAT DWYER on 12/29/19 09 Hydrocodone/Acetaminophen (Hydrocodone-Acetamin 5-325 mg) 1 Each Tablet, 1 EACH PO Q6H Prescribed by: JESENIA TOBAR on 02/12/20 170 Methylprednisolone (Methylprednisolone Dose Pack) 4 Mg Tablet, 4 MG PO UD Prescribed by: JESENIA TOBAR on 02/12/201701 Metoprolol Succinate (Metoprolol Succinate) 25 Mg Tab.er.24h, 25 MG PO DAILY Prescribed by: CHERY ROSE on 06/17/18 0839 Ondansetron (Ondansetron Odt) 4 Mg Tab.rapdis, 4 MG PO Q6H PRN for NAUSEA/VOMITING Prescribed by: ZEENAT DWYER on 12/29/19 0943 Pantoprazole Sodium (Pantoprazole Sodium) 40 Mg Tablet.dr, 40 MG PO DAILY, (Reported) Entered as Reported by: JUDSON CARLOS on 05/31/18 0932 Prednisone (Prednisone) 20 Mg Tab, 40 MG PO DAILY Prescribed by: MILLA TRUJILLO on 04/25/21 1720 Prednisone (Prednisone) 50 Mg Tab, 50 MG PO DAILY Prescribed by: CAIO DENIS on 08/24/21 1340 Prednisone (Prednisone) 50 Mg Tab, 50 MG PO DAILY Prescribed by: JESENIA TOBAR on 03/23/22 1131 Venlafaxine HCl (Venlafaxine HCl ER) 75 Mg Cap.er.24h, 75 MG PO DAILY@0700 Prescribed by: RAFIQ ROJAS on 06/17/18 0918 Review of Systems Review of Systems Constitutional: fever, weakness EENTM: nose congestion, throat pain Respiratory: cough, dyspnea on exertion, short of breath Cardiovascular: No chest pain, No edema Gastrointestinal: No nausea, No vomiting Genitourinary: no symptoms reported Musculoskeletal: muscle pain; No muscle weakness Skin: no symptoms reported Psychiatric/Neurological: Anxiety, Weakness All Other Systems Reviewed Negative Unless Noted: Yes Past Qsvqxhd-Cbzzzh-Yxifvl Hx Patient Social History Tobacco Use?: Yes Tobacco type used: Cigarettes Smoking Status: Current Everyday Smoker Use of E-Cig and/or Vaping dev: No Substance use?: No Alcohol Use?: No Pt feels they are or have been: No Immunizations Up To Date Tetanus Booster (TDap): Unknown PED Vaccines UTD: Yes Influenza Vaccine Up-to-Date: Yes; Up-to-Date First/Initial COVID19 Vaccinat: 06/20/20 Second COVID19 Vaccination Jabier: 07/18/20 Third COVID19 Vaccination Date: 03/16/21 COVID19 Vaccine [employer]: [employer] Seasonal Allergies Seasonal Allergies: Yes Past Medical History Surgery/Hospitalization HX: COPD, HTN Surgeries: Yes (bartholin gland removed) Cystectomy, Lumpectomy, Orthopedic Respiratory: Yes Asthma, Pneumonia, COPD Currently Using CPAP: No Currently Using BIPAP: No Cardiac: Yes High Cholesterol Neurological: No Reproductive Disorders: No Sexually Transmitted Disease: No Genitourinary: No Gastrointestinal: Yes Chronic Constipation Musculoskeletal: Yes (ARTHRITIS) Arthritis Endocrine: No Cancer: Yes Breast Psychosocial: Yes Anxiety Integumentary: No Blood Disorders: No Family Medical History Reviewed Nursing Family Hx Patient reports no known family medical history. No Pertinent Family Hx Physical Exam Vital Signs - First Documented 03/23/22 22:21 Temp 37.0 Pulse 73 Resp 24 B/P (MAP) 154/95 (114) Pulse Ox 99 O2 Delivery Nasal Cannula O2 Flow Rate 3.00 Capillary Refill : Less Than 3 Seconds Height: 5'4.00" Weight: 140lbs. 0.0oz. 63.545045lq; 23.00 BMI Method:Stated General Appearance: WD/WN, moderate distress HEENT: PERRL/EOMI, pharynx normal Neck: full range of motion, supple Respiratory: lungs clear, respiratory distress (Tachypnea), wheezing (End expiratory bilateral) Cardiovascular: regular rate, rhythm, no murmur Gastrointestinal: non tender, soft Extremities: non-tender, normal inspection Neurologic/Psychiatric: alert, oriented x 3 Skin: normal color, warm/dry Procedures/Interventions Date of ETT Placement: Jun 01, 2018 Progress/Results/Core Measures Suspected Sepsis SIRS Temperature: Pulse: 73 Respiratory Rate: 24 Laboratory Tests 03/23/22 23:53: White Blood Count 6.4 Blood Pressure 154 /95 Mean: 114 Laboratory Tests 03/23/22 23:53: Creatinine 0.83, Platelet Count 109L, Total Bilirubin 0.7 Results/Orders Lab Results Laboratory Tests Test 03/23/22 23:53 Range/Units White Blood Count 6.4 4.3-11.0 10^3/uL Red Blood Count 4.47 3.80-5.11 10^6/uL Hemoglobin 13.7 11.5-16.0 g/dL Hematocrit 40 35-52 % Mean Corpuscular Volume 90 80-99 fL Mean Corpuscular Hemoglobin 31 25-34 pg Mean Corpuscular Hemoglobin Concent 34 32-36 g/dL Red Cell Distribution Width 13.2 10.0-14.5 % Platelet Count 109 L 130-400 10^3/uL Mean Platelet Volume 10.1 9.0-12.2 fL Immature Granulocyte % (Auto) 0 % Neutrophils (%) (Auto) 89 H 42-75 % Lymphocytes (%) (Auto) 6 L 12-44 % Monocytes (%) (Auto) 5 0-12 % Eosinophils (%) (Auto) 0 0-10 % Basophils (%) (Auto) 0 0-10 % Neutrophils # (Auto) 5.7 1.8-7.8 10^3/uL Lymphocytes # (Auto) 0.4 L 1.0-4.0 10^3/uL Monocytes # (Auto) 0.3 0.0-1.0 10^3/uL Eosinophils # (Auto) 0.0 0.0-0.3 10^3/uL Basophils # (Auto) 0.0 0.0-0.1 10^3/uL Immature Granulocyte # (Auto) 0.0 0.0-0.1 10^3/uL Neutrophils % (Manual) 91 % Lymphocytes % (Manual) 6 % Monocytes % (Manual) 2 % Band Neutrophils 1 % Percent Immature Platelet Fraction 4.7 0.0-7.6 % Blood Morphology Comment NORMAL D-Dimer 0.73 H 0.00-0.49 UG/ML Sodium Level 136 135-145 MMOL/L Potassium Level 3.9 3.6-5.0 MMOL/L Chloride Level 101 98-107 MMOL/L Carbon Dioxide Level 21 21-32 MMOL/L Anion Gap 14 5-14 MMOL/L Blood Urea Nitrogen 13 7-18 MG/DL Creatinine 0.83 0.60-1.30 MG/DL Estimat Glomerular Filtration Rate 78 BUN/Creatinine Ratio 16 Glucose Level 115 H 70-105 MG/DL Calcium Level 9.3 8.5-10.1 MG/DL Corrected Calcium 9.3 8.5-10.1 MG/DL Total Bilirubin 0.7 0.1-1.0 MG/DL Aspartate Amino Transf (AST/SGOT) 20 5-34 U/L Alanine Aminotransferase (ALT/SGPT) 18 0-55 U/L Alkaline Phosphatase 69 40-136 U/L C-Reactive Protein High Sensitivity 24.85 H 0.00-0.50 MG/DL Total Protein 7.0 6.4-8.2 GM/DL Albumin 4.0 3.2-4.5 GM/DL Smear Scan YES My Orders Orders - LANIE MONTEMAYOR MD Cbc With Automated Diff (03/23/22 23:26) Comprehensive Metabolic Panel (03/23/22 23:26) Hs C Reactive Protein (03/23/22 23:26) Fibrin Degradation Products (03/23/22 23:26) Acetaminophen Tablet (Tylenol Tablet) (03/23/22 23:26) Ns Iv 1000 Ml (Sodium Chloride 0.9%) (03/23/22 23:26) Ed Iv/Invasive Line Start (03/23/22 23:26) Metoprolol Tartrate (Ir) Tab (Lopressor (03/23/22 23:30) Manual Differential (03/23/22 23:53) Albuterol Inhaler (Albuterol) (03/24/22 00:49) Ct Angio Chest W (03/24/22 00:52) Iohexol Injection (Omnipaque 350 Mg/Ml 1 (03/24/22 02:00) Sodium Chloride Flush (Catheter Flush Sy (03/24/22 02:00) Ns (Ivpb) (Sodium Chloride 0.9% Ivpb Bag (03/24/22 02:00) Medications Given in ED Current Medications Medications Dose Ordered Sig/Luis Eduardo Route Start Time Stop Time Status Last Admin Dose Admin Iohexol 100 ml ONCE ONCE IV 03/24/22 02:00 03/24/22 02:01 DC 03/24/22 02:09 85 ML Metoprolol Tartrate 50 mg ONCE ONCE PO 03/23/22 23:30 03/23/22 23:31 DC 03/23/22 23:59 50 MG Sodium Chloride 10 ml NEEDED PRN IV 03/24/22 02:00 03/24/22 02:09 10 ML Sodium Chloride 100 ml ONCE ONCE IV 03/24/22 02:00 03/24/22 02:01 DC 03/24/22 02:09 80 ML Vital Signs/I&O 03/23/22 03/23/22 22:21 22:21 Temp 37.0 Pulse 73 Resp 24 B/P (MAP) 154/95 (114) Pulse Ox 99 O2 Delivery Nasal Cannula Nasal Cannula O2 Flow Rate 3.00 3.00 Capillary Refill : Less Than 3 Seconds Blood Pressure Mean: 114 Progress Note : Progress Note Seen and evaluated. IV, labs and normal saline 1 L bolus ordered. Patient on her typical 3 L of O2. She is quite dyspneic but O2 sats are 97% or above. We will see what labs show and then determine further needs. 0055: Patient still complaining of dyspnea although labs do not show anything significantly. I have compared this labs to previous visits over the last 36 hours and D-dimer is slightly elevated. Given her dyspnea, we will go ahead and get CT angiogram of the chest. She is currently on steroids. She did receive an infusion of monoclonal antibody on previous visit. Monitor patient. 0233: Patient did have 4 puffs of albuterol inhaler which seemed to have helped quite a bit. She is now stating that she would like to go home and go to bed. CT angiogram shows atypical pneumonia findings which is likely related to COVID. White count is not elevated. She is still is 96% or above on her typical 3 L. I will send out prescription for albuterol nebulizer treatment fluids as she has the nebulizer at home. She does have mouthpiece as well. Discharged home with return precaution. Patient verbalized understanding of instructions and agreement with plan. Diagnostic Imaging Diagonstic Imaging: CT Plain Films/CT/US/NM/MRI: chest Comments Nodular and groundglass densities in the left lung and to a lesser extent right lower lobe suspicious for atypical pneumonia. No pulmonary embolism. Reviewed: Reviewed [place] Study, Reviewed by Me Departure Impression Primary Impression: COVID-19 Additional Impression: COPD (chronic obstructive pulmonary disease) Qualified Codes: J44.1 - Chronic obstructive pulmonary disease with (acute) exacerbation Disposition: 01 HOME, SELF-CARE Condition: Stable Departure-Patient Inst. Referrals: RAFIQ ROJAS DO (PCP/Family) Primary Care Physician Patient Instructions: COVID-19 Home Care/Discharge Add. Discharge Instructions: All discharge instructions reviewed with patient and/or family. Voiced understanding. Continue home medications as previously prescribed. Use nebulizer treatment every 4 hours as needed for shortness of breath. You may use albuterol inhaler 4 puffs with spacer every 4 hours as needed for shortness of breath until nebulizer treatment is available. Follow-up with your primary care doctor this week for recheck and further evaluation. Return for worse breathing, weakness, vomiting, chest pain or other concerns as needed. For fever, you may take Tylenol/acetaminophen 1000 mg every 6-8 hours as needed or you may take ibuprofen 400 mg every 8 hours as needed for. Scripts Albuterol Sulfate (Albuterol Sulfate) 2.5 Mg/3 Ml (0.083 %) Vial.neb 2.5 MG INH Q4H PRN for WHEEZING, #30 EA 3 Refills Prov: LANIE MONTEMAYOR MD 03/24/22 LANIE MONTEMAYOR MD Mar 23, 2022 23:29
[2022-03-23] MEDS ORDERED: meTOprolol TARTRATE 50 MG (LOPRESSOR) TAB PO ONE (23:30)
[2022-03-24] LABS: EOSINOPHILS % (AUTO) 0 % (0-10); HEMOGLOBIN 13.7 g/dL (11.5-16.0); MONOCYTES # (AUTO) 0.3 10^3/uL (0.0-1.0)
[2022-03-24 00:02] LABS: BASOPHILS % (AUTO) 0 % (0-10); HEMATOCRIT 40 % (35-52); LYMPHOCYTES # (AUTO) 0.4 10^3/uL (1.0-4.0); LYMPHOCYTES % (AUTO) 6 % (12-44); MEAN CORPUSCULAR HEMOGLOBIN 31 pg (25-34); MEAN CORPUSCULAR HGB CONC 34 g/dL (32-36); MEAN CORPUSCULAR VOLUME 90 fL (80-99); MEAN PLATELET VOLUME 10.1 fL (9.0-12.2); MONOCYTES % (AUTO) 5 % (0-12); NEUTROPHILS # (AUTO) 5.7 10^3/uL (1.8-7.8); NEUTROPHILS % (AUTO) 89 % (42-75); PLATELET COUNT 109 10^3/uL (130-400); WHITE BLOOD COUNT 6.4 10^3/uL (4.3-11.0)
[2022-03-24 00:06] LABS: SMEAR SCAN COMMENT YES
[2022-03-24 00:14] LABS: POTASSIUM 3.9 MMOL/L (3.6-5.0)
[2022-03-24 00:15] LABS: CALCIUM 9.3 MG/DL (8.5-10.1)
[2022-03-24 00:18] LABS: BILIRUBIN,TOTAL 0.7 MG/DL (0.1-1.0)
[2022-03-24 00:20] LABS: CREATININE SERUM 0.83 MG/DL (0.60-1.30)
[2022-03-24 00:35] LABS: BAND NEUTROPHILS 1 %; LYMPHOCYTES % (MANUAL) 6 %; MONOCYTES % (MANUAL) 2 %; NEUTROPHILS % (MANUAL) 91 %; RBC MORPH NORMAL
[2022-03-24] MEDS ORDERED: RT-ALBUTEROL HFA 8.5 GM INHALER IH STA (00:49)
[2022-03-24] MEDS ORDERED: IOHEXOL 350 MG/ML 100 ML (OMNIPAQUE 350) VIAL IV ONE (02:00)
[2022-03-24] MEDS ORDERED: NS 100 ML (IVPB) BAG IV ONE (02:00)
[2022-03-24] MEDS ORDERED: CATHETER FLUSH 10 ML SYR IV PRN (02:00)
[2022-03-24] MEDS ORDERED: ALBU2.5V4 INH (02:36)
[2022-03-24 02:41] VITALS: BP 155/90
[2022-03-24] MEDS ORDERED: MOLN200C PO (02:43)
--- NOTE | 2022-03-24 06:54 | Diagnostic Imaging Report ---
EXAMINATION: CT angiography of the chest. TECHNIQUE: Contrast enhanced thin section helical images were obtained through the chest with intravenous contrast timed for the optimal opacification of the arterial structures per CTA protocol. Post-processing, reconstructions and interpretation of angiographic images of the vessels was performed. 3D MIP reconstructions were performed and reviewed. All CT scans use one or more of the following dose optimizing techniques: automated exposure control, MA and/or KvP adjustment based on a patient size and exam type, or iterative reconstruction. HISTORY: Chest pain COMPARISON: 09/27/2020 FINDINGS: Vascular: No filling defects within the pulmonary arteries. Thoracic aorta is normal in caliber. Calcification of the aorta and coronary vessels. Thyroid: The thyroid is normal. Mediastinum: Heart size is normal without significant pericardial effusion. There are a few prominent mediastinal lymph nodes which may be reactive. Lungs and airways: There are patchy groundglass opacities seen throughout both lungs. Mild background emphysematous changes of lungs. No pleural effusion or pneumothorax. The airways are normal. Upper abdomen: The subphrenic structures are normal. Musculoskeletal: Degenerative changes of the spine without suspicious osseous lesion or compression fracture. IMPRESSION: 1. No findings of pulmonary embolus. 2. Patchy groundglass opacities throughout the lungs compatible with history of COVID 19 and pneumonia. 3. Agree with preliminary interpretation. Dictated by: Dictated on workstation # [id number]
[2022-03-25] MEDS ORDERED: CETI10TA17 PO (15:53)
[2022-03-25] MEDS ORDERED: PRD50T PO (15:53)
[2022-03-25] MEDS ORDERED: GABA300C PO (15:53)
[2022-03-25] MEDS ORDERED: BUDE10.7 INH (15:53)
[2022-03-25] MEDS ORDERED: MONT-40 PO (15:53)
[2022-03-25] MEDS ORDERED: FLUT16SP22 NSEACH (15:53)
[2022-03-25] MEDS ORDERED: MOLN200C PO (15:53)
[2022-03-25] MEDS ORDERED: METO50TA7 PO (15:53)
[2022-03-25] MEDS ORDERED: VENL150C98 PO (15:53)
[2022-03-25] MEDS ORDERED: ALB0.5V INH (15:53)
[2022-03-28] MEDS ORDERED: LOSA50TA63 PO (11:34)
[2022-03-28] MEDS ORDERED: CEFD300C3 PO (11:34)
[2022-03-28] MEDS ORDERED: LORA-404 PO (11:34)
[2022-03-28] MEDS ORDERED: PRED10TA22 PO (11:34)
[2022-03-28] MEDS ORDERED: ALBU6.7H13 INH (11:34)
== END 2022-03-24 03:07 | disposition home or self-care (01) ==
LOC: EDUNIT# 22:14 → ER 22:15
DX: U07.1 COVID-19 (principal); J12.82 Pneumonia due to coronavirus disease 2019; J44.9 Chronic obstructive pulmonary disease, unspecified; R79.1 Abnormal coagulation profile; F17.210 Nicotine dependence, cigarettes, uncomplicated
CPT/HCPCS: 36415; 71275; 80053; 85007; 85027; 85379; 86141

== ENCOUNTER 2022-03-25 09:32 | Inpatient (IN) | payer MEDICARE ==
[~2022-03-25] VITALS: Ht 172 cm; Wt 62.9 kg
[~2022-03-25 09:32] MED LIST changes: +MOLN200C PO
[2022-03-25] MEDS ORDERED: MELATONIN 3 MG TABLET PO PRN (11:00)
[2022-03-25] MEDS ORDERED: morphine IMMEDIATE RELEASE 15 MG TABLET PO PRN (11:00)
[2022-03-25] MEDS ORDERED: diphenhydrAMINE 25 MG TAB (BENADRYL) PO PRN (11:00)
[2022-03-25] MEDS ORDERED: ANTACID SUSP 30 ML UDC (MYLANTA) PO PRN (11:00)
[2022-03-25] MEDS ORDERED: BISACODYL 10 MG SUPP (DULCOLAX) PR PRN (11:00)
[2022-03-25] MEDS ORDERED: diphenhydrAMINE 50 MG/ML INJ (BENADRYL) IVP PRN (11:00)
[2022-03-25] MEDS ORDERED: HYDROmorphone 2 MG/ML VIAL (DILAUDID) IV PRN (11:00)
[2022-03-25] MEDS ORDERED: polyethylene glycoL POWDER 17 GM (MIRALAX) PACK PO PRN (11:00)
[2022-03-25] MEDS ORDERED: DexMEDEtomidine 250 ML DRIP 250 ML IV SCH (11:00)
[2022-03-25] MEDS ORDERED: NS IV 500 ML 500 ML IV PRN (11:00)
[2022-03-25] MEDS ORDERED: MILK OF MAGNESIA 400 MG/5 ML 30 ML UDC PO PRN (11:00)
[2022-03-25] MEDS ORDERED: LACTULOSE SYRUP 10GM/15ML (ENULOSE) 30ML UDC PO PRN (11:00)
[2022-03-25] MEDS ORDERED: CALCIUM CARBONATE 500 MG (TUMS) TAB.CHEW PO PRN (11:00)
[2022-03-25] MEDS ORDERED: ONDANSETRON 4 MG/2 ML (SDV) Z0FRAN IV PRN (11:00)
[2022-03-25 11:15] LABS: ABG BASE EXCESS 1.6 MMOL/L (-2.5-2.5); ABG OXYGEN SATURATION 97 % (94-100); ABG PCO2 39 MMHG (35-45); ABG PH 7.43 (7.37-7.43); ABG PO2 78 MMHG (79-93); ABG TCO2 26.8 MMOL/L (21.0-31.0)
[2022-03-25 11:16] LABS: ALLENS TEST YES-POS; INSPIRED O2 5L; VENTILATOR NO
[2022-03-25 11:17] LABS: PATIENT TEMP 36.5
--- NOTE | 2022-03-25 11:30 | Diagnostic Imaging Report ---
CHEST 1 VIEW, AP/PA ONLY INDICATION: COVID positive. COMPARISON: 03/23/2022. FINDINGS: Left basilar heterogeneous consolidations have worsened. No pleural effusion or pneumothorax. Normal cardiomediastinal silhouette. IMPRESSION: 1. Left lower lobe heterogeneous consolidations have worsened and may be on the basis of pneumonia or aspiration. Dictated by: Dictated on workstation # [id number]
[2022-03-25 11:36] LABS: EOSINOPHILS % (AUTO) 0 % (0-10); MEAN CORPUSCULAR HEMOGLOBIN 30 pg (25-34); MEAN PLATELET VOLUME 10.2 fL (9.0-12.2); MONOCYTES # (AUTO) 0.2 10^3/uL (0.0-1.0); MONOCYTES % (AUTO) 5 % (0-12)
[2022-03-25 11:38] LABS: BASOPHILS % (AUTO) 1 % (0-10); HEMATOCRIT 40 % (35-52); LYMPHOCYTES # (AUTO) 0.4 10^3/uL (1.0-4.0); LYMPHOCYTES % (AUTO) 11 % (12-44); MEAN CORPUSCULAR HGB CONC 33 g/dL (32-36); MEAN CORPUSCULAR VOLUME 91 fL (80-99); NEUTROPHILS # (AUTO) 2.9 10^3/uL (1.8-7.8); NEUTROPHILS % (AUTO) 83 % (42-75); PLATELET COUNT 123 10^3/uL (130-400); WHITE BLOOD COUNT 3.5 10^3/uL (4.3-11.0)
[2022-03-25] MEDS: CEFEPIME INJECTION 1,000 MG in NS (IVPB) 50 ML IV SCH ×3 (11:51→22:38)
[2022-03-25 11:52] LABS: ALBUMIN 3.6 GM/DL (3.2-4.5)
[2022-03-25] MEDS: NS IV 1000 ML 1,000 ML IV SCH (11:52)
[2022-03-25 11:53] LABS: CHLORIDE 97 MMOL/L (98-107); FIBRIN DEGRADATION PRODUCTS 1.75 UG/ML (0.00-0.49); INR 1.3 (0.8-1.4); POTASSIUM 3.9 MMOL/L (3.6-5.0); PROTHROMBIN TIME PATIENT 16.7 SEC (12.2-14.7); SODIUM 134 MMOL/L (135-145)
[2022-03-25 11:54] LABS: CALCIUM 9.5 MG/DL (8.5-10.1)
[2022-03-25 11:55] LABS: GLUCOSE 86 MG/DL (70-105); TOTAL PROTEIN 6.7 GM/DL (6.4-8.2)
[2022-03-25 11:56] LABS: CARBON DIOXIDE 26 MMOL/L (21-32)
[2022-03-25 11:57] LABS: BILIRUBIN,TOTAL 0.9 MG/DL (0.1-1.0)
[2022-03-25 11:58] LABS: ALKALINE PHOSPHATASE 84 U/L (40-136); CREATININE SERUM 0.81 MG/DL (0.60-1.30); GFR ESTIMATED 80
[2022-03-25 12:00] LABS: BUN/CREATININE RATIO 14
[2022-03-25 12:01] LABS: ALANINE AMINOTRANSFERASE 19 U/L (0-55)
[2022-03-25] MEDS: inSUlin ASPART (NovoLOG) 1 UNIT/0.01 ML (CHARGE PER UNIT) SC SCH ×3 (12:39→20:21)
[2022-03-25] MEDS: NOREPINEPHRINE 8 MG/250 ML 250 ML IV SCH (12:39)
[2022-03-25] MEDS: methylPREDNISolone 40 MG/ML (Solu-MEDROL) VIAL IV SCH ×3 (12:40→23:26)
--- NOTE | 2022-03-25 12:42 | Tele-ICU Progress Note ---
Subjective Date Seen by a Provider: Mar 25, 2022 Time Seen by a Provider: 12:42 Subjective/Events-last exam (Tele-ICU Physician , consultation as per request of PCP Service provided via interactive audio and video telecommunications E-CARE system to a patient admitted to ICU bed in [facility]. Available chart/ vitals / labs / Images reviewed H&P is from ER notes Patient's information available about PMH, Shx, Fhx allergy reviewed inEMR. ROS as per chart and RN report Now in ICU, hemodynamically stable Video assessment done using teleICU camera, rest of exam as per RN Discussed with RN. Consultants: Hospital course: A/P COVID +03/22 with COVID +- 01/2022 --> Tx with Paxlovid , Patient reported she has had at least 2 negative home COVID tests in the interim.( immunized for COVID and has had 2 boosters with COVID - received monoclonal antibody 03/22 - steroids 03/22 po --> stated on IV 03/25 -CTA 03/23 - NO PE AECOPD - steroidsstarted 03/21 , now on SM 80 q 6 -start agressive br dilartors - empiric abx started Possible bact PNA LLL - cont cefepime and Z max Diastolic CHF grade II -ECHO 10/2021 - EF 55% RVSP 20 mm Hg - BNP 300s - monitor carefully chronic hypoxia -on 3 l o2 at home nightly Anxiety - precedex ordered Resume beta blockers Lines : periph , (Central Line Necessity Reviewed) Pedersen: void OG: Nutrition: po Analgesia: Anxiety/ delirium VTE Prophylaxis: bre 40 Stress Ulcer Prophylaxis: PPI given high dose of steroids Plans in collaboration with bedside consultants and IM MDs. Discussed with RN to reach out if any questions or concerns A total of 32 minutes of critical care time was devoted to this patient today, required to treat and/or prevent further deterioration of critical care condition ( as above ) . I am remotely monitoring this patient from another state. I am unable to do the bedside exam, and history/physical and pertinent information is taken from other notes in the computer and bedside staff. . Sepsis Event Evaluation Height, Weight, BMI Height: 5'4.00" Weight: 140lbs. 0.0oz. 63.475077vx; 19.94 BMI Method:Stated Focused Exam Lactate Level 03/25/22 11:20: Lactic Acid Level 1.27 Lactic Acid Level Laboratory Tests Test 03/25/22 11:20 Lactic Acid Level 1.27 MMOL/L (0.50-2.00) Exam Exam Patient acknowledged, consented, and participated in this virtual visit which was conducted using real time audio/video Height & Weight Height: 5'4.00" Weight: 140lbs. 0.0oz. 63.962242io; 19.94 BMI Method:Stated General Appearance: No Apparent Distress Results Lab Laboratory Tests 03/25/22 11:20 Assessment/Plan Assessment/Plan 1 CHERIE CALDERON MD Mar 25, 2022 12:42
[2022-03-25] MEDS ORDERED: RT-ALBUTEROL/IPRATROPIUM 3 ML (DUONEB) VIAL INH SCH (14:00)
--- NOTE | 2022-03-25 14:09 | History & Physical ---
AILYNGEOFFREY 03/25/22 1409: History of Present Illness History of Present Illness Reason for visit/HPI Patient is a 66 year old female with a history of HTN and COPD who was admitted to the ICU on 03/25 for acute on chronic respiratory failure. The patient states that for the past 2 weeks they have had symptoms of mild cough, sinus congestion, slight dyspnea that they attributed to allergies. On 03/22, the patient began having chest pain, SOB, and felt that they were about to have a syncopal episode when they stood up. They arrived to via POV to the ED on 03/22 and was treated with monoclonal antibodies after testing positive for COVID. The patient was discharged but their symptoms did not improve. The patient states that they are still having chest pain with respirations and are unable to take deep breaths. The pain is fairly constant and is aggravated with deep breaths and partially relieved by shallow breathing. CXR on 03/25 revealed increasing consolidations in the left lower lobe consistent with pneumonia. The patient also states they have a headache with the pain located over the frontal sinuses. The patient is very anxious and fatigued. When standing to go to the bathroom, the patient reports that she feels very nauseous and near syncope. Date of Admission Mar 25, 2022 at 10:16 I consulted on this patient on 03/25/22 14:07 Attending Physician Catrina Rojas DO Admitting Physician Admitting Physician: Catrina Rojas DO Attending Physician: Catrina Rojas DO Consult Allergies and Home Medications Allergies Coded Allergies: codeine (Verified Allergy, Unknown, 06/19/08) Patient Home Medication List Home Medication List Reviewed: Yes Albuterol Sulfate (Albuterol Sulfate) 2.5 Mg/0.5 Ml Vial.neb, 2.5 MG INH Q4H PRN for SHORTNESS OF BREATH, (Reported) Entered as Reported by: CHANEL CAMPBELL on 03/25/22 2048 Last Action: Held Budesonide/Glycopyr/Formoterol (Breztri Aerosphere Inhaler) 160 Mcg-9 Mcg-4.8 Mcg/Actuation Hfa.aer.ad, 2 PUFF INH BID, (Reported) Entered as Reported by: CHANEL CAMPBELL on 03/25/22 4641 Last Action: Converted Cetirizine HCl (Cetirizine HCl) 10 Mg Tablet, 10 MG PO DAILY, (Reported) Entered as Reported by: CHANEL CAMPBELL on 03/25/221552 Last Action: Continued Fluticasone Propionate (Fluticasone Propionate) 50 Mcg/Actuation [place].susp, 1 SPRAY NSEACH BID, (Reported) Entered as Reported by: CHANEL CAMPBELL on 03/25/221552 Last Action: Continued Gabapentin (Neurontin) 300 Mg Capsule, 600 MG PO TID, (Reported) Entered as Reported by: CHANEL CAMPBELL on 03/25/221552 Last Action: Continued Metoprolol Succinate (Metoprolol Succinate) 50 Mg Tab.er.24h, 50 MG PO DAILY, (Reported) Entered as Reported by: CHANEL CAMPBELL on 03/25/221552 Last Action: Continued Molnupiravir (Molnupiravir (Eua)) 200 Mg Capsule, 800 MG PO BID, (Reported) Entered as Reported by: CHANEL CAMPBELL on 03/25/221552 Last Action: Held Montelukast Sodium (Montelukast Sodium) 10 Mg Tablet, 10 MG PO HS, (Reported) Entered as Reported by: CHANEL CAMPBELL on 03/25/221552 Last Action: Continued Pantoprazole Sodium (Pantoprazole Sodium) 40 Mg Tablet.dr, 40 MG PO BID, (Reported) Entered as Reported by: JUDSON CARLOS on 05/31/18 0932 Last Action: Continued Prednisone (Prednisone) 50 Mg Tab, 50 MG PO DAILY, (Reported) Entered as Reported by: CHANEL CAMPBELL on 03/25/221552 Last Action: Held Venlafaxine HCl (Venlafaxine HCl ER) 150 Mg Cap.er.24h, 150 MG PO DAILY, (Reported) Entered as Reported by: CHANEL CAMPBELL on 03/25/221552 Last Action: Converted Discontinued Medications Acetaminophen (Tylenol Extra Strength) 500 Mg Tablet, 1,000 MG PO Q6H PRN for PAIN-MILD, (Reported) Discontinued Reason: No Longer Taking Entered as Reported by: RONALDO LOONEY on 03/21/16 0745 Last Action: Discontinued Albuterol Sulfate (Ventolin Hfa) 1 Puff Puff, 2 PUFF IH Q6H PRN for WHEEZING, (Reported) Discontinued Reason: No Longer Taking Entered as Reported by: JUDSON CARLOS on 05/31/18932 Last Action: Discontinued Albuterol Sulfate (Albuterol Sulfate) 2.5 Mg/3 Ml Vial.neb, 2.5 MG INH Q4H PRN for WHEEZING Discontinued Reason: No Longer Taking Prescribed by: MILLA TRUJILLO on 04/25/21 1720 Last Action: Discontinued Albuterol Sulfate (Albuterol Sulfate) 2.5 Mg/3 Ml (0.083 %) Vial.neb, 2.5 MG INH Q4H PRN for WHEEZING Discontinued Reason: No Longer Taking Prescribed by: LANIE MONTEMAYOR on 03/24/22 0236 Last Action: Discontinued Benzonatate (Tessalon Perles) 100 Mg Capsule, 200 MG PO TID PRN for COUGH Discontinued Reason: No Longer Taking Prescribed by: CAIO DENIS on 08/24/21 1340 Last Action: Discontinued Cefdinir (Cefdinir) 300 Mg Capsule, 300 MG PO BID Discontinued Reason: No Longer Taking Prescribed by: ZEENAT DWYER on 12/29/19 0943 Last Action: Discontinued Cefuroxime Axetil (Cefuroxime) 250 Mg Tablet, 250 MG PO BID Discontinued Reason: No Longer Taking Prescribed by: MILLA TRUJILLO on 04/25/21 172 Last Action: Discontinued Doxycycline Monohydrate (Doxycycline Monohydrate) 100 Mg Tablet, 100 MG PO BID Discontinued Reason: No Longer Taking Prescribed by: CAIO DENIS on 08/24/21 1340 Last Action: Discontinued Fluconazole (Fluconazole) 100 Mg Tablet, 100 MG PO DAILY Discontinued Reason: No Longer Taking Prescribed by: CATRINA ROJAS on 06/17/18917 Last Action: Discontinued Fluticasone Propionate (Flovent Hfa 220 mcg) 1 Ea Aero, 1 EA IH BID Discontinued Reason: No Longer Taking Prescribed by: CATRINA ROJAS on 06/17/18921 Last Action: Discontinued Gabapentin (Gabapentin) 300 Mg Capsule, 300 MG PO DAILY@1200 Discontinued Reason: No Longer Taking Prescribed by: CATRINA ROJAS on 06/17/18917 Last Action: Discontinued Hydrocodone Bit/Acetaminophen (Lortab 5 Mg Tablet) 1 Tab Tab, 1 TAB PO Q6H PRN for PAIN-MODERATE Discontinued Reason: No Longer Taking Prescribed by: CATRINA ROJAS on 06/17/18917 Last Action: Discontinued Hydrocodone/Acetaminophen (Hydrocodone-Acetamin 5-325 mg) 1 Each Tablet, 1 EACH PO Q6H PRN for PAIN-BREAKTHROUGH Discontinued Reason: No Longer Taking Prescribed by: ZEENAT DWYER on 12/29/19 0943 Last Action: Discontinued Hydrocodone/Acetaminophen (Hydrocodone-Acetamin 5-325 mg) 1 Each Tablet, 1 EACH PO Q6H Discontinued Reason: No Longer Taking Prescribed by: JESENIA TOBAR on 02/12/20 170 Last Action: Discontinued Methylprednisolone (Methylprednisolone Dose Pack) 4 Mg Tablet, 4 MG PO UD Discontinued Reason: No Longer Taking Prescribed by: JESENIA TOBAR on 02/12/20 170 Last Action: Discontinued Metoprolol Succinate (Metoprolol Succinate) 25 Mg Tab.er.24h, 25 MG PO DAILY Discontinued Reason: No Longer Taking Prescribed by: CHERY ROSE on 06/17/18 0839 Last Action: Discontinued Molnupiravir (Molnupiravir (Eua)) 200 Mg Capsule, 800 MG PO BID Discontinued Reason: No Longer Taking Prescribed by: LANIE MONTEMAYOR on 03/24/22 0243 Last Action: Discontinued Ondansetron (Ondansetron Odt) 4 Mg Tab.rapdis, 4 MG PO Q6H PRN for NAUSEA/VOMITING Discontinued Reason: No Longer Taking Prescribed by: ZEENAT DWYER on 12/29/1943 Last Action: Discontinued Prednisone (Prednisone) 20 Mg Tab, 40 MG PO DAILY Discontinued Reason: No Longer Taking Prescribed by: MILLA TRUJILLO on 04/25/21 1720 Last Action: Discontinued Prednisone (Prednisone) 50 Mg Tab, 50 MG PO DAILY Discontinued Reason: No Longer Taking Prescribed by: CAIO DENIS on 08/24/21 1340 Last Action: Discontinued Prednisone (Prednisone) 50 Mg Tab, 50 MG PO DAILY Discontinued Reason: No Longer Taking Prescribed by: JESENIA TOBAR on 03/23/22 1131 Last Action: Discontinued Venlafaxine HCl (Venlafaxine HCl ER) 75 Mg Cap.er.24h, 75 MG PO DAILY@0700 Discontinued Reason: No Longer Taking Prescribed by: CATRINA ROJAS on 06/17/18917 Last Action: Discontinued Past Zlkjblx-Ilwrab-Kkyggs Hx Immunizations Up To Date Date of Influenza Vaccine: Apr 09, 2018 First/Initial COVID19 Vaccinat: 06/20/20 Second COVID19 Vaccination Jabier: 07/18/20 Tetanus Booster (TDap): Unknown PED Vaccines UTD: Yes Date of Pneumonia Vaccine: Jun 11, 2001 Seasonal Allergies Seasonal Allergies: Yes Current Status Primary Language: Mauritian Past Medical History Surgeries: Cystectomy, Lumpectomy, Orthopedic Asthma, Pneumonia, COPD Currently Using CPAP: No Currently Using BIPAP: No High Cholesterol Sexually Transmitted Disease: No Chronic Constipation Arthritis Breast Anxiety Blood Disorders: No Family Medical History Patient reports no known family medical history. No Pertinent Family Hx Review of Systems Constitutional: chills, fever, malaise, weakness EENTM: No hearing loss, No blurred vision Respiratory: cough, short of breath Cardiovascular: chest pain; No edema Gastrointestinal: nausea (When standing); No vomiting Genitourinary: No dysuria, No hematuria Skin: No change in color, No change in hair/nails Psychiatric/Neurological: Anxiety Physical Exam Vital Signs Capillary Refill : Height, Weight, BMI Height: 5'4.00" Weight: 140lbs. 0.0oz. [id number]; 19.94 BMI Method:Stated General Appearance: WD/WN, Mild Distress HEENT: PERRL/EOMI Neck: Non Tender, Supple Respiratory: Decreased Breath Sounds (L lower most decreased) Cardiovascular: Regular Rate, Rhythm, Normal Peripheral Pulses Gastrointestinal: Non Tender, Soft Rectal: Deferred Extremity: Non Tender, No Pedal Edema Neurologic/Psychiatric: Alert, Oriented x3 Skin: Normal Color, Warm/Dry Lymphatic: No Adenopathy Assessment/Plan Assessment and Plan Acute on chronic respiratory failure COPD COVID Pneumonia - left lower lobe Anxiety Hypothyroidism Headache Fatigue Nausea HTN ABG normal, Currently on 5L O2 Currently on azithromycin and cefepime Started on Precedex Continue Solu-Medrol Will start on DuoNeb Lovenox for DVT prophylaxis Admission Diagnosis Acute respiratory failure Admission Status: Inpatient Order (span 2 midnights) Reason for Inpatient Admission: Acute respiratory failure CATRINA ROJAS DO 03/26/22 0541: History of Present Illness History of Present Illness Date Seen by a Provider: Mar 26, 2022 Time Seen by a Provider: 10:30 Allergies and Home Medications Allergies Coded Allergies: codeine (Verified Allergy, Unknown, 06/19/08) Patient Home Medication List Albuterol Sulfate (Albuterol Sulfate) 2.5 Mg/0.5 Ml Vial.neb, 2.5 MG INH Q4H PRN for SHORTNESS OF BREATH, (Reported) Entered as Reported by: CHANEL CAMPBELL on 03/25/221552 Last Action: Held Budesonide/Glycopyr/Formoterol (Breztri Aerosphere Inhaler) 160 Mcg-9 Mcg-4.8 Mcg/Actuation Hfa.aer.ad, 2 PUFF INH BID, (Reported) Entered as Reported by: CHANEL CAMPBELL on 03/25/221552 Last Action: Converted Cetirizine HCl (Cetirizine HCl) 10 Mg Tablet, 10 MG PO DAILY, (Reported) Entered as Reported by: CHANEL CAMPBELL on 03/25/221552 Last Action: Continued Fluticasone Propionate (Fluticasone Propionate) 50 Mcg/Actuation [place].susp, 1 SPRAY NSEACH BID, (Reported) Entered as Reported by: CHANEL CAMPBELL on 03/25/221552 Last Action: Continued Gabapentin (Neurontin) 300 Mg Capsule, 600 MG PO TID, (Reported) Entered as Reported by: CHANEL CAMPBELL on 03/25/221552 Last Action: Continued Metoprolol Succinate (Metoprolol Succinate) 50 Mg Tab.er.24h, 50 MG PO DAILY, (Reported) Entered as Reported by: CHANEL CAMPBELL on 03/25/221552 Last Action: Continued Molnupiravir (Molnupiravir (Eua)) 200 Mg Capsule, 800 MG PO BID, (Reported) Entered as Reported by: CHANEL CAMPBELL on 03/25/221552 Last Action: Held Montelukast Sodium (Montelukast Sodium) 10 Mg Tablet, 10 MG PO HS, (Reported) Entered as Reported by: CHANEL CAMPBELL on 03/25/221552 Last Action: Continued Pantoprazole Sodium (Pantoprazole Sodium) 40 Mg Tablet.dr, 40 MG PO BID, (Reported) Entered as Reported by: JUDSON CARLOS on 05/31/18 0932 Last Action: Continued Prednisone (Prednisone) 50 Mg Tab, 50 MG PO DAILY, (Reported) Entered as Reported by: CHANEL CAMPBELL on 03/25/221552 Last Action: Held Venlafaxine HCl (Venlafaxine HCl ER) 150 Mg Cap.er.24h, 150 MG PO DAILY, (Reported) Entered as Reported by: CHANEL CAMPBELL on 03/25/22 587 Last Action: Converted Discontinued Medications Acetaminophen (Tylenol Extra Strength) 500 Mg Tablet, 1,000 MG PO Q6H PRN for PAIN-MILD, (Reported) Discontinued Reason: No Longer Taking Entered as Reported by: RONALDO LOONEY on 03/21/16 1247 Last Action: Discontinued Albuterol Sulfate (Ventolin Hfa) 1 Puff Puff, 2 PUFF IH Q6H PRN for WHEEZING, (Reported) Discontinued Reason: No Longer Taking Entered as Reported by: JUDSON CARLOS on 05/31/18 0933 Last Action: Discontinued Albuterol Sulfate (Albuterol Sulfate) 2.5 Mg/3 Ml Vial.neb, 2.5 MG INH Q4H PRN for WHEEZING Discontinued Reason: No Longer Taking Prescribed by: MILLA TRUJILLO on 04/25/21 172 Last Action: Discontinued Albuterol Sulfate (Albuterol Sulfate) 2.5 Mg/3 Ml (0.083 %) Vial.neb, 2.5 MG INH Q4H PRN for WHEEZING Discontinued Reason: No Longer Taking Prescribed by: LANIE MONTEMAYOR on 03/24/22 0236 Last Action: Discontinued Benzonatate (Tessalon Perles) 100 Mg Capsule, 200 MG PO TID PRN for COUGH Discontinued Reason: No Longer Taking Prescribed by: CAIO DENIS on 08/24/21 1340 Last Action: Discontinued Cefdinir (Cefdinir) 300 Mg Capsule, 300 MG PO BID Discontinued Reason: No Longer Taking Prescribed by: ZEENAT DWYER on 12/29/19 0943 Last Action: Discontinued Cefuroxime Axetil (Cefuroxime) 250 Mg Tablet, 250 MG PO BID Discontinued Reason: No Longer Taking Prescribed by: MILLA TRUJILLO on 04/25/21 172 Last Action: Discontinued Doxycycline Monohydrate (Doxycycline Monohydrate) 100 Mg Tablet, 100 MG PO BID Discontinued Reason: No Longer Taking Prescribed by: CAIO DENIS on 08/24/21 1340 Last Action: Discontinued Fluconazole (Fluconazole) 100 Mg Tablet, 100 MG PO DAILY Discontinued Reason: No Longer Taking Prescribed by: CATRINA ROJAS on 06/17/18917 Last Action: Discontinued Fluticasone Propionate (Flovent Hfa 220 mcg) 1 Ea Aero, 1 EA IH BID Discontinued Reason: No Longer Taking Prescribed by: CATRINA ROJAS on 06/17/18921 Last Action: Discontinued Gabapentin (Gabapentin) 300 Mg Capsule, 300 MG PO DAILY@1200 Discontinued Reason: No Longer Taking Prescribed by: CATRINA ROJAS on 06/17/18917 Last Action: Discontinued Hydrocodone Bit/Acetaminophen (Lortab 5 Mg Tablet) 1 Tab Tab, 1 TAB PO Q6H PRN for PAIN-MODERATE Discontinued Reason: No Longer Taking Prescribed by: CATRINA ROJAS on 06/17/18917 Last Action: Discontinued Hydrocodone/Acetaminophen (Hydrocodone-Acetamin 5-325 mg) 1 Each Tablet, 1 EACH PO Q6H PRN for PAIN-BREAKTHROUGH Discontinued Reason: No Longer Taking Prescribed by: ZEENAT DWYER on 12/29/19942 Last Action: Discontinued Hydrocodone/Acetaminophen (Hydrocodone-Acetamin 5-325 mg) 1 Each Tablet, 1 EACH PO Q6H Discontinued Reason: No Longer Taking Prescribed by: JESENIA TOBAR on 02/12/201701 Last Action: Discontinued Methylprednisolone (Methylprednisolone Dose Pack) 4 Mg Tablet, 4 MG PO UD Discontinued Reason: No Longer Taking Prescribed by: JESENIA TOBAR on 02/12/201701 Last Action: Discontinued Metoprolol Succinate (Metoprolol Succinate) 25 Mg Tab.er.24h, 25 MG PO DAILY Discontinued Reason: No Longer Taking Prescribed by: CHERY ROSE on 06/17/18838 Last Action: Discontinued Molnupiravir (Molnupiravir (Eua)) 200 Mg Capsule, 800 MG PO BID Discontinued Reason: No Longer Taking Prescribed by: LANIE MONTEMAYOR on 03/24/22 0243 Last Action: Discontinued Ondansetron (Ondansetron Odt) 4 Mg Tab.rapdis, 4 MG PO Q6H PRN for NAUSEA/VOMITING Discontinued Reason: No Longer Taking Prescribed by: ZEENAT DWYER on 12/29/19942 Last Action: Discontinued Prednisone (Prednisone) 20 Mg Tab, 40 MG PO DAILY Discontinued Reason: No Longer Taking Prescribed by: MILLA TRUJILLO on 04/25/21 1720 Last Action: Discontinued Prednisone (Prednisone) 50 Mg Tab, 50 MG PO DAILY Discontinued Reason: No Longer Taking Prescribed by: CAIO DENIS on 08/24/21 1340 Last Action: Discontinued Prednisone (Prednisone) 50 Mg Tab, 50 MG PO DAILY Discontinued Reason: No Longer Taking Prescribed by: JESENIA TOBAR on 03/23/22 1131 Last Action: Discontinued Venlafaxine HCl (Venlafaxine HCl ER) 75 Mg Cap.er.24h, 75 MG PO DAILY@0700 Discontinued Reason: No Longer Taking Prescribed by: CATRINA ROJAS on 06/17/18 0918 Last Action: Discontinued Past Vwvcmvb-Xxkvcj-Mjhvvp Hx Patient Social History Marrital Status: Employed/Student: retired Smoking Status: Current Everyday Smoker Past Medical History COPD High Cholesterol, Hypertension Family Medical History Patient reports no known family medical history. Review of Systems Constitutional: see HPI Respiratory: short of breath Cardiovascular: chest pain Physical Exam General Appearance: Anxious, Chronically ill, Moderate Distress Respiratory: Accessory Muscle Use, Crackles, Decreased Breath Sounds (L lower most decreased), Wheezing Cardiovascular: Tachycardia Neurologic/Psychiatric: Alert, Oriented x3 Assessment/Plan Assessment and Plan Problems: (1) Respiratory failure (2) COVID-19 Status: Acute (3) COPD (chronic obstructive pulmonary disease) Status: Chronic (4) Bronchitis Status: Acute (5) Current tobacco use Status: Chronic Admission Diagnosis Admission Status: Inpatient Order (span 2 midnights) Reason for Inpatient Admission: resp failure Supervisory-Addendum Brief Verification & Attestation Participated in pt care: history, MDM, physical Personally performed: exam, history, MDM, supervision of care Care discussed with: Medical Student Procedures: n/a Results interpretation: Verified all documentation Verification and Attestation of Medical Student E/M Service A medical student performed and documented this service in my presence. I reviewed and verified all information documented by the medical student and made modifications to such information, when appropriate. I personally performed the physical exam and medical decision making. Catrina Rojas, Mar 26, 2022,05:41 GEOFFREY ROBERTSON Mar 25, 2022 14:09 CATRINA ROJAS DO Mar 26, 2022 05:41
[2022-03-25 14:55] LABS: CLARITY,URINE CLEAR; COLOR,URINE YELLOW; GLUCOSE, URINE (UA) NEGATIVE (NEGATIVE); KETONES,URINE 2+ (NEGATIVE); LEUKOCYTE ESTERASE ,URINE NEGATIVE (NEGATIVE); NITRITE,URINE NEGATIVE (NEGATIVE); PH,URINE 6.5 (5-9); PROTEIN,URINE 2+ (NEGATIVE)
[2022-03-25 15:09] LABS: BACTERIA,URINE TRACE /HPF; BILIRUBIN,URINE 1+ (NEGATIVE); RBC,URINE 0-2 /HPF
[2022-03-25] MEDS: RT-ALBUTEROL HFA 8.5 GM INHALER IH SCH ×2 (15:52→21:57)
[2022-03-25] MEDS ORDERED: BUDE10.7 INH (15:53)
[2022-03-25] MEDS ORDERED: METO50TA7 PO (15:53)
[2022-03-25] MEDS ORDERED: FLUT16SP22 NSEACH (15:53)
[2022-03-25] MEDS ORDERED: MONT-40 PO (15:53)
[2022-03-25] MEDS ORDERED: ALB0.5V INH (15:53)
[2022-03-25] MEDS ORDERED: GABA300C PO (15:53)
[2022-03-25] MEDS ORDERED: MOLN200C PO (15:53)
[2022-03-25] MEDS ORDERED: CETI10TA17 PO (15:53)
[2022-03-25] MEDS ORDERED: VENL150C98 PO (15:53)
[2022-03-25] MEDS ORDERED: PRD50T PO (15:53)
[2022-03-25] MEDS: ENOXAPARIN 40 MG/0.4 ML (LOVENOX) SYR SC SCH (18:29)
[2022-03-25] MEDS: DOCUSATE SODIUM 100 MG (COLACE) CAP PO SCH (20:18)
[2022-03-25] MEDS: SENNOSIDES 8.6 MG (SENOKOT) TAB PO SCH (20:18)
[2022-03-25] MEDS: FLUTICASONE NASAL SPRAY (FLONASE) 16 GM BTL NS SCH (21:00)
[2022-03-25] MEDS: ONDANSETRON 4 MG (ZOFRAN) ORAL DISSOLVE TAB PO PRN (21:11)
[2022-03-25] MEDS: ACETAMINOPHEN 325 MG TABLET PO PRN (21:11)
[2022-03-25] MEDS: GABAPENTIN 300 MG (NEURONTIN) CAP PO SCH (22:04)
[2022-03-25] MEDS: MONTELUKAST 10 MG (SINGULAIR) TAB PO SCH (22:04)
[2022-03-25] MEDS: PANTOPRAZOLE 40 MG (PROTONIX) TAB PO SCH (22:04)
[2022-03-26] MEDS: NS IV 1000 ML 1,000 ML IV SCH (00:34)
[2022-03-26] MEDS: RT-ALBUTEROL HFA 8.5 GM INHALER IH SCH ×6 (01:58→23:02)
[2022-03-26] MEDS: CEFEPIME INJECTION 1,000 MG in NS (IVPB) 50 ML IV SCH ×4 (04:46→22:32)
[2022-03-26] MEDS: guaiFENesin/DM (ROBITUSSIN DM) 10 ML UDC PO PRN ×5 (04:47→23:10)
[2022-03-26] MEDS: ACETAMINOPHEN 325 MG TABLET PO PRN (04:51)
[2022-03-26 05:26] LABS: EOSINOPHILS % (AUTO) 0 % (0-10); MEAN CORPUSCULAR HGB CONC 33 g/dL (32-36)
[2022-03-26 05:28] LABS: BASOPHILS % (AUTO) 0 % (0-10); HEMATOCRIT 36 % (35-52); HEMOGLOBIN 11.9 g/dL (11.5-16.0); LYMPHOCYTES # (AUTO) 0.2 10^3/uL (1.0-4.0); LYMPHOCYTES % (AUTO) 6 % (12-44); MEAN CORPUSCULAR HEMOGLOBIN 30 pg (25-34); MEAN CORPUSCULAR VOLUME 90 fL (80-99); MEAN PLATELET VOLUME 10.2 fL (9.0-12.2); MONOCYTES # (AUTO) 0.1 10^3/uL (0.0-1.0); MONOCYTES % (AUTO) 3 % (0-12); NEUTROPHILS # (AUTO) 2.4 10^3/uL (1.8-7.8); NEUTROPHILS % (AUTO) 91 % (42-75); PLATELET COUNT 128 10^3/uL (130-400); WHITE BLOOD COUNT 2.7 10^3/uL (4.3-11.0)
[2022-03-26 05:48] LABS: ALBUMIN 3.2 GM/DL (3.2-4.5)
[2022-03-26 05:49] LABS: CALCIUM 8.9 MG/DL (8.5-10.1)
[2022-03-26 05:51] LABS: TOTAL PROTEIN 6.2 GM/DL (6.4-8.2)
[2022-03-26 05:52] LABS: BILIRUBIN,TOTAL 0.5 MG/DL (0.1-1.0)
[2022-03-26 05:54] LABS: CREATININE SERUM 0.8 MG/DL (0.60-1.30); PHOSPHORUS 3.6 MG/DL (2.3-4.7)
[2022-03-26] MEDS: inSUlin ASPART (NovoLOG) 1 UNIT/0.01 ML (CHARGE PER UNIT) SC SCH ×4 (06:00→21:06)
[2022-03-26] MEDS: POTASSIUM CL 10MEQ/50ML IVPB 50 ML IV SCH (06:00)
[2022-03-26] MEDS: MAGNESIUM 1 GM/100 ML IVPB 100 ML IV SCH (06:00)
[2022-03-26] MEDS: KCL 20 MEQ TAB (K-DUR) PO SCH (06:00)
[2022-03-26] MEDS: methylPREDNISolone 40 MG/ML (Solu-MEDROL) VIAL IV SCH ×4 (06:09→23:09)
[2022-03-26] MEDS: PANTOPRAZOLE 40 MG (PROTONIX) TAB PO SCH ×2 (06:10→18:07)
[2022-03-26] MEDS: VENlafaxine XR 75 MG (EFFEXOR XR) CAP PO SCH (06:10)
[2022-03-26] MEDS: RT--FLUTICASONE/SALMETEROL 232-14 (AIRDUO RespiCLICK) IH SCH ×2 (07:35→23:02)
[2022-03-26] MEDS: UMECLIDINIUM BROMIDE (INCRUSE ELLIPTA) 7'S IH SCH (07:35)
[2022-03-26] MEDS: DOCUSATE SODIUM 100 MG (COLACE) CAP PO SCH ×2 (08:21→21:00)
[2022-03-26] MEDS: meTOproloL SUCCINATE 50 MG (TOPROL XL) TAB PO SCH (08:21)
[2022-03-26] MEDS: AZITHROMYCIN INJECTION 500 MG in NS (IVPB) 250 ML IV SCH (08:21)
[2022-03-26] MEDS: LORATADINE (CLARITIN) 10 MG TAB PO SCH (08:21)
[2022-03-26] MEDS: ONDANSETRON 4 MG (ZOFRAN) ORAL DISSOLVE TAB PO PRN (08:21)
[2022-03-26] MEDS: GABAPENTIN 300 MG (NEURONTIN) CAP PO SCH ×3 (08:21→21:05)
[2022-03-26] MEDS: SENNOSIDES 8.6 MG (SENOKOT) TAB PO SCH ×2 (08:21→21:00)
[2022-03-26] MEDS ORDERED: PANTOPRAZOLE 40 MG (PROTONIX) TAB PO SCH (09:00)
--- NOTE | 2022-03-26 09:50 | Progress Note ---
GEOFFREY ROBERTSON 03/26/22 0950: Subjective Date Seen by a Provider: Mar 26, 2022 Time Seen by a Provider: 08:50 Subjective/Events-last exam Patient is awake and alert in her bed this morning. She states that she is feeling overall better today. She reports that her anxiety has lessened greatly since yesterday. She also states that her chest pain still persists and worsens with deep inspiration, but is improving. The patient states that she has been having some mild heartburn and cough since yesterday, but that it is currently well controlled with the protonix, antacids, and robitussin. The patient states that she still feels nauseous and near syncope when standing up, and that this is unchanged since yesterday. Her saline is currently on hold due to an elevated BNP yesterday of 352.8. The patient remains well oxygenated on 3L of O2 which is what the patient uses at home. Review of Systems General: Fatigue, Malaise HEENT: Head Aches, Sinus Congestion Pulmonary: Dyspnea (improved), Cough Cardiovascular: Chest Pain (improved); No: Palpitations Gastrointestinal: Nausea (When standing); No: Vomiting Genitourinary: No Dysuria, No Incontinence Musculoskeletal: back pain (States due to bed) Neurological: Weakness; No: Confusion Focused Exam Lactate Level 03/25/22 11:20: Lactic Acid Level 1.27 Objective Exam Last Set of Vital Signs Vital Signs Date Time Temp Pulse Resp B/P (MAP) Pulse Ox O2 Delivery O2 Flow Rate FiO2 03/26/22 08:00 95 Nasal Cannula 3.00 03/26/22 08:00 89 18 153/89 (110) 03/26/22 07:58 35.8 Capillary Refill : I&O Intake and Output 03/26/22 00:00 Intake Total 450 ml Output Total 600 ml Balance -150 ml Intake Oral 400 ml IV Total 50 ml Output Urine Total 600 ml General: Alert, Oriented X3 HEENT: Atraumatic, PERRLA Neck: Supple Lungs: Other (Decreased air movement) Heart: Regular Rate, No Murmurs Abdomen: Soft, No Tenderness Extremities: No Clubbing, No Cyanosis Skin: No Rashes, No Significant Lesion Neuro: Normal Speech, Sensation Intact Results Lab Laboratory Tests 03/25/22 11:10: Blood Gas Puncture Site RR, Blood Gas Patient Temperature 36.5, Arterial Blood pH 7.43, Arterial Blood Partial Pressure CO2 39, Arterial Blood Partial Pressure O2 78L, Arterial Blood HCO3 26, Arterial Blood Total CO2 26.8, Arterial Blood Oxygen Saturation 97, Arterial Blood Base Excess 1.6, Storm Test YES-POS, Blood Gas Ventilator Setting NO, Blood Gas Inspired Oxygen 5L 03/25/22 11:20: White Blood Count 3.5L, Red Blood Count 4.34, Hemoglobin 13.0, Hematocrit 40, Mean Corpuscular Volume 91, Mean Corpuscular Hemoglobin 30, Mean Corpuscular Hemoglobin Concent 33, Red Cell Distribution Width 13.1, Platelet Count 123L, Mean Platelet Volume 10.2, Immature Granulocyte % (Auto) 0, Neutrophils (%) (Auto) 83H, Lymphocytes (%) (Auto) 11L, Monocytes (%) (Auto) 5, Eosinophils (%) (Auto) 0, Basophils (%) (Auto) 1, Neutrophils # (Auto) 2.9, Lymphocytes # (Auto) 0.4L, Monocytes # (Auto) 0.2, Eosinophils # (Auto) 0.0, Basophils # (Auto) 0.0, Immature Granulocyte # (Auto) 0.0, Percent Immature Platelet Fraction 4.9, Prothrombin Time 16.7H, INR Comment 1.3, D-Dimer 1.75H, Sodium Level 134L, Potassium Level 3.9, Chloride Level 97L, Carbon Dioxide Level 26, Anion Gap 11, Blood Urea Nitrogen 11, Creatinine 0.81, Estimat Glomerular Filtration Rate 80, BUN/Creatinine Ratio 14, Glucose Level 86, Lactic Acid Level 1.27, Calcium Level 9.5, Corrected Calcium 9.8, Total Bilirubin 0.9, Aspartate Amino Transf (AST/SGOT) 22, Alanine Aminotransferase (ALT/SGPT) 19, Alkaline Phosphatase 84, Troponin I < 0.028, B-Type Natriuretic Peptide 352.8H, Total Protein 6.7, Albumin 3.6, Procalcitonin 0.17H 03/25/22 14:00: Urine Color YELLOW, Urine Clarity CLEAR, Urine pH 6.5, Urine Specific Amelia 1.020, Urine Protein 2+H, Urine Glucose (UA) NEGATIVE, Urine Ketones 2+H, Urine Nitrite NEGATIVE, Urine Bilirubin 1+H, Urine Urobilinogen 4.0, Urine Leukocyte Esterase NEGATIVE, Urine RBC (Auto) 1+H, Urine RBC 0-2, Urine WBC NONE, Urine Squamous Epithelial Cells 2-5, Urine Crystals NONE, Urine Bacteria TRACE, Urine Casts NONE, Urine Mucus NEGATIVE, Urine Culture Indicated NO 03/25/22 15:14: Glucometer 82 03/25/22 20:20: Glucometer 116H 03/26/22 05:15: White Blood Count 2.7L, Red Blood Count 3.97, Hemoglobin 11.9, Hematocrit 36, Mean Corpuscular Volume 90, Mean Corpuscular Hemoglobin 30, Mean Corpuscular Hemoglobin Concent 33, Red Cell Distribution Width 12.9, Platelet Count 128L, Mean Platelet Volume 10.2, Immature Granulocyte % (Auto) 0, Neutrophils (%) (Auto) 91H, Lymphocytes (%) (Auto) 6L, Monocytes (%) (Auto) 3, Eosinophils (%) (Auto) 0, Basophils (%) (Auto) 0, Neutrophils # (Auto) 2.4, Lymphocytes # (Auto) 0.2L, Monocytes # (Auto) 0.1, Eosinophils # (Auto) 0.0, Basophils # (Auto) 0.0, Immature Granulocyte # (Auto) 0.0, Percent Immature Platelet Fraction 4.8, Sodium Level 135, Potassium Level 4.0, Chloride Level 102, Carbon Dioxide Level 21, Anion Gap 12, Blood Urea Nitrogen 18, Creatinine 0.80, Estimat Glomerular Filtration Rate 81, BUN/Creatinine Ratio 23, Glucose Level 135H, Calcium Level 8.9, Corrected Calcium 9.5, Phosphorus Level 3.6, Magnesium Level 2.0, Total Kenneth irubin 0.5, Aspartate Amino Transf (AST/SGOT) 15, Alanine Aminotransferase (ALT/SGPT) 17, Alkaline Phosphatase 81, Total Protein 6.2L, Albumin 3.2, Procalcitonin 0.14H Assessment/Plan Assessment/Plan Assess & Plan/Chief Complaint Acute on chronic respiratory failure COPD COVID Pneumonia - left lower lobe Anxiety Hypothyroidism Headache Fatigue Nausea HTN O2 saturation steady on 3L via nasal cannula ABG yesterday normal Currently on azithromycin and cefepime Precedex held last night, anxiety currently managed with venlafaxine Continue Solu-Medrol Continue albuterol Antiemetics as needed Continue pain management, currently well-controlled Lovenox for DVT prophylaxis Clinical Quality Measures Admission Status Admission Dx Acute respiratory failure CATRINA BUNN DO 03/26/222058: Objective Exam General: Alert, Oriented X3, Cooperative, No Acute Distress Lungs: Other (Decreased air movement) Heart: Regular Rate Psych/Mental Status: Mental Status NL Assessment/Plan Assessment/Plan Assess & Plan/Chief Complaint IV steroids IV abx COVID isolation Supervisory-Addendum Brief Verification & Attestation Participated in pt care: history, MDM, physical Personally performed: exam, history, MDM, supervision of care Care discussed with: Medical Student Procedures: n/a Results interpretation: Verified all documentation Verification and Attestation of Medical Student E/M Service A medical student performed and documented this service in my presence. I r eviewed and verified all information documented by the medical student and made modifications to such information, when appropriate. I personally performed the physical exam and medical decision making. Catrina Bunn, Mar 26, 2022,20:58 GEOFFREY ROBERTSON Mar 26, 2022 09:50 CATRINA BUNN DO Mar 26, 2022 20:59
--- NOTE | 2022-03-26 10:08 | Diagnostic Imaging Report ---
INDICATION: Covid infection Frontal chest obtained at 0449 a.m. and compared with yesterday. Heart is borderline in size. There is mild central vascular prominence. There are chronic appearing increased interstitial markings. Left basilar infiltrate seen on the previous study appears slightly improved. There is no pneumothorax or pleural fluid or other new finding. IMPRESSION: Slight improvement in left lower lobe infiltrate compared to the prior study. Underlying borderline cardiomegaly and chronic central vascular prominence. No new infiltrate is present. Dictated by: Dictated on workstation # [id number]
[2022-03-26] MEDS: FLUTICASONE NASAL SPRAY (FLONASE) 16 GM BTL NS SCH ×2 (10:23→21:00)
[2022-03-26] MEDS: NOREPINEPHRINE 8 MG/250 ML 250 ML IV SCH (11:18)
--- NOTE | 2022-03-26 11:40 | Tele-ICU Progress Note ---
Subjective Date Seen by a Provider: Mar 26, 2022 Time Seen by a Provider: 11:40 Subjective/Events-last exam (Tele-ICU Physician , Progress Note ) Service provided via interactive audio and video telecommunications E-CARE system to a patient admitted to ICU bed in [facility]. Available chart/ vitals / labs / Images reviewed Video assessment done using teleICU camera, rest of exam as per RN Discussed with RN Events overnight : Afebrile hemodynamically stable Respiratory - 3l I/O =even Drips: Pressors- no Consultants: Hospital course: A/P COVID +03/22 with COVID +- 01/2022 --> Tx with Paxlovid , Patient reported she has had at least 2 negative home COVID tests in the interim.( immunized for COVID and has had 2 boosters with COVID - received monoclonal antibody 03/22 - steroids 03/22 po --> stated on IV 03/25 -CTA 03/23 - NO PE AECOPD - steroidsstarted 03/21 , now on SM 80 q 6 -start agressive br dilartors - empiric abx started Possible bact PNA LLL - cont cefepime and Z max Diastolic CHF grade II -ECHO 10/2021 - EF 55% RVSP 20 mm Hg - BNP 300s - monitor carefully chronic hypoxia -on 3 l o2 at home nightly Anxiety - precedex ordered thrombocytoopenia, new since 03/22/22 - stable Resume beta blockers Lines : periph , (Central Line Necessity Reviewed) Pedersen: void OG: Nutrition: po Analgesia: Anxiety/ delirium VTE Prophylaxis: bre 40 Stress Ulcer Prophylaxis: PPI given high dose of steroids Plans in collaboration with bedside consultants and IM MDs. Discussed with RN to reach out if any questions or concerns A total of 22 minutes of critical care time was devoted to this patient today, required to treat and/or prevent further deterioration of critical care condition ( as above ) . I am remotely monitoring this patient from another state. I am unable to do the bedside exam, and history/physical and pertinent information is taken from other notes in the computer and bedside staff. . Sepsis Event Evaluation Height, Weight, BMI Height: 5'4.00" Weight: 140lbs. 0.0oz. 63.108623cx; 21.76 BMI Method:Stated Focused Exam Lactate Level 03/25/22 11:20: Lactic Acid Level 1.27 Exam Exam Patient acknowledged, consented, and participated in this virtual visit which was conducted using real time audio/video Vital Signs Date Time Temp Pulse Resp B/P (MAP) Pulse Ox O2 Delivery O2 Flow Rate FiO2 03/26/22 10:31 97 High Flow N/C 3.00 03/26/22 10:00 74 16 140/95 (110) 92 Nasal Cannula 3.00 03/26/22 09:00 90 16 150/86 (107) 99 Nasal Cannula 3.00 03/26/22 08:00 95 Nasal Cannula 3.00 03/26/22 08:00 89 18 153/89 (110) 93 Nasal Cannula 3.00 03/26/22 07:58 35.8 03/26/22 07:39 79 03/26/22 07:36 97 High Flow N/C 3.00 03/26/22 07:00 74 16 158/96 (116) 97 Nasal Cannula 3.00 03/26/22 06:24 75 20 153/86 (108) 98 Nasal Cannula 3.00 03/26/22 05:00 72 16 146/95 (121) 94 Nasal Cannula 3.00 03/26/22 04:00 81 16 147/96 (120) 97 Nasal Cannula 3.00 03/26/22 03:40 36.4 03/26/22 03:39 95 Nasal Cannula 3.00 03/26/22 03:00 78 19 153/99 (115) 98 Nasal Cannula 3.00 03/26/22 02:00 68 16 139/85 (102) 95 Nasal Cannula 3.00 03/26/22 01:58 97 High Flow N/C 3.00 03/26/22 01:24 87 19 137/94 (108) 99 Nasal Cannula 3.00 03/26/22 01:00 90 20 159/103 (121) 99 Nasal Cannula 3.00 03/26/22 01:00 90 03/26/22 00:00 87 16 143/94 (110) 99 Nasal Cannula 3.00 03/25/22 23:41 36.8 03/25/22 23:39 98 Nasal Cannula 3.00 03/25/22 23:00 90 16 134/98 (109) 98 Nasal Cannula 3.00 03/25/22 22:00 89 15 138/91 (108) 98 Nasal Cannula 3.00 03/25/22 21:57 100 High Flow N/C 5.00 03/25/22 21:15 90 15 143/91 (113) 99 Nasal Cannula 5.00 03/25/22 20:00 97 Nasal Cannula 5.00 03/25/22 20:00 84 20 143/89 (112) 98 Nasal Cannula 5.00 03/25/22 19:56 36.4 03/25/22 19:29 36.5 Nasal Cannula 5.00 03/25/22 19:04 86 23 98 Nasal Cannula 3.00 03/25/22 19:00 88 03/25/22 19:00 88 20 138/86 (107) 98 Nasal Cannula 5.00 03/25/22 18:58 97 High Flow N/C 5.00 03/25/22 18:00 80 22 143/92 (109) 97 Nasal Cannula 4.00 03/25/22 17:00 97 152/112 (125) 98 Nasal Cannula 4.00 03/25/22 16:00 89 166/101 (122) 97 Nasal Cannula 4.00 03/25/22 16:00 98 Nasal Cannula 5.00 03/25/22 15:52 96 High Flow N/C 5.00 03/25/22 15:33 36.0 03/25/22 15:00 73 182/82 (115) 100 Nasal Cannula 4.00 03/25/22 14:45 80 176/133 (147) 98 Nasal Cannula 4.00 03/25/22 14:30 88 185/122 (143) 97 Nasal Cannula 4.00 03/25/22 14:15 80 171/118 (135) 98 Nasal Cannula 4.00 03/25/22 14:00 84 199/109 (139) 97 Nasal Cannula 4.00 03/25/22 14:00 98 Nasal Cannula 5.00 03/25/22 13:45 100 236/108 (150) 98 Nasal Cannula 4.00 03/25/22 13:30 87 29 183/146 (158) 99 Nasal Cannula 4.00 03/25/22 13:15 85 19 180/110 (133) 99 Nasal Cannula 4.00 03/25/22 13:00 82 18 181/110 (133) 99 Nasal Cannula 4.00 03/25/22 13:00 90 03/25/22 12:45 87 22 174/118 (136) 98 Nasal Cannula 4.00 03/25/22 12:30 89 38 185/120 (141) 99 Nasal Cannula 4.00 03/25/22 12:15 89 31 188/134 (152) 97 Nasal Cannula 4.00 03/25/22 12:00 98 Nasal Cannula 5.00 03/25/22 12:00 85 28 175/114 (134) 98 Nasal Cannula 4.00 03/25/22 11:45 80 17 185/101 (129) 100 Nasal Cannula 4.00 I & O 03/26/22 07:00 Intake Total 2480 ml Output Total 800 ml Balance 1680 ml Height & Weight Height: 5'4.00" Weight: 140lbs. 0.0oz. 63.477747bu; 21.76 BMI Method:Stated General Appearance: Anxious, Chronically ill, Moderate Distress HEENT: PERRL/EOMI Neck: Non Tender, Supple Respiratory: Accessory Muscle Use, Crackles, Decreased Breath Sounds (L lower most decreased), Wheezing Cardiovascular: Tachycardia Extremity: Non Tender, No Pedal Edema Neurologic/Psychiatric: Alert, Oriented x3 Skin: Normal Color, Warm/Dry Lymphatic: No Adenopathy Results Lab Laboratory Tests 03/25/22 11:20 03/26/22 05:15 Assessment/Plan Assessment/Plan 1 CHERIE CALDERON MD Mar 26, 2022 11:40
[2022-03-26] MEDS: ALPRAZolam 0.25 MG (XANAX) TAB PO PRN ×2 (12:37→18:43)
[2022-03-26] MEDS: ENOXAPARIN 40 MG/0.4 ML (LOVENOX) SYR SC SCH (18:07)
[2022-03-26] MEDS: MONTELUKAST 10 MG (SINGULAIR) TAB PO SCH (21:05)
[2022-03-27] MEDS: RT-ALBUTEROL HFA 8.5 GM INHALER IH SCH ×6 (02:15→22:50)
[2022-03-27] MEDS: CEFEPIME INJECTION 1,000 MG in NS (IVPB) 50 ML IV SCH ×4 (04:14→23:06)
[2022-03-27] MEDS: ALPRAZolam 0.25 MG (XANAX) TAB PO PRN (04:14)
[2022-03-27] MEDS: guaiFENesin/DM (ROBITUSSIN DM) 10 ML UDC PO PRN ×2 (04:14→23:06)
[2022-03-27] MEDS: ACETAMINOPHEN 325 MG TABLET PO PRN (04:15)
[2022-03-27 04:38] LABS: ABG PCO2 43 MMHG (35-45); ABG PH 7.39 (7.37-7.43); ABG PO2 74 MMHG (79-93); ABG TCO2 27.3 MMOL/L (21.0-31.0)
[2022-03-27 04:39] LABS: ABG BASE EXCESS 1.5 MMOL/L (-2.5-2.5); ABG OXYGEN SATURATION 95 % (94-100); ALLENS TEST YES-POS; INSPIRED O2 3L NC; VENTILATOR NO
[2022-03-27 04:40] LABS: PATIENT TEMP 36.6
[2022-03-27 05:32] LABS: BASOPHILS % (AUTO) 0 % (0-10); EOSINOPHILS % (AUTO) 0 % (0-10); HEMATOCRIT 34 % (35-52); HEMOGLOBIN 11.5 g/dL (11.5-16.0); LYMPHOCYTES # (AUTO) 0.3 10^3/uL (1.0-4.0); LYMPHOCYTES % (AUTO) 5 % (12-44); MEAN CORPUSCULAR HEMOGLOBIN 30 pg (25-34); MEAN CORPUSCULAR HGB CONC 33 g/dL (32-36); MEAN CORPUSCULAR VOLUME 90 fL (80-99); MEAN PLATELET VOLUME 10.1 fL (9.0-12.2); MONOCYTES # (AUTO) 0.2 10^3/uL (0.0-1.0); MONOCYTES % (AUTO) 4 % (0-12); NEUTROPHILS # (AUTO) 4.1 10^3/uL (1.8-7.8); NEUTROPHILS % (AUTO) 90 % (42-75); PLATELET COUNT 156 10^3/uL (130-400); WHITE BLOOD COUNT 4.6 10^3/uL (4.3-11.0)
[2022-03-27 05:43] LABS: ALBUMIN 3.3 GM/DL (3.2-4.5); POTASSIUM 3.9 MMOL/L (3.6-5.0)
[2022-03-27 05:44] LABS: CALCIUM 8.9 MG/DL (8.5-10.1)
[2022-03-27 05:47] LABS: BILIRUBIN,TOTAL 0.4 MG/DL (0.1-1.0)
[2022-03-27] MEDS: KCL 20 MEQ TAB (K-DUR) PO SCH (05:47)
[2022-03-27] MEDS: POTASSIUM CL 10MEQ/50ML IVPB 50 ML IV SCH (05:47)
[2022-03-27] MEDS: inSUlin ASPART (NovoLOG) 1 UNIT/0.01 ML (CHARGE PER UNIT) SC SCH ×4 (05:48→20:31)
[2022-03-27 05:49] LABS: CREATININE SERUM 0.79 MG/DL (0.60-1.30); PHOSPHORUS 2.2 MG/DL (2.3-4.7)
[2022-03-27] MEDS: MAGNESIUM 1 GM/100 ML IVPB 100 ML IV SCH (05:52)
[2022-03-27] MEDS: methylPREDNISolone 40 MG/ML (Solu-MEDROL) VIAL IV SCH ×4 (05:59→23:06)
[2022-03-27] MEDS: VENlafaxine XR 75 MG (EFFEXOR XR) CAP PO SCH (06:00)
[2022-03-27] MEDS: PANTOPRAZOLE 40 MG (PROTONIX) TAB PO SCH ×2 (06:01→16:05)
[2022-03-27] MEDS: UMECLIDINIUM BROMIDE (INCRUSE ELLIPTA) 7'S IH SCH (07:15)
[2022-03-27] MEDS: RT--FLUTICASONE/SALMETEROL 232-14 (AIRDUO RespiCLICK) IH SCH ×2 (07:15→19:15)
[2022-03-27] MEDS: AZITHROMYCIN INJECTION 500 MG in NS (IVPB) 250 ML IV SCH (08:30)
[2022-03-27] MEDS: GABAPENTIN 300 MG (NEURONTIN) CAP PO SCH ×3 (08:31→20:31)
[2022-03-27] MEDS: meTOproloL SUCCINATE 50 MG (TOPROL XL) TAB PO SCH (08:32)
[2022-03-27] MEDS: LORATADINE (CLARITIN) 10 MG TAB PO SCH (08:32)
[2022-03-27] MEDS: SENNOSIDES 8.6 MG (SENOKOT) TAB PO SCH ×2 (08:32→20:31)
[2022-03-27] MEDS: DOCUSATE SODIUM 100 MG (COLACE) CAP PO SCH ×2 (08:32→20:31)
--- NOTE | 2022-03-27 09:00 | Diagnostic Imaging Report ---
Indication: Pneumonia Frontal chest obtained at 0525 a.m. compared with 03/26/2022. There is cardiomegaly. There is mild central vascular prominence. There is worsening alveolar infiltrate in the right upper lobe suspicious for pneumonia. There is no pneumothorax or pleural fluid. Impression: Worsening infiltrate in right upper lobe suspicious for pneumonia. No other significant change compared to yesterday. Dictated by: Dictated on workstation # [id number]
--- NOTE | 2022-03-27 09:54 | Tele-ICU Progress Note ---
Subjective Date Seen by a Provider: Mar 27, 2022 Time Seen by a Provider: 09:50 Subjective/Events-last exam (Tele-ICU Physician , Progress Note ) Service provided via interactive audio and video telecommunications E-CARE system to a patient admitted to ICU bed in [facility]. Available chart/ vitals / labs / Images reviewed Video assessment done using teleICU camera, rest of exam as per RN Discussed with RN Events overnight : Afebrile hemodynamically stable Respiratory - 3l I/O =even Drips: no ivf Pressors- no Consultants: Hospital course: (03/25) 66yF direct admit for increasing shortness of breath, cough, sore throat. nausea A/P COVID +03/22 with COVID +- 01/2022 --> Tx with Paxlovid , Patient reported she has had at least 2 negative home COVID tests in the interim.( immunized for COVID and has had 2 boosters with COVID - received monoclonal antibody 03/22 - steroids 03/22 po --> stated on IV 03/25 -CTA 03/23 - NO PE AECOPD - steroidsstarted 03/21 , now on SM 80 q 6 -start agressive br dilartors - empiric abx started Possible bact PNA LLL + worsenign inrtae on left 03/27 - cont cefepime and Z max Diastolic CHF grade II -ECHO 10/2021 - EF 55% RVSP 20 mm Hg - BNP 300s - monitor carefully chronic hypoxia -on 3 l o2 at home nightly Anxiety - precedex stopped last -on xanax thrombocytoopenia, new since 03/22/22 - resolved Resume beta blockers hyperglycemia - ISS Lines : periph , (Central Line Necessity Reviewed) Pedersen: void OG: Nutrition: po Analgesia: Anxiety/ delirium VTE Prophylaxis: bre 40 Stress Ulcer Prophylaxis: PPI given high dose of steroids Plans in collaboration with bedside consultants and IM MDs. Discussed with RN to reach out if any questions or concerns A total of 22 minutes of critical care time was devoted to this patient today, required to treat and/or prevent further deterioration of critical care condition ( as above ) . I am remotely monitoring this patient from another state. I am unable to do the bedside exam, and history/physical and pertinent information is taken from other notes in the computer and bedside staff. . Sepsis Event Evaluation Height, Weight, BMI Height: 5'4.00" Weight: 140lbs. 0.0oz. 63.044639ub; 22.03 BMI Method:Stated Focused Exam Lactate Level 03/25/22 11:20: Lactic Acid Level 1.27 Exam Exam Patient acknowledged, consented, and participated in this virtual visit which was conducted using real time audio/video Vital Signs Date Time Temp Pulse Resp B/P (MAP) Pulse Ox O2 Delivery O2 Flow Rate FiO2 03/27/22 08:35 36.2 96 Nasal Cannula 1.00 03/27/22 08:00 35.7 03/27/22 08:00 82 16 154/90 (111) 98 Nasal Cannula 3.00 03/27/22 07:55 80 03/27/22 07:17 98 High Flow N/C 3.00 03/27/22 07:00 82 17 167/99 (121) 99 Nasal Cannula 3.00 03/27/22 06:00 93 26 152/96 (114) 98 Nasal Cannula 3.00 03/27/22 05:00 83 22 153/96 (115) 97 Nasal Cannula 3.00 03/27/22 04:01 36.6 03/27/22 04:00 80 18 161/97 (118) 91 Nasal Cannula 3.00 03/27/22 03:33 98 Nasal Cannula 3.00 03/27/22 03:00 82 168/97 (120) 98 Nasal Cannula 3.00 03/27/22 02:15 99 High Flow N/C 3.00 03/27/22 02:00 78 17 156/97 (116) 100 Nasal Cannula 3.00 03/27/22 01:00 81 14 155/93 (113) 99 Nasal Cannula 3.00 03/27/22 00:28 81 03/27/22 00:00 80 14 146/95 (112) 99 Nasal Cannula 3.00 03/26/22 23:36 99 Nasal Cannula 3.00 03/26/22 23:16 36.6 03/26/22 23:03 99 High Flow N/C 3.00 03/26/22 23:00 86 18 157/90 (112) 97 Nasal Cannula 3.00 03/26/22 22:00 71 15 146/83 (104) 96 Nasal Cannula 3.00 11/9/22 21:00 80 19 132/81 (98) 93 Nasal Cannula 3.00 03/26/22 20:00 80 19 124/76 (92) 93 Nasal Cannula 3.00 03/26/22 20:00 95 Nasal Cannula 3.00 03/26/22 19:16 83 03/26/22 19:05 36.8 03/26/22 19:00 85 30 141/93 (109) 95 Nasal Cannula 3.00 03/26/22 18:57 96 High Flow N/C 3.00 03/26/22 18:00 72 16 159/95 (116) 99 Nasal Cannula 3.00 03/26/22 17:00 76 16 149/87 (107) 95 Nasal Cannula 3.00 03/26/22 16:00 73 15 151/85 (107) 95 Nasal Cannula 3.00 03/26/22 16:00 95 Nasal Cannula 3.00 03/26/22 15:26 97 High Flow N/C 3.00 03/26/22 15:00 69 13 146/81 (102) 95 Nasal Cannula 3.00 03/26/22 14:05 35.7 03/26/22 14:00 76 18 142/76 (98) 100 Nasal Cannula 3.00 03/26/22 13:21 70 03/26/22 13:00 75 15 133/89 (104) 99 Nasal Cannula 3.00 03/26/22 12:00 79 16 130/80 (97) 97 Nasal Cannula 3.00 03/26/22 12:00 95 Nasal Cannula 3.00 03/26/22 11:50 35.8 03/26/22 11:00 78 16 141/81 (101) 96 Nasal Cannula 3.00 03/26/22 10:31 97 High Flow N/C 3.00 03/26/22 10:00 74 16 140/95 (110) 92 Nasal Cannula 3.00 I & O 03/27/22 07:00 Intake Total 1960 ml Output Total 1850 ml Balance 110 ml Height & Weight Height: 5'4.00" Weight: 140lbs. 0.0oz. 63.646129rl; 22.03 BMI Method:Stated General Appearance: Anxious, Chronically ill, Moderate Distress HEENT: PERRL/EOMI Neck: Non Tender, Supple Respiratory: Accessory Muscle Use, Crackles, Decreased Breath Sounds (L lower most decreased), Wheezing Cardiovascular: Tachycardia Extremity: Non Tender, No Pedal Edema Neurologic/Psychiatric: Alert, Oriented x3 Skin: Normal Color, Warm/Dry Lymphatic: No Adenopathy Results Lab Laboratory Tests 03/25/22 11:20 03/26/22 05:15 03/27/22 04:58 Assessment/Plan Assessment/Plan 1 CHERIE CALDERON MD Mar 27, 2022 09:54
[2022-03-27] MEDS ORDERED: POT PHOS/NA PHOS (K-PHOS NEUTRAL) PO ONE (10:30)
--- NOTE | 2022-03-27 12:03 | Progress Note ---
GEOFFREY ROBERTSON 03/27/22 1203: Subjective Date Seen by a Provider: Mar 27, 2022 Time Seen by a Provider: 10:45 Subjective/Events-last exam Patient is awake and alert in her bed this morning, no family at bedside. She reports that she continues to feel improved. Her chest pain is better today, still worsened with deep inspiration. Her anxiety is well managed with her current regimen of Effexor and Xanax. She reports that her dyspnea is also continuing to improve. The patient's dry cough still persists but is mild. The patient had a headache this morning which did not improve with tylenol but improved with oxycodone. CXR this morning revealed increasing infiltrates in the right upper lobe suspicious for pneumonia. Review of Systems General: Fatigue (Improving), Malaise (Improving) HEENT: Head Aches; No Visual Changes Pulmonary: Cough (Dry, mild) Cardiovascular: Chest Pain (Improving) Gastrointestinal: No: Nausea, Vomiting Genitourinary: No Dysuria Musculoskeletal: back pain (States due to bed) Neurological: No: Change in speech, Confusion Focused Exam Lactate Level 03/25/22 11:20: Lactic Acid Level 1.27 Objective Exam Last Set of Vital Signs Vital Signs Date Time Temp Pulse Resp B/P (MAP) Pulse Ox O2 Delivery O2 Flow Rate FiO2 03/27/22 11:31 36.6 85 13 154/93 (113) 96 Room Air 03/27/22 11:12 1.00 Capillary Refill : I&O Intake and Output 03/27/22 00:00 Intake Total 3140 ml Output Total 1350 ml Balance 1790 ml Intake Oral 2040 ml IV Total 1100 ml Output Urine Total 1350 ml General: Alert, Oriented X3 HEENT: Atraumatic, PERRLA Neck: Supple Lungs: Other (Slightly decreased breath sounds) Heart: Regular Rate, No Murmurs Abdomen: Soft, No Tenderness Extremities: No Clubbing, No Cyanosis Skin: No Rashes, No Significant Lesion Neuro: Normal Speech, Sensation Intact Results Lab Laboratory Tests 03/26/22 20:17: Glucometer 231H 03/27/22 04:27: Blood Gas Puncture Site LRAD, Blood Gas Patient Temperature 36.6, Arterial Blood pH 7.39, Arterial Blood Partial Pressure CO2 43, Arterial Blood Partial Pressure O2 74L, Arterial Blood HCO3 26, Arterial Blood Total CO2 27.3, Arterial Blood Oxygen Saturation 95, Arterial Blood Base Excess 1.5, Storm Test YES-POS, Blood Gas Ventilator Setting NO, Blood Gas Inspired Oxygen 3L NC 03/27/22 04:58: White Blood Count 4.6, Red Blood Count 3.83, Hemoglobin 11.5, Hematocrit 34L, Mean Corpuscular Volume 90, Mean Corpuscular Hemoglobin 30, Mean Corpuscular Hemoglobin Concent 33, Red Cell Distribution Width 13.1, Platelet Count 156, Mean Platelet Volume 10.1, Immature Granulocyte % (Auto) 1, Neutrophils (%) (A uto) 90H, Lymphocytes (%) (Auto) 5L, Monocytes (%) (Auto) 4, Eosinophils (%) (Auto) 0, Basophils (%) (Auto) 0, Neutrophils # (Auto) 4.1, Lymphocytes # (Auto) 0.3L, Monocytes # (Auto) 0.2, Eosinophils # (Auto) 0.0, Basophils # (Auto) 0.0, Immature Granulocyte # (Auto) 0.0, Sodium Level 136, Potassium Level 3.9, Chloride Level 104, Carbon Dioxide Level 22, Anion Gap 10, Blood Urea Nitrogen 21H, Creatinine 0.79, Estimat Glomerular Filtration Rate 82, BUN/Creatinine Ratio 27, Glucose Level 150H, Calcium Level 8.9, Corrected Calcium 9.5, Phosphorus Level 2.2L, Magnesium Level 2.0, Total Bilirubin 0.4, Aspartate Amino Transf (AST/SGOT) 15, Alanine Aminotransferase (ALT/SGPT) 17, Alkaline Phosphatase 67, Total Protein 6.0L, Albumin 3.3 03/27/22 10:41: Glucometer 160H Microbiology 03/25/22 Blood Culture - Preliminary, Resulted No growth Assessment/Plan Assessment/Plan Assess & Plan/Chief Complaint Acute on chronic respiratory failure COPD COVID Pneumonia - left lower lobe Anxiety Hypothyroidism Headache Fatigue Nausea HTN GERD Nasal cannula changed from 3L of O2 to 1L today, O2 sats remain steady ABG today normal Currently on azithromycin and cefepime Currently on Effexor and Xanax Continue steroids Continue nebulizers Antiemetics as needed Continue pain management, currently well-controlled On protonix; antacids as needed Lovenox for DVT prophylaxis Clinical Quality Measures Admission Status Admission Dx Acute respiratory failure CATRINA BUNN DO 03/28/22 0414: Supervisory-Addendum Brief Verification & Attestation Participated in pt care: history, MDM, physical Personally performed: exam, history, MDM, supervision of care Care discussed with: Medical Student Procedures: n/a Results interpretation: Verified all documentation Verification and Attestation of Medical Student E/M Service A medical student performed and documented this service in my presence. I reviewed and verified all information documented by the medical student and made modifications to such information, when appropriate. I personally performed the physical exam and medical decision making. Catrina Bunn, Mar 28, 2022,04:14 GEOFFREY ROBERTSON Mar 27, 2022 12:03 CATRINA BUNN DO Mar 28, 2022 04:14
[2022-03-27] MEDS: LORazepam 0.5 MG (ATIVAN) TABLET PO PRN (14:17)
[2022-03-27] MEDS: ENOXAPARIN 40 MG/0.4 ML (LOVENOX) SYR SC SCH (14:17)
[2022-03-27] MEDS ORDERED: LORazepam 0.5 MG (ATIVAN) TABLET PO NR (16:45)
[2022-03-27] MEDS ORDERED: LOSARTAN 50 MG (COZAAR) TAB PO NR (17:30)
--- NOTE | 2022-03-27 17:35 | Consultation-Cardiology ---
HPI-Cardiology Cardiology Consultation: Date of Consultation 03/27/22 Date of Admission 03/23/22 Attending Physician Catrina Rojas DO Admitting Physician Admitting Physician: Catrina Rojas DO Attending Physician: Catrina Rojas DO Consulting Physician GARFIELD FUNES JR, MD HPI: Time Seen by a Provider: 17:29 Chief Complaint: REASON FOR CONSULTATION: Hypertensive urgency. I had the pleasure of seeing Radha in the intensive care unit at [facility] in [place], [place] this evening. She normally follows with one of my partners, Dr. Engel. She has a cardiac history of mild aortic and mitral regurgitation as well as hypertension. Last week she was diagnosed with COVID and started receiving some outpatient treatment. However, on March 23 she presented to the emergency room with severe shortness of breath and hypoxemia and was admitted to the intensive care unit. She has been having some intermittently elevated blood pressures and today her beta-jon dose was increased. However, this afternoon she has become more hypertensive and a cardiology consultation was requested. I did not speak with the patient due to her COVID status. I did review her from the doorway and also spoke to the [facility]'s nurse. The nurse tells me that the patient has been breathing comfortably on 1 L of oxygen by nasal cannula but at times she becomes anxious and when this occurs, appears to be more short of breath than baseline. She has not been reporting any significant chest discomfort although earlier during the hospitalization was having some chest discomfort. Certain portions of this document may have been dictated utilizing voice recognition technology. Inherent to this technology, typographical and gram matical errors may exist. As much as I am diligent to identify and correct these mistakes, some errors may remain in the document. Review of Systems-Cardiology Review of Systems Other comments Not obtained due to the patient's COVID status. [id number] Hx Patient Social History Marrital Status: Employed/Student: retired Smoking Status: Current Everyday Smoker Immunizations Up To Date Tetanus Booster (TDap): Unknown Date of Pneumonia Vaccine: Jun 11, 2001 Date of Influenza Vaccine: Apr 09, 2018 Past Medical History PMH As described under Assessment. Family Medical History Family Medical History: No documented fam h/o early CAD or SCD Family History: Patient reports no known family medical history. Allergies and Home Medications Allergies Coded Allergies: codeine (Verified Allergy, Unknown, 06/19/08) Patient Home Medication List Home Medication List Reviewed: Yes Albuterol Sulfate (Albuterol Sulfate) 2.5 Mg/0.5 Ml Vial.neb, 2.5 MG INH Q4H PRN for SHORTNESS OF BREATH, (Reported) Entered as Reported by: CHANEL CAMPBELL on 03/25/221552 Last Action: Held Budesonide/Glycopyr/Formoterol (Breztri Aerosphere Inhaler) 160 Mcg-9 Mcg-4.8 Mcg/Actuation Hfa.aer.ad, 2 PUFF INH BID, (Reported) Entered as Reported by: CHANEL CAMPBELL on 03/25/221552 Last Action: Converted Cetirizine HCl (Cetirizine HCl) 10 Mg Tablet, 10 MG PO DAILY, (Reported) Entered as Reported by: CHANEL CAMPBELL on 03/25/221552 Last Action: Continued Fluticasone Propionate (Fluticasone Propionate) 50 Mcg/Actuation [place].susp, 1 SPRAY NSEACH BID, (Reported) Entered as Reported by: CHANEL CAMPBELL on 03/25/221552 Last Action: Continued Gabapentin (Neurontin) 300 Mg Capsule, 600 MG PO TID, (Reported) Entered as Reported by: CHANEL CAMPBELL on 03/25/221552 Last Action: Continued Metoprolol Succinate (Metoprolol Succinate) 50 Mg Tab.er.24h, 50 MG PO DAILY, (Reported) Entered as Reported by: CHANEL CAMPBELL on 03/25/221552 Last Action: Continued Molnupiravir (Molnupiravir (Eua)) 200 Mg Capsule, 800 MG PO BID, (Reported) Entered as Reported by: CHANEL CAMPBELL on 03/25/221552 Last Action: Held Montelukast Sodium (Montelukast Sodium) 10 Mg Tablet, 10 MG PO HS, (Reported) Entered as Reported by: CHANEL CAMPBELL on 03/25/221552 Last Action: Continued Pantoprazole Sodium (Pantoprazole Sodium) 40 Mg Tablet.dr, 40 MG PO BID, (Reported) Entered as Reported by: JUDSON CARLOS on 05/31/18 0932 Last Action: Continued Prednisone (Prednisone) 50 Mg Tab, 50 MG PO DAILY, (Reported) Entered as Reported by: CHANEL CAMPBELL on 03/25/221552 Last Action: Held Venlafaxine HCl (Venlafaxine HCl ER) 150 Mg Cap.er.24h, 150 MG PO DAILY, (Reported) Entered as Reported by: CHANEL CAMPBELL on 03/25/22 155 Last Action: Converted Discontinued Medications Acetaminophen (Tylenol Extra Strength) 500 Mg Tablet, 1,000 MG PO Q6H PRN for PAIN-MILD, (Reported) Discontinued Reason: No Longer Taking Entered as Reported by: RONALDO LOONEY on 03/21/16 1247 Last Action: Discontinued Albuterol Sulfate (Ventolin Hfa) 1 Puff Puff, 2 PUFF IH Q6H PRN for WHEEZING, (Reported) Discontinued Reason: No Longer Taking Entered as Reported by: JUDSON CARLOS on 05/31/18 0933 Last Action: Discontinued Albuterol Sulfate (Albuterol Sulfate) 2.5 Mg/3 Ml Vial.neb, 2.5 MG INH Q4H PRN for WHEEZING Discontinued Reason: No Longer Taking Prescribed by: MILLA TRUJILLO on 04/25/21 1720 Last Action: Discontinued Albuterol Sulfate (Albuterol Sulfate) 2.5 Mg/3 Ml (0.083 %) Vial.neb, 2.5 MG INH Q4H PRN for WHEEZING Discontinued Reason: No Longer Taking Prescribed by: LANIE MONTEMAYOR on 03/24/22 0236 Last Action: Discontinued Benzonatate (Tessalon Perles) 100 Mg Capsule, 200 MG PO TID PRN for COUGH Discontinued Reason: No Longer Taking Prescribed by: CAIO DENIS on 08/24/21 1340 Last Action: Discontinued Cefdinir (Cefdinir) 300 Mg Capsule, 300 MG PO BID Discontinued Reason: No Longer Taking Prescribed by: ZEENAT DWYER on 12/29/19 0943 Last Action: Discontinued Cefuroxime Axetil (Cefuroxime) 250 Mg Tablet, 250 MG PO BID Discontinued Reason: No Longer Taking Prescribed by: MILLA TRUJILLO on 04/25/21 1720 Last Action: Discontinued Doxycycline Monohydrate (Doxycycline Monohydrate) 100 Mg Tablet, 100 MG PO BID Discontinued Reason: No Longer Taking Prescribed by: CAIO DENIS on 08/24/21 1340 Last Action: Discontinued Fluconazole (Fluconazole) 100 Mg Tablet, 100 MG PO DAILY Discontinued Reason: No Longer Taking Prescribed by: CATRINA ROJAS on 06/17/18917 Last Action: Discontinued Fluticasone Propionate (Flovent Hfa 220 mcg) 1 Ea Aero, 1 EA IH BID Discontinued Reason: No Longer Taking Prescribed by: CATRINA ROJAS on 06/17/18921 Last Action: Discontinued Gabapentin (Gabapentin) 300 Mg Capsule, 300 MG PO DAILY@1200 Discontinued Reason: No Longer Taking Prescribed by: CATRINA ROJAS on 06/17/18917 Last Action: Discontinued Hydrocodone Bit/Acetaminophen (Lortab 5 Mg Tablet) 1 Tab Tab, 1 TAB PO Q6H PRN for PAIN-MODERATE Discontinued Reason: No Longer Taking Prescribed by: CATRINA ROJAS on 06/17/18917 Last Action: Discontinued Hydrocodone/Acetaminophen (Hydrocodone-Acetamin 5-325 mg) 1 Each Tablet, 1 EACH PO Q6H PRN for PAIN-BREAKTHROUGH Discontinued Reason: No Longer Taking Prescribed by: ZEENAT DWYER on 12/29/19942 Last Action: Discontinued Hydrocodone/Acetaminophen (Hydrocodone-Acetamin 5-325 mg) 1 Each Tablet, 1 EACH PO Q6H Discontinued Reason: No Longer Taking Prescribed by: JESENIA TOBAR on 02/12/201701 Last Action: Discontinued Methylprednisolone (Methylprednisolone Dose Pack) 4 Mg Tablet, 4 MG PO UD Discontinued Reason: No Longer Taking Prescribed by: JESENIA TOBAR on 02/12/201701 Last Action: Discontinued Metoprolol Succinate (Metoprolol Succinate) 25 Mg Tab.er.24h, 25 MG PO DAILY Discontinued Reason: No Longer Taking Prescribed by: CHERY ROSE on 06/17/18838 Last Action: Discontinued Molnupiravir (Molnupiravir (Eua)) 200 Mg Capsule, 800 MG PO BID Discontinued Reason: No Longer Taking Prescribed by: LANIE MONTEMAYOR on 03/24/22 0243 Last Action: Discontinued Ondansetron (Ondansetron Odt) 4 Mg Tab.rapdis, 4 MG PO Q6H PRN for NAUSEA/VOMITING Discontinued Reason: No Longer Taking Prescribed by: ZEENAT DWYER on 12/29/19942 Last Action: Discontinued Prednisone (Prednisone) 20 Mg Tab, 40 MG PO DAILY Discontinued Reason: No Longer Taking Prescribed by: MILLA TRUJILLO on 04/25/21 1720 Last Action: Discontinued Prednisone (Prednisone) 50 Mg Tab, 50 MG PO DAILY Discontinued Reason: No Longer Taking Prescribed by: CAIO DENIS on 08/24/21 1340 Last Action: Discontinued Prednisone (Prednisone) 50 Mg Tab, 50 MG PO DAILY Discontinued Reason: No Longer Taking Prescribed by: JESENIA TOBAR on 03/23/22 1131 Last Action: Discontinued Venlafaxine HCl (Venlafaxine HCl ER) 75 Mg Cap.er.24h, 75 MG PO DAILY@0700 Discontinued Reason: No Longer Taking Prescribed by: CATRINA ROJAS on 06/17/18 0918 Last Action: Discontinued Exam Vital Signs Vital Signs Date Time Temp Pulse Resp B/P (MAP) Pulse Ox O2 Delivery O2 Flow Rate FiO2 03/27/22 16:06 177/105 (129) 03/27/22 16:00 36.6 87 22 97 Nasal Cannula 1.00 Physical Exam Due to the patient's COVID status, I spoke with the patient from the doorway. General: The patient is breathing spontaneously. She was sitting at 30 degrees upright in bed on nasal cannula oxygen. HENT: Normocephalic. Atraumatic. Skin: There is no pallor. Neurologic: Oriented x3. Cranial nerves III through XII grossly intact. Moving all 4 extremities. Psychiatric: Appears cooperative. Labs Laboratory Tests Test 03/26/22 20:17 03/27/22 04:27 03/27/22 04:58 03/27/22 10:41 Range/Units Glucometer 231 H 160 H 70-110 MG/DL Blood Gas Puncture Site LRAD Blood Gas Patient Temperature 36.6 Arterial Blood pH 7.39 7.37-7.43 Arterial Blood Partial Pressure CO2 43 35-45 MMHG Arterial Blood Partial Pressure O2 74 L 79-93 MMHG Arterial Blood HCO3 26 23-27 MMOL/L Arterial Blood Total CO2 27.3 21.0-31.0 MMOL/L Arterial Blood Oxygen Saturation 95 94-100 % Arterial Blood Base Excess 1.5 -2.5-2.5 MMOL/L Storm Test YES-POS Blood Gas Ventilator Setting NO Blood Gas Inspired Oxygen 3L NC White Blood Count 4.6 4.3-11.0 10^3/uL Red Blood Count 3.83 3.80-5.11 10^6/uL Hemoglobin 11.5 11.5-16.0 g/dL Hematocrit 34 L 35-52 % Mean Corpuscular Volume 90 80-99 fL Mean Corpuscular Hemoglobin 30 25-34 pg Mean Corpuscular Hemoglobin Concent 33 32-36 g/dL Red Cell Distribution Width 13.1 10.0-14.5 % Platelet Count 156 130-400 10^3/uL Mean Platelet Volume 10.1 9.0-12.2 fL Immature Granulocyte % (Auto) 1 % Neutrophils (%) (Auto) 90 H 42-75 % Lymphocytes (%) (Auto) 5 L 12-44 % Monocytes (%) (Auto) 4 0-12 % Eosinophils (%) (Auto) 0 0-10 % Basophils (%) (Auto) 0 0-10 % Neutrophils # (Auto) 4.1 1.8-7.8 10^3/uL Lymphocytes # (Auto) 0.3 L 1.0-4.0 10^3/uL Monocytes # (Auto) 0.2 0.0-1.0 10^3/uL Eosinophils # (Auto) 0.0 0.0-0.3 10^3/uL Basophils # (Auto) 0.0 0.0-0.1 10^3/uL Immature Granulocyte # (Auto) 0.0 0.0-0.1 10^3/uL Sodium Level 136 135-145 MMOL/L Potassium Level 3.9 3.6-5.0 MMOL/L Chloride Level 104 98-107 MMOL/L Carbon Dioxide Level 22 21-32 MMOL/L Anion Gap 10 5-14 MMOL/L Blood Urea Nitrogen 21 H 7-18 MG/DL Creatinine 0.79 0.60-1.30 MG/DL Estimat Glomerular Filtration Rate 82 BUN/Creatinine Ratio 27 Glucose Level 150 H 70-105 MG/DL Calcium Level 8.9 8.5-10.1 MG/DL Corrected Calcium 9.5 8.5-10.1 MG/DL Phosphorus Level 2.2 L 2.3-4.7 MG/DL Magnesium Level 2.0 1.6-2.4 MG/DL Total Bilirubin 0.4 0.1-1.0 MG/DL Aspartate Amino Transf (AST/SGOT) 15 5-34 U/L Alanine Aminotransferase (ALT/SGPT) 17 0-55 U/L Alkaline Phosphatase 67 40-136 U/L Total Protein 6.0 L 6.4-8.2 GM/DL Albumin 3.3 3.2-4.5 GM/DL Test 03/27/22 16:01 Range/Units Glucometer 145 H 70-110 MG/DL Diagnosis/Problems Diagnosis/Problems (1) Hypertensive urgency Assessment & Plan: Her blood pressures became more significantly elevated this afternoon for unclear reasons. She is now back on her home dose of metoprolol. I will start her on losartan and give the first dose this evening. (2) Aortic regurgitation Assessment & Plan: Her most recent echocardiogram showed mild aortic regurgitation. This should not be causing symptoms but will need to be followed longitudinally. She is about due for follow-up echocardiogram but I will hold off on doing this until she has recovered from her COVID infection and is off isolation. (3) Pulmonary hypertension Assessment & Plan: She has had mild pulmonary hypertension in the past which was felt to be due to her chronic obstructive pulmonary disease. This will need to be followed longitudinally. She should continue with home oxygen at night as she has been doing prior to admission. (4) Mitral regurgitation Assessment & Plan: She also has mild mitral regurgitation. As with the aortic regurgitation, this should not be causing symptoms but will need to be followed longitudinally. (5) Acute on chronic respiratory failure with hypoxemia Assessment & Plan: I suspect this is primarily due to her underlying chronic obstructive pulmonary disease with superimposed COVID infection. The hospitalist and eICU are managing this condition. (6) Primary hypertension Assessment & Plan: As above. GARFIELD FUNES JR, MD Mar 27, 2022 17:35
[2022-03-27] MEDS ORDERED: LOSARTAN 25 MG (COZAAR) TAB PO ONE (20:15)
[2022-03-27] MEDS ORDERED: LOSARTAN 25 MG (COZAAR) TAB ONE (20:22)
[2022-03-27] MEDS: MONTELUKAST 10 MG (SINGULAIR) TAB PO SCH (20:31)
[2022-03-27] MEDS: FLUTICASONE NASAL SPRAY (FLONASE) 16 GM BTL NS SCH (20:33)
[2022-03-28] MEDS: RT-ALBUTEROL HFA 8.5 GM INHALER IH SCH ×4 (03:02→15:04)
[2022-03-28] MEDS: guaiFENesin/DM (ROBITUSSIN DM) 10 ML UDC PO PRN (05:12)
[2022-03-28] MEDS: CEFEPIME INJECTION 1,000 MG in NS (IVPB) 50 ML IV SCH ×2 (05:12→12:18)
[2022-03-28] MEDS: ACETAMINOPHEN 325 MG TABLET PO PRN ×2 (05:13→09:31)
[2022-03-28] MEDS: inSUlin ASPART (NovoLOG) 1 UNIT/0.01 ML (CHARGE PER UNIT) SC SCH ×2 (05:16→11:40)
[2022-03-28] MEDS: VENlafaxine XR 75 MG (EFFEXOR XR) CAP PO SCH (05:40)
[2022-03-28] MEDS: PANTOPRAZOLE 40 MG (PROTONIX) TAB PO SCH (05:40)
[2022-03-28] MEDS: methylPREDNISolone 40 MG/ML (Solu-MEDROL) VIAL IV SCH ×2 (05:40→12:18)
[2022-03-28 05:57] LABS: BASOPHILS % (AUTO) 0 % (0-10); EOSINOPHILS % (AUTO) 0 % (0-10); HEMATOCRIT 34 % (35-52); HEMOGLOBIN 11.4 g/dL (11.5-16.0); LYMPHOCYTES # (AUTO) 0.4 10^3/uL (1.0-4.0); LYMPHOCYTES % (AUTO) 11 % (12-44); MEAN CORPUSCULAR HEMOGLOBIN 30 pg (25-34); MEAN CORPUSCULAR HGB CONC 33 g/dL (32-36); MEAN CORPUSCULAR VOLUME 91 fL (80-99); MEAN PLATELET VOLUME 10.6 fL (9.0-12.2); MONOCYTES # (AUTO) 0.2 10^3/uL (0.0-1.0); MONOCYTES % (AUTO) 6 % (0-12); NEUTROPHILS # (AUTO) 3.1 10^3/uL (1.8-7.8); NEUTROPHILS % (AUTO) 79 % (42-75); PLATELET COUNT 145 10^3/uL (130-400); WHITE BLOOD COUNT 3.9 10^3/uL (4.3-11.0)
[2022-03-28 06:19] LABS: ALBUMIN 3.3 GM/DL (3.2-4.5)
[2022-03-28 06:20] LABS: POTASSIUM 3.3 MMOL/L (3.6-5.0)
[2022-03-28 06:21] LABS: CALCIUM 8.9 MG/DL (8.5-10.1)
[2022-03-28 06:22] LABS: TOTAL PROTEIN 5.9 GM/DL (6.4-8.2)
[2022-03-28 06:24] LABS: BILIRUBIN,TOTAL 0.5 MG/DL (0.1-1.0)
[2022-03-28 06:26] LABS: CREATININE SERUM 0.72 MG/DL (0.60-1.30)
[2022-03-28 06:29] LABS: MAGNESIUM 1.8 MG/DL (1.6-2.4)
[2022-03-28] MEDS: UMECLIDINIUM BROMIDE (INCRUSE ELLIPTA) 7'S IH SCH (08:25)
[2022-03-28] MEDS: RT--FLUTICASONE/SALMETEROL 232-14 (AIRDUO RespiCLICK) IH SCH (08:25)
[2022-03-28] MEDS ORDERED: LOSARTAN 50 MG (COZAAR) TAB PO SCH (09:00)
[2022-03-28] MEDS: GABAPENTIN 300 MG (NEURONTIN) CAP PO SCH ×2 (09:30→12:19)
[2022-03-28] MEDS: AZITHROMYCIN INJECTION 500 MG in NS (IVPB) 250 ML IV SCH (09:30)
[2022-03-28] MEDS: LORATADINE (CLARITIN) 10 MG TAB PO SCH (09:30)
[2022-03-28] MEDS: FLUTICASONE NASAL SPRAY (FLONASE) 16 GM BTL NS SCH (09:30)
[2022-03-28] MEDS: DOCUSATE SODIUM 100 MG (COLACE) CAP PO SCH (09:30)
[2022-03-28] MEDS: meTOproloL SUCCINATE 50 MG (TOPROL XL) TAB PO SCH (09:31)
[2022-03-28] MEDS: SENNOSIDES 8.6 MG (SENOKOT) TAB PO SCH (09:31)
--- NOTE | 2022-03-28 09:45 | Cardiology Progress Note ---
Progress Note-Cardiology Events since last exam Date Seen by Provider: Mar 28, 2022 Time Seen by Provider: 09:43 Events since last exam I am following her due to hypertensive urgency. On 03/27 she was transferred out of the intensive care unit to the medical floor. I spoke to her from the doorway. I did not enter her room due to COVID status. She states her breathing has continued to improve but is not quite back to baseline. She denies chest pain, palpitations, syncope, or ankle edema. Certain portions of this document may have been dictated utilizing voice recognition technology. Inherent to this technology, typographical and grammatical errors may exist. As much as I am diligent to identify and correct these mistakes, some errors may remain in the document. Vitals Last set of Vitals Signs Vital Signs 03/28/22 03/28/22 12:00 15:04 Temp 36.8 Pulse 75 Resp 18 B/P (MAP) 194/97 (129) Pulse Ox 96 O2 Delivery High Flow N/C O2 Flow Rate 3.00 Labs Labs Laboratory Tests 03/28/22 05:29 Exam Vital Signs Vital Signs Date Time Temp Pulse Resp B/P (MAP) Pulse Ox O2 Delivery O2 Flow Rate FiO2 03/28/22 15:20 03/28/22 15:04 96 High Flow N/C 3.00 03/28/22 12:00 36.8 75 18 Physical Exam Due to the patient's COVID status, I spoke with the patient from the doorway. She was sitting up in bed speaking comfortably. General: The patient is breathing spontaneously. HENT: Normocephalic. Atraumatic. Skin: There is no pallor. Neurologic: Oriented x3. Cranial nerves III through XII grossly intact. Moving all 4 extremities. Psychiatric: Appears cooperative. Labs Laboratory Tests Test 03/27/22 19:52 03/28/22 05:06 03/28/22 05:29 03/28/22 10:58 Range/Units Glucometer 159 H 132 H 143 H 70-110 MG/DL White Blood Count 3.9 L 4.3-11.0 10^3/uL Red Blood Count 3.78 L 3.80-5.11 10^6/uL Hemoglobin 11.4 L 11.5-16.0 g/dL Hematocrit 34 L 35-52 % Mean Corpuscular Volume 91 80-99 fL Mean Corpuscular Hemoglobin 30 25-34 pg Mean Corpuscular Hemoglobin Concent 33 32-36 g/dL Red Cell Distribution Width 13.2 10.0-14.5 % Platelet Count 145 130-400 10^3/uL Mean Platelet Volume 10.6 9.0-12.2 fL Immature Granulocyte % (Auto) 4 % Neutrophils (%) (Auto) 79 H 42-75 % Lymphocytes (%) (Auto) 11 L 12-44 % Monocytes (%) (Auto) 6 0-12 % Eosinophils (%) (Auto) 0 0-10 % Basophils (%) (Auto) 0 0-10 % Neutrophils # (Auto) 3.1 1.8-7.8 10^3/uL Lymphocytes # (Auto) 0.4 L 1.0-4.0 10^3/uL Monocytes # (Auto) 0.2 0.0-1.0 10^3/uL Eosinophils # (Auto) 0.0 0.0-0.3 10^3/uL Basophils # (Auto) 0.0 0.0-0.1 10^3/uL Immature Granulocyte # (Auto) 0.1 0.0-0.1 10^3/uL Sodium Level 137 135-145 MMOL/L Potassium Level 3.3 L 3.6-5.0 MMOL/L Chloride Level 101 98-107 MMOL/L Carbon Dioxide Level 23 21-32 MMOL/L Anion Gap 13 5-14 MMOL/L Blood Urea Nitrogen 17 7-18 MG/DL Creatinine 0.72 0.60-1.30 MG/DL Estimat Glomerular Filtration Rate 92 BUN/Creatinine Ratio 24 Glucose Level 133 H 70-105 MG/DL Calcium Level 8.9 8.5-10.1 MG/DL Corrected Calcium 9.5 8.5-10.1 MG/DL Magnesium Level 1.8 1.6-2.4 MG/DL Total Bilirubin 0.5 0.1-1.0 MG/DL Aspartate Amino Transf (AST/SGOT) 18 5-34 U/L Alanine Aminotransferase (ALT/SGPT) 20 0-55 U/L Alkaline Phosphatase 65 40-136 U/L Total Protein 5.9 L 6.4-8.2 GM/DL Albumin 3.3 3.2-4.5 GM/DL Diagnosis/Problems Diagnosis/Problems (1) Hypertensive urgency Assessment & Plan: Her blood pressures became more significantly elevated on 03/27 for unclear reasons. Some of this may have been due to anxiety as well as stress from the COVID infection. She is on her home dose of metoprolol. I started her on losartan but her blood pressures remained elevated overnight and into this morning. I will increase the dose of losartan to 100 mg daily s tarting this morning. I have asked her to watch her blood pressures closely after discharge to make sure that we do not inadvertently cause iatrogenic hypotension. (2) Aortic regurgitation Assessment & Plan: Her most recent echocardiogram showed mild aortic regurgitation. This should not be causing symptoms but will need to be followed longitudinally. She is about due for follow-up echocardiogram but I will hold off on doing this until she has recovered from her COVID infection and is off isolation. This can be scheduled following discharge. (3) Pulmonary hypertension Assessment & Plan: She has had mild pulmonary hypertension in the past which was felt to be due to her chronic obstructive pulmonary disease. This will need to be followed longitudinally. She should continue with home oxygen at night as she has been doing prior to admission. (4) Mitral regurgitation Assessment & Plan: She also has mild mitral regurgitation. As with the aortic regurgitation, this should not be causing symptoms but will need to be followed longitudinally. (5) Acute on chronic respiratory failure with hypoxemia Assessment & Plan: I suspect this is primarily due to her underlying chronic obstructive pulmonary disease with superimposed COVID infection. The hospitalist and eICU are managing this condition. (6) Primary hypertension Assessment & Plan: As above. (7) Cigarette smoker Assessment & Plan: She needs to quit smoking. She was counseled in this regard. GARFIELD FUNES JR, MD Mar 28, 2022 09:45
[2022-03-28] MEDS ORDERED: meTOproloL SUCCINATE 50 MG (TOPROL XL) TAB PO NR (10:30)
[2022-03-28] MEDS ORDERED: PRED10TA22 PO (11:34)
[2022-03-28] MEDS ORDERED: ALBU6.7H13 INH (11:34)
[2022-03-28] MEDS ORDERED: CEFD300C3 PO (11:34)
[2022-03-28] MEDS ORDERED: LORA-404 PO (11:34)
[2022-03-28] MEDS ORDERED: LOSA50TA63 PO (11:34)
--- NOTE | 2022-03-28 11:35 | Discharge Summary ---
Diagnosis/Chief Complaint Date of Admission Mar 25, 2022 at 10:16 Date of Discharge Discharge Date: Mar 28, 2022 Discharge Diagnosis Acute on chronic respiratory failure COPD COVID Pneumonia - left lower lobe Anxiety Hypothyroidism Headache Fatigue Nausea HTN GERD Nasal cannula changed from 3L of O2 to 1L today, O2 sats remain steady ABG today normal Currently on azithromycin and cefepime Currently on Effexor and Xanax Continue steroids Continue nebulizers Antiemetics as needed Continue pain management, currently well-controlled On protonix; antacids as needed Lovenox for DVT prophylaxis Reason Hospital Visit Discharge Summary Discharge Physical Examination Allergies: Coded Allergies: codeine (Verified Allergy, Unknown, 06/19/08) Vitals & I&Os Vital Signs Date Time Temp Pulse Resp B/P (MAP) Pulse Ox O2 Delivery O2 Flow Rate FiO2 03/28/22 15:20 03/28/22 15:04 96 High Flow N/C 3.00 03/28/22 12:00 36.8 75 18 General Appearance: Alert, Oriented X3, Cooperative Respiratory: Clear to Auscultation Neuro: Normal Gait, Normal Speech, Strength at 5/5 X4 Ext Psych/Mental Status: Mental Status NL Hospital Course Was the Problem List Reviewed?: Yes Patient is a 66 year old female with a history of HTN and COPD and patient of Dr. Bunn who was admitted to the ICU on 03/25 for acute on chronic respiratory failure. The patient states that the 2 weeks prior to admission they had symptoms of mild cough, sinus congestion, and some slight dyspnea that they attributed to allergies. On 03/22, the patient began having chest pain, SOB, and felt that they were about to have a syncopal episode when they stood up. They arrived via POV to the ED on 03/22 and were treated with monoclonal antibodies after testing positive for COVID. The patient was discharged but their symptoms did not improve leading to their direct admission to the ICU for acute on chronic respiratory failure. The patient was extremely anxious on admission and complained of severe SOB, she was placed on supplemental oxygen and started on steroids and nebulizers. An ABG was obtained and was normal except for a minor drop in O2 at 78. The patient was started on precedex which improved her anxiety. CXR showed infiltrates in the left lower lobe consistent with pneumonia and a repeat CXR on 03/27 showed infiltrates in the right upper lobe suspicous for pneumonia. After the patient's anxiety improved, precedex was held and the patient was started on effexor and xanax which managed her anxiety effectively. The patient's xanax was changed to ativan on 03/27 The patient's symptoms improved throughout her hospital stay and her o2 saturation remained steady on 3L of oxygen which is the amount of O2 the patient uses at night. The patient is being discharged today with home O2, omnicef, nebulizers, effexor, ativan, and a prednisone taper. The patient will follow up outpatient with Dr. Bunn. AILYN,[facility] Labs (last 24 hrs) Laboratory Tests 03/25/22 11:10: Blood Gas Puncture Site RR, Blood Gas Patient Temperature 36.5, Arterial Blood pH 7.43, Arterial Blood Partial Pressure CO2 39, Arterial Blood Partial Pressure O2 78L, Arterial Blood HCO3 26, Arterial Blood Total CO2 26.8, Arterial Blood Oxygen Saturation 97, Arterial Blood Base Excess 1.6, Storm Test YES-POS, Blood Gas Ventilator Setting NO, Blood Gas Inspired Oxygen 5L 03/25/22 11:20: White Blood Count 3.5L, Red Blood Count 4.34, Hemoglobin 13.0, Hematocrit 40, Mean Corpuscular Volume 91, Mean Corpuscular Hemoglobin 30, Mean Corpuscular Hemoglobin Concent 33, Red Cell Distribution Width 13.1, Platelet Count 123L, Mean Platelet Volume 10.2, Immature Granulocyte % (Auto) 0, Neutrophils (%) (Auto) 83H, Lymphocytes (%) (Auto) 11L, Monocytes (%) (Auto) 5, Eosinophils (%) (Auto) 0, Basophils (%) (Auto) 1, Neutrophils # (Auto) 2.9, Lymphocytes # (Auto) 0.4L, Monocytes # (Auto) 0.2, Eosinophils # (Auto) 0.0, Basophils # (Auto) 0.0, Immature Granulocyte # (Auto) 0.0, Percent Immature Platelet Fraction 4.9, Prothrombin Time 16.7H, INR Comment 1.3, D-Dimer 1.75H, Sodium Level 134L, Potassium Level 3.9, Chloride Level 97L, Carbon Dioxide Level 26, Anion Gap 11, Blood Urea Nitrogen 11, Creatinine 0.81, Estimat Glomerular Filtration Rate 80, BUN/Creatinine Ratio 14, Glucose Level 86, Lactic Acid Level 1.27, Calcium Level 9.5, Corrected Calcium 9.8, Total Bilirubin 0.9, Aspartate Amino Transf (AST/SGOT) 22, Alanine Aminotransferase (ALT/SGPT) 19, Alkaline Phosphatase 84, Troponin I < 0.028, B-Type Natriuretic Peptide 352.8H, Total Protein 6.7, Albumin 3.6, Procalcitonin 0.17H 03/25/22 14:00: Urine Color YELLOW, Urine Clarity CLEAR, Urine pH 6.5, Urine Specific [place] 1.020, Urine Protein 2+H, Urine Glucose (UA) NEGATIVE, Urine Ketones 2+H, Urine Nitrite NEGATIVE, Urine Bilirubin 1+H, Urine Urobilinogen 4.0, Urine Leukocyte Esterase NEGATIVE, Urine RBC (Auto) 1+H, Urine RBC 0-2, Urine WBC NONE, Urine Squamous Epithelial Cells 2-5, Urine Crystals NONE, Urine Bacteria TRACE, Urine Casts NONE, Urine Mucus NEGATIVE, Urine Culture Indicated NO 03/25/22 15:14: Glucometer 82 03/25/22 20:20: Glucometer 116H 03/26/22 05:15: White Blood Count 2.7L, Red Blood Count 3.97, Hemoglobin 11.9, Hematocrit 36, Mean Corpuscular Volume 90, Mean Corpuscular Hemoglobin 30, Mean Corpuscular Hemoglobin Concent 33, Red Cell Distribution Width 12.9, Platelet Count 128L, Mean Platelet Volume 10.2, Immature Granulocyte % (Auto) 0, Neutrophils (%) (Auto) 91H, Lymphocytes (%) (Auto) 6L, Monocytes (%) (Auto) 3, Eosinophils (%) (Auto) 0, Basophils (%) (Auto) 0, Neutrophils # (Auto) 2.4, Lymphocytes # (Auto) 0.2L, Monocytes # (Auto) 0.1, Eosinophils # (Auto) 0.0, Basophils # (Auto) 0.0, Immature Granulocyte # (Auto) 0.0, Percent Immature Platelet Fraction 4.8, Sodium Level 135, Potassium Level 4.0, Chloride Level 102, Carbon Dioxide Level 21, Anion Gap 12, Blood Urea Nitrogen 18, Creatinine 0.80, Estimat Glomerular Filtration Rate 81, BUN/Creatinine Ratio 23, Glucose Level 135H, Calcium Level 8.9, Corrected Calcium 9.5, Phosphorus Level 3.6, Magnesium Level 2.0, Total Bilirubin 0.5, Aspartate Amino Transf (AST/SGOT) 15, Alanine Aminotransferase (ALT/SGPT) 17, Alkaline Phosphatase 81, Total Protein 6.2L, Albumin 3.2, Procalcitonin 0.14H 03/26/22 10:39: Glucometer 148H 03/26/22 20:17: Glucometer 231H 03/27/22 04:27: Blood Gas Puncture Site LRAD, Blood Gas Patient Temperature 36.6, Arterial Blood pH 7.39, Arterial Blood Partial Pressure CO2 43, Arterial Blood Partial Pressure O2 74L, Arterial Blood HCO3 26, Arterial Blood Total CO2 27.3, Arterial Blood Oxygen Saturation 95, Arterial Blood Base Excess 1.5, Storm Test YES-POS, Blood Gas Ventilator Setting NO, Blood Gas Inspired Oxygen 3L PA 03/27/22 04:58: White Blood Count 4.6, Red Blood Count 3.83, Hemoglobin 11.5, Hematocrit 34L, Mean Corpuscular Volume 90, Mean Corpuscular Hemoglobin 30, Mean Corpuscular Hemoglobin Concent 33, Red Cell Distribution Width 13.1, Platelet Count 156, Mean Platelet Volume 10.1, Immature Granulocyte % (Auto) 1, Neutrophils (%) (Auto) 90H, Lymphocytes (%) (Auto) 5L, Monocytes (%) (Auto) 4, Eosinophils (%) (Auto) 0, Basophils (%) (Auto) 0, Neutrophils # (Auto) 4.1, Lymphocytes # (Auto) 0.3L, Monocytes # (Auto) 0.2, Eosinophils # (Auto) 0.0, Basophils # (Auto) 0.0, Immature Granulocyte # (Auto) 0.0, Sodium Level 136, Potassium Level 3.9, Chloride Level 104, Carbon Dioxide Level 22, Anion Gap 10, Blood Urea Nitrogen 21H, Creatinine 0.79, Estimat Glomerular Filtration Rate 82, BUN/Creatinine Ratio 27, Glucose Level 150H, Calcium Level 8.9, Corrected Calcium 9.5, Phosphorus Level 2.2L, Magnesium Level 2.0, Total Bilirubin 0.4, Aspartate Amino Transf (AST/SGOT) 15, Alanine Aminotransferase (ALT/SGPT) 17, Alkaline Phosphatase 67, Total Protein 6.0L, Albumin 3.3 03/27/22 10:41: Glucometer 160H 03/27/22 16:01: Glucometer 145H 03/27/22 19:52: Glucometer 159H 03/28/22 05:06: Glucometer 132H 03/28/22 05:29: White Blood Count 3.9L, Red Blood Count 3.78L, Hemoglobin 11.4L, Hematocrit 34L, Mean Corpuscular Volume 91, Mean Corpuscular Hemoglobin 30, Mean Corpuscular Hemoglobin Concent 33, Red Cell Distribution Width 13.2, Platelet Count 145, Mean Platelet Volume 10.6, Immature Granulocyte % (Auto) 4, Neutrophils (%) (Auto) 79H, Lymphocytes (%) (Auto) 11L, Monocytes (%) (Auto) 6, Eosinophils (%) (Auto) 0, Basophils (%) (Auto) 0, Neutrophils # (Auto) 3.1, Lymphocytes # (Auto) 0.4L, Monocytes # (Auto) 0.2, Eosinophils # (Auto) 0.0, Basophils # (Auto) 0.0, Immature Granulocyte # (Auto) 0.1, Sodium Level 137, Potassium Level 3.3L, Chloride Level 101, Carbon Dioxide Level 23, Anion Gap 13, Blood Urea Nitrogen 17, Creatinine 0.72, Estimat Glomerular Filtration Rate 92, BUN/Creatinine Ratio 24, Glucose Level 133H, Calcium Level 8.9, Corrected Calcium 9.5, Magnesium Level 1.8, Total Bilirubin 0.5, Aspartate Amino Transf (AST/SGOT) 18, Alanine Aminotransferase (ALT/SGPT) 20, Alkaline Phosphatase 65, Total Protein 5.9L, Albumin 3.3 03/28/22 10:58: Glucometer 143H Microbiology 03/25/22 Blood Culture - Preliminary, Resulted No growth Pending Labs Microbiology Date/Time Source Procedure Growth Status 03/25/22 11:25 Peripheral Rt Hand Blood Culture - Preliminary No growth Resulted 03/25/22 11:20 Peripheral Rt Ac Blood Culture - Preliminary No growth Resulted Laboratory Tests 03/25/22 11:10: Blood Gas Puncture Site RR, Blood Gas Patient Temperature 36.5, Arterial Blood pH 7.43, Arterial Blood Partial Pressure CO2 39, Arterial Blood Partial Pressure O2 78, Arterial Blood HCO3 26, Arterial Blood Total CO2 26.8, Arterial Blood Oxygen Saturation 97, Arterial Blood Base Excess 1.6, Storm Test YES-POS, Blood Gas Ventilator Setting NO, Blood Gas Inspired Oxygen 5L 03/25/22 11:20: White Blood Count 3.5, Red Blood Count 4.34, Hemoglobin 13.0, Hematocrit 40, Mean Corpuscular Volume 91, Mean Corpuscular Hemoglobin 30, Mean Corpuscular Hemoglobin Concent 33, Red Cell Distribution Width 13.1, Platelet Count 123, Mean Platelet Volume 10.2, Immature Granulocyte % (Auto) 0, Neutrophils (%) (Auto) 83, Lymphocytes (%) (Auto) 11, Monocytes (%) (Auto) 5, Eosinophils (%) (Auto) 0, Basophils (%) (Auto) 1, Neutrophils # (Auto) 2.9, Lymphocytes # (Auto) 0.4, Monocytes # (Auto) 0.2, Eosinophils # (Auto) 0.0, Basophils # (Auto) 0.0, Immature Granulocyte # (Auto) 0.0, Percent Immature Platelet Fraction 4.9, Prothrombin Time 16.7, INR Comment 1.3, D-Dimer 1.75, Sodium Level 134, Potassium Level 3.9, Chloride Level 97, Carbon Dioxide Level 26, Anion Gap 11, Blood Urea Nitrogen 11, Creatinine 0.81, Estimat Glomerular Filtration Rate 80, BUN/Creatinine Ratio 14, Glucose Level 86, Lactic Acid Level 1.27, Calcium Level 9.5, Corrected Calcium 9.8, Total Bilirubin 0.9, Aspartate Amino Transf (AST/SGOT) 22, Alanine Aminotransferase (ALT/SGPT) 19, Alkaline Phosphatase 84, Troponin I < 0.028, B-Type Natriuretic Peptide 352.8, Total Protein 6.7, Albumin 3.6, Procalcitonin 0.17 03/25/22 14:00: Urine Color YELLOW, Urine Clarity CLEAR, Urine pH 6.5, Urine Specific [place] 1.020, Urine Protein 2+, Urine Glucose (UA) NEGATIVE, Urine Ketones 2+, Urine Nitrite NEGATIVE, Urine Bilirubin 1+, Urine Urobilinogen 4.0, Urine Leukocyte Esterase NEGATIVE, Urine RBC (Auto) 1+, Urine RBC 0-2, Urine WBC NONE, Urine Squamous Epithelial Cells 2-5, Urine Crystals NONE, Urine Bacteria TRACE, Urine Casts NONE, Urine Mucus NEGATIVE, Urine Culture Indicated NO 03/25/22 15:14: Glucometer 82 03/25/22 20:20: Glucometer 116 03/26/22 05:15: White Blood Count 2.7, Red Blood Count 3.97, Hemoglobin 11.9, Hematocrit 36, Mean Corpuscular Volume 90, Mean Corpuscular Hemoglobin 30, Mean Corpuscular Hemoglobin Concent 33, Red Cell Distribution Width 12.9, Platelet Count 128, Mean Platelet Volume 10.2, Immature Granulocyte % (Auto) 0, Neutrophils (%) (Auto) 91, Lymphocytes (%) (Auto) 6, Monocytes (%) (Auto) 3, Eosinophils (%) (Auto) 0, Basophils (%) (Auto) 0, Neutrophils # (Auto) 2.4, Lymphocytes # (Auto) 0.2, Monocytes # (Auto) 0.1, Eosinophils # (Auto) 0.0, Basophils # (Auto) 0.0, Immature Granulocyte # (Auto) 0.0, Percent Immature Platelet Fraction 4.8, Sodium Level 135, Potassium Level 4.0, Chloride Level 102, Carbon Dioxide Level 21, Anion Gap 12, Blood Urea Nitrogen 18, Creatinine 0.80, Estimat Glomerular Filtration Rate 81, BUN/Creatinine Ratio 23, Glucose Level 135, Calcium Level 8.9, Corrected Calcium 9.5, Phosphorus Level 3.6, Magnesium Level 2.0, Total Bilirubin 0.5, Aspartate Amino Transf (AST/SGOT) 15, Alanine Aminotransferase (ALT/SGPT) 17, Alkaline Phosphatase 81, Total Protein 6.2, Albumin 3.2, Procalcitonin 0.14 03/26/22 10:39: Glucometer 148 03/26/22 20:17: Glucometer 231 03/27/22 04:27: Blood Gas Puncture Site LRAD, Blood Gas Patient Temperature 36.6, Arterial Blood pH 7.39, Arterial Blood Partial Pressure CO2 43, Arterial Blood Partial Pressure O2 74, Arterial Blood HCO3 26, Arterial Blood Total CO2 27.3, Arterial Blood Oxygen Saturation 95, Arterial Blood Base Excess 1.5, Storm Test YES-POS, Blood Gas Ventilator Setting NO, Blood Gas Inspired Oxygen 3L [place] 03/27/22 04:58: White Blood Count 4.6, Red Blood Count 3.83, Hemoglobin 11.5, Hematocrit 34, Mean Corpuscular Volume 90, Mean Corpuscular Hemoglobin 30, Mean Corpuscular Hemoglobin Concent 33, Red Cell Distribution Width 13.1, Platelet Count 156, Mean Platelet Volume 10.1, Immature Granulocyte % (Auto) 1, Neutrophils (%) (Auto) 90, Lymphocytes (%) (Auto) 5, Monocytes (%) (Auto) 4, Eosinophils (%) (Auto) 0, Basophils (%) (Auto) 0, Neutrophils # (Auto) 4.1, Lymphocytes # (Auto) 0.3, Monocytes # (Auto) 0.2, Eosinophils # (Auto) 0.0, Basophils # (Auto) 0.0, Immature Granulocyte # (Auto) 0.0, Sodium Level 136, Potassium Level 3.9, Chloride Level 104, Carbon Dioxide Level 22, Anion Gap 10, Blood Urea Nitrogen 21, Creatinine 0.79, Estimat Glomerular Filtration Rate 82, BUN/Creatinine Ratio 27, Glucose Level 150, Calcium Level 8.9, Corrected Calcium 9.5, Phosphorus Level 2.2, Magnesium Level 2.0, Total Bilirubin 0.4, Aspartate Amino Transf (AST/SGOT) 15, Alanine Aminotransferase (ALT/SGPT) 17, Alkaline Phosphatase 67, Total Protein 6.0, Albumin 3.3 03/27/22 10:41: Glucometer 160 03/27/22 16:01: Glucometer 145 03/27/22 19:52: Glucometer 159 03/28/22 05:06: Glucometer 132 03/28/22 05:29: White Blood Count 3.9, Red Blood Count 3.78, Hemoglobin 11.4, Hematocrit 34, Mean Corpuscular Volume 91, Mean Corpuscular Hemoglobin 30, Mean Corpuscular Hemoglobin Concent 33, Red Cell Distribution Width 13.2, Platelet Count 145, Mean Platelet Volume 10.6, Immature Granulocyte % (Auto) 4, Neutrophils (%) (Auto) 79, Lymphocytes (%) (Auto) 11, Monocytes (%) (Auto) 6, Eosinophils (%) (Auto) 0, Basophils (%) (Auto) 0, Neutrophils # (Auto) 3.1, Lymphocytes # (Auto) 0.4, Monocytes # (Auto) 0.2, Eosinophils # (Auto) 0.0, Basophils # (Auto) 0.0, Immature Granulocyte # (Auto) 0.1, Sodium Level 137, Potassium Level 3.3, Chloride Level 101, Carbon Dioxide Level 23, Anion Gap 13, Blood Urea Nitrogen 17, Creatinine 0.72, Estimat Glomerular Filtration Rate 92, BUN/Creatinine Ratio 24, Glucose Level 133, Calcium Level 8.9, Corrected Calcium 9.5, Magnesium Level 1.8, Total Bilirubin 0.5, Aspartate Amino Transf (AST/SGOT) 18, Alanine Aminotransferase (ALT/SGPT) 20, Alkaline Phosphatase 65, Total Protein 5.9, Albumin 3.3 03/28/22 10:58: Glucometer 143 Discharge Home Medications: Active Scripts Active Proventil Hfa (Albuterol Sulfate) 90 Mcg Hfa.aer.ad 6.7 Gm INH Q4H PRN Prednisone 10 Mg Tab.ds.pk 10 Mg PO DAILY Take 6 tabs(60mg)daily,decrease by 1 tab(10MG)daily. Cefdinir 300 Mg Capsule 300 Mg PO BID Ativan (Lorazepam) 0.5 Mg Tablet 0.5 Mg PO TID PRN Losartan Potassium 50 Mg Tablet 100 Mg PO DAILY Reported Cetirizine HCl 10 Mg Tablet 10 Mg PO DAILY Fluticasone Propionate 50 Mcg/Actuation [place].susp 1 [place] NSEACH BID Metoprolol Succinate 50 Mg Tab.er.24h 50 Mg PO DAILY Montelukast Sodium 10 Mg Tablet 10 Mg PO HS Neurontin (Gabapentin) 300 Mg Capsule 600 Mg PO TID TAKES 2 (300MG) CAPS Breztri Aerosphere Inhaler (Budesonide/Glycopyr/Formoterol) 160 Mcg-9 Mcg-4.8 Mcg/Actuation Hfa.aer.ad 2 Puff INH BID Venlafaxine HCl ER (Venlafaxine HCl) 150 Mg Cap.er.24h 150 Mg PO DAILY Albuterol Sulfate 2.5 Mg/0.5 Ml Vial.neb 2.5 Mg INH Q4H PRN Pantoprazole Sodium 40 Mg Tablet.dr 40 Mg PO BID Instructions to patient/family Please see electronic discharge instructions given to patient. Diagnosis/Problems Diagnosis/Problems (1) Respiratory failure (2) COVID-19 Status: Acute (3) COPD (chronic obstructive pulmonary disease) Status: Chronic (4) Bronchitis Status: Acute (5) Current tobacco use Status: Chronic RAFIQ BUNN DO Mar 28, 2022 11:35
[2022-03-28 12:00] VITALS: BP 194/97
--- NOTE | 2022-03-28 12:10 | Progress Note ---
GEOFFREY ROBERTSON 03/28/22 1210: Progress Note Patient is a 66 year old female with a history of HTN and COPD and patient of Dr. Bunn who was admitted to the ICU on 03/25 for acute on chronic respiratory failure. The patient states that the 2 weeks prior to admission they had symptoms of mild cough, sinus congestion, and some slight dyspnea that they att ributed to allergies. On 03/22, the patient began having chest pain, SOB, and felt that they were about to have a syncopal episode when they stood up. They arrived via POV to the ED on 03/22 and were treated with monoclonal antibodies after testing positive for COVID. The patient was discharged but their symptoms did not improve leading to their direct admission to the ICU for acute on chronic respiratory failure. The patient was extremely anxious on admission and complained of severe SOB, she was placed on supplemental oxygen and started on steroids and nebulizers. An ABG was obtained and was normal except for a minor drop in O2 at 78. The patient was started on precedex which improved her anxiety. CXR showed infiltrates in the left lower lobe consistent with pneumonia and a repeat CXR on 03/27 showed infiltrates in the right upper lobe suspicous for pneumonia. After the patient's anxiety improved, precedex was held and the patient was started on effexor and xanax which managed her anxiety effectively. The patient's xanax was changed to ativan on 03/27 The patient's symptoms improved throughout her hospital stay and her o2 saturation remained steady on 3L of oxygen which is the amount of O2 the patient uses at night. The patient is being discharged today with home O2, omnicef, nebulizers, effexor, ativan, and a prednisone taper. The patient will follow up outpatient with Dr. Bnun. CATRINA BUNN DO 03/29/22 0550: Supervisory-Addendum Brief Verification & Attestation Participated in pt care: history, MDM, physical Personally performed: exam, history, MDM, supervision of care Care discussed with: Medical Student Procedures: n/a Results interpretation: Verified all documentation Verification and Attestation of Medical Student E/M Service A medical student performed and documented this service in my presence. I reviewed and verified all information documented by the medical student and made modifications to such information, when appropriate. I personally performed the physical exam and medical decision making. Catrina Bunn Mar 29, 2022,05:50 GEOFFREY ROBERTSON Mar 28, 2022 12:10 CATRINA BUNN DO Mar 29, 2022 05:50
[2022-03-28] MEDS: LORazepam 0.5 MG (ATIVAN) TABLET PO PRN (12:30)
[2022-03-29] MEDS ORDERED: LOSARTAN 50 MG (COZAAR) TAB PO SCH (09:00)
== END 2022-03-28 15:20 | disposition home or self-care (01) | DRG 177 ==
LOC: ICU 10:16 → 4TH 03-27 17:50
PROVIDERS: ADMIT Internal Medicine; ATTEND Internal Medicine
PROC: 5A0935A Assistance with Respiratory Ventilation, Less than 24 Consecutive Hours, High Flow/Velocity Cannula (ICD-10-PCS; principal; 2022-03-25)
DX: U07.1 COVID-19 (principal); J15.9 Unspecified bacterial pneumonia; J96.21 Acute and chronic respiratory failure with hypoxia; J44.0 Chronic obstructive pulmonary disease with (acute) lower respiratory infection; I50.30 Unspecified diastolic (congestive) heart failure; I11.0 Hypertensive heart disease with heart failure; I16.0 Hypertensive urgency; F17.200 Nicotine dependence, unspecified, uncomplicated; I08.0 Rheumatic disorders of both mitral and aortic valves; F41.9 Anxiety disorder, unspecified; E78.00 Pure hypercholesterolemia, unspecified; D69.6 Thrombocytopenia, unspecified; I27.20 Pulmonary hypertension, unspecified; E03.9 Hypothyroidism, unspecified; K21.9 Gastro-esophageal reflux disease without esophagitis; Z99.81 Dependence on supplemental oxygen; Z88.5 Allergy status to narcotic agent; Z79.52 Long term (current) use of systemic steroids; Z73.0 Burn-out
CPT/HCPCS: 36415; 71045; 71275; 80053; 81000; 82805; 82947; 83605; 83735; 83874; 83880; 84100; 84145; 84484; 85007; 85025; 85027; 85379; 85610; 85730; 86141; 87040; 87636; 93005; 93041; 94640; 94664; 94761; 96361; 96374; 96375

== ENCOUNTER 2022-04-16 20:40 | Emergency (ER) | payer MEDICARE ==
[~2022-04-16 20:40] MED LIST changes: +ALB0.5V INH; +ALBU6.7H13 INH; +BUDE10.7 INH; +CETI10TA17 PO; +FLUT16SP22 NSEACH; +GABA300C PO; +LORA-404 PO; +LOSA50TA63 PO; +METO50TA7 PO; +MONT-40 PO; +PRED10TA22 PO
[2022-04-16] MEDS ORDERED: PROMETHAZINE INJ 25 MG/ML (PHENERGAN) AMP IVP ONE (20:45)
--- NOTE | 2022-04-16 20:48 | ED General ---
General Chief Complaint: Dizziness/Syncope Stated Complaint: N/V Source of Information: Patient Exam Limitations: No Limitations History of Present Illness Date Seen by Provider: Apr 16, 2022 Time Seen by Provider: 20:47 Initial Comments To ER by EMS from home with dizziness nausea vomiting for 1 hour. She was released from the hospital last week after admission for pneumonia. Timing/Duration: 1 Hour Severity: Moderate Associated Systoms: Denies Symptoms Allergies and Home Medications Allergies Coded Allergies: codeine (Verified Allergy, Unknown, 06/19/08) Patient Home Medication List Home Medication List Reviewed: Yes Albuterol Sulfate (Albuterol Sulfate) 2.5 Mg/0.5 Ml Vial.neb, 2.5 MG INH Q4H PRN for SHORTNESS OF BREATH, (Reported) Entered as Reported by: CHANEL CAMPBELL on 03/25/221552 Albuterol Sulfate (Proventil Hfa) 90 Mcg Hfa.aer.ad, 6.7 GM INH Q4H PRN for WHEEZING Prescribed by: RAFIQ ROJAS on 03/28/221133 Budesonide/Glycopyr/Formoterol (Breztri Aerosphere Inhaler) 160 Mcg-9 Mcg-4.8 Mcg/Actuation Hfa.aer.ad, 2 PUFF INH BID, (Reported) Entered as Reported by: CHANEL CAMPBELL on 03/25/221552 Cefdinir (Cefdinir) 300 Mg Capsule, 300 MG PO BID Prescribed by: RAFIQ ROJAS on 03/28/221133 Cetirizine HCl (Cetirizine HCl) 10 Mg Tablet, 10 MG PO DAILY, (Reported) Entered as Reported by: CHANEL CAMPBELL on 03/25/221552 Fluticasone Propionate (Fluticasone Propionate) 50 Mcg/Actuation [place].susp, 1 SPRAY NSEACH BID, (Reported) Entered as Reported by: CHANEL CAMPBELL on 03/25/221552 Gabapentin (Neurontin) 300 Mg Capsule, 600 MG PO TID, (Reported) Entered as Reported by: CHANEL CAMPBELL on 03/25/221552 Lorazepam (Ativan) 0.5 Mg Tablet, 0.5 MG PO TID PRN for ANXIETY Prescribed by: RAFIQ ROJAS on 03/28/221134 Losartan Potassium (Losartan Potassium) 50 Mg Tablet, 100 MG PO DAILY Prescribed by: RAFIQ ROJAS on 03/28/22 113 Metoprolol Succinate (Metoprolol Succinate) 50 Mg Tab.er.24h, 50 MG PO DAILY, (Reported) Entered as Reported by: CHANEL CAMPBELL on 03/25/221552 Montelukast Sodium (Montelukast Sodium) 10 Mg Tablet, 10 MG PO HS, (Reported) Entered as Reported by: CHANEL CAMPBELL on 03/25/221552 Pantoprazole Sodium (Pantoprazole Sodium) 40 Mg Tablet.dr, 40 MG PO BID, (Re ported) Entered as Reported by: JUDSON CARLOS on 05/31/18 0932 Prednisone (Prednisone) 10 Mg Tab.ds.pk, 10 MG PO DAILY Prescribed by: RAFIQ ROJAS on 03/28/22 113 Venlafaxine HCl (Venlafaxine HCl ER) 150 Mg Cap.er.24h, 150 MG PO DAILY, (Reported) Entered as Reported by: CHANEL CAMPBELL on 03/25/221552 Review of Systems Review of Systems Constitutional: see HPI EENTM: see HPI Respiratory: see HPI, cough Cardiovascular: no symptoms reported Genitourinary: no symptoms reported Musculoskeletal: no symptoms reported Skin: no symptoms reported Psychiatric/Neurological: No Symptoms Reported Past Ojzoeus-Ufsjcz-Ucqoci Hx Immunizations Up To Date Tetanus Booster (TDap): Unknown PED Vaccines UTD: Yes First/Initial COVID19 Vaccinat: 06/20/20 Second COVID19 Vaccination Jabier: 07/18/20 Third COVID19 Vaccination Date: 03/16/21 Seasonal Allergies Seasonal Allergies: Yes Past Medical History Surgery/Hospitalization HX: COPD, HTN Surgeries: Yes (bartholin gland removed) Cystectomy, Lumpectomy, Orthopedic Respiratory: Yes COPD Currently Using CPAP: No Currently Using BIPAP: No Cardiac: Yes High Cholesterol, Hypertension Neurological: No Reproductive Disorders: No Sexually Transmitted Disease: No Genitourinary: No Gastrointestinal: Yes Chronic Constipation Musculoskeletal: Yes (ARTHRITIS) Arthritis Endocrine: No Cancer: Yes Breast Psychosocial: Yes Anxiety Integumentary: No Blood Disorders: No Family Medical History Patient reports no known family medical history. No Pertinent Family Hx Physical Exam Vital Signs Vital Signs - First Documented 04/16/22 20:40 Temp 35.0 Pulse 62 Resp 14 B/P (MAP) 200/120 (146) Pulse Ox 96 O2 Delivery Nasal Cannula O2 Flow Rate 3.00 Capillary Refill : Height, Weight, BMI Height: 5'4.00" Weight: 140lbs. 0.0oz. 63.723367bu; 21.26 BMI Method:Stated General Appearance: No Apparent Distress, WD/WN Eyes: Bilateral Eye Normal Inspection, Bilateral Eye PERRL, Bilateral Eye EOMI HEENT: PERRL/EOMI, TMs Normal, Other (There is a nystagmus horizontal fast beat to the right, no vertical skew, catch-up saccade present) Neck: Full Range of Motion, Normal Inspection Respiratory: No Accessory Muscle Use, No Respiratory Distress Cardiovascular: Regular Rate, Rhythm, Normal Peripheral Pulses Gastrointestinal: Normal Bowel Sounds, Non Tender, Soft Extremity: Normal Capillary Refill, Normal Inspection Neurologic/Psychiatric: Alert, Oriented x3 Procedures/Interventions Date of ETT Placement: Jun 01, 2018 Progress/Results/Core Measures Suspected Sepsis SIRS Temperature: Pulse: Respiratory Rate: Laboratory Tests 04/16/22 20:57: White Blood Count 3.6L Blood Pressure / Mean: Laboratory Tests 04/16/22 20:57: Creatinine 0.93, Platelet Count 101L, Total Bilirubin 0.6 Results/Orders Lab Results Laboratory Tests Test 04/16/22 20:57 04/16/22 21:37 Range/Units White Blood Count 3.6 L 4.3-11.0 10^3/uL Red Blood Count 3.73 L 3.80-5.11 10^6/uL Hemoglobin 11.2 L 11.5-16.0 g/dL Hematocrit 34 L 35-52 % Mean Corpuscular Volume 92 80-99 fL Mean Corpuscular Hemoglobin 30 25-34 pg Mean Corpuscular Hemoglobin Concent 33 32-36 g/dL Red Cell Distribution Width 14.2 10.0-14.5 % Platelet Count 101 L 130-400 10^3/uL Mean Platelet Volume 10.7 9.0-12.2 fL Immature Granulocyte % (Auto) 1 % Neutrophils (%) (Auto) 67 42-75 % Lymphocytes (%) (Auto) 26 12-44 % Monocytes (%) (Auto) 6 0-12 % Eosinophils (%) (Auto) 0 0-10 % Basophils (%) (Auto) 0 0-10 % Neutrophils # (Auto) 2.4 1.8-7.8 10^3/uL Lymphocytes # (Auto) 0.9 L 1.0-4.0 10^3/uL Monocytes # (Auto) 0.2 0.0-1.0 10^3/uL Eosinophils # (Auto) 0.0 0.0-0.3 10^3/uL Basophils # (Auto) 0.0 0.0-0.1 10^3/uL Immature Granulocyte # (Auto) 0.0 0.0-0.1 10^3/uL Percent Immature Platelet Fraction 4.2 0.0-7.6 % Sodium Level 140 135-145 MMOL/L Potassium Level 4.0 3.6-5.0 MMOL/L Chloride Level 103 98-107 MMOL/L Carbon Dioxide Level 23 21-32 MMOL/L Anion Gap 14 5-14 MMOL/L Blood Urea Nitrogen 16 7-18 MG/DL Creatinine 0.93 0.60-1.30 MG/DL Estimat Glomerular Filtration Rate 68 BUN/Creatinine Ratio 17 Glucose Level 88 70-105 MG/DL Calcium Level 9.2 8.5-10.1 MG/DL Corrected Calcium 9.2 8.5-10.1 MG/DL Total Bilirubin 0.6 0.1-1.0 MG/DL Aspartate Amino Transf (AST/SGOT) 23 5-34 U/L Alanine Aminotransferase (ALT/SGPT) 21 0-55 U/L Alkaline Phosphatase 83 40-136 U/L C-Reactive Protein High Sensitivity 0.54 H 0.00-0.50 MG/DL Total Protein 6.7 6.4-8.2 GM/DL Albumin 4.0 3.2-4.5 GM/DL Urine Color YELLOW Urine Clarity CLEAR Urine pH 8.5 5-9 Urine Specific [place] 1.015 L 1.016-1.022 Urine Protein NEGATIVE NEGATIVE Urine Glucose (UA) NEGATIVE NEGATIVE Urine Ketones NEGATIVE NEGATIVE Urine Nitrite NEGATIVE NEGATIVE Urine Bilirubin NEGATIVE NEGATIVE Urine Urobilinogen 0.2 < = 1.0 MG/DL Urine Leukocyte Esterase NEGATIVE NEGATIVE Urine RBC (Auto) NEGATIVE NEGATIVE Urine RBC NONE /HPF Urine WBC NONE /HPF Urine Squamous Epithelial Cells NONE /HPF Urine Crystals NONE /LPF Urine Bacteria NEGATIVE /HPF Urine Casts NONE /LPF Urine Mucus NEGATIVE /LPF Urine Culture Indicated NO My Orders Orders - MILLA 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, Ap/Pa Only (04/16/22 20:43) Ed Iv/Invasive Line Start (04/16/22 20:43) Ct Head Wo (04/16/22 20:43) Promethazine Injection (Phenergan Injec (04/16/22 20:45) Clonidine Tablet (Catapres Tablet) (04/16/22 21:45) Medications Given in ED Current Medications Medications Dose Ordered Sig/Luis Eduardo Route Start Time Stop Time Status Last Admin Dose Admin Clonidine HCl 0.2 mg ONCE ONCE PO 04/16/22 21:45 04/16/22 21:46 DC 04/16/22 21:43 0.2 MG Promethazine HCl 25 mg ONCE ONCE IVP 04/16/22 20:45 04/16/22 20:46 DC 04/16/22 21:40 25 MG Vital Signs/I&O 04/16/22 20:40 Temp 35.0 Pulse 62 Resp 14 B/P (MAP) 200/120 (146) Pulse Ox 96 O2 Delivery Nasal Cannula O2 Flow Rate 3.00 Capillary Refill : Departure Communication (Admissions) Family Conversation 1-blood pressure down to 162/68. Heart rate 68. Nausea and dizziness both much better. went home to get portable oxygen NAME: SALONI ARMANDO [facility] REC#: [id number] PT STATUS: REG ER : 1955 PHYSICIAN: MILLA TRUJILLO APRN ADMIT DATE: 04/16/22/ER Signed Date of Exam:04/16/22 CT HEAD WO EXAMINATION: CT head without contrast. TECHNIQUE: Multiple contiguous axial images were obtained through the brain without the use of intravenous contrast. All CT scans use one or more of the following dose optimizing techniques: automated exposure control, MA and/or KvP adjustment based on patient size and exam type or iterative reconstruction. HISTORY: Dizziness. Syncopal episode. COMPARISON: None available. FINDINGS: No large acute territorial ischemia, mass or hemorrhage. No midline shift or mass effect. The ventricles, cortical sulci and basilar cisterns are patent and unremarkable. The orbits are normal. Paranasal sinuses are normal. Mastoid air cells are clear. No soft tissue abnormality is seen. No osseus lesion or fracture is seen. IMPRESSION: No large acute territorial ischemia, mass or hemorrhage. Dictated by: Dictated on workstation # [id number] Dict: 04/16/222118 Trans: 04/16/222123 [facility] [id number] Interpreted by: TAVO BALBUENA DO Electronically signed by: TAVO BALBUENA DO 04/16/222123 Impression Primary Impression: Vertigo Additional Impression: HTN (hypertension) Disposition: 01 HOME, SELF-CARE Condition: Stable Departure-Patient Inst. Decision time for Depature: 21:37 Referrals: RAFIQ ROJAS DO (PCP/Family) Primary Care Physician Patient Instructions: Vertigo ED MILLA TRUJILLO APRN Apr 16, 2022 20:48
[2022-04-16 21:03] LABS: BASOPHILS % (AUTO) 0 % (0-10); EOSINOPHILS % (AUTO) 0 % (0-10)
[2022-04-16 21:05] LABS: HEMATOCRIT 34 % (35-52); HEMOGLOBIN 11.2 g/dL (11.5-16.0); LYMPHOCYTES # (AUTO) 0.9 10^3/uL (1.0-4.0); LYMPHOCYTES % (AUTO) 26 % (12-44); MEAN CORPUSCULAR HEMOGLOBIN 30 pg (25-34); MEAN CORPUSCULAR HGB CONC 33 g/dL (32-36); MEAN CORPUSCULAR VOLUME 92 fL (80-99); MEAN PLATELET VOLUME 10.7 fL (9.0-12.2); MONOCYTES # (AUTO) 0.2 10^3/uL (0.0-1.0); MONOCYTES % (AUTO) 6 % (0-12); NEUTROPHILS # (AUTO) 2.4 10^3/uL (1.8-7.8); NEUTROPHILS % (AUTO) 67 % (42-75); PLATELET COUNT 101 10^3/uL (130-400); WHITE BLOOD COUNT 3.6 10^3/uL (4.3-11.0)
--- NOTE | 2022-04-16 21:22 | Diagnostic Imaging Report ---
EXAMINATION: CT head without contrast. TECHNIQUE: Multiple contiguous axial images were obtained through the brain without the use of intravenous contrast. All CT scans use one or more of the following dose optimizing techniques: automated exposure control, MA and/or KvP adjustment based on patient size and exam type or iterative reconstruction. HISTORY: Dizziness. Syncopal episode. COMPARISON: None available. FINDINGS: No large acute territorial ischemia, mass or hemorrhage. No midline shift or mass effect. The ventricles, cortical sulci and basilar cisterns are patent and unremarkable. The orbits are normal. Paranasal sinuses are normal. Mastoid air cells are clear. No soft tissue abnormality is seen. No osseus lesion or fracture is seen. IMPRESSION: No large acute territorial ischemia, mass or hemorrhage. Dictated by: Dictated on workstation # [id number]
--- NOTE | 2022-04-16 21:23 | Diagnostic Imaging Report ---
EXAMINATION: Chest 1 view. HISTORY: Cough. Weakness. COMPARISON: 03/27/2022. FINDINGS: The lung volumes are normal. No focal consolidation is seen. Prominent interstitial markings are seen throughout the lungs. No large pleural effusion or pneumothorax is seen. The cardiomediastinal silhouette is normal in size and contour. No acute osseous abnormality is seen. IMPRESSION: Prominent interstitial markings throughout the lungs, likely represented edema. Infection can also this appearance. Dictated by: Dictated on workstation # [id number]
[2022-04-16 21:27] LABS: BILIRUBIN,TOTAL 0.6 MG/DL (0.1-1.0); CALCIUM 9.2 MG/DL (8.5-10.1); CREATININE SERUM 0.93 MG/DL (0.60-1.30); TOTAL PROTEIN 6.7 GM/DL (6.4-8.2)
[2022-04-16] MEDS ORDERED: cloNIDine 0.1 MG (CATAPRES) TAB PO ONE (21:45)
[2022-04-16 22:04] LABS: BILIRUBIN,URINE NEGATIVE (NEGATIVE); CLARITY,URINE CLEAR; COLOR,URINE YELLOW; GLUCOSE, URINE (UA) NEGATIVE (NEGATIVE); KETONES,URINE NEGATIVE (NEGATIVE); LEUKOCYTE ESTERASE ,URINE NEGATIVE (NEGATIVE); NITRITE,URINE NEGATIVE (NEGATIVE); PH,URINE 8.5 (5-9); PROTEIN,URINE NEGATIVE (NEGATIVE)
[2022-04-16 22:10] LABS: BACTERIA,URINE NEGATIVE /HPF
[2022-04-16 22:50] VITALS: BP 170/81
== END 2022-04-16 22:52 | disposition home or self-care (01) ==
LOC: EDUNIT# 20:40 → ER 20:41
DX: I10 Essential (primary) hypertension (principal)
CPT/HCPCS: 36415; 70450; 71045; 80053; 81000; 85025; 86141; 93005; 93041

== ENCOUNTER → 2022-08-12 | Outpatient (CLI) | payer MEDICARE ==
[~2022-08-12] MED LIST changes: +REGADENOSON 0.4 MG/5 ML SYR (LEXISCAN) IV ONE
[2022-08-12 12:56] VITALS: BP 171/79
--- NOTE | 2022-08-13 12:19 | STRESS TEST ---
DATE OF SERVICE: 08/12/2022 RESTING AND POST REGADENOSON TECHNETIUM-99M TETROFOSMIN SPECT CT IMAGING ORDERING PHYSICIAN: Dr. Engel. PRIMARY PHYSICIAN: Dr. Bunn. CLINICAL DIAGNOSIS: Shortness of breath. Baseline images were carried out after injection of 10.08 mCi of technetium-99m tetrofosmin. This was followed by 0.4 mg regadenoson and 30.38 mCi of technetium-99m tetrofosmin for stress imaging. The electrocardiogram showed sinus rhythm with nonspecific ST abnormality. Old septal myocardial infarction could not be excluded on the electrocardiogram. The electrocardiogram did not change significantly with the regadenoson infusion. The patient tolerated the procedure well. Review of images at rest and following stress does not indicate any significant perfusion defects consistent with myocardial ischemia or infarction. Gated images show normal global left ventricular systolic function with normal regional wall motion. Left ventricular ejection fraction is calculated to be 65%. CONCLUSIONS: 1. No evidence of any significant myocardial ischemia or infarction on this study. 2. Normal regional wall motion. 3. Normal global left ventricular systolic function with a calculated ejection fraction of 65%. Job ID: [id number] DocumentID: [id number] Dictated Date: 08/13/2022 09:40:29 Universal Grinder Operator Date: 08/13/2022 12:17:00 Dictated By: JAI ENGEL MD; JOCELYN; FACP; FACC;
== END ==
LOC: CARD 11:02
PROVIDERS: ATTEND Internal Medicine Cardiovascular Disease
DX: R06.09 Other forms of dyspnea (principal); R06.02 Shortness of breath
CPT/HCPCS: 78452; 93017; A9502

== ENCOUNTER → 2022-08-20 | Outpatient (CLI) | payer MEDICARE ==
[~2022-08-20] MED LIST changes: -REGADENOSON 0.4 MG/5 ML SYR (LEXISCAN) IV ONE
--- NOTE | 2022-08-20 10:42 | Diagnostic Imaging Report ---
INDICATION: Right breast carcinoma. Reportedly there is an area of increased fullness in the right breast. Study is performed for further evaluation. Comparison is made with prior mammogram of 02/13/2022 and 02/04/2021. Unilateral right 2-D and 3-D diagnostic mammography was performed with CAD. Right breast remains heterogeneously dense, limiting the sensitivity of mammography. Post-therapeutic changes in the right breast are stable. No mass or malignant-appearing microcalcifications are seen. There are benign calcifications in the right breast. Right axilla is unremarkable. IMPRESSION: Stable right mammogram with no mammographic features suspicious for malignancy. ACR BI-RADS Category 2: Benign findings. Result letter will be mailed to the patient. Note: At least 10% of breast cancer is not imaged by mammography. Bi-Rads Category 2 Dictated by: Dictated on workstation # [id number]
== END ==
LOC: RAD 09:03
PROVIDERS: ATTEND Nurse Practitioner Adult Health
DX: C50.911 Malignant neoplasm of unspecified site of right female breast (principal); Z85.3 Personal history of malignant neoplasm of breast
CPT/HCPCS: 77065; G0279

== ENCOUNTER 2023-02-22 06:03 | Emergency (ER) | payer MEDICARE ==
[~2023-02-22] VITALS: Ht 162.6 cm; Wt 53.5 kg
--- NOTE | 2023-02-22 06:20 | ED Dyspnea ---
General Stated Complaint: COUGH,THINKS HAS PNEUMONIA Source of Information: Patient Exam Limitations: No Limitations History of Present Illness Date Seen by Provider: Feb 22, 2023 Time Seen by Provider: 06:20 Initial Comments Patient is a 67-year-old female who presents to the emergency department with a chief complaint of body aches, shortness of breath, cough that is intermittently productive. Symptom onset 24 hours ago. Patient states that she got her second shingles vaccination on . She is a daily smoker, wears oxygen at night and as needed. She does use inhalers at home, last use of breathing treatment was yesterday afternoon. She has not taken anything for her symptoms. She states she really did not eat as much last night as she normally does. Denies diarrhea. Is currently on Macrobid for urinary tract infection. Endorses "chest pain" with deep breathing more so left posterior. No cardiac history. Is on medication for hypertension. Thinks that she may have pneumonia. Timing/Duration: 24 Hours Prior Episodes/Possible Cause: Unknown Cause Associated Symptoms: Chest Pain (with cough/breathing), Cough, Other (bodyaches) Allergies and Home Medications Allergies Coded Allergies: codeine (Verified Allergy, Unknown, 06/19/08) Patient Home Medication List Home Medication List Reviewed: Yes Albuterol Sulfate (Albuterol Sulfate) 2.5 Mg/0.5 Ml Vial.neb, 2.5 MG INH Q4H PRN for SHORTNESS OF BREATH, (Reported) Entered as Reported by: CHANEL CAMPBELL on 03/25/221552 Albuterol Sulfate (Proventil Hfa) 90 Mcg Hfa.aer.ad, 6.7 GM INH Q4H PRN for WHEEZING Prescribed by: RAFIQ ROJAS on 03/28/22 113 Budesonide/Glycopyr/Formoterol (Breztri Aerosphere Inhaler) 160 Mcg-9 Mcg-4.8 Mcg/Actuation Hfa.aer.ad, 2 PUFF INH BID, (Reported) Entered as Reported by: CHANEL CAMPBELL on 03/25/221552 Cefdinir (Cefdinir) 300 Mg Capsule, 300 MG PO BID Prescribed by: RAFIQ ROJAS on 03/28/22 1134 Cetirizine HCl (Cetirizine HCl) 10 Mg Tablet, 10 MG PO DAILY, (Reported) Entered as Reported by: CHANEL CAMPBELL on 03/25/221552 Fluticasone Propionate (Fluticasone Propionate) 50 Mcg/Actuation [place].susp, 1 SPRAY NSEACH BID, (Reported) Entered as Reported by: CHANEL CAMPBELL on 03/25/221552 Gabapentin (Neurontin) 300 Mg Capsule, 600 MG PO TID, (Reported) Entered as Reported by: CHANEL CAMPBELL on 03/25/221552 Lorazepam (Ativan) 0.5 Mg Tablet, 0.5 MG PO TID PRN for ANXIETY Prescribed by: RAFIQ ROJAS on 03/28/221134 Losartan Potassium (Losartan Potassium) 50 Mg Tablet, 100 MG PO DAILY Prescribed by: RAFIQ ROJAS on 03/28/221133 Metoprolol Succinate (Metoprolol Succinate) 50 Mg Tab.er.24h, 50 MG PO DAILY, (Reported) Entered as Reported by: CHANEL CAMPBELL on 03/25/221552 Montelukast Sodium (Montelukast Sodium) 10 Mg Tablet, 10 MG PO HS, (Reported) Entered as Reported by: CHANEL CAMPBELL on 03/25/221552 Pantoprazole Sodium (Pantoprazole Sodium) 40 Mg Tablet.dr, 40 MG PO BID, (Reported) Entered as Reported by: JUDSON CARLOS on 05/31/18 0932 Prednisone (Prednisone) 10 Mg Tab.ds.pk, 10 MG PO DAILY Prescribed by: RAFIQ ROJAS on 03/28/221133 Venlafaxine HCl (Venlafaxine HCl ER) 150 Mg Cap.er.24h, 150 MG PO DAILY, (Reported) Entered as Reported by: CHANEL CAMPBELL on 03/25/221552 Review of Systems Review of Systems Constitutional: see HPI, malaise, weakness EENTM: nose congestion (runny nose) Respiratory: cough, phlegm (intermittently productive), short of breath Cardiovascular: chest pain (wth deep breath) Gastrointestinal: no symptoms reported Genitourinary: other (getting over UTI - currently on macrobid) Musculoskeletal: other (body aches) Skin: no symptoms reported Psychiatric/Neurological: No Symptoms Reported All Other Systems Reviewed Negative Unless Noted: Yes Past Cgjddmz-Bbperw-Tmhqoz Hx Immunizations Up To Date Tetanus Booster (TDap): Unknown PED Vaccines UTD: Yes First/Initial COVID19 Vaccinat: 06/20/20 Second COVID19 Vaccination Jabier: 07/18/20 Third COVID19 Vaccination Date: 03/16/21 Seasonal Allergies Seasonal Allergies: Yes Past Medical History Surgery/Hospitalization HX: COPD, HTN Surgeries: Yes (bartholin gland removed) Cystectomy, Lumpectomy, Orthopedic Respiratory: Yes COPD Currently Using CPAP: No Currently Using BIPAP: No Cardiac: Yes High Cholesterol, Hypertension Neurological: No Reproductive Disorders: No Sexually Transmitted Disease: No Genitourinary: No Gastrointestinal: Yes Chronic Constipation Musculoskeletal: Yes (ARTHRITIS) Arthritis Endocrine: No Cancer: Yes Breast Psychosocial: Yes Anxiety Integumentary: No Blood Disorders: No Family Medical History Patient reports no known family medical history. No Pertinent Family Hx Physical Exam Vital Signs Vital Signs - First Documented 02/22/23 06:10 Temp 36.6 Pulse 71 Resp 20 B/P (MAP) 131/72 (91) Pulse Ox 92 O2 Delivery Room Air O2 Flow Rate 2.00 Capillary Refill : Height, Weight, BMI Height: 5'4.00" Weight: 140lbs. 0.0oz. [id number]; 21.26 BMI Method:Stated General Appearance: WD/WN, Mild Distress (slightly labored breathing but able to converse in full sentences; sats on 2L - 97%) HEENT: PERRL/EOMI Neck: Normal Inspection, Supple Respiratory: Other (diminished on the left; occ scattered wheeze) Cardiovascular: Normal Peripheral Pulses Peripheral Pulses: 2+ Radial Pulses (R), 2+ Radial Pulses (L) Gastrointestinal: Non Tender, Soft Extremity: Normal Inspection, Normal Range of Motion, No Pedal Edema Neurologic/Psychiatric: Alert, Oriented x3, No Motor/Sensory Deficits, Normal Mood/Affect Skin: Normal Color, Warm/Dry Procedures/Interventions Date of ETT Placement: Jun 01, 2018 Progress/Results/Core Measures Results/Orders Lab Results Laboratory Tests Test 02/22/23 06:45 02/22/23 06:50 Range/Units Influenza Type A (RT-PCR) Not Detected Not Detecte Influenza Type B (RT-PCR) Not Detected Not Detecte SARS-CoV-2 RNA (RT-PCR) Not Detected Not Detecte White Blood Count 8.3 4.3-11.0 10^3/uL Red Blood Count 4.43 3.80-5.11 10^6/uL Hemoglobin 14.0 11.5-16.0 g/dL Hematocrit 41 35-52 % Mean Corpuscular Volume 94 80-99 fL Mean Corpuscular Hemoglobin 32 25-34 pg Mean Corpuscular Hemoglobin Concent 34 32-36 g/dL Red Cell Distribution Width 14.0 10.0-14.5 % Platelet Count 131 130-400 10^3/uL Mean Platelet Volume 9.4 9.0-12.2 fL Immature Granulocyte % (Auto) 0 % Neutrophils (%) (Auto) 85 H 42-75 % Lymphocytes (%) (Auto) 10 L 12-44 % Monocytes (%) (Auto) 5 0-12 % Eosinophils (%) (Auto) 0 0-10 % Basophils (%) (Auto) 0 0-10 % Neutrophils # (Auto) 7.0 1.8-7.8 10^3/uL Lymphocytes # (Auto) 0.8 L 1.0-4.0 10^3/uL Monocytes # (Auto) 0.4 0.0-1.0 10^3/uL Eosinophils # (Auto) 0.0 0.0-0.3 10^3/uL Basophils # (Auto) 0.0 0.0-0.1 10^3/uL Immature Granulocyte # (Auto) 0.0 0.0-0.1 10^3/uL Percent Immature Platelet Fraction 3.3 0.0-7.6 % Sodium Level 135 135-145 MMOL/L Potassium Level 3.6 3.6-5.0 MMOL/L Chloride Level 98 98-107 MMOL/L Carbon Dioxide Level 24 21-32 MMOL/L Anion Gap 13 5-14 MMOL/L Blood Urea Nitrogen 13 7-18 MG/DL Creatinine 0.87 0.60-1.30 MG/DL Estimat Glomerular Filtration Rate 73 BUN/Creatinine Ratio 15 Glucose Level 103 70-105 MG/DL Calcium Level 9.3 8.5-10.1 MG/DL My Orders Orders - JESENIA TOBAR MD Ed Iv/Invasive Line Start (02/22/23 06:29) Cbc And Automated Diff (02/22/23 06:29) Basic Metabolic Panel (02/22/23 06:29) Covid 19 Inhouse Test (02/22/23 06:29) Influenza A And B By Pcr (02/22/23 06:29) Chest 1 View, Ap/Pa Only (02/22/23 06:29) Albuterol Hfa Inhaler (Albuterol Hfa Inh (02/22/23 06:29) Ceftriaxone Iv/Im (Ceftriaxone Iv/Im) (02/22/23 08:15) Ibuprofen Tablet (Ibuprofen Tablet) (02/22/23 08:15) Medications Given in ED Current Medications Medications Dose Ordered Sig/Luis Eduardo Route Start Time Stop Time Status Last Admin Dose Admin Ceftriaxone Sodium 1000 mg/ Sodium Chloride 50 ml @ 100 mls/hr ONCE ONCE IV 02/22/23 08:15 02/22/23 08:44 02/22/23 08:19 100 MLS/HR Ibuprofen 600 mg ONCE ONCE PO 02/22/23 08:15 02/22/23 08:16 DC 02/22/23 08:18 600 MG Vital Signs/I&O 02/22/23 02/22/23 06:10 06:10 Temp 36.6 Pulse 71 Resp 20 B/P (MAP) 131/72 (91) Pulse Ox 92 O2 Delivery Room Air Nasal Cannula O2 Flow Rate 2.00 Progress Progress Note : Time: 08:18 Progress Note Patient seen and evaluated by me. Evaluation today includes physical exam, CBC, chemistry, single view chest x-ray, COVID test. Pertinent physical exam findings well-developed well-nourished 67-year-old female in no acute distress. She appears a little dyspneic however is able to converse in full sentences. Oxygen saturations are 97% on 2 L per nasal cannula. She does have diminished breath sounds at the left base more than the right. Occasional scattered expiratory wheeze. No distress. Heart is regular. Abdomen is soft. No lower extremity edema. She is afebrile, vital signs are stable. No concerning findings on physical examination for sepsis. Differential diagnosis includes pneumonia, COVID, bronchitis Labs independently reviewed and interpreted by me. Her CBC is normal, with a normal white blood cell count and 85% segmented neutrophils. Basic metabolic panel is normal. COVID test and flu test are negative. Her chest x-ray interpreted by me shows developing infiltrate in the right middle lobe. Radiologist reads new consolidative process in the left base. I suspect that due to her medical history of COPD and ongoing smoking she is developing a bilateral pneumonia. She is given a gram of Rocephin IV here in the emergency department. She is given 4 puffs off of an albuterol inhaler and 600 mg of ibuprofen by mouth. I think at this point she is stable for discharge. No indications for admission to the hospital. We will discharge her with cefdinir for 7 days as well as azithromycin. Encourage routine use of her inhaler, ibuprofen for the body aches. Return precautions provided in both verbal and written format. Diagnostic Imaging Diagonstic Imaging: Xray Plain Films/CT/US/NM/MRI: chest Comments [facility] [place], [place] NAME: SALONI ARMANDO [facility] REC#: [id number] PT STATUS: REG ER : 1955 PHYSICIAN: JESENIA TOBAR MD ADMIT DATE: 02/22/23/ER Draft Date of Exam:02/22/23 CHEST 1 VIEW, AP/PA ONLY EXAMINATION: Chest radiograph, portable AP view. DATE: 02/22/2023 7:00 AM INDICATION: 67-year-old female, shortness of breath, cough and congestion. COMPARISON: April 16, 2022. FINDINGS: Heart size and mediastinal contours are unchanged. There is no identified pneumothorax. There is nonspecific left basilar airspace consolidation. IMPRESSION: 1. Nonspecific left basilar airspace consolidation which may relate to effusion, infiltrate, and/or atelectasis. Dictated on workstation # [id number] Dict: 02/22/23 0709 Trans: 02/22/23 0735 [facility] [id number] Interpreted by: ELSA GUZMÁN MD Electronically signed by: Counseling-Symptomatic: 3-10 Minutes Follow-up with PCP to: Discuss Further Options Departure Impression Primary Impression: Pneumonia Qualified Codes: J18.9 - Pneumonia, unspecified organism Disposition: 01 HOME, SELF-CARE Condition: Improved Departure-Patient Inst. Decision time for Depature: 08:22 Referrals: RAFIQ ROJAS DO (PCP/Family) Primary Care Physician Patient Instructions: Community-acquired pneumonia in adults Add. Discharge Instructions: Drink plenty of fluids to stay well-hydrated. Start the cefdinir antibiotic tomorrow. Start the azithromycin today. Please take as directed. You can take [id number] ibuprofen 3 tablets which is 600 mg every 6 hours with food as needed for body aches/pain. Use your inhaler 2 puffs every 4-[address] Rojas's office for a follow-up appointment in 1 week. Return to the emergency department for any new, concerning or worsening complaints. Scripts Cefdinir (Cefdinir) 300 Mg Capsule 300 MG PO BID for 7 Days, #14 CAP Prov: JESENIA TOBAR MD 02/22/23 Azithromycin (Azithromycin) 250 Mg Tablet 250 MG PO UD, #6 TAB TAKE 2 TABLETS ON DAY ONE THEN TAKE 1 TABLET DAILY FOR FOUR MORE DAYS Prov: JESENIA TOBAR MD 02/22/23 Copy Copies To 1: RAFIQ ROJAS KATHRYN M MD Feb 22, 2023 06:20
[2023-02-22] MEDS ORDERED: RT-ALBUTEROL HFA 8.5 GM INHALER IH STA (06:29)
[2023-02-22 07:02] LABS: EOSINOPHILS % (AUTO) 0 % (0-10)
[2023-02-22 07:04] LABS: BASOPHILS % (AUTO) 0 % (0-10); HEMATOCRIT 41 % (35-52); LYMPHOCYTES # (AUTO) 0.8 10^3/uL (1.0-4.0); LYMPHOCYTES % (AUTO) 10 % (12-44); MEAN CORPUSCULAR HEMOGLOBIN 32 pg (25-34); MEAN CORPUSCULAR HGB CONC 34 g/dL (32-36); MEAN CORPUSCULAR VOLUME 94 fL (80-99); MEAN PLATELET VOLUME 9.4 fL (9.0-12.2); MONOCYTES # (AUTO) 0.4 10^3/uL (0.0-1.0); MONOCYTES % (AUTO) 5 % (0-12); NEUTROPHILS % (AUTO) 85 % (42-75); PLATELET COUNT 131 10^3/uL (130-400); WHITE BLOOD COUNT 8.3 10^3/uL (4.3-11.0)
[2023-02-22 07:18] LABS: POTASSIUM 3.6 MMOL/L (3.6-5.0)
[2023-02-22 07:19] LABS: CALCIUM 9.3 MG/DL (8.5-10.1)
[2023-02-22 07:24] LABS: CREATININE SERUM 0.87 MG/DL (0.60-1.30)
--- NOTE | 2023-02-22 07:35 | Diagnostic Imaging Report ---
EXAMINATION: Chest radiograph, portable AP view. DATE: 02/22/2023 7:00 AM INDICATION: 67-year-old female, shortness of breath, cough and congestion. COMPARISON: April 16, 2022. FINDINGS: Heart size and mediastinal contours are unchanged. There is no identified pneumothorax. There is nonspecific left basilar airspace consolidation. IMPRESSION: 1. Nonspecific left basilar airspace consolidation which may relate to effusion, infiltrate, and/or atelectasis. Dictated by: Dictated on workstation # [id number]
[2023-02-22] MEDS ORDERED: cefTRIAXone IV/IM 1,000 MG in NS (IVPB) 50 ML 50 ML IV ONE (08:15)
[2023-02-22] MEDS ORDERED: IBUPROFEN 600 MG TABLET PO ONE (08:15)
[2023-02-22] MEDS ORDERED: CEFD300C3 PO (08:28)
[2023-02-22] MEDS ORDERED: AZIT250T12 PO (08:28)
[2023-02-22 08:57] VITALS: BP 130/63
== END 2023-02-22 08:57 | disposition home or self-care (01) ==
LOC: EDUNIT# 06:03 → ER 06:05
DX: J18.9 Pneumonia, unspecified organism (principal); Z20.822 Contact with and (suspected) exposure to COVID-19
CPT/HCPCS: 36415; 71045; 80048; 85025; 87636

== ENCOUNTER → 2023-03-16 | Outpatient (CLI) | payer MEDICARE ==
[~2023-03-16] VITALS: Ht 162.6 cm; Wt 53.5 kg
[~2023-03-16] MED LIST changes: +AMLO10TA4 PO; +AZIT250T12 PO; +CETI10CA PO
== END | disposition home or self-care (01) ==
LOC: PREOP 05:31
PROVIDERS: ATTEND Specialist
DX: Z01.818 Encounter for other preprocedural examination (principal)

== ENCOUNTER 2023-03-20 08:46 | Day surgery (SDC) | payer MEDICARE ==
[~2023-03-20] VITALS: Ht 162.6 cm; Wt 53.5 kg
[2023-03-20] MEDS ORDERED: TETRACAINE 0.5% OPHTH SOLN 4 ML BTL (SINGLE DOSE ONLY) OU PRN (09:15)
[2023-03-20] MEDS ORDERED: POVIDONE IODINE OPHTH SOLN 5% 30 ML OP ONE (09:15)
[2023-03-20] MEDS ORDERED: TIMOLOL 0.5% (CATARACTS) 0.3 ML BTL OU PRN (09:15)
[2023-03-20] MEDS: TETRACAINE 0.5% OPHTH SOLN 5 ML BTL OU PRN ×4 (09:15→09:36)
[2023-03-20] MEDS ORDERED: LIDOCAINE PF 1% 2 ML VIAL IR PRN (09:15)
[2023-03-20] MEDS ORDERED: MOXIFLOXACIN OPHTH SOLN 5 MG/ML 0.5 ML SYRINGE OP ONE (09:15)
[2023-03-20 09:20] VITALS: BP 181/93
[2023-03-20] MEDS: PHENYLEPHRINE 10% OPHTH SOLN 5 ML BTL OU SCH ×3 (09:22→09:36)
[2023-03-20] MEDS: TROPICAMIDE 1% OPH SOLN (MYDRIACYL) 15 ML BTL OP SCH ×3 (09:22→09:36)
--- NOTE | 2023-03-20 09:43 | Ophthalmologist Pre-Op Note ---
Pre-Operative Progress Note H&P Reviewed The H&P was reviewed, patient examined and no changes noted. Date H&P Reviewed: Mar 20, 2023 Time H&P Reviewed: 09:43 Pre-Op Dx Cataract, Right Eye DEAN HUNG MD Mar 20, 2023 09:43
[2023-03-20] MEDS ORDERED: MIDAZOLAM INJ 2 MG/2 ML VIAL ONE (09:45)
--- NOTE | 2023-03-20 10:00 | Ophthalmology Operative Report ---
Cataract removal/placement IOL PREOPERATIVE DIAGNOSIS: Cataract Right Eye POSTOPERATIVE DIAGNOSIS: Cataract Right Eye PROCEDURE: Cataract removal and placement of posterior chamber implant, right eye SURGEON: Torres Hung ANESTHESIA: Topical with sedation COMPLICATIONS: None ESTIMATED BLOOD LOSS: Minimal DESCRIPTION OF PROCEDURE: After proper informed consent was obtained, the patient, a 67 female, was taken to the Operating Room and the right eye was anesthetized with tetracaine. The right eye was then prepped and draped in the usual manner. A wire lid speculum was placed. A paracentesis was made at the left hand position. Preservative free lidocaine was injected into the anterior chamber followed by viscoelastic. A clear corneal incision was made in the temporal position. A capsulorrhexis was preformed and the central nuclear and cortical material were removed. The posterior capsule was polished and Don 21.5 [id number] IOL was placed into the capsular bag. The residual viscoelastic was aspirated and balanced saline solution was injected into the anterior chamber. Moxifloxacin was injected into the anterior chamber. The wound was checked and found to be water tight. The patient tolerated the procedure well without complications. TORRES HUNG MD Mar 20, 2023 10:00
[2023-03-20 10:07] VITALS: BP 181/63
--- NOTE | 2023-03-20 12:46 | Anesthesia-General Post-Op ---
MAC Patient Condition Mental Status/LOC: Same as Preop Cardiovascular: Satisfactory Nausea/Vomiting: Absent Respiratory: Satisfactory Pain: Controlled Complications: Absent Post Op Complications Complications None Follow Up Care/Instructions Patient Instructions None needed. Anesthesiology Discharge Order Discharge Order Patient is doing well, no complaints, stable vital signs, no apparent adverse anesthesia problems. No complications reported per nursing. CARLOS ARCE CRNA Mar 20, 2023 12:46
== END 2023-03-20 10:08 | disposition home or self-care (01) ==
LOC: SDC 08:46
PROVIDERS: ATTEND Specialist
DX: H25.9 Unspecified age-related cataract (principal); F17.200 Nicotine dependence, unspecified, uncomplicated; Z85.3 Personal history of malignant neoplasm of breast
CPT/HCPCS: 66984; C2632

== ENCOUNTER 2023-03-27 09:58 | Outpatient (CLI) | payer MEDICARE ==
[~2023-03-27] VITALS: Ht 162.6 cm; Wt 53.5 kg
== END 2023-03-27 14:00 | disposition home or self-care (01) ==
LOC: PREOP 09:58
PROVIDERS: ATTEND Specialist
DX: Z01.818 Encounter for other preprocedural examination (principal)

== ENCOUNTER 2023-04-03 06:43 | Day surgery (SDC) | payer MEDICARE ==
[~2023-04-03] VITALS: Ht 162.6 cm; Wt 53.5 kg
[2023-04-03] MEDS ORDERED: POVIDONE IODINE OPHTH SOLN 5% 30 ML OP ONE (06:45)
[2023-04-03] MEDS ORDERED: MOXIFLOXACIN OPHTH SOLN 5 MG/ML 0.5 ML SYRINGE OP ONE (06:45)
[2023-04-03] MEDS ORDERED: TIMOLOL 0.5% (CATARACTS) 0.3 ML BTL OU PRN (06:45)
[2023-04-03] MEDS ORDERED: LIDOCAINE PF 1% 2 ML VIAL IR PRN (06:45)
[2023-04-03] MEDS: TETRACAINE 0.5% OPHTH SOLN 5 ML BTL OU PRN ×4 (06:57→07:17)
[2023-04-03 07:03] VITALS: BP 142/84
[2023-04-03] MEDS: TROPICAMIDE 1% OPH SOLN (MYDRIACYL) 15 ML BTL OP SCH ×3 (07:07→07:17)
[2023-04-03] MEDS: PHENYLEPHRINE 10% OPHTH SOLN 5 ML BTL OU SCH ×3 (07:07→07:17)
--- NOTE | 2023-04-03 07:16 | Ophthalmologist Pre-Op Note ---
Pre-Operative Progress Note H&P Reviewed The H&P was reviewed, patient examined and no changes noted. Date H&P Reviewed: Apr 03, 2023 Time H&P Reviewed: 07:16 Pre-Op Dx Cataract, Left Eye DEAN HUNG MD Apr 03, 2023 07:16
[2023-04-03] MEDS ORDERED: MIDAZOLAM INJ 2 MG/2 ML VIAL ONE (08:27)
--- NOTE | 2023-04-03 08:42 | Ophthalmology Operative Report ---
Cataract removal/placement IOL PREOPERATIVE DIAGNOSIS: Cataract Left Eye POSTOPERATIVE DIAGNOSIS: Cataract Left Eye PROCEDURE: Cataract removal and placement of posterior chamber implant, left eye SURGEON: Torres Hung ANESTHESIA: Topical with sedation COMPLICATIONS: None ESTIMATED BLOOD LOSS: Minimal DESCRIPTION OF PROCEDURE: After proper informed consent was obtained, the patient, a 67 female, was taken to the Operating Room and the left eye was anesthetized with tetracaine. The left eye was then prepped and draped in the usual manner. A wire lid speculum was placed. A paracentesis was made at the left hand position. Preservative free lidocaine was injected into the anterior chamber followed by viscoelastic. A clear corneal incision was made in the temporal position. A capsulorrhexis was preformed and the central nuclear and cortical material were removed. The posterior capsule was polished and an Don 21.5 [id number] was placed into the capsular bag. The residual viscoelastic was aspirated and balanced saline solution was injected into the anterior chamber. Moxifloxacin was injected into the anterior chamber. The wound was checked and found to be water tight. The patient tolerated the procedure well without complications. TORRES HUNG MD Apr 03, 2023 08:42
[2023-04-03 08:47] VITALS: BP 184/99
--- NOTE | 2023-04-03 14:23 | Anesthesia-General Post-Op ---
MAC Patient Condition Mental Status/LOC: Same as Preop Cardiovascular: Satisfactory Nausea/Vomiting: Absent Respiratory: Satisfactory Pain: Controlled Complications: Absent Post Op Complications Complications None Follow Up Care/Instructions Patient Instructions None needed. Anesthesiology Discharge Order Discharge Order Patient is doing well, no complaints, stable vital signs, no apparent adverse anesthesia problems. No complications reported per nursing. RUBI KING CRNA Apr 03, 2023 14:22
== END 2023-04-03 08:51 ==
LOC: SDC 06:43
PROVIDERS: ATTEND Specialist
DX: H26.9 Unspecified cataract (principal); F17.200 Nicotine dependence, unspecified, uncomplicated
CPT/HCPCS: 66984; V2632

== ENCOUNTER 2023-04-06 12:47 | Inpatient (IN) | payer MEDICARE ==
[2023-04-06] VITALS (8 sets, daily range): BP systolic 131–174; BP diastolic 82–97
[~2023-04-06] VITALS: Ht 162.5 cm; Wt 49.9 kg
[2023-04-06] MEDS ORDERED: NS IV 1000 ML 1,000 ML IV STA (12:59)
[2023-04-06] MEDS ORDERED: ONDANSETRON INJECTION 4 MG/2 ML (SDV) IVP ONE (13:00)
[2023-04-06 13:07] LABS: BASOPHILS % (AUTO) 0 % (0-10); EOSINOPHILS % (AUTO) 0 % (0-10); HEMATOCRIT 50 % (35-52); LYMPHOCYTES # (AUTO) 1.4 10^3/uL (1.0-4.0); LYMPHOCYTES % (AUTO) 23 % (12-44); MEAN CORPUSCULAR HEMOGLOBIN 31 pg (25-34); MEAN CORPUSCULAR HGB CONC 35 g/dL (32-36); MEAN CORPUSCULAR VOLUME 90 fL (80-99); MEAN PLATELET VOLUME 9.7 fL (9.0-12.2); MONOCYTES # (AUTO) 0.5 10^3/uL (0.0-1.0); MONOCYTES % (AUTO) 8 % (0-12); NEUTROPHILS # (AUTO) 4.3 10^3/uL (1.8-7.8); NEUTROPHILS % (AUTO) 69 % (42-75); PLATELET COUNT 185 10^3/uL (130-400); WHITE BLOOD COUNT 6.2 10^3/uL (4.3-11.0)
[2023-04-06 13:11] LABS: HEMOGLOBIN 17.2 g/dL (11.5-16.0)
[2023-04-06 13:15] LABS: ALBUMIN 4.6 GM/DL (3.2-4.5); CHLORIDE 100 MMOL/L (98-107); POTASSIUM 4.4 MMOL/L (3.6-5.0); SODIUM 133 MMOL/L (135-145)
[2023-04-06 13:16] LABS: CALCIUM 9.8 MG/DL (8.5-10.1)
[2023-04-06 13:18] LABS: GLUCOSE 96 MG/DL (70-105); TOTAL PROTEIN 8.2 GM/DL (6.4-8.2)
[2023-04-06 13:19] LABS: CARBON DIOXIDE 20 MMOL/L (21-32)
[2023-04-06 13:20] LABS: BILIRUBIN,TOTAL 0.8 MG/DL (0.1-1.0)
[2023-04-06 13:21] LABS: ALKALINE PHOSPHATASE 101 U/L (40-136); CREATININE SERUM 1.11 MG/DL (0.60-1.30); GFR ESTIMATED 54
[2023-04-06 13:22] LABS: BUN/CREATININE RATIO 21
[2023-04-06 13:24] LABS: ALANINE AMINOTRANSFERASE 16 U/L (0-55)
[2023-04-06 13:46] LABS: BILIRUBIN,URINE 3+ (NEGATIVE); CLARITY,URINE CLOUDY; COLOR,URINE YELLOW; GLUCOSE, URINE (UA) TRACE (NEGATIVE); KETONES,URINE 1+ (NEGATIVE); LEUKOCYTE ESTERASE ,URINE NEGATIVE (NEGATIVE); NITRITE,URINE NEGATIVE (NEGATIVE); PH,URINE 5.5 (5-9); PROTEIN,URINE 2+ (NEGATIVE)
[2023-04-06 13:56] LABS: BACTERIA,URINE FEW /HPF; RBC,URINE RARE /HPF; WBC,URINE RARE /HPF
--- NOTE | 2023-04-06 13:56 | ED General ---
General Chief Complaint: Respiratory Problems Stated Complaint: SOB Nursing Triage Note: PT TO [facility] WITH CO SOB, FEELING "SICK SINCE THURSDAY". PT HAS HX OF COPD, USING 3L OF O2 VIA NC CONTINUOUSLY. EMS HAS PT ON 12-15L VIA NONREBREATHER EN ROUTE, BG 27 , GAVE 1/2 TUBE OF GLUCOSE EN ROUTE, NO HX OF DM. Source of Information: Patient, EMS Exam Limitations: No Limitations History of Present Illness Date Seen by Provider: Apr 06, 2023 Time Seen by Provider: 12:55 Initial Comments Here with report of shortness of air at home for which she called EMS. Patient states that she has been weak and nauseated since Thursday. She has been unable to take her medicine today. She does have history of anxiety and hypertension. She does smoke. She also has history of Raynaud's disease. On arrival, EMS noted O2 saturations in the low 80s or lower. She is normally on 3 L via nasal cannula but they placed her on nonrebreather to get her O2 sats up. EMS also reports that in route she had a blood sugar of 47 and they did give oral glucose for that. Patient does not have history of diabetes and does not take anything for blood sugar. She reports that she has not been eating or drinking well. Denies vomiting or diarrhea. She reports being cold. Timing/Duration: 2-3 Days Severity: Moderate Associated Systoms: No Cough; Nausea/Vomiting, Shortness of Air, Weakness Allergies and Home Medications Allergies Coded Allergies: codeine (Verified Allergy, Unknown, 06/19/08) Patient Home Medication List Home Medication List Reviewed: Yes Albuterol Sulfate (Albuterol Sulfate) 2.5 Mg/0.5 Ml Vial.neb, 2.5 MG INH Q4H PRN for SHORTNESS OF BREATH, (Reported) Entered as Reported by: CHANEL CAMPBELL on 03/25/22 1553 Albuterol Sulfate (Proventil Hfa) 90 Mcg Hfa.aer.ad, 6.7 GM INH Q4H PRN for WHEEZING Prescribed by: RAFIQ ROJAS on 03/28/22 1134 Amlodipine Besylate (Norvasc) 10 Mg Tablet, 5 MG PO DAILY, (Reported) Entered as Reported by: SAVANNAH ALMANZA on 03/16/23 0853 Budesonide/Glycopyr/Formoterol (Breztri Aerosphere Inhaler) 160 Mcg-9 Mcg-4.8 Mcg/Actuation Hfa.aer.ad, 2 PUFF INH BID, (Reported) Entered as Reported by: CHANEL CAMPBELL on 03/25/221552 Cetirizine HCl (Cetirizine HCl) 10 Mg Tablet, 10 MG PO DAILY, (Reported) Entered as Reported by: CHANEL CAMPBELL on 03/25/221552 Cetirizine HCl (Zyrtec) 10 Mg Capsule, 10 MG PO DAILY, (Reported) Entered as Reported by: SAVANNAH ALMANZA on 03/16/23 0854 Fluticasone Propionate (Fluticasone Propionate) 50 Mcg/Actuation [place].susp, 1 SPRAY NSEACH BID, (Reported) Entered as Reported by: CHANEL CAMPBELL on 03/25/221552 Gabapentin (Neurontin) 300 Mg Capsule, 600 MG PO TID, (Reported) Entered as Reported by: CHANEL CAMPBELL on 03/25/221552 Lorazepam (Ativan) 0.5 Mg Tablet, 0.5 MG PO TID PRN for ANXIETY Prescribed by: RAFIQ ROJAS on 03/28/22 113 Losartan Potassium (Losartan Potassium) 50 Mg Tablet, 100 MG PO DAILY Prescribed by: RAFIQ ROJAS on 03/28/22 113 Metoprolol Succinate (Metoprolol Succinate) 50 Mg Tab.er.24h, 50 MG PO DAILY, (Reported) Entered as Reported by: CHANEL CAMPBELL on 03/25/221552 Montelukast Sodium (Montelukast Sodium) 10 Mg Tablet, 10 MG PO HS, (Reported) Entered as Reported by: CHANEL CAMPBLEL on 03/25/221552 Pantoprazole Sodium (Pantoprazole Sodium) 40 Mg Tablet.dr, 40 MG PO BID, (Reported) Entered as Reported by: JUDSON CARLOS on 05/31/18 0932 Venlafaxine HCl (Venlafaxine HCl ER) 150 Mg Cap.er.24h, 150 MG PO DAILY, (Reported) Entered as Reported by: CHANEL CAMPBELL on 03/25/221552 Review of Systems Review of Systems Constitutional: see HPI; No chills, No fever EENTM: No nose congestion, No throat pain Respiratory: No cough; short of breath Cardiovascular: No chest pain, No edema Gastrointestinal: No diarrhea; nausea; No vomiting Genitourinary: No dysuria Musculoskeletal: muscle weakness Psychiatric/Neurological: Weakness Past Jcbaenr-Nounvw-Blhnec Hx Patient Social History Tobacco Use?: Yes Tobacco type used: Cigarettes Smoking Status: Current Everyday Smoker Substance use?: Yes Substance type: Marijuana Substance frequency: Once in a while Alcohol Use?: Yes Alcohol Frequency: Once in a while Immunizations Up To Date Tetanus Booster (TDap): Unknown PED Vaccines UTD: Yes Influenza Vaccine Up-to-Date: Yes; Up-to-Date First/Initial COVID19 Vaccinat: 2020 Second COVID19 Vaccination Jabier: 2020 Third COVID19 Vaccination Date: 2021 Seasonal Allergies Seasonal Allergies: Yes Past Medical History Surgery/Hospitalization HX: COPD, HTN Surgeries: Yes (bartholin gland removed) Cystectomy, Lumpectomy, Orthopedic Respiratory: Yes COPD Currently Using CPAP: No Currently Using BIPAP: No Cardiac: Yes High Cholesterol, Hypertension Neurological: No Reproductive Disorders: No Sexually Transmitted Disease: No Genitourinary: No Gastrointestinal: Yes Chronic Constipation Musculoskeletal: Yes (ARTHRITIS) Arthritis Endocrine: No Cancer: Yes Breast Psychosocial: Yes Anxiety Integumentary: No Blood Disorders: No Family Medical History Reviewed Nursing Family Hx Patient reports no known family medical history. No Pertinent Family Hx Physical Exam-Suspected Sepsis Physical Exam Vital Signs Vital Signs - First Documented 04/06/23 04/06/23 12:51 13:10 Temp 35.7 Pulse 88 Resp 22 B/P (MAP) 133/85 (101) Pulse Ox 100 O2 Delivery Nasal Cannula O2 Flow Rate 3.00 FiO2 100 Capillary Refill : Less Than 3 Seconds Blood Pressure Mean: 101 Height, Weight, BMI Height: 5'4.00" Weight: 140lbs. 0.0oz. [id number]; 20.00 BMI Method:Stated General Appearance: No Apparent Distress, WD/WN HEENT: PERRL/EOMI, Pharynx Normal Neck: Non Tender, Supple Respiratory: Lungs Clear, Normal Breath Sounds Cardiovascular: Regular Rate, Rhythm, No Murmur Gastrointestinal: Non Tender, Soft Back: Normal Inspection, No CVA Tenderness, No Vertebral Tenderness Extremity: Normal Range of Motion, Non Tender Neurologic/Psychiatric: Alert, Oriented x3 Skin: normal color, warm/dry Focused Exam Lactate Level 04/06/23 13:15: Lactic Acid Level 1.49 Lactic Acid Level Procedures/Interventions Date of ETT Placement: Jun 01, 2018 Progress/Results/Core Measures Suspected Sepsis SIRS Temperature: Pulse: 88 Respiratory Rate: 22 Laboratory Tests 04/06/23 12:55: White Blood Count 6.2 Blood Pressure 133 /85 Mean: 101 04/06/23 13:15: Lactic Acid Level 1.49 Laboratory Tests 04/06/23 12:55: Creatinine 1.11, INR Comment 1.0, Platelet Count 185, Total Bilirubin 0.8 Results/Orders Lab Results Laboratory Tests Test 04/06/23 12:54 04/06/23 12:55 04/06/23 13:15 04/06/23 13:30 Range/Units Glucometer 72 70-110 MG/DL White Blood Count 6.2 4.3-11.0 10^3/uL Red Blood Count 5.52 H 3.80-5.11 10^6/uL Hemoglobin 17.2 H 11.5-16.0 g/dL Hematocrit 50 35-52 % Mean Corpuscular Volume 90 80-99 fL Mean Corpuscular Hemoglobin 31 25-34 pg Mean Corpuscular Hemoglobin Concent 35 32-36 g/dL Red Cell Distribution Width 13.2 10.0-14.5 % Platelet Count 185 130-400 10^3/uL Mean Platelet Volume 9.7 9.0-12.2 fL Immature Granulocyte % (Auto) 0 % Neutrophils (%) (Auto) 69 42-75 % Lymphocytes (%) (Auto) 23 12-44 % Monocytes (%) (Auto) 8 0-12 % Eosinophils (%) (Auto) 0 0-10 % Basophils (%) (Auto) 0 0-10 % Neutrophils # (Auto) 4.3 1.8-7.8 10^3/uL Lymphocytes # (Auto) 1.4 1.0-4.0 10^3/uL Monocytes # (Auto) 0.5 0.0-1.0 10^3/uL Eosinophils # (Auto) 0.0 0.0-0.3 10^3/uL Basophils # (Auto) 0.0 0.0-0.1 10^3/uL Immature Granulocyte # (Auto) 0.0 0.0-0.1 10^3/uL Prothrombin Time 14.0 12.2-14.7 SEC INR Comment 1.0 0.8-1.4 Activated Partial Thromboplast Time 31 24-35 SEC Sodium Level 133 L 135-145 MMOL/L Potassium Level 4.4 3.6-5.0 MMOL/L Chloride Level 100 98-107 MMOL/L Carbon Dioxide Level 20 L 21-32 MMOL/L Anion Gap 13 5-14 MMOL/L Blood Urea Nitrogen 23 H 7-18 MG/DL Creatinine 1.11 0.60-1.30 MG/DL Estimat Glomerular Filtration Rate 54 BUN/Creatinine Ratio 21 Glucose Level 96 70-105 MG/DL Calcium Level 9.8 8.5-10.1 MG/DL Corrected Calcium 8.5-10.1 MG/DL Total Bilirubin 0.8 0.1-1.0 MG/DL Aspartate Amino Transf (AST/SGOT) 24 5-34 U/L Alanine Aminotransferase (ALT/SGPT) 16 0-55 U/L Alkaline Phosphatase 101 40-136 U/L Troponin I 0.031 H <0.028 NG/ML Total Protein 8.2 6.4-8.2 GM/DL Albumin 4.6 H 3.2-4.5 GM/DL Lactic Acid Level 1.49 0.50-2.00 MMOL/L Urine Color YELLOW Urine Clarity CLOUDY Urine pH 5.5 5-9 Urine Specific [place] >=1.030 1.016-1.022 Urine Protein 2+ H NEGATIVE Urine Glucose (UA) TRACE H NEGATIVE Urine Ketones 1+ H NEGATIVE Urine Nitrite NEGATIVE NEGATIVE Urine Bilirubin 3+ H NEGATIVE Urine Urobilinogen 1.0 < = 1.0 MG/DL Urine Leukocyte Esterase NEGATIVE NEGATIVE Urine RBC (Auto) TRACE-I H NEGATIVE Urine RBC RARE /HPF Urine WBC RARE /HPF Urine Squamous Epithelial Cells 2-5 /HPF Urine Crystals NONE /LPF Urine Bacteria FEW H /HPF Urine Casts PRESENT /LPF Urine Hyaline Casts 10-25 H /LPF Urine Mucus SMALL H /LPF Urine Culture Indicated CULTURE PENDING Test 04/06/23 16:15 Range/Units Troponin I 0.057 H <0.028 NG/ML My Orders Orders - LANIE MONTEMAYOR MD Cbc And Automated Diff (04/06/23 12:59) Comprehensive Metabolic Panel (04/06/23 12:59) Blood Culture (04/06/23 12:59) Sputum Culture (04/06/23 12:59) Urinalysis (04/06/23 12:59) Urine Culture (04/06/23 12:59) Protime With Inr (04/06/23 12:59) Partial Thromboplastin Time (04/06/23 12:59) Chest 1 View, Ap/Pa Only (04/06/23 12:59) Ed Iv/Invasive Line Start (04/06/23 12:59) Vital Signs Adult Sepsis Patie Q15M (04/06/23 12:59) O2 (04/06/23 12:59) Remove Rings In Anticipation O (04/06/23 12:59) Lactic Acid Analyzer (04/06/23 12:59) Ondansetron Injection (Ondansetron Inj (04/06/23 13:00) Ns Iv 1000 Ml (Ns Iv 1000 Ml) (04/06/23 12:59) Ekg Tracing (04/06/23 13:59) Troponin I Martha (04/06/23 13:59) Troponin I Martha (04/06/23 15:39) Aspirin Chewable Tablet (Aspirin Chewabl (04/06/23 15:44) Fentanyl Injection (Fentanyl Injection (04/06/23 17:30) Enoxaparin Injection (04/06/23 17:45) Ed Admission (Communication) (04/06/23 17:34) Code/Resuscitation (04/06/23 17:34) Medications Given in ED Current Medications Medications Dose Ordered Sig/Luis Eduardo Route Start Time Stop Time Status Last Admin Dose Admin Ondansetron HCl 4 mg ONCE ONCE IVP 04/06/23 13:00 04/06/23 13:02 DC 04/06/23 13:19 4 MG Vital Signs/I&O 04/06/23 04/06/23 04/06/23 12:51 13:10 13:23 Temp 35.7 Pulse 88 Resp 22 B/P (MAP) 133/85 (101) Pulse Ox 100 100 O2 Delivery Nasal Cannula Nasal Cannula Nasal Cannula O2 Flow Rate 3.00 3.00 3.00 3.00 FiO2 100 Capillary Refill : Less Than 3 Seconds Blood Pressure Mean: 101 Progress Note : Progress Note Seen and evaluated. Given patient's history of hypoxia and low blood sugar, we will do work-up for possible sepsis. Work-up includes IV, labs including CBC, CMP, blood cultures and lactic acid as well as UA and urine culture. We will get chest x-ray and give normal saline 1 L bolus. Patient will be maintained on O2 to keep sats greater than 92%. We will warm the patient as the cold air is increasing her Raynaud's currently. Monitor patient. Differential diagnosis includes pneumonia, UTI, electrolyte abnormality, dehydration, cardiac event, sepsis 1357: Chest x-ray reviewed and shows no obvious infiltrate. CBC reviewed and shows normal white count and concentrated hemoglobin. CMP shows grossly normal electrolytes with slightly low sodium and normal glucose, renal function and LFTs. Lactic acid is negative. Monitor patient. 1545: We are repeating troponin as the first troponin was slightly elevated. We will also give aspirin 324 mg p.o. Patient is overall feeling better. UA does show concentration and trace glucose with some contamination but no signs of infection. Coags are normal. All of this was discussed with the patient. She agrees to repeat troponin we will see how she is doing after that. Monitor patient. 1705: Patient's repeat troponin has gone up to 0.057 which is almost double what it was earlier. I have recommended admission to her and she would like me to call Dr. Rojas, her primary care doctor to see what she thinks. I have placed that call and I am awaiting callback. She is without chest pain currently. Monitor patient. 1735: I have discussed the case with Dr. Rojas and she accepts patient for admission, observation status and request that I speak with cardioreyes rivero. I did speak with cardiology, Dr. Washington who accepts patient in consult and he is recommending Lovenox 1 mg/kg subcu x1 now and he will take it from there. Patient is having some low back pain and has had some early evaluation for kidney issues and is post to get kidney ultrasound and I relayed this to Dr. Rojas and she will ambulate from there. We will give fentanyl 50 mcg IV x1 now. Admit, observation status. Patient and family agree with plan. Patient is full code. ECG Initial ECG Impression Date: Apr 06, 2023 Initial ECG Impression Time: 14:29 Initial ECG Rate: 66 Initial ECG Rhythm: Normal Sinus Comment Sinus rhythm with left axis deviation. No evidence of ST elevation [place]. Left atrial abnormality noted. Interpreted by me. Diagnostic Imaging Diagonstic Imaging: Xray Plain Films/CT/US/NM/MRI: chest Comments [facility]. [place], [place] NAME: SALONI ARMANDO [facility] REC#: [id number] PT STATUS: REG ER : 1955 PHYSICIAN: LANIE MONTEMAYOR MD ADMIT DATE: 04/06/23/ER Draft Date of Exam:04/06/23 CHEST 1 VIEW, AP/PA ONLY INDICATION: Dyspnea AP view of chest is obtained with comparison made to study of 02/22/2023. FINDINGS: Heart size and pulmonary vascularity are within normal limits, and the lungs are clear, bilaterally. There are surgical clips in the right axilla. IMPRESSION: Unremarkable chest. Dictated on workstation # [id number] Dict: 04/06/23 1357 Trans: 04/06/23 1358 CV [id number] Interpreted by: KEE WRAY MD Electronically signed by: Departure Communication (Admissions) Time/Spoke to Admitting Phy: 17:15 Time/Spoke to Consulting Phy: 17:25 Impression Primary Impression: Elevated troponin Additional Impressions: Dyspnea Qualified Codes: R06.00 - Dyspnea, unspecified Left flank pain Disposition: ADMITTED INPATIENT Condition: Stable Admissions Decision to Admit Reason: Admit from ER (General) Decision to Admit/Date: Apr 06, 2023 Time/Decision to Admit Time: 17:15 Departure-Patient Inst. Referrals: RAFIQ ROJAS DO (PCP/Family) Primary Care Physician LANIE MONTEMAYOR MD Apr 06, 2023 13:56
--- NOTE | 2023-04-06 13:59 | Diagnostic Imaging Report ---
INDICATION: Dyspnea AP view of chest is obtained with comparison made to study of 02/22/2023. FINDINGS: Heart size and pulmonary vascularity are within normal limits, and the lungs are clear, bilaterally. There are surgical clips in the right axilla. IMPRESSION: Unremarkable chest. Dictated by: Dictated on workstation # [id number]
[2023-04-06] MEDS ORDERED: ASPIRIN 81 MG CHEWABLE TABLET PO STA (15:44)
[2023-04-06] MEDS ORDERED: fentaNYL INJECTION 100 MCG/2 ML VIAL IVP ONE (17:30)
--- NOTE | 2023-04-06 17:35 | History & Physical ---
History of Present Illness HPI/Chief Complaint CC: Acute hypoxic respiratory failure with elevated troponin HPI: This is a 67yoWF clinic patient of mine who has a h/o COPD O2 dependent and smoking who presented to the ER with hypoxia. Elevated troponin noted so she was placed in observation along with O2 and anxiolytics. Source: patient Exam Limitations: no limitations Date Seen 04/06/23 Time Seen by a Provider: 18:00 Attending Physician Catrina Bunn DO PCP Admitting Physician: Attending Physician: Referring Physician Date of Admission Home Medications & Allergies Home Medications Reviewed patient Home Medication Reconciliation performed by pharmacy medication reconciliations field support technician and/or nursing. Patients Allergies have been reviewed. Allergies Allergies Coded Allergies codeine (Verified Allergy, Unknown, 06/19/08) Past Ubybabw-Zxoppi-Pyzdkc Hx Past Med/Social Hx: Reviewed Nursing Past Med/Soc Hx, Reviewed and Corrections made Patient Social History Marrital Status: Employed/Student: retired Alcohol Use: Denies Use Smoking Status: Current Everyday Smoker Former Smoker, Quit: Dec 16, 2017 Type Used: Cigarettes Recent Hopitalizations: No Immunizations Up To Date Tetanus Booster (TDap): Unknown Pediatric: Yes Date of Pneumonia Vaccine: Jun 11, 2001 Date of Influenza Vaccine: Apr 09, 2018 Seasonal Allergies Seasonal Allergies: Yes Past Medical History Surgeries: Cystectomy, Lumpectomy, Orthopedic Respiratory: COPD, Pneumonia Currently Using CPAP: No Currently Using BIPAP: No Cardiac: High Cholesterol, Hypertension Reproductive: No Sexually Transmitted Disease: No Gastrointestinal: Chronic Constipation Musculoskeletal: Arthritis Cancer: Breast Psychosocial: Anxiety History of Blood Disorders: No Family History Reviewed Nursing Family Hx Patient reports no known family medical history. No Pertinent Family Hx Review of Systems Constitutional: see HPI, weakness EENTM: no symptoms reported Respiratory: dyspnea on exertion, short of breath Cardiovascular: palpitations Gastrointestinal: no symptoms reported Genitourinary: no symptoms reported Musculoskeletal: no symptoms reported Skin: no symptoms reported Psychiatric/Neurological: No Symptoms Reported All Other Systems Reviewed Negative Unless Noted: Yes Physical Exam Physical Exam Vital Signs Vital Signs - First Documented 04/06/23 04/06/23 12:51 13:10 Temp 35.7 Pulse 88 Resp 22 B/P (MAP) 133/85 (101) Pulse Ox 100 O2 Delivery Nasal Cannula O2 Flow Rate 3.00 FiO2 100 Capillary Refill : Less Than 3 Seconds Height, Weight, BMI Height: 5'4.00" Weight: 140lbs. 0.0oz. 63.421331xe; 20.00 BMI Method:Stated General Appearance: WD/WN, Anxious, Chronically ill, Mild Distress HEENT: PERRL/EOMI, Pharynx Normal Neck: Non Tender, Supple Respiratory: Lungs Clear, Decreased Breath Sounds Cardiovascular: Regular Rate, Rhythm, No Murmur Gastrointestinal: Non Tender, Soft Back: Normal Inspection, No CVA Tenderness, No Vertebral Tenderness Extremity: Normal Range of Motion, Non Tender Neurologic/Psychiatric: Alert, Oriented x3 Results Results/Procedures Labs Laboratory Tests 04/06/23 12:55 Patient resulted labs reviewed. Assessment/Plan Admission Diagnosis Assessment: Acute on chronic hypoxic respiratory failure Elevated troponin Severe O2 dependent COPD Current smoker Anxiety Plan: Monitor O2 Ativan Cards consult Admission Status: Observation Clinical Quality Measures Smoking Cessation Counseling: Counseling-Symptomatic: 3-10 Minutes CATRINA BUNN DO Apr 06, 2023 17:35
[2023-04-06] MEDS ORDERED: ENOXAPARIN 60 MG/0.6 ML SYRINGE SC ONE (17:45)
[2023-04-06] MEDS ORDERED: diphenhydrAMINE INJ 50 MG/ML VIAL IVP PRN (18:30)
[2023-04-06] MEDS ORDERED: MELATONIN 3 MG TABLET PO PRN (18:30)
[2023-04-06] MEDS ORDERED: ONDANSETRON INJECTION 4 MG/2 ML (SDV) IV PRN (18:30)
[2023-04-06] MEDS ORDERED: ONDANSETRON 4 MG ORAL DISSOLVE TABLET PO PRN (18:30)
[2023-04-06] MEDS ORDERED: PATIENT MAY USE OWN MEDS, ALL PO SCH (18:30)
[2023-04-06] MEDS ORDERED: CALCIUM CARBONATE 500 MG CHEW TABLET PO PRN (18:30)
[2023-04-06] MEDS ORDERED: BISACODYL 10 MG SUPPOSITORY PR PRN (18:30)
[2023-04-06] MEDS ORDERED: ACETAMINOPHEN 325 MG TABLET PO PRN (18:30)
[2023-04-06] MEDS ORDERED: diphenhydrAMINE 25 MG TABLET PO PRN (18:30)
[2023-04-06] MEDS ORDERED: ENOXAPARIN 100 MG/1 ML SYRINGE SC SCH (18:30)
[2023-04-06] MEDS ORDERED: NITROGLYCERIN 0.4 MG SL TABLETS BTL 25'S SL PRN (18:30)
[2023-04-06] MEDS ORDERED: ANTACID SUSPENSION 30 ML UDC PO PRN (18:30)
[2023-04-06] MEDS ORDERED: LORazepam 0.5 MG TABLET PO PRN (18:30)
[2023-04-06] MEDS ORDERED: LACTULOSE SYRUP 10GM/15ML 30ML UDC PO PRN (18:30)
[2023-04-06] MEDS ORDERED: MILK OF MAGNESIA 400 MG/5 ML 30 ML UDC PO PRN (18:30)
[2023-04-06] MEDS ORDERED: PATIENT MAY USE OWN MEDS, ALL MC SCH (18:30)
[2023-04-06] MEDS ORDERED: ENOXAPARIN 40 MG/0.4 ML SYRINGE SC SCH (18:30)
[2023-04-06] MEDS: NS IV 1000 ML 1,000 ML IV SCH (19:00)
[2023-04-06] MEDS: oxyCODONE IMMEDIATE RELEASE 5 MG TABLET PO PRN (19:52)
[2023-04-06] MEDS ORDERED: RT-ALBUTEROL SULF 2.5 MG/3 ML PRE-MIX VIAL INH PRN (20:45)
[2023-04-06] MEDS: GABAPENTIN 300 MG CAPSULE PO SCH (21:06)
[2023-04-06] MEDS: SENNOSIDES 8.6 MG TABLET PO SCH (21:14)
[2023-04-06] MEDS: DOCUSATE SODIUM 100 MG CAPSULE PO SCH (21:14)
[2023-04-06] MEDS: RT-ALBUTEROL SULF 2.5 MG/3 ML PRE-MIX VIAL INH SCH (23:01)
[2023-04-07] VITALS (14 sets, daily range): BP systolic 96–143; BP diastolic 67–92
[2023-04-07] MEDS: HYDROmorphone INJECTION 2 MG/ML VIAL IV PRN ×2 (00:47→11:51)
[2023-04-07] MEDS: RT-ALBUTEROL SULF 2.5 MG/3 ML PRE-MIX VIAL INH SCH ×6 (02:43→22:00)
[2023-04-07] MEDS: oxyCODONE IMMEDIATE RELEASE 5 MG TABLET PO PRN ×4 (05:42→19:38)
[2023-04-07 06:26] LABS: BASOPHILS % (AUTO) 0 % (0-10); EOSINOPHILS % (AUTO) 0 % (0-10); HEMATOCRIT 45 % (35-52); HEMOGLOBIN 15.4 g/dL (11.5-16.0); LYMPHOCYTES # (AUTO) 1.3 10^3/uL (1.0-4.0); LYMPHOCYTES % (AUTO) 29 % (12-44); MEAN CORPUSCULAR HEMOGLOBIN 31 pg (25-34); MEAN CORPUSCULAR HGB CONC 34 g/dL (32-36); MEAN CORPUSCULAR VOLUME 90 fL (80-99); MEAN PLATELET VOLUME 9.9 fL (9.0-12.2); MONOCYTES # (AUTO) 0.4 10^3/uL (0.0-1.0); MONOCYTES % (AUTO) 9 % (0-12); NEUTROPHILS # (AUTO) 2.7 10^3/uL (1.8-7.8); NEUTROPHILS % (AUTO) 61 % (42-75); PLATELET COUNT 141 10^3/uL (130-400); WHITE BLOOD COUNT 4.5 10^3/uL (4.3-11.0)
[2023-04-07] MEDS: ENOXAPARIN 60 MG/0.6 ML SYRINGE SC SCH ×2 (06:39→17:23)
[2023-04-07 06:42] LABS: ALBUMIN 4.2 GM/DL (3.2-4.5); POTASSIUM 3.3 MMOL/L (3.6-5.0)
[2023-04-07 06:43] LABS: CALCIUM 8.7 MG/DL (8.5-10.1)
[2023-04-07 06:45] LABS: TOTAL PROTEIN 7.1 GM/DL (6.4-8.2)
[2023-04-07 06:47] LABS: BILIRUBIN,TOTAL 0.7 MG/DL (0.1-1.0)
[2023-04-07 06:48] LABS: CREATININE SERUM 0.92 MG/DL (0.60-1.30)
--- NOTE | 2023-04-07 08:19 | Progress Note ---
Subjective Date Seen by a Provider: Apr 07, 2023 Time Seen by a Provider: 11:00 Subjective/Events-last exam Patient doing a little bit better Left flank pain is still an issue Will initiate PT and heating pad Cardiology will want to perform cardiac catheterization tomorrow Review of Systems General: Fatigue, Malaise Cardiovascular: Chest Pain Gastrointestinal: Abdominal Pain Focused Exam Lactate Level 04/06/23 13:15: Lactic Acid Level 1.49 Objective Exam Last Set of Vital Signs Vital Signs Date Time Temp Pulse Resp B/P (MAP) Pulse Ox O2 Delivery O2 Flow Rate FiO2 04/07/23 08:00 36.6 85 10 118/78 (91) 98 Nasal Cannula 2.00 04/06/23 19:59 100 Capillary Refill : Less Than 3 Seconds I&O Intake and Output 04/06/23 23:59 Intake Total 1100 ml Balance 1100 ml Intake Oral 100 ml IV Total 1000 ml # Voids 2 Daily Weight Change No General: Alert, Oriented X3, Cooperative, No Acute Distress Lungs: Clear to Auscultation, Normal Air Movement Heart: Regular Rate, Normal S1, Normal S2, No Murmurs Psych/Mental Status: Mental Status NL, Mood NL Results Lab Laboratory Tests 04/06/23 12:54: Glucometer 72 04/06/23 12:55: White Blood Count 6.2, Red Blood Count 5.52H, Hemoglobin 17.2H, Hematocrit 50, Mean Corpuscular Volume 90, Mean Corpuscular Hemoglobin 31, Mean Corpuscular Hemoglobin Concent 35, Red Cell Distribution Width 13.2, Platelet Count 185, Mean Platelet Volume 9.7, Immature Granulocyte % (Auto) 0, Neutrophils (%) (Auto) 69, Lymphocytes (%) (Auto) 23, Monocytes (%) (Auto) 8, Eosinophils (%) (Auto) 0, Basophils (%) (Auto) 0, Neutrophils # (Auto) 4.3, Lymphocytes # (Auto) 1.4, Monocytes # (Auto) 0.5, Eosinophils # (Auto) 0.0, Basophils # (Auto) 0.0, Immature Granulocyte # (Auto) 0.0, Prothrombin Time 14.0, INR Comment 1.0, Activated Partial Thromboplast Time 31, Sodium Level 133L, Potassium Level 4.4, Chloride Level 100, Carbon Dioxide Level 20L, Anion Gap 13, Blood Urea Nitrogen 23H, Creatinine 1.11, Estimat Glomerular Filtration Rate 54, BUN/Creatinine R atio 21, Glucose Level 96, Calcium Level 9.8, Corrected Calcium , Total Bilirubin 0.8, Aspartate Amino Transf (AST/SGOT) 24, Alanine Aminotransferase (ALT/SGPT) 16, Alkaline Phosphatase 101, Troponin I 0.031H, Total Protein 8.2, Albumin 4.6H 04/06/23 13:15: Lactic Acid Level 1.49 04/06/23 13:30: Urine Color YELLOW, Urine Clarity CLOUDY, Urine pH 5.5, Urine Specific [place] >=1.030, Urine Protein 2+H, Urine Glucose (UA) TRACEH, Urine Ketones 1+H, Urine Nitrite NEGATIVE, Urine Bilirubin 3+H, Urine Urobilinogen 1.0, Urine Leukocyte Esterase NEGATIVE, Urine RBC (Auto) TRACE-IH, Urine RBC RARE, Urine WBC RARE, Urine Squamous Epithelial Cells 2-5, Urine Crystals NONE, Urine Bacteria FEWH, Urine Casts PRESENT, Urine Hyaline Casts 10-25H, Urine Mucus SMALLH, Urine Culture Indicated CULTURE PENDING 04/06/23 16:15: Troponin I 0.057H 04/07/23 06:00: Troponin I 0.085H, White Blood Count 4.5, Red Blood Count 5.03, Hemoglobin 15.4, Hematocrit 45, Mean Corpuscular Volume 90, Mean Corpuscular Hemoglobin 31, Mean Corpuscular Hemoglobin Concent 34, Red Cell Distribution Width 13.2, Platelet Count 141, Mean Platelet Volume 9.9, Immature Granulocyte % (Auto) 0, Neutrophils (%) (Auto) 61, Lymphocytes (%) (Auto) 29, Monocytes (%) (Auto) 9, Eosinophils (%) (Auto) 0, Basophils (%) (Auto) 0, Neutrophils # (Auto) 2.7, Lymphocytes # (Auto) 1.3, Monocytes # (Auto) 0.4, Eosinophils # (Auto) 0.0, Basophils # (Auto) 0.0, Immature Granulocyte # (Auto) 0.0, Sodium Level 138, Potassium Level 3.3L, Chloride Level 105, Carbon Dioxide Level 21, Anion Gap 12, Blood Urea Nitrogen 20H, Creatinine 0.92, Estimat Glomerular Filtration Rate 68, BUN/Creatinine Ratio 22, Glucose Level 76, Calcium Level 8.7, Corrected Calcium 8.5, Total Bilirubin 0.7, Aspartate Amino Transf (AST/SGOT) 27, Alanine Aminotransferase (ALT/SGPT) 16, Alkaline Phosphatase 86, Total Protein 7.1, Albumin 4.2, Triglycerides Level 201H, Cholesterol Level 228H, LDL Cholesterol Direct 169H, VLDL Cholesterol 40, HDL Cholesterol 49 Assessment/Plan Assessment/Plan Assess & Plan/Chief Complaint Assessment: Acute on chronic hypoxic respiratory failure Elevated troponin Severe O2 dependent COPD Current smoker Anxiety Left flank pain ultrasound ordered Plan: Monitor O2 Ativan Cards consult Clinical Quality Measures Smoking Cessation Counseling: Counseling-Symptomatic: 3-10 Minutes RAFIQ ROJAS DO Apr 07, 2023 08:19
[2023-04-07] MEDS ORDERED: POTASSIUM CHLORIDE 10 MEQ TABLET PO NR (08:30)
[2023-04-07] MEDS: ASPIRIN enteric coated 81MG TABLET PO SCH (09:26)
[2023-04-07] MEDS: DOCUSATE SODIUM 100 MG CAPSULE PO SCH ×2 (09:26→19:38)
[2023-04-07] MEDS: GABAPENTIN 300 MG CAPSULE PO SCH ×4 (09:27→22:14)
[2023-04-07] MEDS: SENNOSIDES 8.6 MG TABLET PO SCH ×2 (09:27→19:38)
[2023-04-07] MEDS: LOSARTAN 100 MG TABLET PO SCH (09:27)
[2023-04-07] MEDS: NS IV 1000 ML 1,000 ML IV SCH (09:28)
[2023-04-07] MEDS: amLODIPine 5 MG TABLET PO SCH (09:28)
[2023-04-07] MEDS: BREZTRI 160/9/4.8 MCG INHALER INH SCH ×2 (10:31→19:43)
--- NOTE | 2023-04-07 11:53 | Physical Therapy Evaluation ---
PT Evaluation-General Medical Diagnosis Admission Date Apr 06, 2023 at 18:24 Medical Diagnosis: elevated troponin Onset Date: Apr 06, 2023 Therapy Diagnosis Therapy Diagnosis: debility Height/Weight Height (Feet): 5 Height (Inches): 4.00 Weight (Pounds): 140 Weight (Ounces): 0.0 Precautions Precautions/Isolations: Standard Precautions Referral Physician: Oni Reason for Referral: Evaluation/Treatment Medical History Pertinent Medical History: Arthritis, COPD (3L), HTN, Smoking Additional Medical History Raynauds Current History ERM secondary to SOA and "feeling sick" Reviewed History: Yes Social History Home: Single Level Current Living Status: Spouse Prior Prior Level of Function SCALE: Activities may be completed with or without assistive devices. 1-Osbpulcejr-qnoyuqd completes the activity by him/herself with no assistance from a helper. 5-Set-up or Clean-up Assistance-helper sets up or cleans up; patient completes activity. [place] assists only prior to or following the activity. 4-Supervision or Touching Assistance-helper provides verbal cues and/or touching/steadying and/or contact guard assistance as patient completes ac tivity. Assistance may be provided throughout the activity or intermittently. 3-Partial/Moderate Assistance-helper does LESS THAN HALF the effort. [place] lifts, holds or supports trunk or limbs, but provides less than half the effort. 2-Substantial/Maximal Assistance-helper does MORE THAN HALF the effort. [place] lifts or holds trunk or limbs and provides more than half the effort. 3-Sionknkwt-ookevs does ALL the effort. Patient does none of the effort to complete the activity. Or, the assistance of 2 or more helpers is required for the patient to complete the activity. If activity was not attempted, code reason: 7-Patient Refused. 9-Not Applicable-not attempted and the patient did not perform the activity before the current illness, exacerbation or injury. 10-Not Attempted due to Environmental Limitations-(lack of equipment, weather restraints, etc.). 88-Not Attempted due to Medical Conditions or Safety Concerns. Bed Mobility: 6 Transfers (B,C,W/C): 6 Gait: 6 Stairs: 6 Indoor Mobility (Ambulation): Independent Stairs: Independent Prior Devices Use: None PT Evaluation-Current Subjective Patient agrees to PT. Objective Patient Orientation: Normal For Age Attachments: IV ROM/Strength ROM Lower Extremities bilateral LE WFL Strength Lower Extremities 3+/5 grossly bilateral LE all planes Integumentary/Posture Bowel Incontinence: No Bladder Incontinence: No Posture WFL Neuromuscular (Tone, Coordination, Reflexes) grossly intact Sensory Vision: Functional Hearing: Functional Transfers Lying to Sitting/Side of Bed(Q: 6 Sit to Stand (QC): 4 Chair/Fun-bk-Xqmxo Xfer(QC): 4 Gait Mode of Locomotion: Walk Anticipated Mode of Locomotion: Walk Walk 10 feet (QC): 4 Walk 50 ft with 2 Turns(QC): 88 Distance: 10' Comments/Gait Description no AD but unsteady/will utilize FWW for distance Balance Sitting Static: Normal Sitting Dynamic: Normal Standing Static: Fair Standing Dynamic: Fair Assessment/Needs Patient will benefit from short term skilled PT to address functional mobility to ensure safe return to home with spouse at maximum LOF. Rehab Potential: Fair PT Short Term Goals Short Term Goals Time Frame: Apr 11, 2023 Roll Left & Right: 6 Sit to lyin Lying to sitting on side of be: 6 Sit to stand: 6 Chair/xsd-yx-injhd transfer: 6 Toilet transfer: 6 Walk 10 feet: 6 Walk 50 feet with two turns: 6 Walk 150 feet: 6 PT Plan Problem List Problem List: Activity Tolerance Treatment/Plan Treatment Plan: Continue Plan of Care Treatment Plan: Education, Functional Activity Gina, Functional Strength, Gait, Safety, Therapeutic Exercise Treatment Duration: Apr 11, 2023 Frequency: 5 times per week Estimated Hrs Per Day: .25 hour per day Patient and/or Family Agrees t: Yes Time Time In: 1135 Time Out: 1145 DATE: Apr 07, 2023 Total Billed Treatment Time: 10 Total Billed Treatment 1 visit EVMod 10 min RANDAL FOX PT Apr 07, 2023 11:53
[2023-04-07] MEDS ORDERED: [UNRECOGNIZED DRUG - REMARK] OD SCH (12:00)
[2023-04-07] MEDS ORDERED: diphenhydrAMINE 25 MG TABLET PO NR (12:30)
[2023-04-07 12:49] LABS: INR 1.1 (0.8-1.4); PROTHROMBIN TIME PATIENT 14.7 SEC (12.2-14.7)
[2023-04-07 13:13] LABS: HEMATOCRIT 43 % (35-52); HEMOGLOBIN 14.8 g/dL (11.5-16.0); MEAN CORPUSCULAR HEMOGLOBIN 31 pg (25-34); MEAN CORPUSCULAR HGB CONC 34 g/dL (32-36); MEAN CORPUSCULAR VOLUME 91 fL (80-99); MEAN PLATELET VOLUME 9.7 fL (9.0-12.2); PLATELET COUNT 143 10^3/uL (130-400); WHITE BLOOD COUNT 4.1 10^3/uL (4.3-11.0)
[2023-04-07 13:26] LABS: POTASSIUM 4.3 MMOL/L (3.6-5.0)
[2023-04-07 13:27] LABS: CALCIUM 8.6 MG/DL (8.5-10.1)
[2023-04-07 13:31] LABS: CREATININE SERUM 1.06 MG/DL (0.60-1.30)
--- NOTE | 2023-04-07 13:44 | Diagnostic Imaging Report ---
INDICATION: Left flank pain PROCEDURE: Ultrasound abdomen complete. TECHNIQUE: Multiple real-time grayscale images were obtained of the abdomen in various projections. COMPARISON: CT abdomen pelvis of 12/29/2019 FINDINGS: The liver measures 13 cm. It has normal echogenicity and is without focal mass. The portal vein is patent with normal direction of flow. The gallbladder is normally filled without gallstones, wall thickening, or pericholecystic fluid. The common bile duct measures up to 0.5 cm in diameter. No intrahepatic biliary dilation. The visualized portions of the pancreas are normal. Portions of the head and tail are obscured by overlying bowel gas. The kidneys are normal in size. No hydronephrosis, shadowing calculi, or suspicious mass lesion. The spleen is normal in size measuring 11 cm. There is no focal splenic mass. Dilatation of the infrarenal abdominal aorta measuring up to 2.8 cm is an increase in size from 2.5 cm in 2020. Aorta remains patent. IVC is normal. IMPRESSION: 1. No hydronephrosis or echogenic renal stones on either side. 2. Mild increase in size of the infrarenal abdominal aortic ectasia measuring up to 2.8 cm, previously 2.5 cm. Dictated by: Dictated on workstation # [id number]
--- NOTE | 2023-04-07 13:50 | History & Physicial-Cardiolgy ---
HPI-Cardiology Cardiology Consultation: Date of Consultation 04/07/23 Date of Admission 04/06/2023 Attending Physician Catrina Rojas DO Admitting Physician Admitting Physician: Catrina Rojas DO Attending Physician: Catrina Rojas DO Consulting Physician JENNIFER LEVI MD HPI: Time Seen by a Provider: 10:12 Chief Complaint: Patient presented with complaint of shortness of breath, hypoxia, left flank pain increasing with movement. Found to have elevated troponin Patient is 67-year-old white female with past medical history of COPD on home oxygen, hypertension, hyperlipidemia, who presented complaining of shortness of breath, hypoxia left flank pain, fatigue, weakness. Found to have elevated troponin which is steadily going up. Denies any history of coronary disease. Review of Systems-Cardiology Review of Systems Constitutional: malaise, tiredness Eyes: no symptoms reported Ears/Nose/Throat: no symptoms reported Respiratory: orthopnea, shortness of breath Cardiovascular: no symptoms reported Gastrointestinal: abdominal pain Genitourinary: flank pain : No Musculoskeletal: other (Left flank pain) Skin: no symptoms reported Psychiatric/Neurological: anxiety; No tremors Hematologic: no symptoms reported All Other Systems Reviewed Negative Unless Noted: Yes YQD-Olquiw-Jzxiwl Hx Patient Social History Marrital Status: Employed/Student: retired Smoking Status: Current Everyday Smoker Alcohol Use?: Yes Substance type: Marijuana Pt feels they are or have been: No Tobacco type used: Cigarettes Immunizations Up To Date Tetanus Booster (TDap): Unknown Date of Pneumonia Vaccine: Jun 11, 2001 Date of Influenza Vaccine: Mar 02, 2023 Past Medical History PMH As described under Assessment. Family Medical History Family Medical History: No documented fam h/o early CAD or SCD Family History: Patient reports no known family medical history. Allergies and Home Medications Allergies Coded Allergies: codeine (Verified Allergy, Unknown, 06/19/08) Patient Home Medication List Home Medication List Reviewed: Yes Albuterol Sulfate (Albuterol Sulfate) 2.5 Mg/0.5 Ml Vial.neb, 2.5 MG INH Q4H PRN for SHORTNESS OF BREATH, (Reported) Entered as Reported by: CHANEL CAMPBELL on 03/25/22 6573 Albuterol Sulfate (Proventil Hfa) 90 Mcg Hfa.aer.ad, 6.7 GM INH Q4H PRN for WHEEZING Prescribed by: CATRINA ROJSA on 03/28/22 113 Amlodipine Besylate (Norvasc) 10 Mg Tablet, 5 MG PO DAILY, (Reported) Entered as Reported by: SAVANNAH ALMANZA on 03/16/23 0853 Budesonide/Glycopyr/Formoterol (Breztri Aerosphere Inhaler) 160 Mcg-9 Mcg-4.8 Mcg/Actuation Hfa.aer.ad, 2 PUFF INH BID, (Reported) Entered as Reported by: CHANEL CAMPBELL on 03/25/22 155 Cetirizine HCl (Cetirizine HCl) 10 Mg Tablet, 10 MG PO DAILY, (Reported) Entered as Reported by: CHANEL CAMPBELL on 03/25/221552 Cetirizine HCl (Zyrtec) 10 Mg Capsule, 10 MG PO DAILY, (Reported) Entered as Reported by: SAVANNAH ALMANZA on 03/16/23 0854 Fluticasone Propionate (Fluticasone Propionate) 50 Mcg/Actuation [place].susp, 1 SPRAY NSEACH BID, (Reported) Entered as Reported by: CHANEL CAMPBELL on 03/25/221552 Gabapentin (Neurontin) 300 Mg Capsule, 600 MG PO TID, (Reported) Entered as Reported by: CHANEL CAMPBELL on 03/25/221552 Lorazepam (Ativan) 0.5 Mg Tablet, 0.5 MG PO TID PRN for ANXIETY Prescribed by: CATRINA ROJAS on 03/28/22 113 Losartan Potassium (Losartan Potassium) 50 Mg Tablet, 100 MG PO DAILY Prescribed by: CATRINA ROJAS on 03/28/22 113 Metoprolol Succinate (Metoprolol Succinate) 50 Mg Tab.er.24h, 50 MG PO DAILY, (Reported) Entered as Reported by: CHANEL CAMPBELL on 03/25/22 155 Montelukast Sodium (Montelukast Sodium) 10 Mg Tablet, 10 MG PO HS, (Reported) Entered as Reported by: CHANEL CAMPBELL on 03/25/221552 Pantoprazole Sodium (Pantoprazole Sodium) 40 Mg Tablet.dr, 40 MG PO BID, (Reported) Entered as Reported by: JUDSON CARLOS on 05/31/18 0932 Venlafaxine HCl (Venlafaxine HCl ER) 150 Mg Cap.er.24h, 150 MG PO DAILY, (Reported) Entered as Reported by: CHANEL CAMPBELL on 03/25/22 1120 Physical Exam-Cardiology Physical Exam Vital Signs/I&O 04/07/23 04/07/23 04/07/23 04/07/23 02:03 02:43 03:00 03:22 Temp 36.3 Pulse 82 89 92 Resp 22 B/P (MAP) 138/82 (102) 131/76 (92) 125/67 (86) Pulse Ox 100 100 100 100 O2 Delivery Nasal Cannula Nasal Cannula Nasal Cannula Nasal Cannula O2 Flow Rate 3.00 3.00 3.00 3.00 3.00 04/07/23 04/07/23 04/07/23 04/07/23 04:00 07:00 08:00 10:31 Temp 36.6 Pulse 98 87 85 Resp 10 B/P (MAP) 143/77 (91) 118/78 (91) Pulse Ox 100 98 100 O2 Delivery Nasal Cannula Nasal Cannula Nasal Cannula O2 Flow Rate 3.00 2.00 2.00 04/07/23 04/07/23 12:00 12:13 Temp 36.4 Pulse 77 73 Resp 19 B/P (MAP) 96/72 (80) Pulse Ox 98 O2 Delivery Nasal Cannula 04/06/23 23:59 Intake Total 1100 ml Balance 1100 ml Capillary Refill : Less Than 3 Seconds Constitutional: appears stated age, AAO x 3 HEENT: PERRL Neck: supple Respiratory: chest expansion is symmetric, other (Decreased breath sounds bilaterally) Cardiovascular: regular rate-rhythm, S1 and S2, other (No murmurs) Gastrointestinal: soft, tenderness (In the left side of the abdomen and left flank, increasing with movement) Rectal: deferred Extremities: normal range of motion, non-tender, no lower extremity edema bilateral Neurologic/Psychiatric: alert, oriented x 3 Skin: normal color, warm/dry Lymphatic: no adenopathy Data Review Labs Laboratory Tests 04/06/23 16:15: Troponin I 0.057H 04/07/23 06:00: Troponin I 0.085H, White Blood Count 4.5, Red Blood Count 5.03, Hemoglobin 15.4, Hematocrit 45, Mean Corpuscular Volume 90, Mean Corpuscular Hemoglobin 31, Mean Corpuscular Hemoglobin Concent 34, Red Cell Distribution Width 13.2, Platelet Count 141, Mean Platelet Volume 9.9, Immature Granulocyte % (Auto) 0, Neutrophils (%) (Auto) 61, Lymphocytes (%) (Auto) 29, Monocytes (%) (Auto) 9, Eosinophils (%) (Auto) 0, Basophils (%) (Auto) 0, Neutrophils # (Auto) 2.7, Lymphocytes # (Auto) 1.3, Monocytes # (Auto) 0.4, Eosinophils # (Auto) 0.0, Basophils # (Auto) 0.0, Immature Granulocyte # (Auto) 0.0, Prothrombin Time 14.7, INR Comment 1.1, Activated Partial Thromboplast Time 33, Sodium Level 138, Potassium Level 3.3L, Chloride Level 105, Carbon Dioxide Level 21, Anion Gap 12, Blood Urea Nitrogen 20H, Creatinine 0.92, Estimat Glomerular Filtration Rate 68, BUN/Creatinine Ratio 22, Glucose Level 76, Calcium Level 8.7, Corrected Calcium 8.5, Total Bilirubin 0.7, Aspartate Amino Transf (AST/SGOT) 27, Alanine Aminotransferase (ALT/SGPT) 16, Alkaline Phosphatase 86, Total Protein 7.1, Albumin 4.2, Triglycerides Level 201H, Cholesterol Level 228H, LDL Cholesterol Direct 169H, VLDL Cholesterol 40, HDL Cholesterol 49 04/07/23 13:07: White Blood Count 4.1L, Red Blood Count 4.76, Hemoglobin 14.8, Hematocrit 43, Mean Corpuscular Volume 91, Mean Corpuscular Hemoglobin 31, Mean Corpuscular Hemoglobin Concent 34, Red Cell Distribution Width 13.3, Platelet Count 143, Mean Platelet Volume 9.7, Sodium Level 136, Potassium Level 4.3, Chloride Level 107, Carbon Dioxide Level 22, Anion Gap 7, Blood Urea Nitrogen 20H, Creatinine 1.06, Estimat Glomerular Filtration Rate 58, BUN/Creatinine Ratio 19, Glucose Level 83, Calcium Level 8.6 Radiology Abdominal ultrasound results pending ECG Impression ECG Initial ECG Impression Date: Apr 07, 2023 Initial ECG Impression Time: 13:55 Comment Normal sinus rhythm, nonspecific STT wave changes EKG : Comment Normal sinus rhythm, nonspecific ST A/P-Cardiology Assessment/Admission Diagnosis Elevated troponin. Shortness of breath. Hypoxia. Abnormal EKG Hyperlipidemia. COPD. History of smoking Admission Status: Observation Plan Given the risk factors for coronary artery disease and elevated troponin we will proceed with coronary angiography. We will start Lipitor for significantly elevated LDL. Continue medications as ordered. Clinical Quality Measures Smoking Cessation Counseling: Counseling-Symptomatic: 3-10 Minutes JENNIFER LEVI MD Apr 07, 2023 13:50
[2023-04-07] MEDS ORDERED: NITR100C PO (16:34)
[2023-04-07] MEDS ORDERED: LORA-404 PO (16:34)
[2023-04-07] MEDS ORDERED: AMLO-250 PO (16:34)
[2023-04-07] MEDS ORDERED: ALBU18HF2 INH (16:34)
[2023-04-07] MEDS ORDERED: BUDE10.7 INH (16:34)
[2023-04-07] MEDS ORDERED: PRED OD (16:34)
[2023-04-07] MEDS ORDERED: PROP15DR68 OU (16:34)
[2023-04-07] MEDS ORDERED: MOXI OD (16:34)
[2023-04-07] MEDS ORDERED: BROM OS (16:34)
[2023-04-07] MEDS ORDERED: MTP100TCR PO (16:34)
[2023-04-07] MEDS ORDERED: MOXI OS (16:34)
[2023-04-07] MEDS ORDERED: PRED OS (16:34)
[2023-04-07] MEDS ORDERED: SOLI5TAB7 PO (16:34)
[2023-04-07] MEDS ORDERED: BROM OD (16:34)
[2023-04-07] MEDS ORDERED: LOSA100T58 PO (16:34)
[2023-04-07] MEDS ORDERED: MONTELUKAST 10 MG TABLET PO SCH (21:00)
[2023-04-07] MEDS ORDERED: LORazepam 0.5 MG TABLET PO SCH (21:00)
[2023-04-07] MEDS ORDERED: NITROFURANTOIN Monohydrate/Macro 100 MG CAPSULE PO SCH (22:24)
[2023-04-07] MEDS ORDERED: ARTIFICIAL TEARS Ophth solution 0.4 ML UNIT DOSE OU PRN (22:30)
[2023-04-07] MEDS: PANTOPRAZOLE 40 MG TABLET PO SCH (22:36)
[2023-04-08] MEDS: RT-ALBUTEROL SULF 2.5 MG/3 ML PRE-MIX VIAL INH SCH ×4 (02:16→18:43)
[2023-04-08 03:35] VITALS: BP 132/76
[2023-04-08 04:31] VITALS: BP 132/76
[2023-04-08] MEDS: ENOXAPARIN 60 MG/0.6 ML SYRINGE SC SCH ×2 (05:05→18:00)
[2023-04-08] MEDS: TROSPIUM 20 MG (SANCTURA) TAB PO SCH ×2 (05:05→16:00)
[2023-04-08] MEDS: PANTOPRAZOLE 40 MG TABLET PO SCH ×2 (05:06→16:00)
--- NOTE | 2023-04-08 05:29 | Progress Note ---
Subjective Date Seen by a Provider: Apr 08, 2023 Time Seen by a Provider: 11:00 Subjective/Events-last exam Patient underwent catheterization and showed 90% occluded LAD requiring 4 stents placed by cardiology Radial technique used and no complications Stood up out of bed and had a syncopal episode I assessed the patient in room 512 finding her to have slight bradycardia and hypotension Moved her to ICU 9 for additional evaluation and severe hypotension continued Bilateral IVs utilized for pressure bag normal saline boluses and still no improvement after 3 L so Levophed pressor therapy started with slightly improved blood pressure Patient was still able to talk to me as I held her hand and in the room Hypoxia noted Patient was near progression to near and cardiology evaluated her gave her a dose of atropine which helped the heart rate to 84 but hypotension continued to be an issue so she was rushed down to cardiac catheterization lab and that revealed a severe cardiac tamponade requiring pericardiocentesis by cardiology which saved her life. Unknown reason for the cardiac tamponade but patient now mentating and blood pressure remained stable but she remains critical so she will return back to ICU Review of Systems General: Fatigue, Malaise Focused Exam Sepsis Stage: Ruled Out Possible Source: Other (Cardiac tamponade) Lactate Level 04/06/23 13:15: Lactic Acid Level 1.49 Respiratory: Lungs Clear, Normal Breath Sounds Cardiovascular: Regular Rate, Rhythm Within 3hrs of presentation: Admin fluids, Admin 30ml/kg IBW due to BMI>30, Focus exam, Other ( Levophed then cardiac Basting Cleaner with pericardiocentesis) Objective Exam Last Set of Vital Signs Vital Signs Date Time Temp Pulse Resp B/P (MAP) Pulse Ox O2 Delivery O2 Flow Rate FiO2 04/08/23 03:35 36.3 66 16 132/76 (94) 99 Nasal Cannula 3.00 04/06/23 19:59 100 Capillary Refill : Less Than 3 Seconds I&O Intake and Output 04/08/23 00:00 Intake Total 1200 ml Balance 1200 ml Intake Oral 200 ml IV Total 1000 ml # Voids 3 General: Alert, Oriented X3, Cooperative, No Acute Distress, Other ( although hypotension changed her status to pale and salas and ashen) Lungs: Clear to Auscultation Heart: Regular Rate Results Lab Laboratory Tests 04/07/23 06:00: White Blood Count 4.5, Red Blood Count 5.03, Hemoglobin 15.4, Hematocrit 45, Mean Corpuscular Volume 90, Mean Corpuscular Hemoglobin 31, Mean Corpuscular Hemoglobin Concent 34, Red Cell Distribution Width 13.2, Platelet Count 141, Mean Platelet Volume 9.9, Immature Granulocyte % (Auto) 0, Neutrophils (%) (Auto) 61, Lymphocytes (%) (Auto) 29, Monocytes (%) (Auto) 9, Eosinophils (%) (Auto) 0, Basophils (%) (Auto) 0, Neutrophils # (Auto) 2.7, Lymphocytes # (Auto) 1.3, Monocytes # (Auto) 0.4, Eosinophils # (Auto) 0.0, Basophils # (Auto) 0.0, Immature Granulocyte # (Auto) 0.0, Prothrombin Time 14.7, INR Comment 1.1, Activated Partial Thromboplast Time 33, Sodium Level 138, Potassium Level 3.3L, Chloride Level 105, Carbon Dioxide Level 21, Anion Gap 12, Blood Urea Nitrogen 20H, Creatinine 0.92, Estimat Glomerular Filtration Rate 68, BUN/Creatinine Ratio 22, Glucose Level 76, Calcium Level 8.7, Corrected Calcium 8.5, Total B ilirubin 0.7, Aspartate Amino Transf (AST/SGOT) 27, Alanine Aminotransferase (ALT/SGPT) 16, Alkaline Phosphatase 86, Troponin I 0.085H, Total Protein 7.1, Albumin 4.2, Triglycerides Level 201H, Cholesterol Level 228H, LDL Cholesterol Direct 169H, VLDL Cholesterol 40, HDL Cholesterol 49 04/07/23 13:07: White Blood Count 4.1L, Red Blood Count 4.76, Hemoglobin 14.8, Hematocrit 43, Mean Corpuscular Volume 91, Mean Corpuscular Hemoglobin 31, Mean Corpuscular Hemoglobin Concent 34, Red Cell Distribution Width 13.3, Platelet Count 143, Mean Platelet Volume 9.7, Sodium Level 136, Potassium Level 4.3, Chloride Level 107, Carbon Dioxide Level 22, Anion Gap 7, Blood Urea Nitrogen 20H, Creatinine 1.06, Estimat Glomerular Filtration Rate 58, BUN/Creatinine Ratio 19, Glucose Level 83, Calcium Level 8.6 Microbiology 04/06/23 Blood Culture - Preliminary, Resulted 04/06/23 Urine Culture - Final, Complete >=3 Gram Positive Isolates No Susceptibility Performed Meds Gave 3 L of fluid with pressure bag and Levophed in ICU while I was at the bedside Procedures Procedures Cardiology performed pericardiocentesis Assessment/Plan Assessment/Plan Assess & Plan/Chief Complaint Assessment: Severe refractory hypotension nearly causing while I was at the bedside holding patient's hand following 4 stents in LAD after 90% occlusion with source of severe cardiac tamponade status post pericardiocentesis by cardiology and Basting Cleaner Acute on chronic hypoxic respiratory failure Elevated troponin Severe O2 dependent COPD Current smoker Anxiety Left flank pain ultrasound ordered Plan: Monitor O2 Ativan Cards consult appreciated ICU care Pericardiocentesis per cardiology Monitor blood pressure Pedersen catheter Updated at the bedside Final Diagnosis Severe refractory hypotension due to cardiac tamponade requiring emergent pericardiocentesis following 4 stents in LAD due to 90% occlusion Diagnosis/Problems Diagnosis/Problems (1) Cardiac tamponade after operative procedure (2) Hypotension (3) Status post insertion of drug-eluting stent into left anterior descending (LAD) artery Clinical Quality Measures Smoking Cessation Counseling: Counseling-Symptomatic: 3-10 Minutes RAFIQ ROJAS DO Apr 08, 2023 05:29
[2023-04-08 05:48] LABS: ALBUMIN 3.7 GM/DL (3.2-4.5)
[2023-04-08 05:49] LABS: POTASSIUM 4.2 MMOL/L (3.6-5.0)
[2023-04-08 05:50] LABS: CALCIUM 8.5 MG/DL (8.5-10.1)
[2023-04-08 05:51] LABS: TOTAL PROTEIN 6.5 GM/DL (6.4-8.2)
[2023-04-08 05:53] LABS: BILIRUBIN,TOTAL 0.5 MG/DL (0.1-1.0)
[2023-04-08 05:55] LABS: CREATININE SERUM 1.22 MG/DL (0.60-1.30)
[2023-04-08] MEDS ORDERED: NS IV 1000 ML 1,000 ML IV ONE (06:30)
[2023-04-08] MEDS ORDERED: LIDOCAINE 1% INJ 20 ML VIAL ONE ×2 (06:35→13:26)
[2023-04-08 06:36] LABS: BASOPHILS % (AUTO) 0 % (0-10); EOSINOPHILS % (AUTO) 0 % (0-10); HEMATOCRIT 42 % (35-52); LYMPHOCYTES # (AUTO) 1.1 10^3/uL (1.0-4.0); LYMPHOCYTES % (AUTO) 29 % (12-44); MEAN CORPUSCULAR HEMOGLOBIN 31 pg (25-34); MEAN CORPUSCULAR HGB CONC 34 g/dL (32-36); MEAN CORPUSCULAR VOLUME 92 fL (80-99); MEAN PLATELET VOLUME 10.7 fL (9.0-12.2); MONOCYTES # (AUTO) 0.4 10^3/uL (0.0-1.0); MONOCYTES % (AUTO) 11 % (0-12); NEUTROPHILS # (AUTO) 2.1 10^3/uL (1.8-7.8); NEUTROPHILS % (AUTO) 58 % (42-75); PLATELET COUNT 107 10^3/uL (130-400); WHITE BLOOD COUNT 3.7 10^3/uL (4.3-11.0)
[2023-04-08] MEDS ORDERED: HEParin (CATH LAB) 2,000 ML IV ONE ×2 (06:36→13:26)
[2023-04-08 08:00] VITALS: BP 126/75
[2023-04-08] MEDS ORDERED: FLUTICASONE/VILANTEROL 200/25 MCG (14 DOSES) IH SCH (08:00)
[2023-04-08] MEDS ORDERED: TIOTROPIUM INH 4 GM (SPIRIVA Respimat) IH SCH (08:00)
[2023-04-08] MEDS ORDERED: VERAPAMIL 5 MG/2 ML (CALAN) VIAL IV ONE (08:05)
[2023-04-08] MEDS ORDERED: fentaNYL INJECTION 100 MCG/2 ML VIAL ONE ×3 (08:05→13:32)
[2023-04-08] MEDS ORDERED: HEParin 1000 UNIT/ML (10ML VIAL) FOR BOLUS ONE ×2 (08:05→13:32)
[2023-04-08] MEDS ORDERED: MIDAZOLAM INJ 5 MG/5 ML VIAL ONE ×4 (08:05→17:11)
[2023-04-08] MEDS ORDERED: NITRO DRIP 25000 MCG/D5W 250 ML IV ONE (08:05)
[2023-04-08] MEDS ORDERED: LIDOCAINE 2% INJ 20 ML VIAL ONE (08:07)
[2023-04-08] MEDS ORDERED: amLODIPine 5 MG TABLET PO SCH (09:00)
[2023-04-08] MEDS ORDERED: LORATADINE 10 MG TABLET PO SCH (09:00)
[2023-04-08] MEDS ORDERED: LOSARTAN 100 MG TABLET PO SCH (09:00)
[2023-04-08] MEDS: amLODIPine 5 MG TABLET PO SCH (09:43)
[2023-04-08] MEDS: DOCUSATE SODIUM 100 MG CAPSULE PO SCH (09:43)
[2023-04-08] MEDS: GABAPENTIN 300 MG CAPSULE PO SCH ×3 (09:44→13:00)
[2023-04-08] MEDS: ASPIRIN enteric coated 81MG TABLET PO SCH (09:44)
[2023-04-08] MEDS: LOSARTAN 100 MG TABLET PO SCH (09:45)
[2023-04-08] MEDS: BREZTRI 160/9/4.8 MCG INHALER INH SCH (09:46)
[2023-04-08] MEDS: SENNOSIDES 8.6 MG TABLET PO SCH (09:46)
[2023-04-08] MEDS ORDERED: ONDANSETRON INJECTION 4 MG/2 ML (SDV) ONE (09:51)
--- NOTE | 2023-04-08 10:21 | Physical Therapy Progress Note ---
Therapy Progress Note Pt was absent from room this AM. RN reports pt currently in lab head. Will come back at a later time. [facility] ASSISTANT DIRECTOR Apr 08, 2023 10:21
[2023-04-08] MEDS ORDERED: ASPIRIN 325 MG TABLET ONE (10:39)
[2023-04-08] MEDS ORDERED: TICAGRELOR 90 MG TABLET (BRILINTA) PO ONE (10:39)
[2023-04-08] MEDS: oxyCODONE IMMEDIATE RELEASE 5 MG TABLET PO PRN (11:25)
[2023-04-08] MEDS ORDERED: NOREPINEPHRINE 8 MG/250 ML 250 ML IV SCH (13:00)
[2023-04-08] MEDS ORDERED: NS IV 500 ML 500 ML IV PRN (13:00)
[2023-04-08] MEDS ORDERED: NS IV 1000 ML 1,000 ML IV SCH ×2 (13:00→17:00)
[2023-04-08] MEDS: [UNRECOGNIZED DRUG - REMARK] OS SCH ×2 (13:00→17:00)
[2023-04-08] MEDS ORDERED: ATROPINE 1 MG/10 ML EMERGENCY SYRINGE ONE (13:12)
[2023-04-08 13:23] LABS: ABG BASE EXCESS -13.6 MMOL/L (-2.5-2.5); ABG OXYGEN SATURATION 96 % (94-100); ABG PCO2 33 MMHG (35-45); ABG PO2 140 MMHG (79-93); ABG TCO2 14.2 MMOL/L (21.0-31.0)
[2023-04-08 13:27] LABS: ABG PH 7.21 (7.37-7.43); INSPIRED O2 3%; VENTILATOR NO
[2023-04-08] MEDS ORDERED: LIDOCAINE UROJET 2% GEL 10 ML PKG TOP ONE (13:30)
[2023-04-08] MEDS ORDERED: proPOfol INJECTION 200 MG/20 ML VIAL IV ONE ×2 (13:40→13:41)
[2023-04-08] MEDS ORDERED: SODIUM BICARB 8.4% 50 MEQ/50 ML (ABBOTT) SYR IV NR (13:45)
[2023-04-08] MEDS ORDERED: EPINEPHrine 0.1 MG/ML 10 ML EMERGENCY SYR ONE (13:50)
[2023-04-08] MEDS ORDERED: DOPamine DRIP PRE-MIX 250 ML IV ONE (13:51)
[2023-04-08] MEDS ORDERED: SUCCINYLCHOLINE INJ 20 MG/1 ML 10 ML VIAL ONE (13:59)
[2023-04-08] MEDS ORDERED: ROCURONIUM 50 MG/5 ML VIAL IV ONE (14:05)
[2023-04-08] MEDS ORDERED: NS IV 1000 ML 0 ML ONE (14:06)
[2023-04-08] MEDS ORDERED: NS IV 1000 ML 1,000 ML ONE ×2 (14:06→16:41)
[2023-04-08 14:08] LABS: ABG BASE EXCESS -11.5 MMOL/L (-2.5-2.5); ABG OXYGEN SATURATION 97 % (94-100); ABG PCO2 32 MMHG (35-45); ABG PO2 450 MMHG (79-93); ABG TCO2 15.4 MMOL/L (21.0-31.0)
[2023-04-08 14:13] LABS: ABG PH 7.26 (7.37-7.43); INSPIRED O2 3%; VENTILATOR NO
[2023-04-08] MEDS ORDERED: SODIUM BICARB 8.4% 50 MEQ/50 ML (ABBOTT) SYR INJ ONE (14:50)
[2023-04-08] MEDS ORDERED: ATROPINE 1 MG/10 ML EMERGENCY SYRINGE INJ ONE (14:50)
[2023-04-08 15:15] VITALS: BP 149/98
--- NOTE | 2023-04-08 16:03 | Diagnostic Imaging Report ---
CHEST 1 VIEW, AP/PA ONLY Indication: Intubation Comparison: 04/06/2023 Findings: ET tube is 4.7 cm by the gustavo. Enteric tube courses into the stomach and off the [id number]-zbcb. Lungs remain clear. No pleural effusion or pneumothorax. Normal heart size. A curvilinear tubular structure overlies the heart and may be extrinsic to the patient. Impression: 1. Well-positioned ETT and enteric tubes. 2. A curvilinear tubular structure overlying the heart could be extrinsic to the patient. Dictated by: Dictated on workstation # [id number]
--- NOTE | 2023-04-08 16:10 | Tele-ICU Progress Note ---
Subjective Date Seen by a Provider: Apr 08, 2023 Time Seen by a Provider: 16:07 Subjective/Events-last exam (Tele-ICU Physician , consultation as per request of PCP Service provided via interactive audio and video telecommunications E-CARE system to a patient admitted to ICU bed in [facility]. Available chart/ vitals / labs / Images reviewed H&P is from ER notes Patient's information available about PMH, Shx, Fhx allergy reviewed inEMR. ROS as per chart and RN report Now in ICU, hemodynamically stable Video assessment done using teleICU camera, rest of exam as per RN Discussed with RN. Hospital course: 04/07 To ED for DX: Elevated Troponin Had symptoms of malaise, weakness, nausea, and not eating well. Troponins bumping 04/08 To CCL for stent placement; then profound hypotension. Return to CCL: PC effusion; drain placed . Returns INTUBATED A/P Acute on chronic hypoxic respiratory failure - intubated in laboratory supervisor /pericard effusion - full vent support AC 16 450 100 + 5 Shock , acute hypotension 04/08 - resolved after resolviong tamponade Elevated troponin -s/p cath 04/08 => s/p 4 stents LAD S/p hemorragic effusion post cath - s/p drain placed 04/08 ( 500 ml drained in laboratory supervisor ) Left flank pain - US with no acute findings Lines : peripg , (Central Line Necessity Reviewed) Pedersen: + OG: Nutrition: Analgesia: Anxiety/ delirium VTE Prophylaxis: scd Stress Ulcer Prophylaxis: Plans in collaboration with bedside consultants and IM MDs. Discussed with RN to reach out if any questions or concerns A total of minutes of critical care time was devoted to this patient today, required to treat and/or prevent further deterioration of critical care condition ( as above ) . I am remotely monitoring this patient from another state. I am unable to do the bedside exam, and history/physical and pertinent information is taken from other notes in the computer and bedside staff. . Sepsis Event Evaluation Height, Weight, BMI Height: 5'4.00" Weight: 140lbs. 0.0oz. [id number]; 18.89 BMI Method:Stated Focused Exam Lactate Level 04/06/23 13:15: Lactic Acid Level 1.49 Exam Exam Patient acknowledged, consented, and participated in this virtual visit which was conducted using real time audio/video Vital Signs Date Time Temp Pulse Resp B/P (MAP) Pulse Ox O2 Delivery O2 Flow Rate FiO2 04/08/23 15:15 92 16 100 100 04/08/23 15:00 90 22 149/98 (115) 100 Mechanical Ventilator 100.00 04/08/23 15:00 88 04/08/23 13:15 75 15 74/61 (65) 83 OxyMask 10.00 04/08/23 13:09 59 42/31 04/08/23 13:00 58 28 82/62 (69) 77 OxyMask 10.00 04/08/23 12:45 68 17 69/50 (56) 77 OxyMask 10.00 04/08/23 08:00 36.6 63 16 126/75 (92) 100 Nasal Cannula 2.00 04/08/23 08:00 High Flow N/C 3.00 04/08/23 07:21 99 High Flow N/C 2.00 04/08/23 07:00 63 04/08/23 03:35 36.3 66 16 132/76 (94) 99 Nasal Cannula 3.00 04/08/23 02:16 99 High Flow N/C 2.00 04/08/23 01:00 74 04/07/23 23:26 36.5 63 18 129/71 (90) 100 High Flow N/C 3.00 04/07/23 23:25 36.7 74 18 117/72 (87) 99 High Flow N/C 2.00 04/07/23 22:00 98 High Flow N/C 2.00 04/07/23 19:40 High Flow N/C 3.00 04/07/23 19:06 76 04/07/23 19:05 36.7 74 18 117/72 (87) 99 High Flow N/C 2.00 04/07/23 18:26 98 High Flow N/C 2.00 I & O 04/08/23 06:59 Intake Total 1200 ml Output Total 200 ml Balance 1000 ml Height & Weight Height: 5'4.00" Weight: 140lbs. 0.0oz. [id number]; 18.89 BMI Method:Stated General Appearance: WD/WN, Anxious, Chronically ill, Mild Distress HEENT: PERRL/EOMI, Pharynx Normal Neck: Non Tender, Supple Respiratory: Lungs Clear, Normal Breath Sounds Cardiovascular: Regular Rate, Rhythm Capillary Refill: Less Than 3 Seconds Extremity: Normal Range of Motion, Non Tender Neurologic/Psychiatric: Alert, Oriented x3 Results Lab Laboratory Tests 04/07/23 06:00 04/07/23 13:07 04/08/23 05:24 04/08/23 05:30 Assessment/Plan Assessment/Plan 1 CHERIE CALDERON MD Apr 08, 2023 16:10
--- NOTE | 2023-04-08 16:33 | Cardiac Cath Report ---
Cardiac Cath Report Physician (s)/Barrel Maker (s) Physician JENNIFER LEVI MD Pre-Procedure Diagnosis Pre-Procedure Diagnosis: Non-STEMI Post-Procedure Note Procedure Start Date: Apr 08, 2023 Procedure Start Time: 09:00 Name of Procedure: After informed consent was signed patient was taken to the cardiac catheterization laboratory. Patient was positioned in the usual fashion. Right wrist area was cleaned prepped and draped in the usual sterile fashion. Patient was sedated with IV Versed and fentanyl. After local anesthesia with lidocaine right radial artery was cannulated with 6 Hong Konger sheath. Using Versicore wire and JR4 catheter was advanced to the ascending aorta, right coronary artery was cannulated and angiogram of the right coronary artery was performed into view. MDM right coronary artery catheter was withdrawn and a 6 [place]er JL 3.5 catheter was advanced into the ascending aorta, position and avoid to move the left coronary artery left coronary artery was visualized in several views. Results of the coronary angiography: Left main artery has no significant stenosis. LAD is a tortuous artery, has 95% stenosis in the midportion. Circumflex artery has 60 to 70% stenosis in the midportion but that is not a large artery. Right coronary artery is a large dominant artery, has no significant stenosis. Left ventriculogram was not performed because of borderline renal function. Disposition: Will proceed with angioplasty of LAD. PCI note: 6 [place]er EBU guiding catheter under fluoroscopic guidance was positioned and was to move the left coronary artery. PT choice extra-support wire was advanced into the LAD under fluoroscopic guidance. 2.5/12 mm angioplasty balloon was advanced over the wire and positioned at the site of the stenosis, balloon inflation was performed with 12 hospitalist feels pressure. Then 3.0/15 mm drug-eluting stent was advanced to the site of the lesion and stent was successfully deployed with 14 genesis pressure. Repeated angiogram showed occlusion of the relatively large second septal branch and dissection in the distal portion of the stent. Plan patient developed chest pain and repeated angiogram showed propagation of the dissection with no flow distally to the stent. Then 2.5/18 mm drug-eluting stent was inserted to cover the dissection, it was successfully deployed with denominational of SUKHWINDER-3 flow. Then readvanced guidewire into the occluded second septal branch which was followed by advancement of 2.0 angioplasty balloon catheter, angioplasty was performed with denominational of SUKHWINDER-3 flow in the septal branch but visible dissection , not flow-limiting. We decided not to stent the septal branch since the dissection was not flow-limiting and the branch was not large Then 3.0/9 mm drug-eluting stent was deployed between 2 previously inserted stents because I could not exclude the situation when the stents are not overlapping. Repeat angiogram showed suspicion edge dissection of the proximal stent so we put 3.5/12 mm stent proximally. The final angiogram showed SUKHWINDER-3 flow in all LAD and septal branches, no evidence of perforation or dissection. All catheters and wires were withdrawn Patient tolerated the procedure well, was discharged from the Export Administrator in stable condition and transferred to ICU for further treatment Contrast Amount: 3 3 6 cc Post-Procedure Diagnosis Post-operative diagnosis: Significant stenosis of LAD. JENNIFER MARKS MD Apr 08, 2023 16:33
--- NOTE | 2023-04-08 16:49 | Cardiology Progress Note ---
Subjective Date Seen by Provider: Apr 08, 2023 Time Seen by Provider: 14:00 Subjective/Events-last exam Was called to ICU because patient blood pressure was low, 60/40. Reportedly patient got out, became dizzy, and developed significant hypotension and bradycardia. When I arrived to ICU patient was complaining of shortness of breath, chest pain. On the monitor she was in junctional rhythm with a rate of 50. Blood pressure was 70/50. Patient already received 1.5 L of IV fluid. I gave the patient 0.25 mg of atropine, on the monitor junctional rhythm has changed to low atrial rhythm and then to sinus rhythm with a rate of 80. Blood pressure went up to 106/80. EKG showed minimal ST elevation in lead V1 V2. It was decided to take patient to the Facilities Plant Engineer to repeat angiogram Exam Vital Signs Vital Signs Date Time Temp Pulse Resp B/P (MAP) Pulse Ox O2 Delivery O2 Flow Rate FiO2 04/08/23 16:26 89 88/66 04/08/23 16:20 36.4 04/08/23 16:00 11 97 Mechanical Ventilator 100.00 04/08/23 15:15 100 Labs Laboratory Tests Test 04/08/23 05:24 04/08/23 05:30 04/08/23 12:25 04/08/23 13:18 Range/Units Sodium Level 135 135-145 MMOL/L Potassium Level 4.2 3.6-5.0 MMOL/L Chloride Level 107 98-107 MMOL/L Carbon Dioxide Level 19 L 21-32 MMOL/L Anion Gap 9 5-14 MMOL/L Blood Urea Nitrogen 26 H 7-18 MG/DL Creatinine 1.22 0.60-1.30 MG/DL Estimat Glomerular Filtration Rate 49 BUN/Creatinine Ratio 21 Glucose Level 114 H 70-105 MG/DL Calcium Level 8.5 8.5-10.1 MG/DL Corrected Calcium 8.7 8.5-10.1 MG/DL Total Bilirubin 0.5 0.1-1.0 MG/DL Aspartate Amino Transf (AST/SGOT) 27 5-34 U/L Alanine Aminotransferase (ALT/SGPT) 15 0-55 U/L Alkaline Phosphatase 74 40-136 U/L Total Protein 6.5 6.4-8.2 GM/DL Albumin 3.7 3.2-4.5 GM/DL White Blood Count 3.7 L 4.3-11.0 10^3/uL Red Blood Count 4.51 3.80-5.11 10^6/uL Hemoglobin 14.0 11.5-16.0 g/dL Hematocrit 42 35-52 % Mean Corpuscular Volume 92 80-99 fL Mean Corpuscular Hemoglobin 31 25-34 pg Mean Corpuscular Hemoglobin Concent 34 32-36 g/dL Red Cell Distribution Width 13.3 10.0-14.5 % Platelet Count 107 L 130-400 10^3/uL Mean Platelet Volume 10.7 9.0-12.2 fL Immature Granulocyte % (Auto) 1 % Neutrophils (%) (Auto) 58 42-75 % Lymphocytes (%) (Auto) 29 12-44 % Monocytes (%) (Auto) 11 0-12 % Eosinophils (%) (Auto) 0 0-10 % Basophils (%) (Auto) 0 0-10 % Neutrophils # (Auto) 2.1 1.8-7.8 10^3/uL Lymphocytes # (Auto) 1.1 1.0-4.0 10^3/uL Monocytes # (Auto) 0.4 0.0-1.0 10^3/uL Eosinophils # (Auto) 0.0 0.0-0.3 10^3/uL Basophils # (Auto) 0.0 0.0-0.1 10^3/uL Immature Granulocyte # (Auto) 0.0 0.0-0.1 10^3/uL Percent Immature Platelet Fraction 3.2 0.0-7.6 % Glucometer 128 H 70-110 MG/DL Arterial Blood pH 7.21 *L 7.37-7.43 Arterial Blood Partial Pressure CO2 33 L 35-45 MMHG Arterial Blood Partial Pressure O2 140 H 79-93 MMHG Arterial Blood HCO3 13 *L 23-27 MMOL/L Arterial Blood Total CO2 14.2 L 21.0-31.0 MMOL/L Arterial Blood Oxygen Saturation 96 94-100 % Arterial Blood Base Excess -13.6 L -2.5-2.5 MMOL/L Blood Gas Ventilator Setting NO Blood Gas Inspired Oxygen 3% Test 04/08/23 14:03 Range/Units Arterial Blood pH 7.26 *L 7.37-7.43 Arterial Blood Partial Pressure CO2 32 L 35-45 MMHG Arterial Blood Partial Pressure O2 450 H 79-93 MMHG Arterial Blood HCO3 14 *L 23-27 MMOL/L Arterial Blood Total CO2 15.4 L 21.0-31.0 MMOL/L Arterial Blood Oxygen Saturation 97 94-100 % Arterial Blood Base Excess -11.5 L -2.5-2.5 MMOL/L Blood Gas Ventilator Setting NO Blood Gas Inspired Oxygen 3% A/P-Cardiology Admission Diagnosis Arterial hypotension. Possible vasovagal reaction. Status post PCI of LAD Assessment/Plan Will proceed with repeated coronary angiography to rule out possible complication after PCI JENNIFER LEVI MD Apr 08, 2023 16:49
--- NOTE | 2023-04-08 16:57 | Cardiac Cath Report ---
Cardiac Cath Report Physician (s)/Food Chemist (s) Physician JENNIFER LEVI MD Pre-Procedure Diagnosis Pre-Procedure Diagnosis: Non-STEMI. Arterial hypotension. Bradycardia Post-Procedure Note Procedure Start Date: Apr 08, 2023 Procedure Start Time: 14:20 Name of Procedure: Left heart catheterization. Selective coronary angiography Pericardiocentesis Findings/Procedure Note Patient was brought to the Magnetic Tape Typewriter Operator with a blood pressure of 60/40. Patient was in sinus rhythm. Patient was positioned on the procedure table in the usual fashion. The right groin was cleaned prepped and draped in the usual sterile fashion. Patient was sedated by anesthesia service with propofol and fentanyl. Right femoral artery was cannulated with 6 [place]zeri sheath. Under fluoroscopic guidance 6 [place] JL 4 diagnostic catheter was advanced to the ascending aorta, position at the ostium of the left coronary artery and left coronary artery was visualized in several views. The angiogram did not show any evidence of occlusion or stenosis since the last procedure. No evidence of perforation or leak of the dye into the pericardial space The JR4 catheter was advanced into the ascending aorta and the right coronary artery was visualized which also did not show any evidence of stenosis or occlusion. Since patient remained hypotensive echocardiogram will start was performed which showed massive pericardial effusion with evidence of pericardial tamponade. Then subxiphoid area was cleaned and prepped and draped and with visualization by the fluoroscopy and echocardiogram cardiocentesis was performed and p ericardial drain was placed into the pericardial space. Using large ceiling current effusion was evacuated with immediate rise in the blood pressure up to 140s to 70s. The drain was sutured in place and connected to the vacuum source. Patient was intubated by anesthesia service prior to pericardiocentesis. Patient was transferred from the Magnetic Tape Typewriter Operator hemodynamically stable, in sinus r hythm. Patient will remain with the pericardial drain at least until tomorrow. Will continue ventilator support. Will repeat echocardiogram tomorrow morning. The source of the pericardial tamponade is unclear since analysis of the PCI procedure did not show any leak of the dye into the pericardial space. Anesthesia Type: Conscious Sedation Contrast Amount: 3 3 6 cc Post-Procedure Diagnosis (1) Cardiac tamponade after operative procedure (2) Status post insertion of drug-eluting stent into left anterior descending (LAD) artery (3) Hypotension Qualifiers: Qualified Codes: I95.89 - Other hypotension JENNIFER LEVI MD Apr 08, 2023 16:57
[2023-04-08] MEDS ORDERED: PATIENT MAY USE OWN MEDS, ALL PO SCH (17:00)
--- NOTE | 2023-04-08 17:00 | Progress Note ---
Standard Progress Note Progress Notes/Assess & Plan Date Seen by a Provider: Apr 08, 2023 Time Seen by a Provider: 13:42 Progress/Assessment & Plan Called by KHAI Callejas to assist in clinical laboratory service teacher with respiratory management and possible sedation. UPon my arrival, the patient was being transferred from her bed to clinical laboratory service teacher table. Report received that patient had cath this am with stent placement in LAD and since recovering in ICU has been more and more hypotensive and desaturating. laborer hoisting team prepping patient for repeat catheterization. The patient is anxious, severely hypotensive, yelling about pain in her hip, hyperventilating. I gave the patient 1mg Versed initially and began supporting her spontaneous respirations by making sure she was getting enough oxygen and a patent airway. Systolic pressure reading 30-40's, unable to obtain SaO2. Ephedrine 50mg IV given. SBP up to 70's. Box Toe Buffer ordered Dopamine so clinical laboratory service teacher RN started Dopamine at 5mcg/kg/min. The patient continued to be anxious, agitated, and it was apparent she would need sedation for the cath. I gave 2mg Versed and 30mg Propofol. The patient maintained spontaneous respirations; however, SaO2 that had started reading 97% after ephedrine, started decreasing and the patient's TV was low. I began to bag mask ventilate the patient to maintain SaO2 88-95%. After bagging the patient for 10 min, I decided to intubate the patient to protect her airway. At 1410, I gave the patient 2mg Versed and 70mg Succs and placed a 7.0 ett with the Rowley x blade. Good fog noted in ett and saO2 began increasing. BBS, BCR. Simultaneously, it was discovered that patient's repeat cath was clean, but patient had a large pericardial effusion, thus the prosthetic assistant prepared to intervene. Upon removing 200cc of blood from the patient's chest, the patient's SBP was 130's and the patient's SaO2 quickly returned to 100%. I continued to bag ventilate the patient and called RT. Dopamine was discontinued. Patient's VSS. I reported off to RT who resumed bagging the patient for transfer back up to ICU. I called and gave report to KHAI LOYA in ICU with a list of all medications given. Will be available for further consultation if needed. Focused Exam Lactate Level 04/06/23 13:15: Lactic Acid Level 1.49 RICKY CALIX CRNA Apr 08, 2023 17:00
[2023-04-08] MEDS ORDERED: MIDAZOLAM INJ 2 MG/2 ML VIAL IVP NR (17:15)
[2023-04-08] MEDS ORDERED: MIDAZOLAM DRIP PRE-MIX 100 ML IV SCH (17:15)
[2023-04-08] MEDS ORDERED: fentaNYL INJECTION 100 MCG/2 ML VIAL IVP PRN (17:15)
--- NOTE | 2023-04-08 17:29 | Discharge Summary ---
Diagnosis/Chief Complaint Date of Admission Apr 08, 2023 at 10:00 Date of Discharge Discharge Date: Apr 08, 2023 Discharge Diagnosis Assessment: Severe refractory hypotension nearly causing while I was at the bedside holding patient's hand following 4 stents in LAD after 90% occlusion with source of severe cardiac tamponade status post pericardiocentesis by cardiology and [employer] Acute on chronic hypoxic respiratory failure Elevated troponin Severe O2 dependent COPD Current smoker Anxiety Left flank pain ultrasound ordered Plan: Monitor O2 Ativan Cards consult appreciated ICU care Pericardiocentesis per cardiology Monitor blood pressure Pedersen catheter Updated at the bedside Final Diagnosis Severe refractory hypotension due to cardiac tamponade requiring emergent pericardiocentesis following 4 stents in LAD due to 90% occlusion Discharge Summary Discharge Physical Examination Allergies: Coded Allergies: codeine (Verified Allergy, Unknown, 06/19/08) Vitals & I&Os Vital Signs Date Time Temp Pulse Resp B/P (MAP) Pulse Ox O2 Delivery O2 Flow Rate FiO2 04/08/23 20:00 101 100 Mechanical Ventilator 100.00 04/08/23 19:00 6 04/08/23 18:43 90 04/08/23 16:20 36.4 General Appearance: Other (intubated) Respiratory: Clear to Auscultation Cardiovascular: Regular Rate Hospital Course Was the Problem List Reviewed?: Yes Patient underwent catheterization and showed 90% occluded LAD requiring 4 stents placed by cardiology Radial technique used and no complications Stood up out of bed and had a syncopal episode I assessed the patient in room 512 finding her to have slight bradycardia and hypotension Moved her to ICU 9 for additional evaluation and severe hypotension continued Bilateral IVs utilized for pressure bag normal saline boluses and still no improvement after 3 L so Levophed pressor therapy started with slightly improved blood pressure Patient was still able to talk to me as I held her hand and in the room Hypoxia noted Patient was near progression to near and cardiology evaluated her gave her a dose of atropine which helped the heart rate to 84 but hypotension continued to be an issue so she was rushed down to cardiac catheterization lab and that revealed a severe cardiac tamponade requiring pericardiocentesis by cardiology which saved her life. Unknown reason for the cardiac tamponade but patient now mentating and blood pressure remained stable but she remains critical so she will return back to ICU Labs (last 24 hrs) Laboratory Tests 04/06/23 12:54: Glucometer 72 04/06/23 12:55: White Blood Count 6.2, Red Blood Count 5.52H, Hemoglobin 17.2H, Hematocrit 50, Mean Corpuscular Volume 90, Mean Corpuscular Hemoglobin 31, Mean Corpuscular Hemoglobin Concent 35, Red Cell Distribution Width 13.2, Platelet Count 185, Mean Platelet Volume 9.7, Immature Granulocyte % (Auto) 0, Neutrophils (%) (Auto) 69, Lymphocytes (%) (Auto) 23, Monocytes (%) (Auto) 8, Eosinophils (%) (Auto) 0, Basophils (%) (Auto) 0, Neutrophils # (Auto) 4.3, Lymphocytes # (Auto) 1.4, Monocytes # (Auto) 0.5, Eosinophils # (Auto) 0.0, Basophils # (Auto) 0.0, Immature Granulocyte # (Auto) 0.0, Prothrombin Time 14.0, INR Comment 1.0, Activated Partial Thromboplast Time 31, Sodium Level 133L, Potassium Level 4.4, Chloride Level 100, Carbon Dioxide Level 20L, Anion Gap 13, Blood Urea Nitrogen 23H, Creatinine 1.11, Estimat Glomerular Filtration Rate 54, BUN/Creatinine Ratio 21, Glucose Level 96, Calcium Level 9.8, Corrected Calcium , Total Bi lirubin 0.8, Aspartate Amino Transf (AST/SGOT) 24, Alanine Aminotransferase (ALT/SGPT) 16, Alkaline Phosphatase 101, Troponin I 0.031H, Total Protein 8.2, Albumin 4.6H 04/06/23 13:15: Lactic Acid Level 1.49 04/06/23 13:30: Urine Color YELLOW, Urine Clarity CLOUDY, Urine pH 5.5, Urine Specific [place] >=1.030, Urine Protein 2+H, Urine Glucose (UA) TRACEH, Urine Ketones 1+H, Urine Nitrite NEGATIVE, Urine Bilirubin 3+H, Urine Urobilinogen 1.0, Urine Leukocyte Esterase NEGATIVE, Urine RBC (Auto) TRACE-IH, Urine RBC RARE, Urine WBC RARE, Urine Squamous Epithelial Cells 2-5, Urine Crystals NONE, Urine Bacteria FEWH, Urine Casts PRESENT, Urine Hyaline Casts 10-25H, Urine Mucus SMALLH, Urine Culture Indicated CULTURE PENDING 04/06/23 16:15: Troponin I 0.057H 04/07/23 06:00: Troponin I 0.085H, White Blood Count 4.5, Red Blood Count 5.03, Hemoglobin 15.4, Hematocrit 45, Mean Corpuscular Volume 90, Mean Corpuscular Hemoglobin 31, Mean Corpuscular Hemoglobin Concent 34, Red Cell Distribution Width 13.2, Platelet Count 141, Mean Platelet Volume 9.9, Immature Granulocyte % (Auto) 0, Neutrophils (%) (Auto) 61, Lymphocytes (%) (Auto) 29, Monocytes (%) (Auto) 9, Eosinophils (%) (Auto) 0, Basophils (%) (Auto) 0, Neutrophils # (Auto) 2.7, Lymphocytes # (Auto) 1.3, Monocytes # (Auto) 0.4, Eosinophils # (Auto) 0.0, Basophils # (Auto) 0.0, Immature Granulocyte # (Auto) 0.0, Prothrombin Time 14.7, INR Comment 1.1, Activated Partial Thromboplast Time 33, Sodium Level 138, Potassium Level 3.3L, Chloride Level 105, Carbon Dioxide Level 21, Anion Gap 12, Blood Urea Nitrogen 20H, Creatinine 0.92, Estimat Glomerular Filtration Rate 68, BUN/Creatinine Ratio 22, Glucose Level 76, Calcium Level 8.7, Corrected Calcium 8.5, Total Bilirubin 0.7, Aspartate Amino Transf (AST/SGOT) 27, Alanine Aminotransferase (ALT/SGPT) 16, Alkaline Phosphatase 86, Total Protein 7.1, Albumin 4.2, Triglycerides Level 201H, Cholesterol Level 228H, LDL Cholesterol Direct 169H, VLDL Cholesterol 40, HDL Cholesterol 49 04/07/23 13:07: White Blood Count 4.1L, Red Blood Count 4.76, Hemoglobin 14.8, Hematocrit 43, Mean Corpuscular Volume 91, Mean Corpuscular Hemoglobin 31, Mean Corpuscular Hemoglobin Concent 34, Red Cell Distribution Width 13.3, Platelet Count 143, Mean Platelet Volume 9.7, Sodium Level 136, Potassium Level 4.3, Chloride Level 107, Carbon Dioxide Level 22, Anion Gap 7, Blood Urea Nitrogen 20H, Creatinine 1.06, Estimat Glomerular Filtration Rate 58, BUN/Creatinine Ratio 19, Glucose Level 83, Calcium Level 8.6 04/08/23 05:24: Sodium Level 135, Potassium Level 4.2, Chloride Level 107, Carbon Dioxide Level 19L, Anion Gap 9, Blood Urea Nitrogen 26H, Creatinine 1.22, Estimat Glomerular Filtration Rate 49, BUN/Creatinine Ratio 21, Glucose Level 114H, Calcium Level 8.5, Corrected Calcium 8.7, Total Bilirubin 0.5, Aspartate Amino Transf (AST/SG OT) 27, Alanine Aminotransferase (ALT/SGPT) 15, Alkaline Phosphatase 74, Total Protein 6.5, Albumin 3.7 04/08/23 05:30: White Blood Count 3.7L, Red Blood Count 4.51, Hemoglobin 14.0, Hematocrit 42, Mean Corpuscular Volume 92, Mean Corpuscular Hemoglobin 31, Mean Corpuscular Hemoglobin Concent 34, Red Cell Distribution Width 13.3, Platelet Count 107L, Mean Platelet Volume 10.7, Immature Granulocyte % (Auto) 1, Neutrophils (%) (Auto) 58, Lymphocytes (%) (Auto) 29, Monocytes (%) (Auto) 11, Eosinophils (%) (Auto) 0, Basophils (%) (Auto) 0, Neutrophils # (Auto) 2.1, Lymphocytes # (Auto) 1.1, Monocytes # (Auto) 0.4, Eosinophils # (Auto) 0.0, Basophils # (Auto) 0.0, Immature Granulocyte # (Auto) 0.0, Percent Immature Platelet Fraction 3.2 04/08/23 12:25: Glucometer 128H 04/08/23 13:18: Arterial Blood pH 7.21*L, Arterial Blood Partial Pressure CO2 33L, Arterial Blood Partial Pressure O2 140H, Arterial Blood HCO3 13*L, Arterial Blood Total CO2 14.2L, Arterial Blood Oxygen Saturation 96, Arterial Blood Base Excess - 13.6L, Blood Gas Ventilator Setting NO, Blood Gas Inspired Oxygen 3% 04/08/23 14:03: Arterial Blood pH 7.26*L, Arterial Blood Partial Pressure CO2 32L, Arterial Bl ood Partial Pressure O2 450H, Arterial Blood HCO3 14*L, Arterial Blood Total CO2 15.4L, Arterial Blood Oxygen Saturation 97, Arterial Blood Base Excess -11.5L, Blood Gas Ventilator Setting NO, Blood Gas Inspired Oxygen 3% 04/08/23 17:20: Hemoglobin 11.2L, Hematocrit 34L 04/08/23 17:35: Arterial Blood pH 7.39, Arterial Blood Partial Pressure CO2 33L, Arterial Blood Partial Pressure O2 452H, Arterial Blood HCO3 20L, Arterial Blood Total CO2 21.0, Arterial Blood Oxygen Saturation 100, Arterial Blood Base Excess -4.1L, Blood Gas Ventilator Setting YES, Blood Gas Inspired Oxygen 100% Microbiology 04/06/23 Blood Culture - Preliminary, Resulted 04/06/23 Urine Culture - Final, Complete >=3 Gram Positive Isolates No Susceptibility Performed Pending Labs Microbiology Date/Time Source Procedure Growth Status 04/06/23 13:36 Peripheral Lt Ac Blood Culture - Preliminary Resulted 04/06/23 13:30 Urine Clean Catch Urine Culture - Final >=3 Gram Positive Isolates No Susceptibility Performed Complete 04/06/23 13:15 Peripheral Rt Ac Blood Culture - Preliminary Resulted Laboratory Tests 04/06/23 12:54: Glucometer 72 04/06/23 12:55: White Blood Count 6.2, Red Blood Count 5.52, Hemoglobin 17.2, Hematocrit 50, Mean Corpuscular Volume 90, Mean Corpuscular Hemoglobin 31, Mean Corpuscular Hemoglobin Concent 35, Red Cell Distribution Width 13.2, Platelet Count 185, Mean Platelet Volume 9.7, Immature Granulocyte % (Auto) 0, Neutrophils (%) (Auto) 69, Lymphocytes (%) (Auto) 23, Monocytes (%) (Auto) 8, Eosinophils (%) (Auto) 0, Basophils (%) (Auto) 0, Neutrophils # (Auto) 4.3, Lymphocytes # (Auto) 1.4, Monocytes # (Auto) 0.5, Eosinophils # (Auto) 0.0, Basophils # (Auto) 0.0, Immature Granulocyte # (Auto) 0.0, Prothrombin Time 14.0, INR Comment 1.0, Activated Partial Thromboplast Time 31, Sodium Level 133, Potassium Level 4.4, Chloride Level 100, Carbon Dioxide Level 20, Anion Gap 13, Blood Urea Nitrogen 23, Creatinine 1.11, Estimat Glomerular Filtration Rate 54, BUN/Creatinine Ratio 21, Glucose Level 96, Calcium Level 9.8, Corrected Calcium , Total Bilirubin 0.8, Aspartate Amino Transf (AST/SGOT) 24, Alanine Aminotransferase (ALT/SGPT) 16, Alkaline Phosphatase 101, Troponin I 0.031, Total Protein 8.2, Albumin 4.6 04/06/23 13:15: Lactic Acid Level 1.49 04/06/23 13:30: Urine Color YELLOW, Urine Clarity CLOUDY, Urine pH 5.5, Urine Specific [place] >=1.030, Urine Protein 2+, Urine Glucose (UA) TRACE, Urine Ketones 1+, Urine Nitrite NEGATIVE, Urine Bilirubin 3+, Urine Urobilinogen 1.0, Urine Leukocyte Esterase NEGATIVE, Urine RBC (Auto) TRACE-I, Urine RBC RARE, Urine WBC RARE, Urine Squamous Epithelial Cells 2-5, Urine Crystals NONE, Urine Bacteria FEW, Urine Casts PRESENT, Urine Hyaline Casts 10-25, Urine Mucus SMALL, Urine Culture Indicated CULTURE PENDING 04/06/23 16:15: Troponin I 0.057 04/07/23 06:00: Troponin I 0.085, White Blood Count 4.5, Red Blood Count 5.03, Hemoglobin 15.4, Hematocrit 45, Mean Corpuscular Volume 90, Mean Corpuscular Hemoglobin 31, Mean Corpuscular Hemoglobin Concent 34, Red Cell Distribution Width 13.2, Platelet Count 141, Mean Platelet Volume 9.9, Immature Granulocyte % (Auto) 0, Neutroph ils (%) (Auto) 61, Lymphocytes (%) (Auto) 29, Monocytes (%) (Auto) 9, Eosinophils (%) (Auto) 0, Basophils (%) (Auto) 0, Neutrophils # (Auto) 2.7, Lymphocytes # (Auto) 1.3, Monocytes # (Auto) 0.4, Eosinophils # (Auto) 0.0, Basophils # (Auto) 0.0, Immature Granulocyte # (Auto) 0.0, Prothrombin Time 14.7, INR Comment 1.1, Activated Partial Thromboplast Time 33, Sodium Level 138, Potassium Level 3.3, Chloride Level 105, Carbon Dioxide Level 21, Anion Gap 12, Blood Urea Nitrogen 20, Creatinine 0.92, Estimat Glomerular Filtration Rate 68, BUN/Creatinine Ratio 22, Glucose Level 76, Calcium Level 8.7, Corrected Calcium 8.5, Total Bilirubin 0.7, Aspartate Amino Transf (AST/SGOT) 27, Alanine Aminotransferase (ALT/SGPT) 16, Alkaline Phosphatase 86, Total Protein 7.1, A lbumin 4.2, Triglycerides Level 201, Cholesterol Level 228, LDL Cholesterol Direct 169, VLDL Cholesterol 40, HDL Cholesterol 49 04/07/23 13:07: White Blood Count 4.1, Red Blood Count 4.76, Hemoglobin 14.8, Hematocrit 43, Mean Corpuscular Volume 91, Mean Corpuscular Hemoglobin 31, Mean Corpuscular Hemoglobin Concent 34, Red Cell Distribution Width 13.3, Platelet Count 143, Mean Platelet Volume 9.7, Sodium Level 136, Potassium Level 4.3, Chloride Level 107, Carbon Dioxide Level 22, Anion Gap 7, Blood Urea Nitrogen 20, Creatinine 1.06, Estimat Glomerular Filtration Rate 58, BUN/Creatinine Ratio 19, Glucose Level 83, Calcium Level 8.6 04/08/23 05:24: Sodium Level 135, Potassium Level 4.2, Chloride Level 107, Carbon Dioxide Level 19, Anion Gap 9, Blood Urea Nitrogen 26, Creatinine 1.22, Estimat Glomerular Filtration Rate 49, BUN/Creatinine Ratio 21, Glucose Level 114, Calcium Level 8.5, Corrected Calcium 8.7, Total Bilirubin 0.5, Aspartate Amino Transf (AST/SGOT) 27, Alanine Aminotransferase (ALT/SGPT) 15, Alkaline Phosphatase 74, Total Protein 6.5, Albumin 3.7 04/08/23 05:30: White Blood Count 3.7, Red Blood Count 4.51, Hemoglobin 14.0, Hematocrit 42, Mean Corpuscular Volume 92, Mean Corpuscular Hemoglobin 31, Mean Corpuscular Hemoglobin Concent 34, Red Cell Distribution Width 13.3, Platelet Count 107, Mean Platelet Volume 10.7, Immature Granulocyte % (Auto) 1, Neutrophils (%) (Auto) 58, Lymphocytes (%) (Auto) 29, Monocytes (%) (Auto) 11, Eosinophils (%) (Auto) 0, Basophils (%) (Auto) 0, Neutrophils # (Auto) 2.1, Lymphocytes # (Auto) 1.1, Monocytes # (Auto) 0.4, Eosinophils # (Auto) 0.0, Basophils # (Auto) 0.0, Immature Granulocyte # (Auto) 0.0, Percent Immature Platelet Fraction 3.2 04/08/23 12:25: Glucometer 128 04/08/23 13:18: Arterial Blood pH 7.21, Arterial Blood Partial Pressure CO2 33, Arterial Blood Partial Pressure O2 140, Arterial Blood HCO3 13, Arterial Blood Total CO2 14.2, Arterial Blood Oxygen Saturation 96, Arterial Blood Base Excess -13.6, Blood Gas Ventilator Setting NO, Blood Gas Inspired Oxygen 3% 04/08/23 14:03: Arterial Blood pH 7.26, Arterial Blood Partial Pressure CO2 32, Arterial Blood Partial Pressure O2 450, Arterial Blood HCO3 14, Arterial Blood Total CO2 15.4, Arterial Blood Oxygen Saturation 97, Arterial Blood Base Excess -11.5, Blood Gas Ventilator Setting NO, Blood Gas Inspired Oxygen 3% 04/08/23 17:20: Hemoglobin 11.2, Hematocrit 34 04/08/23 17:35: Arterial Blood pH 7.39, Arterial Blood Partial Pressure CO2 33, Arterial Blood Partial Pressure O2 452, Arterial Blood HCO3 20, Arterial Blood Total CO2 21.0, Arterial Blood Oxygen Saturation 100, Arterial Blood Base Excess -4.1, Blood Gas Ventilator Setting YES, Blood Gas Inspired Oxygen 100% Discharge Home Medications: Active Scripts Active Reported [Pred/Moxi/Brom] Drops 1 Drop OS QID COMPOUNDED EYE DROPS: PREDNISOLONE 1%, MOXIFLOXACIN 0.5%, BROMFENAC 0.075% [Pred/Moxi/Brom] Drops 1 Drop OD BID COMPOUNDED EYE DROPS: PREDNISOLONE 1%, MOXIFLOXACIN 0.5%, BROMFENAC 0.075% Lubricant 0.3%-0.4% Eye Drops (Propylene Glycol/Peg 400) 0.3 %-0.4 % Drops 2 Drops OU Q6H PRN Breztri Aerosphere Inhaler (Budesonide/Glycopyr/Formoterol) 160 Mcg-9 Mcg-4.8 Mcg/Actuation Hfa.aer.ad 2 Puff INH BID Losartan Potassium 100 Mg Tablet 100 Mg PO DAILY Metoprolol Succinate 100 Mg Tab.er.24h 100 Mg PO DAILY Ventolin Hfa (Albuterol Sulfate) 90 Mcg Hfa.aer.ad 2 Puff INH BID Amlodipine Besylate 5 Mg Tablet 5 Mg PO DAILY Ativan (Lorazepam) 0.5 Mg Tablet 0.5 Mg PO HS Solifenacin Succinate 5 Mg Tablet 5 Mg PO HS Nitrofurantoin (Nitrofurantoin Macrocrystal) 100 Mg Capsule 100 Mg PO HS Cetirizine HCl 10 Mg Tablet 10 Mg PO DAILY Montelukast Sodium 10 Mg Tablet 10 Mg PO HS Neurontin (Gabapentin) 300 Mg Capsule 600 Mg PO TID TAKES 2 (300MG) CAPS Venlafaxine HCl ER (Venlafaxine HCl) 150 Mg Cap.er.24h 150 Mg PO DAILY Pantoprazole Sodium 40 Mg Tablet.dr 40 Mg PO BID Instructions to patient/family Please see electronic discharge instructions given to patient. Diagnosis/Problems Diagnosis/Problems (1) Cardiac tamponade after operative procedure (2) Hypotension Qualifiers: Qualified Codes: I95.89 - Other hypotension (3) Status post insertion of drug-eluting stent into left anterior descending (LAD) artery Clinical Quality Measures Smoking Cessation Counseling: Counseling-Symptomatic: 3-10 Minutes RAFIQ ROJAS DO Apr 08, 2023 17:29
[2023-04-08 17:31] LABS: HEMOGLOBIN 11.2 g/dL (11.5-16.0)
[2023-04-08 17:37] LABS: ABG BASE EXCESS -4.1 MMOL/L (-2.5-2.5); ABG OXYGEN SATURATION 100 % (94-100); ABG PCO2 33 MMHG (35-45); ABG PH 7.39 (7.37-7.43); ABG PO2 452 MMHG (79-93)
[2023-04-08 17:38] LABS: INSPIRED O2 100%; VENTILATOR YES
[2023-04-08 18:30] VITALS: BP 86/54
[2023-04-08] MEDS ORDERED: [UNRECOGNIZED DRUG - REMARK] OD SCH (21:00)
[2023-04-08] MEDS ORDERED: TICAGRELOR 90 MG TABLET (BRILINTA) PO SCH (21:00)
[2023-04-09] MEDS ORDERED: MAGNESIUM 1 GM/100 ML IVPB 100 ML IV SCH (06:00)
[2023-04-09] MEDS ORDERED: POTASSIUM CL 10MEQ/50ML IVPB 50 ML IV SCH (06:00)
[2023-04-09] MEDS ORDERED: POTASSIUM CHLORIDE 20 MEQ TABLET PO SCH (06:00)
[2023-04-09] MEDS ORDERED: ASPIRIN enteric coated 81MG TABLET PO SCH (09:00)
--- NOTE | 2023-04-13 10:03 | Conscious Sedation/ASA ---
Moderate Sedation PreProcedure ASA Score Airway Lungs Heart ASA score ASA 1: a normal healthy patient ASA 2: a patient with a mild systemic disease (mid diabetes, controlled hypertension, obesity ASA 3: a patient with a severe systemic disease that limits activity (angina, COPD, prior Myocardial infarction) ASA 4: a patient with an incapacitating disease that is a constant threat to life (CHF, renal failure) ASA 5: a moribund patient not expected to survive 24 hrs. (ruptured aneurysm) ASA 6: a declared brain- patient whose organs are being harvested. For emergent operations, add the letter E after the classification Sedation Plan The patient is an appropriate candidate to undergo the planned procedure, sedation, and anesthesia. The patient immediately re-assessed prior to indication. MARILIA,MayApr 13, 2023 10:03
== END 2023-04-08 20:30 | disposition short-term general hospital (02) | DRG 321 ==
LOC: EDUNIT# 12:47 → ER 12:49 → CSD 18:24 → 4TH 04-07 14:00 → OBSVTOIN 04-08 10:00 → ICU 04-08 12:45
PROVIDERS: ADMIT Internal Medicine; ATTEND Internal Medicine
PROC: 4A023N7 Measurement of Cardiac Sampling and Pressure, Left Heart, Percutaneous Approach (ICD-10-PCS; principal; 2023-04-08)
PROC: 027037Z Dilation of Coronary Artery, One Artery with Four or More Drug-eluting Intraluminal Devices, Percutaneous Approach (ICD-10-PCS; 2023-04-08)
PROC: B2111ZZ Fluoroscopy of Multiple Coronary Arteries using Low Osmolar Contrast (ICD-10-PCS; 2023-04-08)
PROC: 0W9D30Z Drainage of Pericardial Cavity with Drainage Device, Percutaneous Approach (ICD-10-PCS; 2023-04-08)
DX: I21.4 Non-ST elevation (NSTEMI) myocardial infarction (principal); J96.21 Acute and chronic respiratory failure with hypoxia; I31.4 Cardiac tamponade; I95.89 Other hypotension; J44.9 Chronic obstructive pulmonary disease, unspecified; Z99.81 Dependence on supplemental oxygen; F41.9 Anxiety disorder, unspecified; R10.9 Unspecified abdominal pain; F17.210 Nicotine dependence, cigarettes, uncomplicated; I25.10 Atherosclerotic heart disease of native coronary artery without angina pectoris; R00.1 Bradycardia, unspecified
CPT/HCPCS: 33016; 36415; 36600; 71045; 76700; 80048; 80053; 80061; 81000; 82805; 82947; 83605; 84484; 85014; 85018; 85025; 85027; 85347; 85610; 85730; 87040; 87081; 87088; 93005; 93308; 93454; 94002; 94640; 94760; G0378